=== PATIENT | male | born 1965 | race African-American/Black ===

== ENCOUNTER 2022-07-28 10:48 | Outpatient (REF) | payer OTHER, SELFPAY ==
[2022-07-28 11:04] LABS: MANUAL DIFF FLAG NO
[2022-07-28 11:47] LABS: Basophils Percent Auto 0.7 % (0-2); Hematocrit 46.5 % (42.0-52.0); Hemoglobin 15.6 g/dl (14.0-18.0); Lymphocytes Absolute Auto 1.6 X10*3/uL (1.2-4.9); Lymphocytes Percent Auto 51.2 % (20-40); Mean Corpuscular HGB Conc 33.5 g/dl (31.0-36.0); Mean Corpuscular Hemoglobin 30.8 pg (27.0-33.0); Mean Corpuscular Volume 91.7 fL (80.0-98.0); Mean Platelet Volume 9.9 fL (9.4-12.4); Monocytes Absolute Auto 0.2 X10*3/uL (0.1-1.2); Monocytes Percent Auto 6.9 % (2-11); Neutrophils Absolute Auto 1.2 x10*3/uL (2.0-8.3); Neutrophils Percent Auto 40.2 % (45-73); Platelet Count 196 X10*3/uL (160-400); Red Blood Count 5.07 X10*6/uL (4.60-5.80); Red Cell Distribution Width 12.1 % (11.0-16.0)
[2022-07-28 12:57] LABS: Alanine Aminotransferase 46 U/L (0-40); Albumin Level 4.2 g/dL (3.5-5.0); Alkaline Phosphatase 81 U/L (39-117); Anion Gap 10 (12-20); Aspartate Amino Transferase 48 U/L (5-37); Bilirubin Total 0.6 mg/dL (0.0-1.0); Blood Urea Nitrogen 13 mg/dL (9-16); Calcium 9.8 mg/dL (8.4-10.2); Carbon Dioxide 31 mmol/L (22-29); Chloride 102 mmol/L (96-108); Cholesterol 232 mg/dL; Estimated Glomerular Filt Rate > 60; Glucose Fasting 100 mg/dL (60-99); HDL Cholesterol 43 mg/dL; LDL Cholesterol Calculated 166 mg/dl; Potassium 4.5 mmol/L (3.3-5.1); Sodium 138 mmol/L (135-145); Total Protein 6.9 g/dL (6.5-8.0); Triglycerides 117 mg/dL
[2022-07-28 13:08] LABS: Folate > 20.0 ng/mL (> or = 4.0); Vitamin B12 511 pg/mL (200-900)
[2022-07-28 13:17] LABS: Prostate Specific Antigen Scr 0.66 ng/mL (<0.05-4.0); TSH reflex Free T4 1.44 uIU/mL (0.32-4.0); Vitamin D 25-OH Total 38.7 ng/mL (>30)
[2022-08-02 10:13] LABS: Vitamin B1 132 nmol/L (8-30)
== END 2022-07-28 10:49 | disposition home or self-care (01) ==
LOC: HO.LAB 10:48
PROVIDERS: PCP Internal Medicine; Visit Provider Internal Medicine
DX: Z00.00 Encounter for general adult medical examination without abnormal findings (principal); D68.00 Von Willebrand disease, unspecified; E78.00 Pure hypercholesterolemia, unspecified; F10.21 Alcohol dependence, in remission; E53.8 Deficiency of other specified B group vitamins; E55.9 Vitamin D deficiency, unspecified
CPT/HCPCS: 36415; 80053; 80061; 82306; 82607; 82746; 84153; 84425; 84443; 85025

== ENCOUNTER 2022-07-29 09:42 | Outpatient (REF) | payer OTHER, SELFPAY ==
[2022-07-29 09:56] LABS: Appearance Urine Clear; Color Urine Yellow; Glucose Urine UA Negative (Negative); Leukocyte Esterase Urine Negative (Negative); Nitrite Urine Negative (Negative); Specific Gravity - Urine 1.015 (1.005-1.025); Urine Blood Negative (Negative); Urine Ketones Negative (Negative); Urine Protein Negative (Neg-Trace)
== END 2022-07-29 09:43 | disposition home or self-care (01) ==
LOC: HO.LNP 09:42
PROVIDERS: Visit Provider Internal Medicine
DX: R30.0 Dysuria (principal); D68.00 Von Willebrand disease, unspecified
CPT/HCPCS: 81003

== ENCOUNTER → 2022-10-08 09:00 | Outpatient (BNVA) | payer OTHER, SELFPAY | PROVIDERS: PCP Internal Medicine; Visit Provider Physician Assistant | DX: Z01.818 Encounter for other preprocedural examination (principal); D68.00 Von Willebrand disease, unspecified; Z86.010 Personal history of colon polyps | CPT/HCPCS: 99202 ==

== ENCOUNTER 2023-01-19 07:12 | Day surgery (SDC) | payer OTHER, SELFPAY ==
[2023-01-15 12:36] VITALS: BMI 21.5
--- NOTE | 2023-01-18 09:33 | HO.ANESPROP2 ---
Documented by User: Greer Franco NP 01/18/23 09:35 HPI - Anesthesia Eval Consult details Narrative: 57yo M for Colonoscopy Hx ETOH abuse. In recovery PMFSH Active Problems Active Problems: All Active Problems (Updated 11/17/22 @ 09:45 by Matthieu Egan MD) Pure hypercholesterolemia (Acute) Thiamine deficiency (Acute) History of colon polyps (Acute) Colon cancer screening (Acute) Low back pain (Acute) Vitamin D deficiency (Acute) Psychosis (Acute) Bipolar affective disorder (Acute) Alcoholism in recovery (Acute) Annual physical exam (Acute) Von Willebrand disease (Acute) Past Medical History Medical History Alcoholism in recovery Bipolar affective disorder Low back pain Psychosis Pure hypercholesterolemia Thiamine deficiency Vitamin D deficiency Von Willebrand disease Surgical History Surgical History H/O colonoscopy with polypectomy History of inguinal hernia repair, bilateral Hx of local excision of skin lesion Social History Social History Housing: Other ([facility]) Patient Tobacco Use Status: Never used Tobacco e-Cigarette/Vaping Use: Never Used Use of substances other than those prescribed or required for medical reasons: No Are you DNR?: No Advance Directives: No Advance Directives Information Provided: Yes service: No Current occupational status: unemployed Cognitive needs: No Hearing needs: No Vision needs: No Meds Allergies Allergy/AdvReac Type Severity Reaction Status Date / Time No Known Allergies Allergy Verified 11/17/22 09:25 Home Medications Medication Instructions Recorded Confirmed Last Taken Type acetaminophen 650 mg 650 mg PO Q8H PRN pain 07/24/22 11/17/22 Unknown History tablet,extended release acetaminophen 650 mg 650 mg PO Q12H 07/24/22 11/17/22 Unknown History tablet,extended release (Tylenol Arthritis Pain) benztropine 0.5 mg tablet 0.5 mg PO BEDTIME 07/24/22 11/17/22 Unknown History bupropion HCl 150 mg tablet,12 hr 150 mg PO QAM 07/24/22 11/17/22 Unknown History sustained-release cholecalciferol (vitamin D3) 25 25 mcg PO DAILY 07/24/22 11/17/22 Unknown History mcg (1,000 unit) tablet (Vitamin D3) diclofenac sodium 1 % topical gel g topical QID PRN pain 07/24/22 11/17/22 Unknown History diphenhydramine HCl 25 mg capsule See Rx Instructions .Route .COMPLEX 07/24/22 11/17/22 Unknown History (Banophen) folic acid 1 mg tablet 1 mg PO DAILY 07/24/22 11/17/22 Unknown History guaifenesin 200 mg/5 mL oral liquid 400 mg PO Q6H 07/24/22 11/17/22 Unknown History naloxone 4 mg/actuation nasal spray spray intranasal 07/24/22 11/17/22 Unknown History risperidone 0.5 mg tablet 1.5 mg PO BEDTIME psychosis 07/24/22 11/17/22 Unknown History thiamine HCl (vitamin B1) 100 mg 100 mg PO DAILY 07/24/22 11/17/22 Unknown History tablet thiamine mononitrate (vit B1) 100 100 mg PO DAILY 07/24/22 11/17/22 Unknown History mg tablet (Vitamin B-1 (mononitrate)) risperidone 1 mg tablet 1 mg PO BID PRN psychosis 11/23/22 11/23/22 Unknown History Exam Exam Date and Time: January 18, 2023 0933 Height,Weight and Vital Signs: Height 6 ft 1 in Weight 74.049 kg Pertinent Lab Results Pertinent Lab Results: Laboratory Tests 07/28/22 07/28/22 11:03 11:03 WBC 3.0 L Hgb 15.6 Hct 46.5 Plt Count 196 Sodium 138 Potassium 4.5 Chloride 102 Carbon Dioxide 31 H BUN 13 Creatinine 1.04 Assessment and Plan Assessment Anesthesia Assessment: Chart Reviewed Documented by User: Jaylin Hawkins MD 01/19/23 07:55 [facility] Past Medical History Medical History Alcoholism in recovery Bipolar affective disorder Low back pain Psychosis Pure hypercholesterolemia Thiamine deficiency Vitamin D deficiency Von Willebrand disease Family History Family history of problems with anesthesia: No Surgical History Surgical History H/O colonoscopy with polypectomy History of inguinal hernia repair, bilateral Hx of local excision of skin lesion History of Problems with Anesthesia: No Social History Social History Housing: Other ([facility]) Patient Tobacco Use Status: Never used Tobacco e-Cigarette/Vaping Use: Never Used Use of substances other than those prescribed or required for medical reasons: No Are you DNR?: No Advance Directives: No Advance Directives Information Provided: Yes service: No Current occupational status: unemployed Cognitive needs: No Hearing needs: No Vision needs: No Meds Allergies Allergy/AdvReac Type Severity Reaction Status Date / Time No Known Allergies Allergy Verified 11/17/22 09:25 Home Medications Medication Instructions Recorded Confirmed Last Taken Type acetaminophen 650 mg 650 mg PO Q8H PRN pain 07/24/22 11/17/22 Unknown History tablet,extended release acetaminophen 650 mg 650 mg PO Q12H 07/24/22 11/17/22 Unknown History tablet,extended release (Tylenol Arthritis Pain) benztropine 0.5 mg tablet 0.5 mg PO BEDTIME 07/24/22 11/17/22 Unknown History bupropion HCl 150 mg tablet,12 hr 150 mg PO QAM 07/24/22 11/17/22 Unknown History sustained-release cholecalciferol (vitamin D3) 25 25 mcg PO DAILY 07/24/22 11/17/22 Unknown History mcg (1,000 unit) tablet (Vitamin D3) diclofenac sodium 1 % topical gel g topical QID PRN pain 07/24/22 11/17/22 Unknown History diphenhydramine HCl 25 mg capsule See Rx Instructions .Route .COMPLEX 07/24/22 11/17/22 Unknown History (Banophen) folic acid 1 mg tablet 1 mg PO DAILY 07/24/22 11/17/22 Unknown History guaifenesin 200 mg/5 mL oral liquid 400 mg PO Q6H 07/24/22 11/17/22 Unknown History naloxone 4 mg/actuation nasal spray spray intranasal 07/24/22 11/17/22 Unknown History risperidone 0.5 mg tablet 1.5 mg PO BEDTIME psychosis 07/24/22 11/17/22 Unknown History thiamine HCl (vitamin B1) 100 mg 100 mg PO DAILY 07/24/22 11/17/22 Unknown History tablet thiamine mononitrate (vit B1) 100 100 mg PO DAILY 07/24/22 11/17/22 Unknown History mg tablet (Vitamin B-1 (mononitrate)) risperidone 1 mg tablet 1 mg PO BID PRN psychosis 11/23/22 11/23/22 Unknown History Exam Airway Mallampati Class: III TM Dist: >3cm Neck ROM: Full Assessment and Plan Assessment Anesthesia Assessment: Anesthesia Plan Discussed Final Anesthetic Review Family History of Problems with Anesthesia: No History of Problems with Anesthesia: No NPO: Yes ASA Class: II Final Preanesthetic Review: No Changes in Pt Med Stat, Meds/Allgs Chart Reviewed, Consent Obtained/Reviewed and Anes Risks/Benef Reviewed Patient Risk: Low Procedure Risk: Low Anesthetic Plan Anesthetic Plan: MAC: Disposition: Standard PACU
[2023-01-19 07:26] VITALS: BP 116/81; PULSE 74; RESP 16; TEMP 36.2; O2SAT 98
--- NOTE | 2023-01-19 07:35 | MHC.SHP ---
Pre-Procedural Eval Section A Date of Service: 01/19/23 Section B Chief Complaint: Von Willebrand disease,screening, hx colonic polyp Relevant Family History (Specify if Yes): No Relevant Social History: None Present Medications: see Short Stay Collaborative assessment Medical History: Significant History (Alcoholism in recovery Bipolar affective disorder Low back pain Psychosis Pure hypercholesterolemia Thiamine deficiency Vitamin D deficiency Von Willebrand disease) History of Previous Operations: Relevant previous surgery/procedure and date(s) (H/O colonoscopy with polypectomy History of inguinal hernia repair, bilateral Hx of local excision of skin lesion) Allergies: Allergies Allergy/AdvReac Type Severity Reaction Status Date / Time No Known Allergies Allergy Verified 11/17/22 09:25 Review of Systems Sugical H&P ROS: Negative: Constitution, Cardiovascular, Respiratory, Neurological, Psychiatric, Hem-Onc, Allergic/Immunologic, Gastrointestinal, Genitourinary, Musculoskeletal, Integumentary, Endocrine and Eyes/Ears/Nose/Throat Exam Surgical H&P Exam: Normal: HEENT, Normal: Heart, Normal: Lungs, Normal: Extremities, Normal: Abdomen, Normal: Skin and Normal: Neurological Plan Diagnosis/Plan: Unchanged I have reviewed the history and physical and performed a pertinent physical examination on my patient. No changes have occurred unless specified. Time Spent With Patient Time: Total time managing care of this patient today ____ minutes.
[2023-01-19] MEDS: Lactated Ringers 1,000 ML 100 ML IVCONT (07:58)
--- NOTE | 2023-01-19 08:05 | P.OP_ITS ---
Operative Note Operative Note Date of Service: 01/19/23 Narrative: Operative Information Procedure Description: Colonoscopy Indication: screening Anesthesia: MAC COLONOSCOPY Instrument: Olympus variable stiffness pediatric scope 190L Colonoscopy Monitoring: Vital signs and clinical assessment, continuous EKG monitoring, Pulse oximetry, Carbon Dioxide monitoring and blood pressure monitoring were done throughout the procedure. Colon withdrawal time was 8 minutes. Procedure: The patient was placed in the left lateral decubitis position and pre-procedure medications were administered. After a digital rectal examination of the ano-rectum, the video colonoscope was inserted into the rectum and advanced through the colon to the cecum/TI. The colonoscope was slowly withdrawn in a retrograde panoramic fashion and the colon mucosa was carefully examined including a retroflexed view of the rectum. Findings and interventions are described below. Procedure Difficulty: difficult, due to floppy colon Findings: Terminal Ileum- over ileocecal valve there was an abnormally protuberant area, with concern for an adenoma, this was removed with hot snare- measured about 8- 10 mm Cecum:normal Ascending Colon: normal Transverse Colon -normal Descending Colon:normal Sigmoid Colon: normal Rectum: Retroflexion with small internal hemorrhoids, grade I Anorectum - normal Colon preparation: Dunlap Bowel Preparation Scale Right colon; 2 Transverse colon: 2 Left colon; 2 (0 = Unprepared colon segment with mucosa not seen due to solid stool that cannot be cleared. 1 = Portion of mucosa of the colon segment seen, but other areas of the colon segment not well seen due to staining, residual stool and/or opaque liquid. 2 = Minor amount of residual staining, small fragments of stool and/or opaque liquid, but mucosa of colon segment seen well. 3 = Entire mucosa of colon segment seen well with no residual staining, small fragments of stool or opaque liquid) Impression and Post Procedure Diagnosis: polyp internal hemorrhoids Plan: High fiber diet leaflet Avoid straining at stool, epsom salts and sitz bath, anusol supps or cream Repeat Colonoscopy in 5-7 years due to polyp or earlier if clinically indicated Above findings were reviewed with the patient and relevant handouts were provided if indicated.
[2023-01-19 08:58] VITALS: BP 160/62; PULSE 84; RESP 17; TEMP 36.2; O2SAT 99
[2023-01-19 09:13] VITALS: BP 131/89; PULSE 75; RESP 16; TEMP 36.3; O2SAT 100
== END 2023-01-19 10:01 | disposition home or self-care (01) ==
PROVIDERS: PCP Internal Medicine; Visit Provider Internal Medicine Gastroenterology
PROC: 0DJD8ZZ Inspection of Lower Intestinal Tract, Via Natural or Artificial Opening Endoscopic (ICD-10-PCS; CPT 45378; principal; 2023-01-19 08:20)
DX: Z12.11 Encounter for screening for malignant neoplasm of colon (principal); Z86.010 Personal history of colon polyps; K63.5 Polyp of colon; K59.00 Constipation, unspecified; D68.00 Von Willebrand disease, unspecified; Z79.899 Other long term (current) drug therapy; K64.1 Second degree hemorrhoids
CPT/HCPCS: 45385; 88305

== ENCOUNTER → 2023-02-01 07:54 | Outpatient (BNVA) | payer OTHER, SELFPAY | PROVIDERS: Visit Provider Physician Assistant | DX: K64.9 Unspecified hemorrhoids (principal); Z86.010 Personal history of colon polyps | CPT/HCPCS: 99212 ==

== ENCOUNTER 2023-03-22 10:55 | Outpatient (REF) | payer OTHER, SELFPAY ==
--- NOTE | 2023-03-22 11:55 | MHC.AU.HA1 ---
Hearing Aid Evaluation Date of Visit: 03/22/23 Historical Information: Description of Hearing: Moderate sloping to moderately-severe rising to moderate conductive hearing loss in the right ear; Normal hearing left ear Summary: Roland reported that he has had hearing loss in his right ear for as long as he can remember. He is unsure of the exact etiology. However, about 1.5 months ago, he had a pressure equalization tube placed at that [facility]. PE tube placement had no effect on his hearing. Roland reported that he relies on his left ear and has difficulty hearing in all listening environments. He currently lives in a sober house through . He has common spaces including the kitchen and living room. He often has difficulty communicating with his housemates if it is noisy or there is a group of people. He has never had a hearing aid but is hoping it will help ease some of his communication difficulties. Hearing Aid Prescription: Based on the individual?s shared listening needs, communication environments, dexterity, desire for connectivity, and personal preferences, the following prescription for amplification has been made: Right ear: Make, Model, Color: Phonak Audeo L70-R Color: [place] Brown Battery Size: Rechargeable Technology Analyst/Slim Tube: 1P Type of Earmold/Dome/CShell/SlimTip: Canal c-shell in clear Plan of Care: Patient wishes to purchase hearing aids as prescribed Action Taken/Action Needed: Hearing Instrument Fitting to be scheduled when materials arrive Primary Diagnosis: H90.11 ConductiveHL Unilateral Right Ear, W/Unrestricted Contralateral Signature: Provider: Marisa Lambert, [facility]
== END 2023-03-22 10:56 | disposition home or self-care (01) ==
LOC: HO.HAP 10:55
PROVIDERS: Visit Provider Otolaryngology
DX: Z46.1 Encounter for fitting and adjustment of hearing aid (principal); H90.11 Conductive hearing loss, unilateral, right ear, with unrestricted hearing on the contralateral side
CPT/HCPCS: 92591; V5275

== ENCOUNTER 2023-05-13 12:44 | Outpatient (REF) | payer OTHER, SELFPAY ==
--- NOTE | 2023-05-13 13:37 | MHC.AU.HA2 ---
Hearing Instrument Fitting- Adult- Binaural Date of Visit: 05/13/23 Hearing Instruments Dispensed: Right Ear: Make, Model, Color, Serial Number: Steffanie Matias L70-R S#[id number] Color: Burt Brown Manager Payroll Repair Warranty: 06/28/2026 Manager Payroll Loss and Damage Warranty: 06/28/2026 [facility] Service Plan: 05/10/2023 Battery Size: Rechargeable Infrastructure Security Architect/Slim Tube: 1P Earmold/Dome/CShell/SlimTip: Canal c-shell in clear SN: [id number] Ronna: 06/29/2023 Type of Wax Guard: Cerustop Accessories/Assistive Technology: Emergency Vehicle Technician SN: [id number] Summary of Fitting: Performed feedback analyzer and real ear measures. Decreased gain level to 85% at Edzer's request due to perceived loudness. Discussed care, use, and rechargeability including manually turning on/off, volume control use, and changing wax guard. Practiced insertion/removal. Roland was easily able to manipulate the hearing aid. He did not want to pair the hearing aid to his cell phone at this time. Recommendations: A hearing instrument follow-up was scheduled. Diagnosis Code(s): Primary Diagnosis: H90.11 ConductiveHL Unilateral Right Ear, W/Unrestricted Contralateral Signature: Provider: Marisa Lambert, [facility]
== END 2023-05-13 12:45 | disposition home or self-care (01) ==
LOC: HO.HAP 12:44
PROVIDERS: Visit Provider Internal Medicine
DX: Z46.1 Encounter for fitting and adjustment of hearing aid (principal); H90.11 Conductive hearing loss, unilateral, right ear, with unrestricted hearing on the contralateral side
CPT/HCPCS: V5011; V5020; V5241; V5257; V5264

== ENCOUNTER 2023-05-18 09:34 | Outpatient (AMB) | payer OTHER, SELFPAY ==
[2023-05-18 09:46] VITALS: BP 122/82; PULSE 77; O2SAT 98; BMI 21.6
--- NOTE | 2023-05-18 09:46 | A.OFFPC_ITS ---
Vital Signs 05/18/23 09:46 Height 6 ft 1 in Weight 163 lb 6 oz BMI 21.6 BP 122/82 Blood Pressure Location Lt brachial Position Sitting Pulse 77 Pulse Source Pulse Oximeter Pulse Oximetry (%) 98 Oxygen Delivery Method Room Air Intake Visit Reasons: hyperlipidemia Product Management Internship Required: No Accompanied by: Self / Same As Patient Allergies No Known Allergies Allergy (Verified 05/18/23 10:28) Medication List - Last Reconciled 05/18/23 by Matthieu Egan MD acetaminophen 1 to 2 tablets orally every 6 hours PRN (maximum of 2000 mg of Acetaminophen/day) 30 days benztropine 0.5 mg PO BEDTIME bupropion HCl 150 mg PO QAM cholecalciferol (vitamin D3) (Vitamin D3) 25 mcg PO DAILY diclofenac sodium 1% 2 grams topical QID PRN diphenhydramine HCl (Banophen) 1 to 2 capsules daily at bedtime as needed for sleep; methylcellulose (laxative) (Citrucel) 500 mg PO TID 30 days naloxone 4 mg/actuation sprays intranasal thiamine HCl (vitamin B1) 100 mg PO DAILY thiamine mononitrate (vit B1) (Vitamin B-1 (mononitrate)) 100 mg PO DAILY ziprasidone HCl (Geodon) 20 mg PO .QD Tobacco use date assessed: 05/18/23 Dental Screening Dental Screen Date: 05/18/23 Did you have a dental visit in the last 12 months?: Yes Did you have a dental problem in the last 6 months where you did not have access to dental care?: No Was dental information given to patient?: Patient has dentist HPI hyperlipidemia HPI Details Patient comes in today for his follow up visit States that he has been experiencing on and off neck pain and low back pain for a while now He would take Tylenol and use his Diclofenac gel when needed and states that these have been enough to keep his neck and back pain controlled so far States that he is still in a recovery program for alcoholics and has not had any alcohol to drink for a few years now States that he feels okay otherwise He denies any headaches or dizziness Denies any chest pains, no SOB No nausea/vomiting, no abdominal pain No change in bowel habits noted PFSH Medical History Pure hypercholesterolemia Thiamine deficiency Low back pain Vitamin D deficiency Psychosis Bipolar affective disorder Alcoholism in recovery Von Willebrand disease Surgical History H/O colonoscopy with polypectomy Hx of local excision of skin lesion History of inguinal hernia repair, bilateral Social History Housing: Other ([facility]) Patient Tobacco Use Status: Never used Tobacco e-Cigarette/Vaping Use: Never Used service: No Current occupational status: unemployed Cognitive needs: No Hearing needs: No Vision needs: No Questionnaire PHQ-9 Over the last 2 weeks, how often have you been bothered by any of the following problems? 1. Little interest or pleasure in doing things: more than half the days 2. Feeling down, depressed, or hopeless: more than half the days 3. Trouble falling or staying asleep, or sleeping too much: several days 4. Feeling tired or having little energy: several days 5. Poor appetite or overeating: not at all 6. Feeling bad about yourself - or that you are a failure or have let yourself or your family down: several days 7. Trouble concentrating on things, such as reading the newspaper or watching television: nearly every day 8. Moving or speaking so slowly that other people could have noticed. Or the opposite - being so fidgety or restless that you have been moving around a lot more than usual: several days 9. Thoughts that you would be better off or of hurting yourself in some way: not at all Total score: 11 Depression Screening Interpretation: Positive Depression Screening Follow-up: Existing condition and In treatment Depression Screening Done: Yes 20983 - PHQ-9 Billing: Yes Source: Developed by Drs. Omero Walsh, Kathleen Callejas, Paco Quezada and colleagues, with an educational brice from [employer]. Thrive Questionnaire Date Thrive assessed: 05/18/23 I am a: Patient What is your living situation today?: I have a steady place to live Within the past 12 months, did the food you bought not last and you didn't have the money to get more?: Never true Within the past 12 months, did you worry whether your food would run out before you got money to buy more?: Never true Do you have trouble paying for medicines?: No Do you have trouble getting transportation to medical appointments?: No Do you have trouble paying your heating and electricity bill?: No Do you have trouble taking care of your child, family member or friend?: No Do you have trouble with day-to-day activities such as bathing, preparing meals, shopping, managing finances, etc.?: No Are you currently unemployed and looking for a job?: No Are you interested in more education?: No Please select the resources that you would like help with: None Currently or been in a relationship where the following occur: no concerns reported AUDIT C Alcohol Use Questionnaire (AUDIT-C) 1. How often do you have a drink containing alcohol?: Never (since he quit drinking; currently in recovery) 3. How often do you have six or more drinks on one occasion?: Never Total Score: 0 Score Reviewed/Action Taken: Yes LALI-7 AMB Questionnaire LALI-7 Date LALI - 7 assessed: 05/18/23 Feeling nervous, anxious, or on edge: 2 = More than half the days Not being able to stop or control worryin = Several days Worrying too much about different things: 1 = Several days Trouble relaxin = Several days Being so restless that it is hard to sit still: 1 = Several days Becoming easily annoyed or irritable: 0 = Not at all Feeling afraid as if something awful might happen: 1 = Several days Total LALI-7 score (0-4 normal; 5-9 mild; 10-14 moderate; 15-21 severe): 7 Source: Developed by Drs. Omero Walsh, Kathleen Callejas, Paco Quezada and colleagues, with an educational brice from [employer]. LALI-7 Assessment Billing LALI-7 Assessment Tool: LALI-7 Assessment 25289 Review of Systems Const Denies chills, Denies fatigue, Denies fever(s) and Denies headache(s) ENT Denies dysphagia, Denies dizziness, Denies otalgia, Denies headache(s), Reports neck pain (on and off lately), Denies odynophagia and Denies sore throat Card Denies chest pain, Denies rapid heart rate, Denies irregular heart rhythm, Denies palpitations and Denies dyspnea Resp Denies cough, Denies dyspnea and Denies wheezing GI Denies abdominal pain, Denies constipation, Denies dysphagia, Denies heartburn, Denies diarrhea, Denies nausea, Denies odynophagia and Denies vomiting Denies hematuria, Denies difficulty urinating, Denies dysuria and Denies urinary frequency Musc Reports back pain (on and off), Denies joint swelling and Reports neck pain (on and off lately) Skin/Breast Denies rash Neuro Denies dizziness, Denies headache(s) and Denies paresthesias Psych Reports anxiety, Reports depression (controlled on Rx) and Reports paranoia (believes that there are people with guns after him (in the past)) Endo Denies fatigue and Denies palpitations Aller/Immun Denies wheezing Physical exam (Primary Care) Vital Signs: Last Vital Signs Pulse 77 05/18/23 09:46 BP 122/82 05/18/23 09:46 Pulse Ox 98 05/18/23 09:46 Oxygen Delivery Method Room Air 05/18/23 09:46 BMI result Body Mass Index 21.6 Tobacco/Smoking Status: Tobacco use Status Tobacco use date assessed 05/18/23 05/18/23 09:53 Patient Tobacco Use Status Never used Tobacco 05/18/23 09:53 e-Cigarette/Vaping Use Never Used 05/18/23 09:53 PHQ-9: PHQ-9 Score PHQ-9: Total score 11 05/18/23 09:53 Depression Screening Interpretation: Positive Depression Screening Follow-up: Existing condition and In treatment Thrive Assessment: Date of Thrive Assessment Date Thrive assessed 05/18/23 05/18/23 09:53 Currently or been in a relationship where the following occur: no concerns reported Const General: no acute distress and alert HENMT Ears: TM's normal bilaterally and EAC's normal Throat: Yes posterior oropharynx normal and Yes tonsils normal (no TP congestion) Neck Neck: Yes no lymphadenopathy and Yes supple Thyroid: Thyroid normal Resp Auscultation: clear to auscultation bilaterally, no rales and no wheezes Cardio Rate: regular rate Rhythm: regular rhythm Heart sounds: no murmurs GI Palpation (GI): Soft to palpation and nontender Auscultation: normal bowel sounds General: Yes no CVA tenderness Back/Spine/Pelvis Back: no CVA tenderness Cervical Spine: Cervical spine tenderness Thoracic/Lumbar Spine: lumbar spinal tenderness Skin Rashes: no rashes Extrem General: Yes no clubbing, cyanosis or edema Assessment and Plan Assessment & Plan (1) Pure hypercholesterolemia: Code(s): E78.00 - Pure hypercholesterolemia, unspecified Plan: Patient is reminded that his cholesterol levels were high when they were checked earlier this year in July 2022, with his LDL cholesterol at 166 mg/dl Reinforced low cholesterol diet Will have patient recheck his cholesterol levels and labs in 3 months for follow up - instructed to try to get these done BEFORE he comes in for his appointment then (2) Von Willebrand disease: Code(s): D68.00 - Von Willebrand disease, unspecified Plan: States that he's had no issues with bleeding lately Have tried to obtain copies of his medical records from [place] for review but have not been successful so far Will go ahead and send him for some labs in 3 months to check this out as well (3) Low back pain: Code(s): M54.50 - Low back pain, unspecified Qualifiers: Chronicity: unspecified Back pain laterality: unspecified Sciatica presence: without sciatica Qualified Code(s): M54.50 - Low back pain, unspecified Plan: Continue Diclofenac sodium 1% apply to painful areas QID PRN and Acetaminophen 325 mg 1 to 2 tablets Q 8 hours PRN Will send patient for lumbar spine x-rays for further evaluation - advised that unless his symptoms get significantly worse, he can do these at any time (now or in 3 months if he wants to get both his labs and x-rays done at the same time) (4) Vitamin D deficiency: Code(s): E55.9 - Vitamin D deficiency, unspecified Plan: Continue Vitamin D3 1000 units QD (5) Neck pain: Code(s): M54.2 - Cervicalgia Plan: Will also send patient for cervical spine x-rays at any time for further evaluation of his recent recurrent neck pain (6) Thiamine deficiency: Code(s): E51.9 - Thiamine deficiency, unspecified Plan: Continue Thiamine 100 mg QD Will recheck his Vitamin B1 level in 3 months for follow up (7) Alcoholism in recovery: Code(s): F10.21 - Alcohol dependence, in remission Plan: In recovery; is currently enrolled and participating in the [facility] program in [place] Continue Thiamine 100 mg QD and Folic Acid 1 mg QD (8) Bipolar affective disorder: Code(s): F31.9 - Bipolar disorder, unspecified Qualifiers: Active/Remission status: currently active Current bipolar episode type: mixed Current episode severity: unspecified Qualified Code(s): F31.60 - Bipolar disorder, current episode mixed, unspecified Plan: He has suffered from some paranoia in the past - believed then that there were several people with guns who are constantly after him Continue Bupropion ER 150 mg Q AM, Benztropine 0.5 mg Q HS and Diphenhydramine 25 mg 1 to 2 tablets Q HS Was on Risperidone 1.5 mg Q HS and Risperidone 1 mg BID in the daytime PRN in the past but these have been changed by psychiatry recently to Geodon 20 mg QD Follow up with psychiatry as scheduled Plan To return in 3 months for his annual physical examination Orders: Orders XR cervical spine 3V 3 Months M54.2 - Cervicalgia Lipid Panel 3 Months E78.00 - Pure hypercholesterolemia, unspecified, Z00.00 - Encounter for general adult medical examination without abnormal findings Hemoglobin A1c 3 Months R73.01 - Impaired fasting glucose, Z00.00 - Encounter for general adult medical examination without abnormal findings TSH reflex Free T4 3 Months E78.00 - Pure hypercholesterolemia, unspecified, Z00.00 - Encounter for general adult medical examination without abnormal findings Vitamin D 25-OH Total 3 Months E55.9 - Vitamin D deficiency, unspecified, Z00.00 - Encounter for general adult medical examination without abnormal findings von Willebrand Comp. Profile 3 Months D68.00 - Von Willebrand disease, unspeci fied Vitamin B1 3 Months E51.9 - Thiamine deficiency, unspecified XR lumbar spine 2-3V 3 Months M54.50 - Low back pain, unspecified Complete Blood Count Auto Diff 3 Months D68.00 - Von Willebrand disease, unspecified, F31.9 - Bipolar disorder, unspecified, Z00.00 - Encounter for general adult medical examination without abnormal findings Comprehensive [place]. Panel Fast 3 Months E78.00 - Pure hypercholesterolemia, unspecified, Z00.00 - Encounter for general adult medical examination without abnormal findings Prostate Specific Antigen Scr 3 Months Z00.00 - Encounter for general adult medical examination without abnormal findings Vitamin B12 and Folate 3 Months E53.8 - Deficiency of other specified B group vitamins, Z00.00 - Encounter for general adult medical examination without abnormal findings UA CC w/rflx Micro + Cult 3 Months R30.0 - Dysuria, Z00.00 - Encounter for general adult medical examination without abnormal findings Coding Level of Care Code Est Pt Level 4 (25905) Diagnoses Pure hypercholesterolemia E78.00 Von Willebrand disease D68.00 Low back pain without sciatica, unspecified back pain laterality, unspecified chronicity M54.50 Chronicity: unspecified Back pain laterality: unspecified Sciatica presence: without sciatica Vitamin D deficiency E55.9 Neck pain M54.2 Thiamine deficiency E51.9 Alcoholism in recovery F10.21 Bipolar affective disorder, current episode mixed, current episode severity unspecified F31.60 Active/Remission status: currently active Current bipolar episode type: mixed Current episode severity: unspecified Additional Codes LALI-7 Assessment Billing - LALI-7 Assessment Tool: LALI-7 Assessment 70598 ([id number])
== END 2023-05-18 10:38 | disposition home or self-care (01) ==
PROVIDERS: Visit Provider Internal Medicine
DX: E78.00 Pure hypercholesterolemia, unspecified (principal); D68.00 Von Willebrand disease, unspecified; F10.21 Alcohol dependence, in remission; F31.60 Bipolar disorder, current episode mixed, unspecified; E55.9 Vitamin D deficiency, unspecified
CPT/HCPCS: 96127; 99214

== ENCOUNTER 2023-05-25 11:03 | Outpatient (REF) | payer OTHER, SELFPAY | END 2023-05-25 11:04 | disposition home or self-care (01) | LOC: HO.HAP 11:03 | PROVIDERS: Visit Provider Internal Medicine | DX: Z13.89 Encounter for screening for other disorder (principal) ==

== ENCOUNTER 2023-08-18 08:46 | Outpatient (REF) | payer OTHER, SELFPAY ==
[2023-08-18 09:10] LABS: MANUAL DIFF FLAG NO
[2023-08-18 09:29] LABS: Estimated Average Glucose 108 mg/dL; Hemoglobin A1c % 5.4 % (<6.0)
[2023-08-18 09:37] LABS: Basophils Percent Auto 0.7 % (0-2); Hematocrit 47.4 % (42.0-52.0); Hemoglobin 15.9 g/dl (14.0-18.0); Lymphocytes Absolute Auto 1.5 X10*3/uL (1.2-4.9); Lymphocytes Percent Auto 50.7 % (20-40); Mean Corpuscular HGB Conc 33.5 g/dl (31.0-36.0); Mean Corpuscular Hemoglobin 30.6 pg (27.0-33.0); Mean Corpuscular Volume 91.2 fL (80.0-98.0); Mean Platelet Volume 9.8 fL (9.4-12.4); Monocytes Absolute Auto 0.2 X10*3/uL (0.1-1.2); Monocytes Percent Auto 6.6 % (2-11); Neutrophils Absolute Auto 1.3 x10*3/uL (2.0-8.3); Platelet Count 205 X10*3/uL (160-400); Red Cell Distribution Width 12.2 % (11.0-16.0)
[2023-08-18 10:15] LABS: Alanine Aminotransferase 45 U/L (0-40); Albumin Level 4.1 g/dL (3.5-5.0); Alkaline Phosphatase 68 U/L (39-117); Anion Gap 14 (12-20); Aspartate Amino Transferase 41 U/L (5-37); Bilirubin Total 0.7 mg/dL (0.0-1.0); Blood Urea Nitrogen 17 mg/dL (9-16); Calcium 9.4 mg/dL (8.4-10.2); Carbon Dioxide 29 mmol/L (22-29); Chloride 102 mmol/L (96-108); Cholesterol 183 mg/dL (<200); Estimated Glomerular Filt Rate > 60; Glucose Fasting 102 mg/dL (60-99); HDL Cholesterol 48 mg/dL (>40); LDL Cholesterol Calculated 115 mg/dL (<100); Potassium 4.5 mmol/L (3.3-5.1); Sodium 140 mmol/L (135-145); Triglycerides 103 mg/dL (<150)
[2023-08-18 10:31] LABS: TSH reflex Free T4 1.19 uIU/mL (0.32-4.0); Vitamin D 25-OH Total 40.7 ng/mL (>30)
[2023-08-18 10:40] LABS: Folate 12.5 ng/mL (> or = 4.0); Prostate Specific Antigen Scr 0.81 ng/mL (<0.05-4.0); Vitamin B12 616 pg/mL (200-900)
[2023-08-23 15:18] LABS: Vitamin B1 178 nmol/L (8-30)
[2023-08-24 15:33] LABS: Factor VIII Activity Clotting 13 % normal (50-180); PTT, Activated 37 sec (23-32); Ristocetin Cofactor 60 % normal (42-200)
== END 2023-08-18 08:47 | disposition home or self-care (01) ==
LOC: HO.LAB 08:46
PROVIDERS: PCP Internal Medicine; Visit Provider Internal Medicine
DX: Z00.00 Encounter for general adult medical examination without abnormal findings (principal); E78.00 Pure hypercholesterolemia, unspecified; F31.9 Bipolar disorder, unspecified; D68.00 Von Willebrand disease, unspecified; R73.01 Impaired fasting glucose; E55.9 Vitamin D deficiency, unspecified; E51.9 Thiamine deficiency, unspecified; E53.8 Deficiency of other specified B group vitamins; M54.2 Cervicalgia; R30.0 Dysuria
CPT/HCPCS: 36415; 80053; 80061; 82306; 82607; 82746; 83036; 84153; 84425; 84443; 85025; 85240; 85245; 85246; 85247; 85730

== ENCOUNTER 2023-08-26 09:32 | Outpatient (AMB) | payer MEDICARE, OTHER, SELFPAY ==
[2023-08-26 09:34] VITALS: BP 122/88; PULSE 96; O2SAT 98; BMI 21.0
--- NOTE | 2023-08-26 09:34 | MHC.PC.OV ---
Vital Signs 08/26/23 09:34 Height 6 ft 1 in Weight 159 lb 6 oz BMI 21.0 BP 122/88 Blood Pressure Location Lt brachial Position Sitting Pulse 96 Pulse Source Pulse Oximeter Pulse Oximetry (%) 98 Oxygen Delivery Method Room Air Intake Visit Reasons: 3 month f/u Chain Link Fence Installer Required: No Accompanied by: Self / Same As Patient Allergies No Known Allergies Allergy (Verified 08/26/23 10:16) Medication List - Last Reconciled 08/26/23 by Matthieu Egan MD acetaminophen 1 to 2 tablets orally every 6 hours PRN (maximum of 2000 mg of Acetaminophen/day) 30 days benztropine 0.5 mg PO BEDTIME bupropion HCl 150 mg PO QAM cholecalciferol (vitamin D3) (Vitamin D3) 25 mcg PO DAILY diclofenac sodium 1% 2 grams topical QID PRN diphenhydramine HCl (Banophen) 1 to 2 capsules daily at bedtime as needed for sleep; methylcellulose (laxative) (Citrucel) 500 mg PO TID 30 days naloxone 4 mg/actuation sprays intranasal thiamine HCl (vitamin B1) 100 mg PO DAILY ziprasidone HCl (Geodon) 20 mg in AM and 40 mg in PM orally BID; give with food (meal/snack) Tobacco use date assessed: 08/26/23 Dental Screening Dental Screen Date: 08/26/23 Did you have a dental visit in the last 12 months?: Yes Did you have a dental problem in the last 6 months where you did not have access to dental care?: No Was dental information given to patient?: Patient has dentist HPI 3 month f/u HPI Details Patient comes in today for his follow up visit States that he was admitted to the psychiatry jacobsen at [facility] for about a month recently States that he currently feels okay He denies any headaches or dizziness Denies any chest pains, no SOB No nausea/vomiting, no abdominal pain No change in bowel habits noted States that he needs all of his Vitamin Rx refilled Had his follow up labs done last week - to discuss his results [facility] Medical History Pure hypercholesterolemia Thiamine deficiency Low back pain Vitamin D deficiency Psychosis Bipolar affective disorder Alcoholism in recovery Von Willebrand disease Surgical History H/O colonoscopy with polypectomy Hx of local excision of skin lesion History of inguinal hernia repair, bilateral Social History Housing: Other ([facility]) Patient Tobacco Use Status: Never used Tobacco e-Cigarette/Vaping Use: Never Used service: No Current occupational status: unemployed Cognitive needs: No Hearing needs: No Vision needs: No Questionnaire PHQ-9 Over the last 2 weeks, how often have you been bothered by any of the following problems? 1. Little interest or pleasure in doing things: more than half the days 2. Feeling down, depressed, or hopeless: more than half the days 3. Trouble falling or staying asleep, or sleeping too much: several days 4. Feeling tired or having little energy: several days 5. Poor appetite or overeating: not at all 6. Feeling bad about yourself - or that you are a failure or have let yourself or your family down: several days 7. Trouble concentrating on things, such as reading the newspaper or watching television: nearly every day 8. Moving or speaking so slowly that other people could have noticed. Or the opposite - being so fidgety or restless that you have been moving around a lot more than usual: several days 9. Thoughts that you would be better off or of hurting yourself in some way: not at all Total score: 11 Depression Screening Interpretation: Positive Depression Screening Follow-up: Existing condition and In treatment Depression Screening Done: Yes 68897 - PHQ-9 Billing: Yes Source: Developed by Drs. Omero Walsh, Kathleen Callejas, Paco Quezada and colleagues, with an educational brice from [employer]. Thrive Questionnaire Date Thrive assessed: 08/26/23 I am a: Patient What is your living situation today?: I have a steady place to live Within the past 12 months, did the food you bought not last and you didn't have the money to get more?: Never true Within the past 12 months, did you worry whether your food would run out before you got money to buy more?: Never true Do you have trouble paying for medicines?: No Do you have trouble getting transportation to medical appointments?: No Do you have trouble paying your heating and electricity bill?: No Do you have trouble taking care of your child, family member or friend?: No Do you have trouble with day-to-day activities such as bathing, preparing meals, shopping, managing finances, etc.?: No Are you currently unemployed and looking for a job?: No Are you interested in more education?: No Please select the resources that you would like help with: None Currently or been in a relationship where the following occur: no concerns reported THRIVE Score: 0 AUDIT C Alcohol Use Questionnaire (AUDIT-C) 1. How often do you have a drink containing alcohol?: Never (since he quit drinking; currently in recovery) 3. How often do you have six or more drinks on one occasion?: Never Total Score: 0 Score Reviewed/Action Taken: Yes LALI-7 AMB Questionnaire LALI-7 Date LALI - 7 assessed: 08/26/23 Feeling nervous, anxious, or on edge: 2 = More than half the days Not being able to stop or control worryin = Several days Worrying too much about different things: 1 = Several days Trouble relaxin = Several days Being so restless that it is hard to sit still: 1 = Several days Becoming easily annoyed or irritable: 0 = Not at all Feeling afraid as if something awful might happen: 1 = Several days Total LALI-7 score (0-4 normal; 5-9 mild; 10-14 moderate; 15-21 severe): 7 Source: Developed by Drs. Omero Walsh, Kathleen Callejas, Paco Quezada and colleagues, with an educational brice from [employer]. LALI-7 Assessment Billing LALI-7 Assessment Tool: LALI-7 Assessment 81510 Review of Systems Const Denies chills, Reports fatigue, Denies fever(s) and Denies headache(s) ENT Denies dysphagia, Denies dizziness, Denies otalgia, Denies headache(s), Reports neck pain (on and off), Denies odynophagia and Denies sore throat Card Denies chest pain, Denies rapid heart rate, Denies irregular heart rhythm, Denies palpitations and Denies dyspnea Resp Denies cough, Denies dyspnea and Denies wheezing GI Denies abdominal pain, Denies constipation, Denies dysphagia, Denies heartburn, Denies diarrhea, Denies nausea, Denies odynophagia and Denies vomiting Denies hematuria, Denies difficulty urinating, Denies dysuria and Denies urinary frequency Musc Reports back pain (on and off), Denies joint swelling and Reports neck pain (on and off) Skin/Breast Denies rash Neuro Denies dizziness, Denies headache(s) and Denies paresthesias Psych Reports anxiety, Reports depression (controlled on Rx) and Reports paranoia (believes that there are people with guns after him (in the past)) Endo Reports fatigue and Denies palpitations Aller/Immun Denies wheezing Physical exam (Primary Care) Vital Signs: Last Vital Signs Pulse 96 08/26/23 09:34 BP 122/88 08/26/23 09:34 Pulse Ox 98 08/26/23 09:34 Oxygen Delivery Method Room Air 08/26/23 09:34 BMI result Body Mass Index 21.0 Tobacco/Smoking Status: Tobacco use Status Tobacco use date assessed 08/26/23 08/26/23 09:36 Patient Tobacco Use Status Never used Tobacco 08/26/23 09:36 e-Cigarette/Vaping Use Never Used 08/26/23 09:36 PHQ-9: PHQ-9 Score PHQ-9: Total score 11 08/26/23 09:49 Depression Screening Interpretation: Positive Depression Screening Follow-up: Existing condition and In treatment Thrive Assessment: Date of Thrive Assessment Date Thrive assessed 08/26/23 08/26/23 09:36 Currently or been in a relationship where the following occur: no concerns reported Const General: no acute distress and alert HENMT Ears: TM's normal bilaterally and EAC's normal Throat: Yes posterior oropharynx normal and Yes tonsils normal (no TP congestion) Neck Neck: Yes no lymphadenopathy and Yes supple Thyroid: Thyroid normal Resp Auscultation: clear to auscultation bilaterally, no rales and no wheezes Cardio Rate: regular rate Rhythm: regular rhythm Heart sounds: no murmurs GI Palpation (GI): Soft to palpation and nontender Auscultation: normal bowel sounds General: Yes no CVA tenderness Back/Spine/Pelvis Back: no CVA tenderness Cervical Spine: Cervical spine tenderness Thoracic/Lumbar Spine: lumbar spinal tenderness Skin Rashes: no rashes Extrem General: Yes no clubbing, cyanosis or edema Results Reviewed Results Reviewed: Laboratory Tests 08/18/23 09:08 WBC 3.0 L Hgb 15.9 Hct 47.4 Plt Count 205 Sodium 140 Potassium 4.5 Creatinine 1.05 Estimated GFR > 60 Fasting Glucose 102 H Hemoglobin A1c % 5.4 Calcium 9.4 AST 41 H ALT 45 H Triglycerides 103 Cholesterol 183 LDL Cholesterol, Calc 115 H HDL Cholesterol 48 PSA Screen 0.81 Vitamin B1 178 H Vitamin B12 616 25-OH Vitamin D Total 40.7 Folate 12.5 TSH 1.19 Assessment and Plan Assessment & Plan (1) Pure hypercholesterolemia: Code(s): E78.00 - Pure hypercholesterolemia, unspecified Plan: Results of his labs done last week reviewed and discussed with patient - advised that his cholesterol numbers have improved significantly from a year ago Reinforced low cholesterol diet Will have patient recheck his labs and fasting lipids in mid October 2023 before he comes in for his annual physical examination then (2) Von Willebrand disease: Code(s): D68.00 - Von Willebrand disease, unspecified Plan: States that he's had no issues with bleeding lately We have tried to obtain copies of his medical records from [place] for review but have not been successful so far He was sent for labs to confirm this - his recent labs did show that he does have a prolonged aPTT level consistent with decreased Factor VIII activity but he has normal VWF Ag and activity levels and normal VWF multimeric study (3) Low back pain: Code(s): M54.50 - Low back pain, unspecified Qualifiers: Chronicity: unspecified Back pain laterality: unspecified Sciatica presence: without sciatica Qualified Code(s): M54.50 - Low back pain, unspecified Plan: Continue Diclofenac sodium 1% apply to painful areas QID PRN and Acetaminophen 325 mg 1 to 2 tablets Q 8 hours PRN He was sent for lumbar spine x-rays for further evaluation but he has not gotten these done yet - have advised patient that he can do these at any time when he wants to (4) Vitamin D deficiency: Code(s): E55.9 - Vitamin D deficiency, unspecified Plan: Continue Vitamin D3 1000 units QD (5) Neck pain: Code(s): M54.2 - Cervicalgia Plan: He was also sent for cervical spine x-rays at any time for further evaluation of his recent recurrent neck pain - has not yet gotten them done (6) Thiamine deficiency: Code(s): E51.9 - Thiamine deficiency, unspecified Plan: Continue Thiamine 100 mg QD (7) Alcoholism in recovery: Code(s): F10.21 - Alcohol dependence, in remission Plan: In recovery; is currently enrolled and participating in the [facility] program in [place] Continue Thiamine 100 mg QD and Folic Acid 1 mg QD (8) Bipolar affective disorder: Code(s): F31.9 - Bipolar disorder, unspecified Qualifiers: Active/Remission status: currently active Current bipolar episode type: mixed Current episode severity: unspecified Qualified Code(s): F31.60 - Bipolar disorder, current episode mixed, unspecified Plan: He has suffered from some paranoia in the past - believed then that there were several people with guns who are constantly after him Continue Bupropion ER 150 mg Q AM, Benztropine 0.5 mg Q HS and Diphenhydramine 25 mg 1 to 2 tablets Q HS Was on Risperidone 1.5 mg Q HS and Risperidone 1 mg BID in the daytime PRN in the past but these have been changed by psychiatry recently to Geodon 20 mg in AM and 40 mg in PM Follow up with psychiatry as scheduled Plan To return as scheduled in October 2023 for his annual physical examination Orders: Orders TSH reflex Free T4 11/06/23 E51.9 - Thiamine deficiency, unspecified, E78.00 - Pure hypercholesterolemia, unspecified, F10.21 - Alcohol dependence, in remission UA CC w/rflx Micro + Cult 11/06/23 E51.9 - Thiamine deficiency, unspecified, F10.21 - Alcohol dependence, in remission, R30.0 - Dysuria Vitamin B6 11/06/23 E51.9 - Thiamine deficiency, unspecified, F10.21 - Alcohol dependence, in remission Complete Blood Count Auto Diff 11/06/23 D64.9 - Anemia, unspecified Comprehensive [place]. Panel Fast 11/06/23 E78.00 - Pure hypercholesterolemia, unspecified Lipid Panel 11/06/23 E78.00 - Pure hypercholesterolemia, unspecified Vitamin D 25-OH Total 11/06/23 E51.9 - Thiamine deficiency, unspecified, E55.9 - Vitamin D deficiency, unspecified, F10.21 - Alcohol dependence, in remission Vitamin B12 and Folate 11/06/23 E51.9 - Thiamine deficiency, unspecified, E53.8 - Deficiency of other specified B group vitamins, F10.21 - Alcohol dependence, in remission Vitamin B1 11/06/23 E51.9 - Thiamine deficiency, unspecified, F10.21 - Alcohol dependence, in remission Prostate Specific Antigen Scr 11/06/23 Z00.00 - Encounter for general adult medical examination without abnormal findings Medications: Changed From thiamine HCl (vitamin B1) 100 mg PO DAILY To thiamine HCl (vitamin B1) 100 mg PO DAILY 90 tabs 1RF 90 days From cholecalciferol (vitamin D3) (Vitamin D3) 25 mcg PO DAILY To cholecalciferol (vitamin D3) (Vitamin D3) 25 mcg PO DAILY 90 tabs 3RF 90 days Coding Level of Care Code Est Pt Level 4 (50594) Diagnoses Pure hypercholesterolemia E78.00 Von Willebrand disease D68.00 Low back pain without sciatica, unspecified back pain laterality, unspecified chronicity M54.50 Chronicity: unspecified Back pain laterality: unspecified Sciatica presence: without sciatica Vitamin D deficiency E55.9 Neck pain M54.2 Thiamine deficiency E51.9 Alcoholism in recovery F10.21 Bipolar affective disorder, current episode mixed, current episode severity unspecified F31.60 Active/Remission status: currently active Current bipolar episode type: mixed Current episode severity: unspecified Additional Codes LALI-7 Assessment Billing - LALI-7 Assessment Tool: LALI-7 Assessment 66821 ([id number])
== END 2023-08-26 10:27 | disposition home or self-care (01) ==
PROVIDERS: PCP Internal Medicine; Visit Provider Internal Medicine
DX: E78.00 Pure hypercholesterolemia, unspecified (principal); D68.00 Von Willebrand disease, unspecified; F10.21 Alcohol dependence, in remission; F31.60 Bipolar disorder, current episode mixed, unspecified; M54.50 Low back pain, unspecified; E55.9 Vitamin D deficiency, unspecified; M54.2 Cervicalgia; E51.9 Thiamine deficiency, unspecified
CPT/HCPCS: 96127; 99214

== ENCOUNTER 2023-11-17 09:06 | Outpatient (AMB) | payer MEDICARE, OTHER, SELFPAY ==
--- NOTE | 2023-11-17 09:09 | MHC.PC.OV ---
Vital Signs 11/17/23 09:10 Height 6 ft 1 in Weight 159 lb BMI 21.0 BP 110/78 Blood Pressure Location Lt brachial Position Sitting Pulse 75 Pulse Source Pulse Oximeter Pulse Oximetry (%) 99 Oxygen Delivery Method Room Air Intake Visit Reasons: pe Intake Note: Patient is here today for a physical. Director Of Critical Care Required: No Distribution Systems Serviceperson: Not Required per policy Accompanied by: Self / Same As Patient Allergies No Known Allergies Allergy (Verified 11/17/23 09:55) Medication List - Last Reconciled 11/17/23 by Matthieu Egan MD acetaminophen 1 to 2 tablets orally every 6 hours PRN (maximum of 2000 mg of Acetaminophen/day) 30 days benztropine 0.5 mg PO BEDTIME bupropion HCl SR 150 mg PO QAM cholecalciferol (vitamin D3) (Vitamin D3) 25 mcg PO DAILY 90 days diclofenac sodium 1% 2 grams topical QID PRN diphenhydramine HCl (Banophen) 1 to 2 capsules daily at bedtime as needed for sleep; fluticasone propionate 50 mcg/actuation 1 spray intranasal BID folic acid 1 mg PO DAILY 90 days methylcellulose (laxative) (Citrucel) 500 mg PO TID 30 days multivitamin 1 tab PO DAILY 90 days naloxone 4 mg/actuation sprays intranasal pyridoxine (vitamin B6) 100 mg PO DAILY thiamine HCl (vitamin B1) 100 mg PO DAILY 90 days ziprasidone HCl (Geodon) 20 mg in AM and 40 mg in PM orally BID; give with food (meal/snack) ziprasidone HCl 40 mg PO DAILY Tobacco use date assessed: 11/17/23 Dental Screening Dental Screen Date: 08/26/23 HPI pe HPI Details Patient comes in today for his annual physical examination States that he feels okay He denies any headaches or dizziness Denies any chest pains, no SOB No nausea/vomiting, no abdominal pain No change in bowel habits noted Denies any acute urinary symptoms He was supposed to get some follow up labs done prior to his appointment today but he was not able to get them done Had his colonoscopy done last year (2022) and recommend repeat colonoscopy in 5 to 7 years [facility] Medical History Pure hypercholesterolemia Thiamine deficiency Low back pain Vitamin D deficiency Psychosis Bipolar affective disorder Alcoholism in recovery Von Willebrand disease Surgical History H/O colonoscopy with polypectomy Hx of local excision of skin lesion History of inguinal hernia repair, bilateral Social History Housing: Other ([employer] program) Alcohol intake: former Patient Tobacco Use Status: Never used Tobacco e-Cigarette/Vaping Use: Never Used service: No Current occupational status: unemployed Cognitive needs: No Hearing needs: No Vision needs: No Questionnaire PHQ-9 Over the last 2 weeks, how often have you been bothered by any of the following problems? 1. Little interest or pleasure in doing things: more than half the days 2. Feeling down, depressed, or hopeless: more than half the days 3. Trouble falling or staying asleep, or sleeping too much: several days 4. Feeling tired or having little energy: several days 5. Poor appetite or overeating: not at all 6. Feeling bad about yourself - or that you are a failure or have let yourself or your family down: several days 7. Trouble concentrating on things, such as reading the newspaper or watching television: nearly every day 8. Moving or speaking so slowly that other people could have noticed. Or the opposite - being so fidgety or restless that you have been moving around a lot more than usual: several days 9. Thoughts that you would be better off or of hurting yourself in some way: not at all Total score: 11 Depression Screening Interpretation: Positive Depression Screening Follow-up: Existing condition and In treatment Depression Screening Done: Yes 16405 - PHQ-9 Billing: Yes Source: Developed by Drs. Omero Walsh, Kathleen Callejas, Paco Quezada and colleagues, with an educational brice from [employer]. Thrive Questionnaire Date Thrive assessed: 11/17/23 I am a: Patient What is your living situation today?: I have a steady place to live Within the past 12 months, did the food you bought not last and you didn't have the money to get more?: Never true Within the past 12 months, did you worry whether your food would run out before you got money to buy more?: Never true Do you have trouble paying for medicines?: No Do you have trouble getting transportation to medical appointments?: No Do you have trouble paying your heating and electricity bill?: No Do you have trouble taking care of your child, family member or friend?: No Do you have trouble with day-to-day activities such as bathing, preparing meals, shopping, managing finances, etc.?: No Are you currently unemployed and looking for a job?: No Are you interested in more education?: No Please select the resources that you would like help with: None Currently or been in a relationship where the following occur: no concerns reported THRIVE Score: 0 AUDIT C Alcohol Use Questionnaire (AUDIT-C) 1. How often do you have a drink containing alcohol?: Never (since he quit drinking; currently in recovery) 3. How often do you have six or more drinks on one occasion?: Never Total Score: 0 Score Reviewed/Action Taken: Yes LALI-7 AMB Questionnaire LALI-7 Date LALI - 7 assessed: 08/26/23 Source: Developed by Drs. Omero Walsh, Kathleen Callejas, Paco Quezada and colleagues, with an educational brice from [employer]. Review of Systems Const Denies chills, Reports difficulty sleeping, Denies fatigue, Denies fever(s), Denies headache(s), Denies malaise and Denies weakness Eyes Denies blurry vision, Denies change in vision, Denies irritation and Denies itchy eyes ENT Denies dysphagia, Denies dizziness, Denies otalgia, Denies headache(s), Denies nasal congestion, Denies neck pain, Denies odynophagia and Denies sore throat Card Denies chest pain, Denies rapid heart rate, Denies irregular heart rhythm, Denies palpitations and Denies dyspnea Resp Denies chest congestion, Denies cough, Denies dyspnea and Denies wheezing GI Denies abdominal pain, Denies bloating, Denies constipation, Denies dysphagia, Denies heartburn, Denies diarrhea, Denies nausea, Denies odynophagia and Denies vomiting Denies hematuria, Denies difficulty urinating, Denies dysuria, Denies urinary frequency and Denies urinary urgency Musc Denies back pain, Reports arthralgias (right shoulder), Denies joint swelling, Denies muscle weakness and Denies neck pain Skin/Breast Denies change in pigmentation, Denies lesions, Denies rash and Denies unusual bruising Neuro Denies dizziness, Denies headache(s), Denies paresthesias and Denies weakness Endo Denies fatigue and Denies palpitations Aller/Immun Denies itchy eyes and Denies wheezing Physical exam (Primary Care) Vital Signs: Last Vital Signs Pulse 75 11/17/23 09:10 BP 110/78 11/17/23 09:10 Pulse Ox 99 11/17/23 09:10 Oxygen Delivery Method Room Air 11/17/23 09:10 BMI result Body Mass Index 21.0 Tobacco/Smoking Status: Tobacco use Status Tobacco use date assessed 11/17/23 11/17/23 09:15 Patient Tobacco Use Status Never used Tobacco 11/17/23 09:15 e-Cigarette/Vaping Use Never Used 11/17/23 09:15 Depression Screening Interpretation: Positive Depression Screening Follow-up: Existing condition and In treatment Thrive Assessment: Date of Thrive Assessment Date Thrive assessed 08/26/23 11/17/23 09:15 Currently or been in a relationship where the following occur: no concerns reported Const General: no acute distress, alert and awake Orientation/consciousness: patient oriented x3 HENMT Head: Yes normocephalic and Yes atraumatic Ears: external ears normal, TM's normal bilaterally and EAC's normal General nose exam: No nasal discharge present Face and sinus: Yes normal facial exam and Yes sinuses nontender Teeth and gingiva: dentition normal Throat: Yes posterior oropharynx normal and Yes tonsils normal (no TP congestion) Eyes Eyelids: Yes eyelids normal Conjunctivae: conjunctivae normal Pupils: Equal, round and reactive pupils present EOM: EOMs intact bilaterally Neck Neck: Yes no lymphadenopathy and Yes supple Thyroid: Thyroid normal Resp Auscultation: clear to auscultation bilaterally, no rales and no wheezes Cardio Rate: regular rate Rhythm: regular rhythm Heart sounds: no murmurs GI Palpation (GI): Soft to palpation, nontender and No hepatosplenomegaly present Auscultation: normal bowel sounds General: Yes no CVA tenderness Back/Spine/Pelvis Back: no CVA tenderness Thoracic/Lumbar Spine: thoracic and lumbar spine normal to inspection Skin Lesions: no lesions Rashes: no rashes Neuro General: patient oriented x3, moves all extremities, no focal motor deficits and CN's II-XI intact bilaterally Cranial nerves: Yes Equal, round and reactive pupils present Cognition (Neuro): normal cognition Gait exam (Neuro): Normal gait present Extrem General: Yes no clubbing, cyanosis or edema Right upper extremity: shoulder/upper arm Details: tenderness Location: of the A-C joint (mild) and normal ROM Results Reviewed Results Reviewed: Laboratory Tests 08/18/23 09:08 WBC 3.0 L Hgb 15.9 Hct 47.4 Plt Count 205 PTT 37 H vWF VIII Activity 13 L von Willebrand Antigen 91 vWF Ristocetin Cofactr 60 Sodium 140 Potassium 4.5 Creatinine 1.05 Estimated GFR > 60 Fasting Glucose 102 H Hemoglobin A1c % 5.4 AST 41 H ALT 45 H Triglycerides 103 Cholesterol 183 LDL Cholesterol, Calc 115 H HDL Cholesterol 48 PSA Screen 0.81 Vitamin B1 178 H Vitamin B12 616 25-OH Vitamin D Total 40.7 TSH 1.19 Assessment and Plan Assessment & Plan (1) Annual physical exam: Code(s): Z00.00 - Encounter for general adult medical examination without abnormal findings Plan: Results of his labs done back in July 2023 reviewed and discussed with patient He is up-to-date with his colon cancer screening - had his colonoscopy done last year (2022) and he was recommended to get repeat colonoscopy done in 5 to 7 years His PSA level was also normal / low on his labs done back in July 2023 (2) Pure hypercholesterolemia: Code(s): E78.00 - Pure hypercholesterolemia, unspecified Plan: He is again advised that his cholesterol numbers back in July 2023 have improved significantly from last year's numbers He was supposed to get these rechecked but he was not able to get his labs done before coming in today Reinforced low cholesterol diet Will have patient recheck his labs and fasting lipids in 4 months for follow up (3) Von Willebrand disease: Code(s): D68.00 - Von Willebrand disease, unspecified Plan: States that he's had no issues with bleeding lately His recent labs done in July 2023 confirmed a prolonged aPTT level consistent with decreased Factor VIII activity although he has normal VWF Ag and activity levels and normal VWF multimeric study (4) Vitamin D deficiency: Code(s): E55.9 - Vitamin D deficiency, unspecified Plan: Continue Vitamin D3 1000 units QD (5) Low back pain: Code(s): M54.50 - Low back pain, unspecified Qualifiers: Chronicity: unspecified Back pain laterality: unspecified Sciatica presence: without sciatica Qualified Code(s): M54.50 - Low back pain, unspecified Plan: Continue Diclofenac sodium 1% apply to painful areas QID PRN and Acetaminophen 325 mg 1 to 2 tablets Q 8 hours PRN He was sent for lumbar spine x-rays for further evaluation but he has not gotten these done yet - have advised patient that he can do these at any time when he wants to (6) Neck pain: Code(s): M54.2 - Cervicalgia Plan: He was also sent for cervical spine x-rays for further evaluation of his recent recurrent neck pain but has not yet gotten them done (7) Thiamine deficiency: Code(s): E51.9 - Thiamine deficiency, unspecified Plan: Continue Thiamine 100 mg QD (8) Alcoholism in recovery: Code(s): F10.21 - Alcohol dependence, in remission Plan: In recovery; is currently enrolled and participating in the [employer] program in [place] Continue Thiamine 100 mg QD and Folic Acid 1 mg QD (9) Bipolar affective disorder: Code(s): F31.9 - Bipolar disorder, unspecified Qualifiers: Active/Remission status: currently active Current bipolar episode type: mixed Current episode severity: unspecified Qualified Code(s): F31.60 - Bipolar disorder, current episode mixed, unspecified Plan: He has suffered from some paranoia in the past - believed then that there were several people with guns who are constantly after him Continue Bupropion ER 150 mg Q AM, Benztropine 0.5 mg Q HS and Diphenhydramine 25 mg 1 to 2 tablets Q HS Was on Risperidone 1.5 mg Q HS and Risperidone 1 mg BID in the daytime PRN in the past but these have been changed by psychiatry recently to Geodon 20 mg in AM and 40 mg in PM Follow up with psychiatry as scheduled Plan Follow up in 4 months Orders: Orders TSH reflex Free T4 4 Months E78.00 - Pure hypercholesterolemia, unspecified UA CC w/rflx Micro + Cult 4 Months R30.0 - Dysuria Complete Blood Count Auto Diff 4 Months D64.9 - Anemia, unspecified Lipid Panel 4 Months E78.00 - Pure hypercholesterolemia, unspecified Comprehensive [place]. Panel Fast 4 Months E78.00 - Pure hypercholesterolemia, unspecified Vitamin D 25-OH Total 4 Months E55.9 - Vitamin D deficiency, unspecified Coding Level of Care Code Est Pt Prev Care 40-64y(98126) Diagnoses Annual physical exam Z00.00 Pure hypercholesterolemia E78.00 Von Willebrand disease D68.00 Vitamin D deficiency E55.9 Low back pain without sciatica, unspecified back pain laterality, unspecified chronicity M54.50 Chronicity: unspecified Back pain laterality: unspecified Sciatica presence: without sciatica Neck pain M54.2 Thiamine deficiency E51.9 Alcoholism in recovery F10.21 Bipolar affective disorder, current episode mixed, current episode severity unspecified F31.60 Active/Remission status: currently active Current bipolar episode type: mixed Current episode severity: unspecified
[2023-11-17 09:10] VITALS: BP 110/78; PULSE 75; O2SAT 99; BMI 21.0
== END 2023-11-17 10:05 | disposition home or self-care (01) ==
PROVIDERS: PCP Internal Medicine; Visit Provider Internal Medicine
DX: Z00.00 Encounter for general adult medical examination without abnormal findings (principal); E78.00 Pure hypercholesterolemia, unspecified; D68.00 Von Willebrand disease, unspecified; E55.9 Vitamin D deficiency, unspecified; M54.50 Low back pain, unspecified; M54.2 Cervicalgia; E51.9 Thiamine deficiency, unspecified; F10.21 Alcohol dependence, in remission; F31.60 Bipolar disorder, current episode mixed, unspecified
CPT/HCPCS: 99396

== ENCOUNTER 2023-12-23 12:51 | Inpatient (IN) | payer MEDICARE, SELFPAY ==
--- OUTSIDE RECORDS SUMMARY | 2023-12-23 12:53 | XMS_ITS | Continuity of Care Document ---
Author Organization [facility] ter Address [address] [place] [address]- Care Team Providers Care Cement Patcher Name Role Phone David OSBORN, Polina Primary Care Physician Encounter [facility] Date(s): 07/16/23 - 07/23/[address] [id number] Discharge Disposition: Transfer to Psych Facility Attending Physician: Dinesh Paniagua MD Admitting Physician: Jacek Nagel MD, Kyree Maloney Referring Physician: Not on Staff, Referring MD Allergies, Adverse Reactions, Alerts No Known Allergies Immunizations Given and Recorded Vaccine Date Status Refusal Reason SARS-CoV-2 (COVID-19) Ad26 vaccine 01/30/21 Record ed Medications Acetaminophen Tablet 650 mg, Tablet, By Mouth, Every 4 hours, PRN for Pain , Mild, Temperature Greater than 100.5, Routine, 07/16/23 16:31:00 EST Start Date: 07/16/23 Stop Date: 07/23/23 Status: Discontinued Benadryl Tablet = 25 mg, By Mouth, Daily at bedtime, 0 Refills, Maintenance, 07/16/23 12:59:00 EST, Tablet, Partialfill upon patient request if the prescription is for a schedule II opioid drug. Start Date: 07/16/23 Status: Ordered benztropine 1 mg oral tablet 0.5 mg, By Mouth, Daily at bedtime, Refills 0, Maintenance, 07/16/23 12:59:00 EST, Partial fill upon patient request if the prescription is for a schedule II opioid drug. Start Date: 07/16/23 Status: Ordered buPROPion 150 mg/12 hours (SR) oral tablet, extended release = 150 mg, By Mouth, Daily, 0 Refills, Maintenance, 07/16/23 12:59:00 EST, SR Tablet, Partial fill upon patient request if the prescription is for a schedule II opioid drug. Start Date: 07/16/23 Status: Ordered folic acid 1 mg oral tablet 1 mg, By Mouth, Daily, Refills 0, Maintenance, 07/16/23 12:59:00 EST, Partial fill upon patient request if the prescription is for a schedule II opioid drug. Start Date: 07/16/23 Status: Ordered hydrOXYzine pamoate 50 mg oral capsule = 50 mg, By Mouth, 4 times a day, PRN Anxiety, 0 Refills, Maintenance, 07/16/23 13:00:00 EST, Capsule, Partial fill upon patient request if the prescription is for a schedule II opioid drug. Start Date: 07/16/23 Status: Ordered lactulose 10 gm/15 ml oral syrup 30 mL = 20 Gm, By Mouth, 3 times a day, 0 Refills, Maintenance, 07/16/23 12:59:00 EST, Syrup, Partial fill upon patient request if the prescription is for a schedule II opioid drug. Start Date: 07/16/23 Status: Ordered Maalox Plus Liquid 30 mL, By Mouth, Every 4 hours, PRN Dyspepsia, 0 Refills, Maintenance, 07/16/23 13:00:00 EST, Suspension, Partial fill upon patient request if the prescription is for a schedule II opioid drug. Start Date: 07/16/23 Status: Ordered melatonin 3 mg oral tablet = 6 mg, By Mouth, Daily at bedtime, 0 Refills, Maintenance, 07/16/23 12:59:00 EST, Tablet, Partial fill upon patient request if the prescription is for a schedule II opioid drug. Start Date: 07/16/23 Status: Ordered Milk of Magnesia Liquid 30 mL, By Mouth, Daily at bedtime, PRN Constipation, 0 Refills, Maintenance, 07/16/23 13:00:00 EST,Suspension, Partial fill upon patient request if the prescription is for a schedule II opioid drug. Start Date: 07/16/23 Status: Ordered MiraLax Powder 1 pack/packet = 17 Gm, By Mouth, Daily, PRN Constipation, 0 Refills, Maintenance, 07/16/23 13:00:00EST, Powder, Partial fill upon patient request if the prescription is for a schedule II opioid drug. Start Date: 07/16/23 Status: Ordered Multivit Therapeutic/Minerals Tablet 1 tablet, By Mouth, Daily, 0 Refills, Maintenance, 07/16/23 12:59:00 EST, Tablet, Partial fill uponpatient request if the prescription is for a schedule II opioid drug. Start Date: 07/16/23 Status: Ordered Pyridoxine Tablet 50 mg, By Mouth, Daily, Refills 0, Maintenance, 07/16/23 12:59:00 EST, Partial fill upon patient request if the prescription is for a schedule II opioid drug. Start Date: 07/16/23 Status: Ordered risperiDONE 0.25 mg oral tablet 0.5 mg, By Mouth, 2 times a day, PRN, Refills 0, Maintenance, Agitation, 07/16/23 13:00:00 EST, Partial fill upon patient request if the prescription is for a schedule II opioid drug. Start Date: 07/16/23 Status: Ordered risperiDONE 1 mg oral tablet 1.5 mg, By Mouth, 2 times a day, Refills 0, Maintenance, 07/16/23 12:59:00 EST, Partial fill upon patient request if the prescription is for a schedule II opioid drug. Start Date: 07/16/23 Status: Ordered thiamine 100 mg oral tablet 100 mg, By Mouth, 2 times a day, Refills 0, Maintenance, 07/16/23 13:00:00 EST, Partial fill upon patient request if the prescription is for a schedule II opioid drug. Start Date: 07/16/23 Status: Ordered traZODone 50 mg oral tablet 50 mg, By Mouth, Daily at bedtime, PRN, Refills 0, Maintenance, Insomnia, 07/16/23 13:00:00 EST, Partial fill upon patient request if the prescription is for a schedule II opioid drug. Start Date: 07/16/23 Status: Ordered Tylenol 325 mg oral tablet 650 mg, By Mouth, Every 6 hours, PRN, Refills 0, Maintenance, Pain , Mild, 07/16/23 13:00:00 EST, Partial fill upon patient request if the prescription is for a schedule II opioid drug. Start Date: 07/16/23 Status: Ordered Problem List Condition Confirmation Course Effective Dates Status Health St atus Informant Allergic rhinitis Confirmed Active Calcific tendinitis of right shoulder Confirmed Active Sinus tachycardia Confirmed Active Vitamin D deficiency Confirmed Active Vital Signs Most recent to oldest [Reference Range]: 1 2 3 Oxygen Saturation [94-100 %] 99 % (07/23/23 8:18 AM) 100 % (07/22/23 8:18 PM) 98 % (07/22/23 7:45 AM) Pulse Rate [55-90 bpm] 70 bpm (07/23/23 8:18 AM) 74 bpm (07/22/23 8:18 PM) 76 bpm (07/22/23 7:45 AM) Blood Pressure [90-138/55-84 mm Hg] 115/72mm Hg (07/23/23 8:18 AM) 129/90mm Hg (07/22/23 8:18 PM) 113/78mm Hg (07/22/23 7:45 AM) Respiratory Rate [16-30 br/min] 18 br/min (07/23/23 8:18 AM) 16 br/min (07/22/23 9:59 PM) 18 br/min (07/22/23 8:18 PM) Temperature [96.8-100.4 DegF] 97.7 DegF (07/23/23 8:18 AM) 98 DegF (07/22/23 8:18 PM) 97.7 DegF (07/22/23 7:45 AM) Mode of Delivery (Oxygen) Room air (07/23/23 8:18 AM) Room air (07/22/23 8:18 PM) Room air (07/22/23 7:45 AM) Blood pressure sites Arm, left (07/23/23 8:18 AM) Arm, left (07/22/23 8:18 PM) Arm, right (07/22/23 7:45 AM) Temperature Route Oral (07/23/23 8:18 AM) Oral (07/22/23 8:18 PM) Oral (07/22/23 7:45 AM) Social History Social History Type Response Smoking Status Never (less than 100 in lifetime);Never entered on: 07/23/23 Sex History and physical note * Liam WAKEFIELD [facility]: PERFORM Event Display: History and Physical Hospital Authored Date: Patient: ??CALI LILLY ? Age:??57 Years?Sex:??Male?:??1965?? Chief Complaint/Reason for Consultation memory loss, encephalopathy History of Present Illness ?? 57-year-old with a past medical history of depression with psychotic features, PTSD, bipolar, alcohol use from [facility] program presented for evaluation of discuss organized thought and behavior, admitted to psych unit, over the course the ER patient was noted to have waxing and waning mentation, impaired memory and intact inattentiveness, delusions, his presentation was concerning for Wernicke encephalopathy and transferred to the medical floor for IV thiamine He had?? medical consultation upon admission to the behavioral health, labs within normal limits UAwas negative CT head was nonacute, urine drug screen alcohol negative, ?? Patient??eval examined at this exam floor, patient is doing comfortably in bed,??patient is alert, awake oriented to self, he thought he was in a hotel,??he knew it was [place] time??but got theyear wrong,??he said that he lives in [place]??and in [place]??to visit his cousin.?Patient gives some part of the history correctly??for example he reported he has a shoulder pain that he was told it was because of??calcific tendinitis and he did not did have a??x-ray that did not showthis.?? Patient denies any symptoms. ??Patient reports that he does drink alcohol??big emboli from,does not know when his last drink was,??said was long time ago and does not know what long time agowas.?? He denies any??headache,??blurry vision,??chest pain, shortness of breath,??nausea, vomiting, diarrhea, or any urinary symptoms. Review of Systems limited due to baseline mentation Objective ? Vital Signs?? Temperature: 98.4 DegF (07/16/23 20:00:00) Temperature Route: Oral (07/16/23 20:00:00) Pulse Rate: 89 bpm (07/16/23 20:00:00) Respiratory Rate: 18 br/min (07/16/23 20:00:00) Systolic Blood Pressure: 125 mm Hg (07/16/23 20:00:00) Diastolic Blood Pressure:??85 mm Hg??High (07/16/23 20:00:00) Blood pressure sites: Arm, right (07/16/23 20:00:00) Mean Arterial Pressure: 100 mm Hg (07/16/23 16:33:00) Pulse Pressure: 33 mm Hg (07/16/23 16:33:00) Oxygen Saturation: 96 % (07/16/23 20:00:00) Mode of Delivery (Oxygen): Room air (07/16/23 20:00:00) Early Warning Score: 0 (07/16/23 20:17:49) ? Physical Exam Constitutional: Alert, in no acute distress. Head EENT: Extraocular muscle movement intact.??Moist mucous membranes.?? Neck: Supple. No JVD. Respiratory: Clear to auscultation. No wheezing or crackles. No use of accessory muscles. Cardiovascular: S1S2 regular. No murmurs, rubs or gallops. Gastrointestinal: Abdomen soft, non-tender, non-distended. Normal bowel sounds. Genitourinary: No CVA tenderness. Extremities: No lower extremity pitting??edema. No cyanosis or clubbing. Neurologic: AAOx1, Speech normal. No focal neurological deficits. no nystagmus noted??Patient able to perform finger-nose test,rapid alternating supinating movements, heel knee test without any issues.??gait normal?? Skin: No rash. 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 ??Vitamin D deficiency ??(E55.9) ?? Assessment:??57-year-old with a past medical history of depression with psychotic features, PTSD, bipolar, alcohol use from [facility] presented for evaluation of discuss organized thought and behavior, admitted to psych unit, over the course the ER patient was noted to have waxing and waning mentation, impaired memory and intact inattentiveness, delusions, his presentation was concerning for Wernicke Korsakoff syndrome and transferred to the medical floor for IV thiamine ?? Encephalopathy (G93.40):??: ?? Wernicke-Korsakoff syndrome (F04):??Patient having inattentiveness, delusions, he definitely has memory problems, he is very vague in his timeline, he thinks he lives with his cousin, previous work up for metabolic derangements have been negative.?? -tsh normal, b12 normal, syphilis negative -could be wernicke korsakoff. -CTH negative for any acute findings -his liver enzymes were slightly elevated, will repeat in am -IV thiamine -Neuro consult ?? Alcohol use disorder (F10.90):??BAL negative,??no acute signs of withdrawal -Will treat with??CIWA as needed??protocol, on exam he is very calm, no tremors, if not scoring ciwa can be discontinued -IV thiamine as above -Continue folate, multivitamin and??pyridoxine ?? Depression (F32.A):??: ??Bipolar disorder (F31.9):??: ??PTSD (post-traumatic stress disorder) (F43.10):??cont??bupropion, benztropine, Risperidone -Continue hydroxyzine as needed for anxiety ?Insomnia (G47.00):??-Continue trazodone and melatonin ?? VTE Prophylaxis:??low risk, ambulation ?? Code Status:??full code ?? Ongoing Medical Necessity:??work up of encephalopathy ?? Discharge Planning:??pending clinical course ?? This note was created using [employer] speech recognition software, there may be unwanted word substitution, typographical errors or grammatical error, an attempt at proofreading has been made to minimize errors. please call if there are any questions regarding plan of care. ?? date of service:??07/16/23 ?? Histories Allergies Allergies ?(Active and Proposed Allergies Only) NKA? (Severity: Unknown severity, Onset: Unknown) ? Past Medical History/Problem List Active Problems??(3) Allergic rhinitis Sinus tachycardia Vitamin D deficiency ? Past Surgical History No surgery history documented. inguinal hernia repair excision of cysts/lesion ? Social History no smoking no drug use quit alcohol use ? Family History FH of TIA in his father ?? Medications Home Medications Acetaminophen (Tylenol 325 mg oral tablet)?650?Milligram?By Mouth?Every 6 hours?as needed?Pain , Mild Al Hydroxide/Mg Hydroxide/Simethicone (Maalox Plus Liquid)?30?Milliliter?By Mouth?Every4 hours?as needed?Dyspepsia Benztropine (benztropine 1 mg oral tablet)?0.5?Milligram?By Mouth?Daily at bedtime BuPROpion (buPROPion 150 mg/12 hours (SR) oral tablet, extended release)?150?Milligram?By Mouth?Daily DiphenhydrAMINE (Benadryl Tablet)?25?Milligram?By Mouth?Daily at bedtime Folic Acid (folic acid 1 mg oral tablet)?1?Milligram?By Mouth?Daily HydrOXYzine (hydrOXYzine pamoate 50 mg oral capsule)?50?Milligram?By Mouth?4 times a day?as needed?Anxiety Lactulose (lactulose 10 gm/15 ml oral syrup)?30?Milliliter?20?gram?By Mouth?3 times a day Melatonin (melatonin 3 mg oral tablet)?6?Milligram?By Mouth?Daily at bedtime Milk of Magnesia (Milk of Magnesia Liquid)?30?Milliliter?By Mouth?Daily at bedtime?as needed?Constipation Multivitamin With Minerals (Multivit Therapeutic/Minerals Tablet)?1?tab(s)?By Mouth?Daily Polyethylene Glycol 3350 (MiraLax Powder)?1?pack/packet?17?gram?By Mouth?Daily?as needed?Constipation Pyridoxine (Pyridoxine Tablet)?50?Milligram?By Mouth?Daily Risperidone (risperiDONE 1 mg oral tablet)?1.5?Milligram?By Mouth?2 times a day Risperidone (risperiDONE 0.25 mg oral tablet)?0.5?Milligram?By Mouth?2 times a day?as needed?Agitation Thiamine (thiamine 100 mg oral tablet)?100?Milligram?By Mouth?2 times a day Trazodone (traZODone 50 mg oral tablet)?50?Milligram?By Mouth?Daily at bedtime?as needed?Insomnia ? Results Recent Labs URINE OTHER Est Creatinine Clearance 80.98 mL/min ()?? 07/16/2023 16:49 ? Hospital Progress note * Felipe Olmedo RN: PERFORM, SIGN, VERIFY, MODIFY, SIGN Event Display: Progress Note Hospital Authored Date: Patient: CALI LILLY Age: 57 years Sex: Male : 1965 Associated Diagnoses: None Author: Felipe Olmedo RN Findings Nursing Data Vital Signs : VITAL SIGNS SECTION 07/23/2023 8:18 EST Early Warning Score 2.00 07/23/2023 8:18 EST Temperature 97.7 DegF Temperature Route Oral Pulse Rate 70 bpm Respiratory Rate 18 br/min Systolic Blood Pressure 115 mm Hg Diastolic Blood Pressure 72 mm Hg Blood pressure sites Arm, left Mean Arterial Pressure 86 mm Hg Pulse Pressure 43 mm Hg Oxygen Saturation 99 % Mode of Delivery (Oxygen) Room air . Evaluation Pt A+Ox3, BLSCTA. Denies pain when asked, declined lactulose- aware-reports BM overnight. Ambulates independently in room. Nurse to nurse report given and pt escorted with secuirty detgail and thisnurse to [facility].. * Owen Rivas RN: PERFORM, SIGN, VERIFY Event Display: Progress Note Hospital Authored Date: Patient: CALI LILLY Age: 57 years Sex: Male : 1965 Associated Diagnoses: None Author: Owen Rivas RN Findings Narrative/Incidental Assumed patient's care at 0700H, alert, oriented, afebrile, VSS, on room air, all due meds were given, needs were attended, ensured safety, patient was independent in the room, ambulatory, placed call araiza within reach, encouraged to refer any concern to nursing. . * Dinesh Paniagua MD: PERFORM, MODIFY Event Display: Progress Note Hospital Authored Date: Patient: ??CALI LILLY ? Age:??57 Years?Sex:??Male?:??1965?? Subjective Patient seen and examined at bedside today morning. Events reviewed . ??He appears confused. ??He says he is in the hotel. Otherwise denied any complaint. Review of Systems Constitutional:??No?? fever, chills Respiratory:??No shortness of breath, cough or sputum production. Cardiovascular:??No chest pain, chest pressure or Gastrointestinal:??No vomiting or diarrhea. No abdominal pain or blood in stool. Genitourinary:??No burning micturition. No urinary frequency or incontinence. Neurologic:??No headache, dizziness, syncope, unilateral weakness, Objective ? Vital Signs?? Temperature: 97.7 DegF (07/22/23 07:45:00) Temperature Route: Oral (07/22/23 07:45:00) Pulse Rate: 76 bpm (07/22/23 07:45:00) Respiratory Rate: 17 br/min (07/22/23 09:41:00) Systolic Blood Pressure: 113 mm Hg (07/22/23 07:45:00) Diastolic Blood Pressure: 78 mm Hg (07/22/23 07:45:00) Blood pressure sites: Arm, right (07/22/23 07:45:00) Mean Arterial Pressure: 90 mm Hg (07/22/23 07:45:00) Pulse Pressure: 35 mm Hg (07/22/23 07:45:00) Oxygen Saturation: 98 % (07/22/23 07:45:00) Mode of Delivery (Oxygen): Room air (07/22/23 07:45:00) Early Warning Score: 2 (07/22/23 09:41:16) ? Physical Exam Constitutional: Alert, in no distress. Mental Status: Oriented to person, Head: Normocephalic. Neck: Supple, Full range of motion. Respiratory: Clear to auscultation. No wheezing, rales or rhonchi. Cardiovascular: S1 S2 regular. No murmurs, rubs or gallops. Gastrointestinal: Abdomen soft, non-tender, non-distended. Normal bowel sounds. Neurologic: AO x 1-2, speech clear,??power5/5 Psychiatric: Normal mood and affect Results Recent Labs No labs resulted between 07/21/2023 00:00 and 07/22/2023 15:17? Assessment/Plan ??57-year-old with a past medical history of depression with psychotic features, PTSD, bipolar, alcohol use from [facility] residential program presented for evaluation of discuss organized thought and behavior, admitted to psych unit, over the course the ER patient was noted to have waxing and waning mentation, impaired memory and intact inattentiveness, delusions, his presentation was concerning for Wernicke Korsakoff syndrome and transferred to the medical floor for IV thiamine and neurology eval. CT head recently showed no acute abnormality or mass effect. Neurology recommended to cont IV Thiamine and obtain??rEEG which pt refused. ?? Encephalopathy (G93.40):??: Suspected Wernicke-Korsakoff syndrome (F04):??concern for WK syndrome vs psych Patient having inattentiveness, delusions, he definitely has memory problems, he is very vague in his timeline, he thinks he lives with his cousin, previous work up for metabolic derangements have been negative. ??-tsh normal, b12 normal, HIV, syphilis negative ??-CTH negative for any acute findings -- methylmalonic acid: 245 ??-IV thiamine 400mg q8hr?? Day 5/5 today??last dose today and start with the p.o. tomorrow ??-Neuro consult rec EEG??and head CT. ??Patient is refusing EEG and head CT with multiple??occasion.?? Previous CT head done on??07/10/2028??no acute findings ??- Psych consult appreciated. cont current meds. may need to go back to [facility] after IV Thiamine ?? Alcohol use disorder (F10.90):??BAL negative, no acute signs of withdrawal Currently no signs of alcohol withdrawal. ?? Bipolar disorder (F31.9):??: Depression (F32.A):??: PTSD (post-traumatic stress disorder) (F43.10):?? Psych consult noted. cont bupropion, benztropine, Risperidone Benztropine??0.5 mg daily at bedtime Bupropion 150 mg daily Risperidone 1.5 mg twice daily. ( Geodon was replaced by Risperidal as per Psychiatry recs to minimize excessive D2 blockade) Risperidone 0.5 mg twice daily as needed for agitation ??Benadryl 25 mg daily at bedtime Hydroxyzine 50 mg p.o. 4 times a day as needed for anxiety ?? Insomnia (G47.00):??-Continue trazodone and melatonin ?? VTE Prophylaxis:??low risk encourage ambulation Code Status:??full code ?? Ongoing Medical Necessity:??Last dose of??IV thiamine to complete today.?? Psych follow-up??for transfer back To??[facility].?Psychiatry??suggested that he might need to go back to [facility] after completing thiamine therapy. Consult note * Jacque Valencia DO: PERFORM Event Display: Consultation Note Authored Date: [id number] Patient: ??CALI LILLY ? Age:??57 Years?Sex:??Male?:??1965?? Reason for Consultation Referring Provider:??Sarah Giang MD Consulting psychiatrist:??Chantell Schmidt MD Sources of information:??patient, [facility] ?? Identifying information:?? Reason for hospitalization, medical diagnosis: cognitive decline and waxing/waning mentation, concern for Wernicke encephalopathy and transfer from [facility] to medicine for evaluation and treatment. Psychiatry was consulted for: transfer from [facility], continuation of psychiatric care History of Present Illness Cali Lilly is a 57-year-old male with history of depression with psychotic features,??PTSD, bipolar, alcohol use disorder who presents for psychiatric consultation for transferred from [facility], said risperidone not effective for him before, please also comment on if patient has medical decision-making capacity. He presented initially from the [facility], which is a residentialprogram for adults referred by [facility] and receiving support through [facility] who have a psychiatric disability and substance use disorder. ?? On assessment, Cali is resting in bed in no acute distress. He states he is here because a nurse brought him here. He states he is currently in a hotel.??He does not comment on his current medicaltreatment. He states he is feeling not good, and that he understands he is here for IV medications. He notes that he had some passive suicidal thoughts 3 days ago without a plan, and that he has been watching TV to keep his mind off these thoughts. He also notes that he sometimes sees people in the room, including someone behind the door, acknowledging that this is frightening to him. ? Full safety evaluation performed.??Cali denies current suicidal thoughts or plan, denies homicidal ideation, and denies current voices. Review of Systems ?? Psychiatric Review of Systems Depression: reports low mood, suicidal thoughts 3 days ago which have resolved with distraction techniques such as watching TV ?? Filipe: denies symptoms of filipe, including elated mood, high energy with little to no sleep for consecutive days, racing thoughts, impulsivity. ?? Psychosis: reports recent auditory or visual hallucinations. Denies??disorganized thoughts, dissociation from reality. ?? Anxiety: reports increased anxiety ?? PTSD: denies symptoms of PTSD, such as flashbacks, nightmares, increased vigilance and startle reflex, intrusive thoughts, avoidance of reminders ?? OCD: denies checking rituals (counting, touching) to make sure nothing bad happens, disturbing intrusive thoughts of sexual or violent images. ?? Medical ROS:??A full ROS was completed and was negative with the exception of pertinent positives noted in the history of the presenting illness? History below obtained from chart review. ?? Past Hospitalizations:??Unable to elicit exact history of hospitalizations ?? Past Suicidality / Aggression / Self-Injurious Behavior:??Reports history of suicidal ideation, denies acting on these thoughts.??Denies any history of aggression. No history of head injuries, concussions, traumatic brain injuries??or seizures. No history of ECT treatments. ?? Current psychotropic medications:??Ziprasidone, Risperdal, Bupropion ?? Past Treatment Trials:??Risperidone 1.5 mg PO daily at bedtime with additional 1 mg PO twice daily PRN agitation/psychosis, Ziprasidone??60 mg PO daily at supper, Bupropion 150mg SR ?? Treatment Providers:?Appears to have outpatient services through [facility] and [facility]. Last known prescriber is Tomeka Alonso NP. ?? Substance Use Patient admits to history of alcohol misuse, denies any other substance use or history therein. ?? Social History Living Situation -??Residential Program through [facility], on [address] in [place] Friends/Family/Support -??Cali reported that he lives with his sister??in [place] and that his brother??. It appears that he??was likely born in??[place]. Further information is unknown and it was not confirmed he has a sister in [place] because we could not locate his cell phone or[facility] Education -?? 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 Cali reported that he currently has no job but that he would like to work. - Denies Access to firearms or lethal weapons - Denies Legal -??No history of arrests, incarcerations, or probation. Trauma -??Denied any history of emotional, verbal, physical, and??sexual abuse.?? Denied any??exposure to??domestic or community violence. ?? Family History:?? Patient did not report any known psychiatric illness or substance use disorders.??No history of suicidality or attempts. ? Physical Exam Vitals & Measurements T:??97.6?F?? TMIN:??97.6?F?? TMAX:??97.9?F?? HR:??79??(Peripheral)?? RR:??17?? BP:??102/74?? SpO2:??99%? ECG Ventricular Rate: 87 ??BPM Atrial Rate: 87 ??BPM P-R Interval: 162 ??ms QRS Duration: 78 ??ms Q-T Interval: 360 ??ms QTC Calculation(Bazett): 433 ??ms P [place]: 72 ??degrees R [place]: 14 ??degrees T [place]: 49 ??degrees Normal sinus rhythm Normal ECG No previous ECGs available Confirmed by FRANCE THOMPSON ([id number]) on 07/15/2023 12:06:58 PM ?Mental Status Exam ?Appearance:??male patient in hospital attire ?Attitude: cooperative ?Motor activity: psychomotor slowing; devoid of tics, tremors, psychomotor agitation ?Mood: not good ?Affect:??constricted, depressed ?Speech:??slow speech,??low volume, diminished prosody ?Perception: reports??visual hallucinations ?Orientation:??oriented to name and today's holiday; does not know type of building,??name of hospital, or city ?Memory:??not formally assessed ?Thought process: concrete?Thought content:??paucity of??spontaneous thought, appears to be ambivalent regarding hospital admission ?Suicidality/self-destructive behavior: Currently denies having SIB, SI, HI?Insight: impaired ?Judgment: impaired?Impulse control: impaired MSK Exam:??Patient is not seen ambulating, but able to move all four extremities spontaneously. No rigidity noted.?? Assessment/Plan Please see full consultation by Dr. Tesfaye Weber and attending psychiatrist, Dr. Eyda Mckenna, performed 07/12/2023, prior to transfer to [facility]. At this time, Cali appears to be demonstrating psychomotor slowing and disorientation continuous with ongoing AMS. He continues thiamine treatment for presumed Wernicke encephalopathy. Capacity examination is limited by probable delirium as evidenced by his??altered mental status, disorientation, and current clinical concern for encephalopathy. Neurologycontinues to follow the patient for cognitive decline and waxing/waning mentation. The patient is??currently refusing rEEG which would help assess for postictal state. He had CT head on 07/10/2023 with no evidence of acute intracranial pathology.??Neurology noted absence of ataxia on??physical exam.??ECG reviewed: VR 87, QTc 433 ??ms, NSR. He remains on CIWA protocol. Given psychiatric concerns including recent SI and perceptual disturbances, the patient may require??transfer back to [facility]??when medically cleared to complete his psychiatric admission. ? Medical??Diagnoses: Altered Mental Status?Rule out Wernicke-Korsakoff syndrome, Wernicke encephalopathy ?? DSM-5 Diagnoses Unspecified psychotic disorder ?Query bipolar disorder??with psychotic features, by history ? Rule out schizoaffective disorder, bipolar type ? Rule out major depressive disorder with psychotic features PTSD, by history Alcohol use disorder, severe, by history ?? Recommendations: - Continue all??of the patient's current psychiatric medications as ordered for now.??He may benefit from alternative antipsychotic agent such as olanzapine if there are ongoing concerns about perceptual disturbances once he has completed thiamine treatment. -??We agree with the plan to continue IV??thiamine then transition to PO thiamine as recommended byneurology. - The patient may require transfer back??to [facility]??when medically cleared to complete his psychiatric admission. ?? - The patient does not appear to require a constant urologic surgeon. The primary team may opt to initiate1:1 sitter with any acute concerns, such as onset of acute suicidal ideation. He is denying SI at this time. - Please contact the service if there are specific questions pertaining to medical decision-making capacity. - We will continue to follow along with you. ?? Thank you for allowing us to participate in this patient's care. Please feel free to contact the Psychiatry consult service [phone]) with any questions or concerns.? Case and plan discussed with attending psychiatrist,??Dr. Schmidt. ?? Jacque Valencia DO, PGY4 Psychiatry Residency Program [facility] Pager #[phone]?? Problem List/Past Medical History Ongoing Allergic rhinitis Sinus tachycardia Vitamin D deficiency Medications Inpatient Acetaminophen Tablet, 650 mg, By Mouth, Every 4 hours, PRN Ativan Tablet, 1 mg, By Mouth, Every 2 hours, PRN Ativan Tablet, 2 mg, By Mouth, Every 2 hours, PRN Benadryl Tablet, 25 mg, By Mouth, Daily at bedtime benztropine 1 mg oral tablet, 0.5 mg, By Mouth, Daily at bedtime BuPROpion SR Tablet, 150 mg, By Mouth, Daily Docusate Sodium Capsule, 100 mg= 1 capsule, By Mouth, 2 times a day, PRN folic acid 1 mg oral tablet, 1 mg, By Mouth, Daily hydrOXYzine pamoate 25 mg oral capsule, 50 mg, By Mouth, 4 times a day, PRN lactulose 10 gm/15 ml oral syrup, 20 Gm= 30 mL, By Mouth, 3 times a day LORazepam Tablet, 2 mg, By Mouth, Every hour, PRN Maalox Plus Liquid, 30 mL, By Mouth, Every 4 hours, PRN melatonin 3 mg oral tablet, 6 mg, By Mouth, Daily at bedtime MiraLax Powder, 17 Gm= 1 pack/packet, By Mouth, Daily, PRN Multivit Therapeutic/Minerals Tablet, 1 tablet, By Mouth, Daily NaCL 0.9% Flush, 3 mL, IV Push, Every 8 hours NaCL 0.9% Flush, 3 mL, IV Push, Every 8 hours, PRN Pyridoxine Tablet, 50 mg, By Mouth, Daily risperiDONE 0.25 mg oral tablet, 0.5 mg, By Mouth, 2 times a day, PRN risperiDONE 1 mg oral tablet, 1.5 mg, By Mouth, 2 times a day Robitussin DM Liquid, 10 mL, By Mouth, Every 4 hours, PRN Senna Tablet, 8.6 mg= 1 tablet, By Mouth, 2 times a day, PRN Simethicone Tablet, 80 mg, Chew, 3 times a day, PRN Thiamine IVPB traZODone 50 mg oral tablet, 50 mg, By Mouth, Daily at bedtime, PRN Home Benadryl Tablet, 25 mg, By Mouth, Daily at bedtime benztropine 1 mg oral tablet, 0.5 mg, By Mouth, Daily at bedtime buPROPion 150 mg/12 hours (SR) oral tablet, extended release, 150 mg, By Mouth, Daily folic acid 1 mg oral tablet, 1 mg, By Mouth, Daily hydrOXYzine pamoate 50 mg oral capsule, 50 mg, By Mouth, 4 times a day, PRN lactulose 10 gm/15 ml oral syrup, 20 Gm= 30 mL, By Mouth, 3 times a day Maalox Plus Liquid, 30 mL, By Mouth, Every 4 hours, PRN melatonin 3 mg oral tablet, 6 mg, By Mouth, Daily at bedtime Milk of Magnesia Liquid, 30 mL, By Mouth, Daily at bedtime, PRN MiraLax Powder, 17 Gm= 1 pack/packet, By Mouth, Daily, PRN Multivit Therapeutic/Minerals Tablet, 1 tablet, By Mouth, Daily Pyridoxine Tablet, 50 mg, By Mouth, Daily risperiDONE 0.25 mg oral tablet, 0.5 mg, By Mouth, 2 times a day, PRN risperiDONE 1 mg oral tablet, 1.5 mg, By Mouth, 2 times a day thiamine 100 mg oral tablet, 100 mg, By Mouth, 2 times a day traZODone 50 mg oral tablet, 50 mg, By Mouth, Daily at bedtime, PRN Tylenol 325 mg oral tablet, 650 mg, By Mouth, Every 6 hours, PRN Allergies KHOI Schmidt MD, Chantell Mcdermott: PERFORM Event Display: Consultation Note Authored Date: [id number] I saw and evaluated this patient on the date of service. I discussed the case and plan with the resident Dr. Valencia. I agree with their assessment and plan as noted below.?? * Jamaal WAKEFIELD, Kelvin Bingham: PERFORM, MODIFY, MODIFY, MODIFY Event Display: Consultation Note Authored Date: Patient: ??CALI LILLY ? Age:??57 Years?Sex:??Male?:??1965?? History of Present Illness 57-year-old male with history of depression with psychotic features,??PTSD, bipolar, alcohol use who is being seen today for cognitive decline and waxing/waning mentation. ?? Had been admitted on 07/10/2023 for behavior, for visual and auditory hallucinations, had CT head on 07/10/2023 with no evidence of acute intracranial pathology, was seen by psychiatry on 07/12/2023,with no history of audiovisual hallucinations, and in the ED it appeared that there was some confusion he was perseverative about being late for his brother's but cannot remember when or where he , nor give a name for his brother.?? He did repeatedly say he was in [place], was started on CIWA due to history of alcohol misuse, and responded well to Ativan it appears he was also started on Zyprexa 10.?? Does appear there may have been a history of PTSD as well as depression with psychosi s and bipolar disorder.?? Impression from initial psychiatric note was a likely major depressive disorder with psychotic features but later notes also expanded diagnostic possibilities to include bipolar versus schizoaffective., and he was transition to risperidone 1 mg twice daily, and ziprasidonewas discontinued.?? Risperidone was subsequently increased to 1.5 mg twice daily, neurology was cons ulted for concerns about memory loss and encephalopathy.?? During his admission he was noted to have waxing and waning mentation, inattentiveness, delusions as well as memory impairment, there was some concern for Warnicke's and he was given IV thiamine. ?? Of note he had been intermittently tachycardic and hypertensive admission improved over the following 2 days, CMP showed mildly elevated AST, ALT 46 each, serum ethanol was negative, U tox was negative, and he had also been complaining of right shoulder pain.?? He was placed on CIWA and this was subsequently discontinued as he was not scoring. ?? Patient seen at bedside, he is somewhat of a poor historian he was unable to give me an exact??history of how he came to be in the hospital, he does not report any overt feelings of sadness??at this point he is unable to give me an account of recent events, or remote events for that matter, he does not report any smoking does report a history of heavy alcohol abuse but??reports having stopped many years ago??and is currently in transitional housing. Review of Systems denies all Physical Exam Vitals & Measurements T:??97.3?F?? HR:??83??(Peripheral)?? RR:??18?? BP:??122/77?? SpO2:??98%?? Neuro Exam: General:?? thin male in bed in NAD.?? flat affect, limited participation??in exam.?Mental Status: ?Awake alert interactive poor attention and concentration, speaks in complete sentences however that overall there is a paucity of speech, there is appropriate grammar, sentence structure is normal with noun,??verb and direct object.?? Overall he is slow to respond,??digit span forward had difficulty with 7 was able to get 5, unable to do digit span backwards, unable to spell world backwards??was able to encode 1 out of 3 words but not able to recall at 5 minutes??however it did appear that there is very poor effort, and he was not able to recall any of the words with multiple-choice or??category clues, he was able to recall some historical events??however most the time he simply said I do not know, no paraphasic errors for simple sentences no neologisms no noted apraxia here today.?? Unable to perform serial sevens. ? Cranial nerves: ?CNII:??+BTT ?CNII/III: PEARRL, 4->3mm ou ?CN III/IV/: no noted ptosis, EOMI with??some breakdown insmooth pursuits, there is also some gaze evoked extinguishing nystagmus.?CN V: facial sensation intact bilaterally ?CN VII: symetric eye closure, forehead wrinkle, smile (needs coaxing to smile) ?CN VIII: Hears finger rub bilaterally ?CN IX, X, XII: no noted dysarthrita ?CN XI: trap/SCM 5/5 ?CN XII: tongue midline ? Motor: ?no noted tremor, myoclonus, dystonia ?FTN intact, (slightly clumsier on right likely to due??shoulder pain as he does not completely flex his shoulder.) ? Strength: normal bulk and tone, strength is grossly 5 out of 5 ? Sensory:?Light Touch:??Symmetric ? Reflexes: ?R ?L ?Biceps?1?1 ?BR?1?1 ?Knee?1?1 ?Ankle?tr?tr ? Spence? neg? neg ? clonus?neg? neg ? Assessment/Plan Assessment:??57-year-old male with history of depression with psychotic features,??PTSD, bipolar, alcohol use who is being seen today for cognitive decline and waxing/waning mentation. ?? Exam is notable for apathy, however there does not appear to be any notable confabulation, and thisis not present in all cases, attention and concentration are relatively decreased, typically in cases of Korsakoff this tends to be preserved, and typically in Korsakoff patients are unaware of the memory deficits where as here he is very aware of his deficits.?? Overall there is significant lack of engagement in testing, noted to have more of a suspicion that there is more of a mental health component at play here, however given his history of alcohol abuse I think it is reasonable to treat him with thiamine at this point, as well as to proceed with a routine EEG for evaluation. and again there is no significant??occulomotor ataxia, no gross ataxia on exam.? Mentation changes: - rEEG - c/w IV thiamin 400??TID??x5 days.?then 100mg po qd ?? neurology will follow.? Problem List/Past Medical History Ongoing Allergic rhinitis Sinus tachycardia Vitamin D deficiency Procedure/Surgical History No qualifying data available. Home Medications Acetaminophen: 650 mg, By Mouth, Every 6 hours, PRN (Pain , Mild) Al Hydroxide/Mg Hydroxide/Simethicone: 30 mL, By Mouth, Every 4 hours, PRN (Dyspepsia) Benztropine: 0.5 mg, By Mouth, Daily at bedtime BuPROpion: 150 mg, By Mouth, Daily DiphenhydrAMINE: 25 mg, By Mouth, Daily at bedtime Folic Acid: 1 mg, By Mouth, Daily HydrOXYzine: 50 mg, By Mouth, 4 times a day, PRN (Anxiety) Lactulose: 20 Gm = 30 mL, By Mouth, 3 times a day Melatonin: 6 mg, By Mouth, Daily at bedtime Milk of Magnesia: 30 mL, By Mouth, Daily at bedtime, PRN (Constipation) Multivitamin With Minerals: 1 tablet, By Mouth, Daily Polyethylene Glycol 3350: 17 Gm = 1 pack/packet, By Mouth, Daily, PRN (Constipation) Pyridoxine: 50 mg, By Mouth, Daily Risperidone: 1.5 mg, By Mouth, 2 times a day Risperidone: 0.5 mg, By Mouth, 2 times a day, PRN (Agitation) Thiamine: 100 mg, By Mouth, 2 times a day Trazodone: 50 mg, By Mouth, Daily at bedtime, PRN (Insomnia) Allergies NKA Family History No family history recorded. Note * Siva WAKEFIELD, Dinesh: PERFORM Event Display: Discharge/Transfer Note Hospital Authored Date: [id number] Patient: ??CALI LILLY ? Age:??57 Years?Sex:??Male?:??1965?? Patient Information Discharge Location: [facility] Primary Care Physician: Polina Hernandez NP Admit Date/Time: 07/16/23 15:55 Discharge Disposition Discharge Disposition: transfer to??[facility]?? Discharge Diagnosis Vitamin D deficiency (E55.9) Alcohol use disorder (F10.90) Bipolar disorder (F31.9) Depression (F32.A) Encephalopathy (G93.40) Insomnia (G47.00) PTSD (post-traumatic stress disorder) (F43.10) Wernicke-Korsakoff syndrome (F04) ?? _ Discharge Medications Acetaminophen (Tylenol 325 mg oral tablet)?650?Milligram?By Mouth?Every 6 hours?as needed?Pain , Mild Al Hydroxide/Mg Hydroxide/Simethicone (Maalox Plus Liquid)?30?Milliliter?By Mouth?Every4 hours?as needed?Dyspepsia Benztropine (benztropine 1 mg oral tablet)?0.5?Milligram?By Mouth?Daily at bedtime BuPROpion (buPROPion 150 mg/12 hours (SR) oral tablet, extended release)?150?Milligram?By Mouth?Daily DiphenhydrAMINE (Benadryl Tablet)?25?Milligram?By Mouth?Daily at bedtime Folic Acid (folic acid 1 mg oral tablet)?1?Milligram?By Mouth?Daily HydrOXYzine (hydrOXYzine pamoate 50 mg oral capsule)?50?Milligram?By Mouth?4 times a day?as needed?Anxiety Lactulose (lactulose 10 gm/15 ml oral syrup)?30?Milliliter?20?gram?By Mouth?3 times a day Melatonin (melatonin 3 mg oral tablet)?6?Milligram?By Mouth?Daily at bedtime Milk of Magnesia (Milk of Magnesia Liquid)?30?Milliliter?By Mouth?Daily at bedtime?as needed?Constipation Multivitamin With Minerals (Multivit Therapeutic/Minerals Tablet)?1?tab(s)?By Mouth?Daily Polyethylene Glycol 3350 (MiraLax Powder)?1?pack/packet?17?gram?By Mouth?Daily?as needed?Constipation Pyridoxine (Pyridoxine Tablet)?50?Milligram?By Mouth?Daily Risperidone (risperiDONE 1 mg oral tablet)?1.5?Milligram?By Mouth?2 times a day Risperidone (risperiDONE 0.25 mg oral tablet)?0.5?Milligram?By Mouth?2 times a day?as needed?Agitation Thiamine (thiamine 100 mg oral tablet)?100?Milligram?By Mouth?2 times a day Trazodone (traZODone 50 mg oral tablet)?50?Milligram?By Mouth?Daily at bedtime?as needed?Insomnia ? Hospital Course ?57-year-old with a past medical history of depression with psychotic features, PTSD, bipolar, alcohol use from [facility] residential program presented for evaluation of discuss organized thought and behavior, admitted to psych unit, over the course the ER patient was noted to have waxing and waning mentation, impaired memory and intact inattentiveness, delusions, his presentation was concerning forWernicke Korsakoff syndrome and transferred to the medical floor for IV thiamine and neurology eval. CT head recently showed no acute abnormality or mass effect. Neurology recommended to cont IV Thiamine and obtain??rEEG which pt refused. ??Neurology signed off.?? Patient completed 5 days of IV thiamine. ?? Psych follow-up appreciated. ??Patient accepted to apt to ?? Encephalopathy (G93.40):??: Suspected Wernicke-Korsakoff syndrome (F04):??concern for WK syndrome vs psych Patient having inattentiveness, delusions, he definitely has memory problems, he is very vague in his timeline, he thinks he lives with his cousin, previous work up for metabolic derangements have been negative. ??-tsh normal, b12 normal, HIV, syphilis negative ??-CTH negative for any acute findings ??-Neuro consult rec EEG??and head CT. ??Patient is refusing EEG and head CT with multiple??occasion.?? Previous CT head done on??07/10/2028??no acute findings -- methylmalonic acid: 245 ? --??Received??5 days of high-dose IV thiamine as per neurology recommendation. ??Now changed to p.o. thiamine??100 mg. ? Alcohol use disorder (F10.90):??BAL negative, no acute signs of withdrawal Currently no signs of alcohol withdrawal. ?? Bipolar disorder (F31.9):??: Depression (F32.A):??: PTSD (post-traumatic stress disorder) (F43.10):?? Psych consult noted. cont bupropion, benztropine, Risperidone Benztropine??0.5 mg daily at bedtime Bupropion 150 mg daily Risperidone 1.5 mg twice daily. ( Geodon was replaced by Risperidal as per Psychiatry recs to minimize excessive D2 blockade) Risperidone 0.5 mg twice daily as needed for agitation ??Benadryl 25 mg daily at bedtime Hydroxyzine 50 mg p.o. 4 times a day as needed for anxiety ?? Insomnia (G47.00):??-Continue trazodone and melatonin Objective Assessment and Plan Discharge Planning:? Vital Signs?? Temperature: 97.7 DegF (07/23/23 08:18:00) Temperature Route: Oral (07/23/23 08:18:00) Pulse Rate: 70 bpm (07/23/23 08:18:00) Respiratory Rate: 18 br/min (07/23/23 08:18:00) Systolic Blood Pressure: 115 mm Hg (07/23/23 08:18:00) Diastolic Blood Pressure: 72 mm Hg (07/23/23 08:18:00) Blood pressure sites: Arm, left (07/23/23 08:18:00) Mean Arterial Pressure: 86 mm Hg (07/23/23 08:18:00) Pulse Pressure: 43 mm Hg (07/23/23 08:18:00) Oxygen Saturation: 99 % (07/23/23 08:18:00) Mode of Delivery (Oxygen): Room air (07/23/23 08:18:00) Early Warning Score: 2 (07/23/23 08:18:33) ? . Physical Exam Constitutional: Alert, in no distress. Mental Status: Oriented to person Head: Normocephalic. Neck: Supple, Full range of motion. Respiratory: Clear to auscultation. No wheezing, rales or rhonchi. Cardiovascular: S1 S2 regular. No murmurs, rubs or gallops. Gastrointestinal: Abdomen soft, non-tender, non-distended. Normal bowel sounds. Neurologic: Cranial nerves II-XII grossly intact. No focal neurological deficits. Psychiatric: Normal mood and affect Pending Results No Pending Results Post Discharge Care Discharge ?07/23/23 9:56:00 [facility] Face to Face ^HomeHealthFTF 32_ minutes spent on discharge * Meet García RN: PERFORM Event Display: Patient Education/Instruction Authored Date: [id number] Inpatient Adult Discharge Instructions [address] [address] Name: CALI LILLY : 1965 Visit: 07/16/2023 15:55:00 Current Date: 07/23/2023 10:44 Account: [id number] Inpatient Adult Discharge Instructions We would like to thank you for allowing us to assist you with your healthcare needs. The following includes patient education materials and information regarding your injury/illness. Our entire staffstrives to provide an excellent experience for our patients and their families. PLEASE ENSURE YOU FOLLOW-UP PER THE INSTRUCTIONS BELOW! ?? YOUR OPINION IS IMPORTANT TO US! Please complete the survey you may receive by mail or email. Your feedback will be used to make improvements to the healthcare experiences of our patients and their families. Surveys are administered by [employer] ?? If further treatment with your primary care physician or another doctor is recommended, it is important for you to keep the appointment. Call your primary care physician or return to the Emergency Department immediately if your condition worsens, fails to improve, or new symptoms develop. If you need to find a doctor, you can call [facility] for a referral at [phone] or toll free at [phone] or log in to [email or web address].. ?? [facility], in keeping with [facility] guidance, no longer requires face masks for staff, patientsor visitors in most situations. Similiar to time spent indoors at other locations, there is the chance that you were exposed to repiratory viruses during your time with us (such as flu or COVID-19). If you develop symptoms concerning for a viral respiratory infection, please seek testing (and treatment if indicated) from your medical provider or home test kit. ?? You can view and manage your care through the patient portal or by using a health care [facility]on of your choosing. [employer] is a website that allows you to securely view your medical information including your hospital discharge summary, office visit summaries, medications and follow-up visits. You can also request appointments, renew medications, and request access to your medical information using a health care [facility] of your choosing, or just ask a question. You can enroll at [email or web address] or register during your next office visit. You have been discharged from [facility], Patient Care Unit: D6A. If you have any questions regarding these instructions after you leave, please call us and we will be happy to assist you. [facility] Your Care Team Attending Physician Dinesh Paniagua MD Consulting Providers Sharron Sage MD Discharging Providers Siva WAKEFIELD, Dinesh Reason for Admission ALTERED MENTAL STATUS Your Diagnosis Alcohol use disorder Wernicke-Korsakoff syndrome Vitamin D deficiency Depression PTSD (post-traumatic stress disorder) Bipolar disorder Insomnia Encephalopathy Tests Performed Below is a partial list of the tests performed during your hospitalization. You may have had other tests and procedures not included in this list. Please discuss all test results with your provider. BUN CBC Creatinine Electrolytes Folic Acid Level LFT's Methylmalonic Acid Primary Care Provider Polina Hernandez NP Advance Directive Health Care Proxy on File Yes - Health Care Proxy Discharge Vitals Temperature: 97.7 DegF Pulse Rate: 70 bpm Respiratory Rate: 18 br/min Systolic Blood Pressure: 115 mm Hg Diastolic Blood Pressure: 72 mm Hg Oxygen Saturation: 99 % Studies Pending All tests and labs ordered during this hospital stay have been completed unless listed below. Please discuss all pending results with your provider listed above in these instructions. ?? No incomplete studies found What to do next Instructions From Your Doctor Discharge Orders Discharge Medications CALI LILLY :1965 Visit Date:07/16/2023 Medications: Please continue your medications until treatment is completed or stopped by your provider. Medications not listed below should be discontinued. Discuss any questions related to medications with your provider. What How Much When Instructions Next Dose Unchanged Acetaminophen (Tylenol 325 mg oral tablet) 650 Milligram Oral Every 6 hours as needed for Pain , Mild as needed Unchanged Al Hydroxide/ Mg Hydroxide/ Simethicone (Maalox Plus Liquid) 30 Milliliter Oral Every 4 hours as needed for Dyspepsia as needed Unchanged Benztropine (benztropine 1 mg oral tablet) 0.5 Milligram Oral Daily at Bedtime 07/23/23 9PM Unchanged BuPROpion (buPROPion 150 mg/ 12 hours (SR) oral tablet, extended release) 150 Milligram Oral Daily 07/24/23 9AM Unchanged DiphenhydrAMINE (Benadryl Tablet) 25 Milligram Oral Daily at Bedtime 07/23/23 9PM Unchanged Folic Acid (folic acid 1 mg oral tablet) 1 Milligram Oral Daily 07/24/23 9AM Unchanged HydrOXYzine (hydrOXYzine pamoate 50 mg oral capsule) 50 Milligram Oral 4 times a day as needed for Anxiety as needed Unchanged Lactulose (lactulose 10 gm/ 15 ml oral syrup) 30 Milliliter Oral 3 times a day 07/23/23 3PM Unchanged Melatonin (melatonin 3 mg oral tablet) 6 Milligram Oral Daily at Bedtime 07/23/23 9PM Unchanged Milk of Magnesia (Milk of Magnesia Liquid) 30 Milliliter Oral Daily at Bedtime as needed for Constipation as needed Unchanged Multivitamin With Minerals (Multivit Therapeutic/ Minerals Tablet) 1 tab(s) Oral Daily 07/24/23 9AM Unchanged Polyethylene Glycol 3350 (MiraLax Powder) 17 gram Oral Daily as needed for Constipation as needed Unchanged Pyridoxine (Pyridoxine Tablet) 50 Milligram Oral Daily 07/24/23 9AM Unchanged Risperidone (risperiDONE 0.25 mg oral tablet) 0.5 Milligram Oral Twice a day as needed for Agitation as needed Unchanged Risperidone (risperiDONE 1 mg oral tablet) 1.5 Milligram Oral Twice a day 07/23/23 9PM Unchanged Thiamine (thiamine 100 mg oral tablet) 100 Milligram Oral Twice a day 07/23/23 9PM Unchanged Trazodone (traZODone 50 mg oral tablet) 50 Milligram Oral Daily at Bedtime as needed for Insomnia as needed Test Results Below is a partial list of the most recent Laboratory test results done prior to this discharge. You may have had other tests and procedures not included in this list. Please discuss all test resultswith your provider. BUN (07/17/2023) ???BUN - 13 mg/dL CBC (07/17/2023) ???WBC - 3.2 k/mm3???RBC - 5.07 m/mm3???Hgb - 15.9 Gm/dL???Hct - 46.5 %???MCV - 91.7 femtoliters???MCH - 31.4 pg???MCHC - 34.2 g/dL???Platelet Count - 204 k/mm3???RDW-SD - 40.8 femtoliters???MPV - 9.6 femtoliters???Nucleated RBC (Automated) - 0.0 #/100 WBC'S???Abs. NRBC - 0.0 k/mm3 Creatinine (07/17/2023) ???Creatinine-Blood - 0.9 mg/dL???Estimated GFR Creatinine - 100 ML/MIN/1.73 M2 Electrolytes (07/17/2023) ???Sodium - 137 mmol/L???Potassium - 4.1 mmol/L???Chloride - 102 mmol/L???Bicarbonate Level - 23 mmol/L???Anion Gap - 12 Folic Acid Level (07/17/2023) ???Folic Acid Level - 17.6 ng/mL LFT's (07/17/2023) ???Protein, Total - 6.5 Gm/dL???Albumin - 4.0 Gm/dL???Alkaline Phosphatase - 74 units/L???AST (SGOT) - 29 units/L? ?ALT (SGPT) - 27 units/L? ?Bilirubin, Total - 0.6 mg/dL? ?Bilirubin, Direct - <0.2 mg/dL???Bilirubin, Indirect - Direct bilirubin is less than the measureable limit. Therefore, indirect Methylmalonic Acid (07/17/2023) ???Methylmalonic Acid Level - 245 Allergies (NKA means No Known Allergies) NKA Problems Active Problems??(3) Allergic rhinitis?? Sinus tachycardia?? Vitamin D deficiency?? Education Materials Below is the list of Educational Leaflet Providered with your Discharge Instructions. Vitamin and Mineral Supplements?? Addiction: Getting Help?? Valuables and Belongings I fully understand and agree that [facility] accepts no responsibility for all my personal property including clothing, toilet articles, radios, jewelry, dentures, hearing aids, rings, money, or any other property that is in my possession or is brought to me after admission. I understand certain valuables may be placed in a hospital safe for a short period of time. I understand that the hospital is not liable for loss or damage due to accident, fire, or other natural occurrence while said property is in the safe. I accept full responsibility for any personal property that I keep with me, and will not hold the hospital responsible in case of loss or disappearance. I acknowledge that i have been encouraged to send valuables and belongings home. ?? Review of Valuable and Belonging List: With patient Date for Pt to Sign Valuables/Belongings: 07/16/23 16:43:00 ?? Other Discharge Information ? Pulmonary Rehab Status?? Pulmonary Rehab Discharge Status?? Respiratory Rate: 18 br/min ? Common Emergency Awareness Tips IS IT A STROKE? Act FAST and Check for these signs: FACE Does the face look uneven? ARM Does one arm drift down? SPEECH Does their speech sound strange? TIME Call at any sign of stroke ?? Heart Attack Signs Chest discomfort: Most heart attacks involve discomfort in the center of the chest and lasts more than a few minutes, or goes away and comes back. It can feel like uncomfortable pressure, squeezing, fullness or pain. Discomfort in upper body: Symptoms can include pain or discomfort in one or both arms, back, neck, jaw or stomach. Shortness of breath: With or without discomfort. Other signs: Breaking out in a cold sweat, nausea, or lightheaded. Remember, MINUTES DO MATTER. If you experience any of these heart attack warning signs, call to get immediate medical attention! ?? Smoking can increase your chances of developing chronic health problems and can cause harmful effects to other family members in your house. If you smoke, you are strongly encouraged to quit. Please call [facility] Health Link at [phone] or [phone] ([phone]) or log in to [email or web address] for referrals to smoking cessation programs. ?? 066 Suicide & Crisis Lifeline is available 15/02 if you or someone you know needs to find a reason to keep living. By calling 590 you'll be connected to a skilled, trained counselor at a crisis center in your area. INPATIENT DISCHARGE INSTRUCTIONS SIGNATURE PAGE CALI LILLY Location:[facility] Registration Date and Time:07/16/2023 15:55 EST Primary Care Physician: Polina Hernandez NP, Attending Physician: Siva WAKEFIELD, Dinesh, I CALI LILLY, have received the above patient education materials/instructions and have verbalizedunderstanding. If ambulance or transport services are being used I further acknowledge being given a choice of service. ?? If you need to contact me, please call me at this number: . Patient/Applications Tester Name: Patient/Applications Tester Signature: Relationship to Patient: Witness Name/Signature: Date: * Meet García RN: PERFORM Event Display: Patient Education Leaflets Authored Date: [id number] Vitamin and Mineral Supplements ?? 26287 Vitamin and Mineral Supplements We need vitamins to live. We also need certain minerals. These substances are naturally found in food. They help our bodies grow and function. At times, adding vitamins and minerals to your diet can give your body a boost. But supplements alone can't give all that you need to stay healthy. That???swhy it???s best to eat a balanced diet. Who might need a supplement? Supplements can help people who have special nutritional needs. They may help people who eat small amounts or limited types of foods. You might need a supplement if any of these are true for you: ???You rarely eat a balanced diet. A balanced diet has vegetables and fruits. It includes dairy and grain products. It has protein foods, such as meats, eggs, and beans. ??? You are or . ??? You are a vegetarian or vegan. ??? You are often on a diet of less than 1,600 calories. ??? You can't eat certain types of foods. ??? You are age 50 or older. ??? You have dental or health problems that limit your diet. ??? You are in poor health. ??? You are recovering from an illness orinjury. ?? Talk with your healthcare provider Everyone???s vitamin and mineral needs are different. Talk with your provider to choose the right supplement for you. Tell any healthcare provider you visit what supplements you take. ?? If you take supplements The FDA doesn???t test supplements for quality. So look for supplements that have been independently tested for quality. These will have a seal of approval from 1 or more of these: ??? U.S. Pharmacopeia ??? [employer]Wish ??? [employer] These seals don???t guarantee a product is safe or effective. But they do guarantee that it has theingredients listed on the label. They make sure it doesn???t have contaminants. If you take supplements, make sure to: ??? Read the labels closely. See what vitamins and minerals it contains. ??? Make sure the product won't soon. ??? Store supplements in a cool, dry place. Make sure they are not in sun or heat. ??? Take supplements with food or at bedtime. This is to help prevent nausea. ?? Eating a balanced diet Vitamins and minerals are found in almost all foods. Yet each food has a unique makeup. Try??to eata balanced diet. This includes all of the below: ??? Fruits ??? Vegetables ??? Whole grains and grain products (rice, breads, cereals, tortillas) ??? Low-fat dairy products (milk, yogurt, cheese) ???Healthy proteins (lean meat, poultry, fish, nuts, and beans) ??? Healthy fats (fish, avocado, nuts,seeds, or olive, corn, and sunflower oils) ?? Last Reviewed Date: 2021 ?? 5429-2133 [employer]. All rights reserved. This information is not intended as a substitute for professional medical care. Always follow your healthcare professional's instructions. ?? * Meet García RN: PERFORM Event Display: Patient Education Leaflets Authored Date: [id number] Addiction: Getting Help ?? 25969 Addiction: Getting Help It's not easy to admit that you have a problem with alcohol or drugs. You may hear this called addiction or a substance use disorder. Facing it takes courage and honesty. But once you are ready to look at your use, you have taken a big step toward tackling the problem. You are responsible for your actions and for making healthy choices. But there are many programs and people who can help you. It???s OK to get help. It???s the first step to getting your life back together. Getting help and support Recovery doesn???t happen right away. There are many steps along the way. You???ll learn new, healthy ways to solve problems. You'll learn how to communicate, and resolve conflicts. A counselor or other healthcare provider can help you. So can a guadalupe leader trained in substance abuse counseling. Friends and family??may help once you are working with experts.??Together you can make changes needed for success. This can help you have a positive and rewarding life. ?? To find help near you To find treatment, contact: Substance Abuse and Mental Health Services Administration ([facility]) findtreatment.gov [phone] (120-505-NPNC) ?? Last Reviewed Date: 2022 ?? [employer]. All rights reserved. This information is not intended as a substitute for professional medical care. Always follow your healthcare professional's instructions. ?? Patient Care team information Care Team Personnel Name: Maira Douglas RN Position: S RN Supv Member Role: Primary Care Nurse Name: Buzz Muniz RN Position: S RN Member Role: Primary Care Nurse Name: Polina Hernandez NP Position: Reference Physician Member Role: PCP Address: Address: [address] [place] [address] Name: Felipe Olmedo RN Position: S RN Member Role: Primary Care Nurse Name: Brittani Andrade Position: S RN Member Role: Primary Care Nurse Name: Owen Rivas RN Position: S RN Member Role: Primary Care Nurse Name: Hodan Collazo RN Position: S RN Member Role: Primary Care Nurse
--- NOTE | 2023-12-23 15:48 | HO.PM.IMCN ---
History of Present Illness Data of Consult Service Date: 12/23/23 Requesting physician: Pravin Borjas Primary Care Provider: Unknown Physician HPI Reason for consult: medical H&P 58 year old male with chronic low back pain, calcific tendonosis R shoulder, pt reported Von Willebrand's disease (not on file in [facility] ED report or at [facility]), Wenicke's encephalopathy (per [facility] record), hx alcohol use disorder, prediabetes admitted to adult psychiatry with consult placed to hospitalist service for medical H&P. The patient reports he has required transfusions in the past post surgical procedure, but has never had uncontrolled spontaneous bleeding. No excessive bruising or reported bleeding currently. He does report incomplete bladder emptying. Feels this is rt his prostate as he required a straight cath post procedure once and the staff had difficulty advancing the catheter due to prostate enlargement. No dysuria, abd pain, n/v, flank pain, weak urinary stream or nocturia. Has never been formally diagnosed with BPH. Reports chronic cervical and low back pain dating back years. NO associated weakness/paresthesias along with chronic R shoulder pain r/t calcficic tendonosis. No acute injury or worsening of pain. No cigarette smoking. CBC unremarkable (no anemia), renal function and lytes normal. Review of Systems Review of Systems: Yes all other systems are reviewed and are negative [facility] Medical History Pure hypercholesterolemia Thiamine deficiency Low back pain Vitamin D deficiency Psychosis Bipolar affective disorder Alcoholism in recovery Von Willebrand disease Surgical History H/O colonoscopy with polypectomy Hx of local excision of skin lesion History of inguinal hernia repair, bilateral Social History Household Members: Other Household Members Other:: clients Housing: Other ([facility] program) Housing Other:: transitional home Do you presently have visiting nurse or other home services: No Alcohol intake: former Patient Tobacco Use Status: Never used Tobacco Smoked in Last 30 Days: No e-Cigarette/Vaping Use: Never Used Use of substances other than those prescribed or required for medical reasons: No Have you been hit, kicked, punched, or otherwise hurt by someone within the past year? If so, by whom?: No Do you feel safe in your current relationship?: No Current Relationship Is there a partner from a previous relationship who is making you feel unsafe now?: No Are you made to feel afraid or neglected: No Advance Directives: No Advance Directives Information Provided: No (Declined) Recently lost weight without trying: Yes How much weight loss: 14-23 pounds Eating poorly because of decreased appetite: No Nutrition screen score: 4 Nutrition Risks: No Nutritional Risk Poor oral hygiene: No service: No Current occupational status: unemployed Cognitive needs: No Hearing needs: No Vision needs: No Meds Allergies Allergy/AdvReac Type Severity Reaction Status Date / Time No Known Allergies Allergy Verified 11/17/23 09:55 Active Medications: Current Medications Acetaminophen (Acetaminophen 325 Mg Tablet) 650 mg PO Q6H PRN PRN Reason: Headache/Pain Mild Scale (1-3) Al Hydroxide/Mg Hydroxide (Magnesium Hydrox/Alum Hydrox 30 Ml Oral.Susp) 30 ml PO Q6H PRN PRN Reason: Heartburn/Nausea Hydroxyzine HCl (Hydroxyzine Hcl 25 Mg Tablet) 25 mg PO Q6H PRN PRN Reason: Anxiety Magnesium Hydroxide (Milk Of Magnesia 30 Ml Oral.Susp) 30 ml PO DAILY PRN PRN Reason: Constipation Nicotine Polacrilex (Nicotine Polacrilex 2 Mg Gum) 2 mg BUCCAL Q2H PRN PRN Reason: Nicotine Cravings Trazodone HCl (Trazodone Hcl 50 Mg Tablet) 50 mg PO BEDTIME MRX1 PRN PRN Reason: Insomnia Home Medications ?Medication ?Instructions ?Recorded ?Confirmed ?Last Taken ?Type benztropine 0.5 mg tablet 0.5 mg PO BEDTIME 07/24/22 11/17/23 Unknown History bupropion HCl 150 mg tablet,12 hr 150 mg PO QAM 07/24/22 11/17/23 Unknown History sustained-release diphenhydramine HCl 25 mg capsule See Rx Instructions .Route .COMPLEX 07/24/22 11/17/23 Unknown History (Banophen) naloxone 4 mg/actuation nasal spray spray intranasal 07/24/22 11/17/23 Unknown History ziprasidone HCl 20 mg capsule See Rx Instructions PO .COMPLEX 08/26/23 11/17/23 Unknown History (Geodon) fluticasone propionate 50 1 spray intranasal BID 11/17/23 11/17/23 Unknown History mcg/actuation nasal spray,suspension ziprasidone HCl 40 mg capsule 40 mg PO DAILY 11/17/23 11/17/23 Unknown History Physical Exam Vital Signs and Narrative: Constitutional - Awake and Alert, No apparent distress Eyes - PERRLA, EOMI Cardiovascular - S1S2, RRR, No edema Respiratory - Normal lung expansion, Normal respiratory effort, No respiratory distress, CTA bilaterally Gastrointestinal - NT / ND; +BS; No rebound or guarding Extremities - no calf tenderness bilaterally, no swelling Musculoskeletal - Normal inspection, normal ROM but pain with should flexion Skin - Warm/Dry Neurological - Alert & oriented x3, CN II-XII in tact, 5/5 strength BUE and BLE Psychological - Appropriate affect Assessment and Plan (1) Routine medical exam: Status: Acute Plan 58 year old male with chronic low back pain, calcific tendonosis R shoulder, pt reported Von Willebrand's disease (not on file in [facility] ED report or at [facility]), Wenicke's encephalopathy (per [facility] record), hx alcohol use disorder, prediabetes admitted to adult psychiatry with consult placed to hospitalist service for medical H&P. #Mood disorder -plan per psychiatry #Chronic neck and shoulder pain -reports using diclofenac gel at home which is not on formulary here. Can bring from home if able -Trial lidocaine patches, tylenol, ROM exercises # Von Willebrand's disease -patient reports history but this is not noted in either [facility] ED record or [facility] records. Does report history of post procedural need for transfusion but denies any spontaneous bleeding or current bleeding -H/H stable # alcohol use disorder/Wernicke's encephalopathy -appears to be in sustained remission -continue vitamin B1, vitamin B6, and vitamin B9 # prediabetes -glucose controlled at [facility] ED, check hemoglobin A1c -encouraged healthy snacking and diet choices #Incomplete bladder emptying -suspect BPH. Random bladder scan 256 after eating and drinking. Bladder scan prn q shift if no voids -declines flomax at this time, but will consider in the future Thank you for allowing me to participate in this consult. Signing off at this time. Please do not hesitate to call for further questions or for any acute medical concerns
--- NOTE | 2023-12-23 16:02 | PC.ADMIT ---
Pt is a 58 yo old latvian speaking male admitted from [facility] on a CV with Schizoaffective d/o. Pt has stopped medications with increased AH and VH symptoms. Pt was delusional seeing people walking through [place] and became catatonic. Pts group had pt brought to the ED for assessment. Pt arrived via ambulance and was talkative and responsive. Pt is calm and cooperative. Pt oriented to name and place only. Pts mood is depressed with a flat affect. Speech is soft and difficult to hear at times, with poor eye contact. Pt is reporting AH that tell me do bad things like go to the roof and jump. VH people coming through my [place] and threatening me, they scare me. Pt reports taking medication, but groups home reports not taking medications for past two weeks. Pt appears preoccupied during interview. Edzer reports, bad sleep, nightmares an racing thoughts. He also reports a wt loss of 25 lbs over the past 4 mths. Hx of delusions believing that the state is out to get him for health insurance fraud. Pt has had 3 suicide attempts in the year of 2019. Pt denied SI/HI at the present time. Pt has no acute medical concerns, but has difficulty urinating, unless my bladder is really full. Pt questions if he is having prostrate issues. Pt reports urinating today . Hospitalist notified, bladder scan ordered and completed with 234ml following lunch, no new orders. Tox screen negative. Medications restarted at [facility]. Pt reports hearing deficit and using hearing aids, not with pt, also requires glasses which he did not have with him. Pt has a hx of ETOH abuse , reports stopping 3 years ago.Pt placed on 15 min safety checks.
[2023-12-23] MEDS: Lidocaine 4 % Patch ADH..PATCH 2 PATCH TRANSDERMA (18:35)
[2023-12-23 19:41] VITALS: BP 106/77; PULSE 80; RESP 18; TEMP 36.5; O2SAT 100
[2023-12-23] MEDS: Ziprasidone 40 MG CAPSULE PO (22:29)
[2023-12-23] MEDS: Melatonin 3 MG TABLET 6 MG PO (23:31)
[2023-12-23] MEDS: diphenhydrAMINE HCL 25 MG CAPSULE PO (23:31)
[2023-12-23] MEDS: Benztropine Mesylate 0.5 MG TABLET PO (23:31)
[2023-12-24 08:00] VITALS: BP 100/71; PULSE 85; RESP 14; TEMP 37.2; O2SAT 98
[2023-12-24 08:20] LABS: Estimated Average Glucose 111 mg/dL; Hemoglobin A1c % 5.5 % (<6.0)
[2023-12-24 08:26] LABS: Cholesterol 178 mg/dL (<200); HDL Cholesterol 46 mg/dL (>40); LDL Cholesterol Calculated 116 mg/dL (<100); Triglycerides 84 mg/dL (<150)
[2023-12-24] MEDS: buPROPion HCl XL 150 MG TAB.ER.24H PO (08:27)
[2023-12-24] MEDS: Ziprasidone 20 MG CAPSULE PO (08:27)
[2023-12-24] MEDS: Pyridoxine HCl (Vitamin B6) 50 MG TABLET 100 MG PO (08:27)
[2023-12-24] MEDS: Thiamine HCL 100 MG TABLET PO (08:27)
[2023-12-24] MEDS: Folic Acid 1 MG TABLET PO (08:27)
[2023-12-24] MEDS: Cholecalciferol (Vitamin D3) 25 MCG TABLET PO (08:27)
[2023-12-24] MEDS: Multivitamin TABLET 1 TAB PO (08:28)
[2023-12-24 08:42] LABS: Free T4 (Free Thyroxine) 0.97 ng/dL (0.71-1.85)
[2023-12-24 08:55] LABS: Folate 12.9 ng/mL (> or = 4.0); Vitamin B12 735 pg/mL (200-900)
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
[2023-12-24] MEDS: Lidocaine 4 % Patch ADH..PATCH 2 PATCH TRANSDERMA (14:40)
[2023-12-24 20:00] VITALS: BP 107/71; PULSE 84; RESP 16; TEMP 36.4; O2SAT 98
[2023-12-24] MEDS: Melatonin 3 MG TABLET 6 MG PO (21:16)
[2023-12-24] MEDS: Ziprasidone 40 MG CAPSULE PO (21:16)
[2023-12-24] MEDS: Benztropine Mesylate 0.5 MG TABLET PO (21:17)
[2023-12-24] MEDS: diphenhydrAMINE HCL 25 MG CAPSULE PO (21:17)
[2023-12-25 07:37] VITALS: BP 103/70; PULSE 82; RESP 16; TEMP 36.3; O2SAT 98
[2023-12-25] MEDS: buPROPion HCl XL 150 MG TAB.ER.24H PO (09:29)
[2023-12-25] MEDS: Pyridoxine HCl (Vitamin B6) 50 MG TABLET 100 MG PO (09:29)
[2023-12-25] MEDS: Cholecalciferol (Vitamin D3) 25 MCG TABLET PO (09:29)
[2023-12-25] MEDS: Thiamine HCL 100 MG TABLET PO (09:30)
[2023-12-25] MEDS: Ziprasidone 40 MG CAPSULE PO ×2 (09:30→20:31)
[2023-12-25] MEDS: Folic Acid 1 MG TABLET PO (09:30)
[2023-12-25] MEDS: Multivitamin TABLET 1 TAB PO (09:30)
[2023-12-25] MEDS: Lidocaine 4 % Patch ADH..PATCH 2 PATCH TRANSDERMA (09:36)
--- NOTE | 2023-12-25 11:14 | HO.PSYCHPN ---
Subjective Subjective Date of Service: 12/25/23 Reason For Visit: catatonia Subjective Notes: Conditional Voluntary Interim History: met with patient. Discussed with Nursing. Nursing report patient has been complaining of feeling more depressed. When race and sports book writer met with patient, states that depression is still present, but might be a little bit less with the Wellbutrin. Still having hallucinations. Prefers no med changes today as there were some recent medication changes and would like to wait to see if they are effective. Feeling safe and supported in the hospital. No SI. No delusions. Review of Systems Review of Systems Yes all other systems are reviewed and are negative Mental Status Exam Mental Status Exam Narrative: thin, adequately dressed and groomed. moderate PMR. cooperative. speech soft, slowed, decrease in amount. thoughts linear and logical. affect blunted, hypo-intense, non-labile. denies SI/SIBI/HI. endorses AV of people mumbling unintelligibly. Diagnostics Vital Signs (24Hr): Vital Signs - 24 hr 12/24/23 20:00 12/25/23 07:37 Temperature 97.5 F 97.3 F Pulse Rate 84 82 Respiratory Rate 16 16 Blood Pressure 107/71 103/70 Pulse Oximetry 98 98 Oxygen Delivery Method Room Air Room Air Labs Labs: Laboratory Results - last 48 hr 12/24/23 07:56 Estimat Average Glucose 111 Hemoglobin A1c % 5.5 Triglycerides 84 Cholesterol 178 LDL Cholesterol, Calc 116 H HDL Cholesterol 46 Vitamin B12 735 Folate 12.9 TSH 0.80 Free T4 0.97 Medications Medications Current Medications Acetaminophen (Acetaminophen 325 Mg Tablet) 650 mg PO Q6H PRN PRN Reason: Headache/Pain Mild Scale (1-3) Al Hydroxide/Mg Hydroxide (Magnesium Hydrox/Alum Hydrox 30 Ml Oral.Susp) 30 ml PO Q6H PRN PRN Reason: Heartburn/Nausea Benztropine Mesylate (Benztropine Mesylate 0.5 Mg Tablet) 0.5 mg PO BEDTIME [facility] Last Admin: 12/24/23 21:17 Dose: 0.5 mg Bupropion HCl (Bupropion Hcl Xl 150 Mg Tab.Er.24h) 150 mg PO DAILY [facility] Last Admin: 12/25/23 09:29 Dose: 150 mg Diphenhydramine HCl (Diphenhydramine Hcl 25 Mg Capsule) 25 mg PO BEDTIME [facility] Last Admin: 12/24/23 21:17 Dose: 25 mg Fluticasone Propionate (Fluticasone Propionate Nasal 16 Gm [place]) 1 spray NOSTRIL-B DAILY [facility] Last Admin: 12/25/23 09:38 Dose: Not Given Folic Acid (Folic Acid 1 Mg Tablet) 1 mg PO DAILY [facility] Last Admin: 12/25/23 09:30 Dose: 1 mg Hydroxyzine HCl (Hydroxyzine Hcl 25 Mg Tablet) 25 mg PO Q6H PRN PRN Reason: Anxiety Lidocaine (Lidocaine 4 % Patch Adh..Patch) 2 patch TRANSDERMA DAILY [facility]; Protocol Last Admin: 12/25/23 09:36 Dose: 2 patch Magnesium Hydroxide (Milk Of Magnesia 30 Ml Oral.Susp) 30 ml PO DAILY PRN PRN Reason: Constipation Melatonin (Melatonin 3 Mg Tablet) 6 mg PO BEDTIME [facility] Last Admin: 12/24/23 21:16 Dose: 6 mg Multivitamins/Vitamin C (Multivitamin Tablet) 1 tab PO DAILY [facility] Last Admin: 12/25/23 09:30 Dose: 1 tab Nicotine Polacrilex (Nicotine Polacrilex 2 Mg Gum) 2 mg BUCCAL Q2H PRN PRN Reason: Nicotine Cravings Pyridoxine HCl (Pyridoxine Hcl (Vitamin B6) 50 Mg Tablet) 100 mg PO DAILY [facility] Last Admin: 12/25/23 09:29 Dose: 100 mg Thiamine HCl (Thiamine Hcl 100 Mg Tablet) 100 mg PO DAILY [facility] Last Admin: 12/25/23 09:30 Dose: 100 mg Trazodone HCl (Trazodone Hcl 50 Mg Tablet) 50 mg PO BEDTIME MRX1 PRN PRN Reason: Insomnia Vitamin D (Cholecalciferol (Vitamin D3) 25 Mcg Tablet) 25 mcg PO DAILY [facility] Last Admin: 12/25/23 09:29 Dose: 25 mcg Ziprasidone (Ziprasidone 40 Mg Capsule) 40 mg PO BEDTIME [facility] Last Admin: 12/24/23 21:16 Dose: 40 mg Ziprasidone (Ziprasidone 40 Mg Capsule) 40 mg PO DAILY [facility] Last Admin: 12/25/23 09:30 Dose: 40 mg Allergies Allergies Allergy/AdvReac Type Severity Reaction Status Date / Time No Known Allergies Allergy Verified 11/17/23 09:55 Assessment & Plan Assessment & Plan (1) Schizophrenia: Status: Acute Code(s): F20.9 - Schizophrenia, unspecified Plan increase geodon regimen from 20/40 to 40 BID. otherwise continue/restart outpt regimen. 12/25/2023: No changes as Geodon just increased to 40 mg twice daily Reason for continued inpatient stay Substantial Risk for: inability to function Time Spent With Patient Time: Total time managing care of this patient today ____ minutes.
[2023-12-25] MEDS: Acetaminophen 325 MG TABLET 650 MG PO (11:37)
[2023-12-25 20:15] VITALS: BP 104/69; PULSE 81; RESP 16; TEMP 36.4; O2SAT 98
[2023-12-25] MEDS: Benztropine Mesylate 0.5 MG TABLET PO (20:31)
[2023-12-25] MEDS: Melatonin 3 MG TABLET 6 MG PO (20:31)
[2023-12-25] MEDS: diphenhydrAMINE HCL 25 MG CAPSULE PO (20:32)
[2023-12-26 07:30] VITALS: BP 103/71; PULSE 80; RESP 16; TEMP 36.8; O2SAT 98
[2023-12-26] MEDS: Thiamine HCL 100 MG TABLET PO (09:00)
[2023-12-26] MEDS: Folic Acid 1 MG TABLET PO (09:00)
[2023-12-26] MEDS: Pyridoxine HCl (Vitamin B6) 50 MG TABLET 100 MG PO (09:01)
[2023-12-26] MEDS: Cholecalciferol (Vitamin D3) 25 MCG TABLET PO (09:01)
[2023-12-26] MEDS: Multivitamin TABLET 1 TAB PO (09:01)
[2023-12-26] MEDS: buPROPion HCl XL 150 MG TAB.ER.24H PO (09:01)
[2023-12-26] MEDS: Ziprasidone 40 MG CAPSULE PO ×2 (09:01→20:32)
--- NOTE | 2023-12-26 11:14 | P.PNPSI_ITS ---
Subjective Subjective Date of Service: 12/26/23 Reason For Visit: catatonia Interim History: Met with patient. Discussed with Nursing. still feeling depressed. Still hallucinating. Education provided around medication changes, that took effect yesterday and expected time for benefit/ change. Sleep okay. Energy and appetite low. Feeling safe and supported in the hospital. No SI. No delusions. Medication Compliance: Yes Side effects from medications: No Attending Groups: Intermittent Review of Systems Acute medical concerns: No Review of Systems Review of Systems Yes all other systems are reviewed and are negative Mental Status Exam Mental Status Exam Narrative: thin, adequately dressed and groomed. moderate PMR. cooperative. speech soft, slowed, decrease in amount. thoughts linear and logical. affect blunted, hypo- intense, non-labile. denies SI/SIBI/HI. endorses AV of people mumbling unintelligibly. Diagnostics Vital Signs (24Hr): Vital Signs - 24 hr 12/25/23 20:15 12/26/23 07:30 Temperature 97.5 F 98.2 F Pulse Rate 81 80 Respiratory Rate 16 16 Blood Pressure 104/69 103/71 Pulse Oximetry 98 98 Oxygen Delivery Method Room Air Room Air Medications Medications Current Medications Acetaminophen (Acetaminophen 325 Mg Tablet) 650 mg PO Q6H PRN PRN Reason: Headache/Pain Mild Scale (1-3) Last Admin: 12/25/23 11:37 Dose: 650 mg Al Hydroxide/Mg Hydroxide (Magnesium Hydrox/Alum Hydrox 30 Ml Oral.Susp) 30 ml PO Q6H PRN PRN Reason: Heartburn/Nausea Benztropine Mesylate (Benztropine Mesylate 0.5 Mg Tablet) 0.5 mg PO BEDTIME [facility] Last Admin: 12/25/23 20:31 Dose: 0.5 mg Bupropion HCl (Bupropion Hcl Xl 150 Mg Tab.Er.24h) 150 mg PO DAILY [facility] Last Admin: 12/26/23 09:01 Dose: 150 mg Diphenhydramine HCl (Diphenhydramine Hcl 25 Mg Capsule) 25 mg PO BEDTIME [facility] Last Admin: 12/25/23 20:32 Dose: 25 mg Fluticasone Propionate (Fluticasone Propionate Nasal 16 Gm [place]) 1 spray NOSTRIL-B DAILY [facility] Last Admin: 12/26/23 09:01 Dose: Not Given Folic Acid (Folic Acid 1 Mg Tablet) 1 mg PO DAILY [facility] Last Admin: 12/26/23 09:00 Dose: 1 mg Hydroxyzine HCl (Hydroxyzine Hcl 25 Mg Tablet) 25 mg PO Q6H PRN PRN Reason: Anxiety Lidocaine (Lidocaine 4 % Patch Adh..Patch) 2 patch TRANSDERMA DAILY [facility]; Protocol Last Admin: 12/26/23 09:01 Dose: Not Given Magnesium Hydroxide (Milk Of Magnesia 30 Ml Oral.Susp) 30 ml PO DAILY PRN PRN Reason: Constipation Melatonin (Melatonin 3 Mg Tablet) 6 mg PO BEDTIME [facility] Last Admin: 12/25/23 20:31 Dose: 6 mg Multivitamins/Vitamin C (Multivitamin Tablet) 1 tab PO DAILY [facility] Last Admin: 12/26/23 09:01 Dose: 1 tab Nicotine Polacrilex (Nicotine Polacrilex 2 Mg Gum) 2 mg BUCCAL Q2H PRN PRN Reason: Nicotine Cravings Pyridoxine HCl (Pyridoxine Hcl (Vitamin B6) 50 Mg Tablet) 100 mg PO DAILY [facility] Last Admin: 12/26/23 09:01 Dose: 100 mg Thiamine HCl (Thiamine Hcl 100 Mg Tablet) 100 mg PO DAILY [facility] Last Admin: 12/26/23 09:00 Dose: 100 mg Trazodone HCl (Trazodone Hcl 50 Mg Tablet) 50 mg PO BEDTIME MRX1 PRN PRN Reason: Insomnia Vitamin D (Cholecalciferol (Vitamin D3) 25 Mcg Tablet) 25 mcg PO DAILY [facility] Last Admin: 12/26/23 09:01 Dose: 25 mcg Ziprasidone (Ziprasidone 40 Mg Capsule) 40 mg PO BEDTIME [facility] Last Admin: 12/25/23 20:31 Dose: 40 mg Ziprasidone (Ziprasidone 40 Mg Capsule) 40 mg PO DAILY [facility] Last Admin: 12/26/23 09:01 Dose: 40 mg Allergies Allergies Allergy/AdvReac Type Severity Reaction Status Date / Time No Known Allergies Allergy Verified 11/17/23 09:55 Assessment & Plan Assessment & Plan (1) Schizophrenia: Status: Acute Code(s): F20.9 - Schizophrenia, unspecified Plan increase geodon regimen from 20/40 to 40 BID. otherwise continue/restart outpt regimen. 12/25/2023: No changes as Geodon just increased to 40 mg twice daily 12/26/2023: No changes Reason for continued inpatient stay Substantial Risk for: inability to function Time Spent With Patient Time: Total time managing care of this patient today ____ minutes.
[2023-12-26] MEDS: Acetaminophen 325 MG TABLET 650 MG PO ×2 (12:00→17:21)
[2023-12-26 20:15] VITALS: BP 108/66; PULSE 81; RESP 18; TEMP 37.1; O2SAT 96
[2023-12-26] MEDS: Melatonin 3 MG TABLET 6 MG PO (20:32)
[2023-12-26] MEDS: diphenhydrAMINE HCL 25 MG CAPSULE PO (20:32)
[2023-12-26] MEDS: Benztropine Mesylate 0.5 MG TABLET PO (20:32)
[2023-12-27] MEDS: Acetaminophen 325 MG TABLET 650 MG PO ×3 (05:32→22:19)
[2023-12-27] MEDS: Lidocaine 4 % Patch ADH..PATCH 2 PATCH TRANSDERMA (05:32)
[2023-12-27 07:37] VITALS: BP 102/66; PULSE 72; RESP 14; TEMP 36.9; O2SAT 99
[2023-12-27] MEDS: Thiamine HCL 100 MG TABLET PO (09:19)
[2023-12-27] MEDS: buPROPion HCl XL 150 MG TAB.ER.24H PO (09:19)
[2023-12-27] MEDS: Cholecalciferol (Vitamin D3) 25 MCG TABLET PO (09:20)
[2023-12-27] MEDS: Ziprasidone 40 MG CAPSULE PO ×2 (09:20→21:00)
[2023-12-27] MEDS: Multivitamin TABLET 1 TAB PO (09:20)
[2023-12-27] MEDS: Pyridoxine HCl (Vitamin B6) 50 MG TABLET 100 MG PO (09:20)
[2023-12-27] MEDS: Folic Acid 1 MG TABLET PO (09:20)
--- NOTE | 2023-12-27 15:01 | HO.PSYCHPN ---
Subjective Subjective Date of Service: 12/27/23 Reason For Visit: catatonia Interim History: reports slept better than usual last night - 5.5-6 hours. usually sleeps only3.5-4. endorsing AVH of ppl mumbling, unintelligible. states used to take glucerna but hasn't for a long time. will review HbA1C. no other complaints or requests. per staff, taking meds. shoulder and back pain. +AH of mumbling. sleeping well. Mental Status Exam Mental Status Exam Narrative: thin, adequately dressed and groomed. moderate PMR. cooperative. speech soft, slowed, decrease in amount. thoughts linear and logical. affect constricted, normo-intense, non-labile. no SI/SIBI/HI expressed. endorses AVH of people mumbling unintelligibly. Diagnostics Vital Signs (24Hr): Vital Signs - 24 hr 12/26/23 20:15 12/27/23 07:37 Temperature 98.7 F 98.5 F Pulse Rate 81 72 Respiratory Rate 18 14 Blood Pressure 108/66 102/66 Pulse Oximetry 96 99 Oxygen Delivery Method Room Air Room Air Medications Medications Current Medications Acetaminophen (Acetaminophen 325 Mg Tablet) 650 mg PO Q6H PRN PRN Reason: Headache/Pain Mild Scale (1-3) Last Admin: 12/27/23 05:32 Dose: 650 mg Al Hydroxide/Mg Hydroxide (Magnesium Hydrox/Alum Hydrox 30 Ml Oral.Susp) 30 ml PO Q6H PRN PRN Reason: Heartburn/Nausea Benztropine Mesylate (Benztropine Mesylate 0.5 Mg Tablet) 0.5 mg PO BEDTIME [facility] Last Admin: 12/26/23 20:32 Dose: 0.5 mg Bupropion HCl (Bupropion Hcl Xl 150 Mg Tab.Er.24h) 150 mg PO DAILY [facility] Last Admin: 12/27/23 09:19 Dose: 150 mg Diphenhydramine HCl (Diphenhydramine Hcl 25 Mg Capsule) 25 mg PO BEDTIME [facility] Last Admin: 12/26/23 20:32 Dose: 25 mg Fluticasone Propionate (Fluticasone Propionate Nasal 16 Gm [place]) 1 spray NOSTRIL-B DAILY [facility] Last Admin: 12/27/23 09:21 Dose: Not Given Folic Acid (Folic Acid 1 Mg Tablet) 1 mg PO DAILY [facility] Last Admin: 12/27/23 09:20 Dose: 1 mg Hydroxyzine HCl (Hydroxyzine Hcl 25 Mg Tablet) 25 mg PO Q6H PRN PRN Reason: Anxiety Lidocaine (Lidocaine 4 % Patch Adh..Patch) 2 patch TRANSDERMA DAILY [facility]; Protocol PRN Reason: low back pain Magnesium Hydroxide (Milk Of Magnesia 30 Ml Oral.Susp) 30 ml PO DAILY PRN PRN Reason: Constipation Melatonin (Melatonin 3 Mg Tablet) 6 mg PO BEDTIME [facility] Last Admin: 12/26/23 20:32 Dose: 6 mg Multivitamins/Vitamin C (Multivitamin Tablet) 1 tab PO DAILY [facility] Last Admin: 12/27/23 09:20 Dose: 1 tab Nicotine Polacrilex (Nicotine Polacrilex 2 Mg Gum) 2 mg BUCCAL Q2H PRN PRN Reason: Nicotine Cravings Pyridoxine HCl (Pyridoxine Hcl (Vitamin B6) 50 Mg Tablet) 100 mg PO DAILY [facility] Last Admin: 12/27/23 09:20 Dose: 100 mg Thiamine HCl (Thiamine Hcl 100 Mg Tablet) 100 mg PO DAILY [facility] Last Admin: 12/27/23 09:19 Dose: 100 mg Trazodone HCl (Trazodone Hcl 50 Mg Tablet) 50 mg PO BEDTIME MRX1 PRN PRN Reason: Insomnia Vitamin D (Cholecalciferol (Vitamin D3) 25 Mcg Tablet) 25 mcg PO DAILY [facility] Last Admin: 12/27/23 09:20 Dose: 25 mcg Ziprasidone (Ziprasidone 40 Mg Capsule) 40 mg PO BEDTIME [facility] Last Admin: 12/26/23 20:32 Dose: 40 mg Ziprasidone (Ziprasidone 40 Mg Capsule) 40 mg PO DAILY [facility] Last Admin: 12/27/23 09:20 Dose: 40 mg Allergies Allergies Allergy/AdvReac Type Severity Reaction Status Date / Time No Known Allergies Allergy Verified 11/17/23 09:55 Assessment & Plan Assessment & Plan (1) Schizophrenia: Status: Acute Code(s): F20.9 - Schizophrenia, unspecified Plan 12/23: increase geodon regimen from 20/40 to 40 BID. otherwise continue/restart outpt regimen. 12/25/2023: No changes as Geodon just increased to 40 mg twice daily 12/26/2023: No changes 12/26: SX appear unchanged with respect to admission. continue current regimen for now. HbA1c 5.5%, so DM not presently a concern. T/C alternate regimen if geodon does not begin to prove more helpful. Reason for continued inpatient stay Substantial Risk for: harm to self, inability to function and rapid decompensation Time Spent With Patient Time: Total time managing care of this patient today ___25_ minutes.
[2023-12-27 19:20] VITALS: BP 129/77; PULSE 77; RESP 16; TEMP 36.4; O2SAT 99
[2023-12-27] MEDS: Melatonin 3 MG TABLET 6 MG PO (21:00)
[2023-12-27] MEDS: diphenhydrAMINE HCL 25 MG CAPSULE PO (21:00)
[2023-12-27] MEDS: Benztropine Mesylate 0.5 MG TABLET PO (21:00)
[2023-12-28 07:42] VITALS: BP 103/71; PULSE 73; RESP 16; TEMP 36.6; O2SAT 98
[2023-12-28] MEDS: Ziprasidone 40 MG CAPSULE PO ×2 (08:49→20:41)
[2023-12-28] MEDS: Thiamine HCL 100 MG TABLET PO (08:49)
[2023-12-28] MEDS: Multivitamin TABLET 1 TAB PO (08:49)
[2023-12-28] MEDS: Pyridoxine HCl (Vitamin B6) 50 MG TABLET 100 MG PO (08:50)
[2023-12-28] MEDS: Folic Acid 1 MG TABLET PO (08:50)
[2023-12-28] MEDS: Cholecalciferol (Vitamin D3) 25 MCG TABLET PO (08:50)
[2023-12-28] MEDS: buPROPion HCl XL 150 MG TAB.ER.24H PO (08:50)
[2023-12-28] MEDS: Lidocaine 4 % Patch ADH..PATCH 2 PATCH TRANSDERMA (08:57)
--- NOTE | 2023-12-28 15:39 | HO.PSYCHPN ---
Subjective Subjective Date of Service: 12/28/23 Reason For Visit: catatonia Interim History: no change in presentation. states Sx continue without much change. would like to wait three more days to see if any change occurs, then will increase geodon dosing. reports sleeping reasonably well. pre staff, dep 4. no anxiety. +AVH. pacing eves. some RIS. slept 8 hours. Mental Status Exam Mental Status Exam Narrative: thin, adequately dressed and groomed. moderate PMR. cooperative. speech soft, slowed, decrease in amount. thoughts linear and logical. affect constricted, hypo-intense, non-labile. no SI/SIBI/HI expressed. endorses AVH of people mumbling unintelligibly. Diagnostics Vital Signs (24Hr): Vital Signs - 24 hr 12/27/23 19:20 12/28/23 07:42 Temperature 97.6 F 97.8 F Pulse Rate 77 73 Respiratory Rate 16 16 Blood Pressure 129/77 103/71 Pulse Oximetry 99 98 Oxygen Delivery Method Room Air Room Air Medications Medications Current Medications Acetaminophen (Acetaminophen 325 Mg Tablet) 650 mg PO Q6H PRN PRN Reason: Headache/Pain Mild Scale (1-3) Last Admin: 12/27/23 22:19 Dose: 650 mg Al Hydroxide/Mg Hydroxide (Magnesium Hydrox/Alum Hydrox 30 Ml Oral.Susp) 30 ml PO Q6H PRN PRN Reason: Heartburn/Nausea Benztropine Mesylate (Benztropine Mesylate 0.5 Mg Tablet) 0.5 mg PO BEDTIME [facility] Last Admin: 12/27/23 21:00 Dose: 0.5 mg Bupropion HCl (Bupropion Hcl Xl 150 Mg Tab.Er.24h) 150 mg PO DAILY [facility] Last Admin: 12/28/23 08:50 Dose: 150 mg Diphenhydramine HCl (Diphenhydramine Hcl 25 Mg Capsule) 25 mg PO BEDTIME [facility] Last Admin: 12/27/23 21:00 Dose: 25 mg Fluticasone Propionate (Fluticasone Propionate Nasal 16 Gm [place]) 1 spray NOSTRIL-B DAILY [facility] Last Admin: 12/28/23 08:51 Dose: Not Given Folic Acid (Folic Acid 1 Mg Tablet) 1 mg PO DAILY [facility] Last Admin: 12/28/23 08:50 Dose: 1 mg Hydroxyzine HCl (Hydroxyzine Hcl 25 Mg Tablet) 25 mg PO Q6H PRN PRN Reason: Anxiety Lidocaine (Lidocaine 4 % Patch Adh..Patch) 2 patch TRANSDERMA DAILY PRN; Protocol PRN Reason: low back pain Last Admin: 12/28/23 08:57 Dose: 2 patch Magnesium Hydroxide (Milk Of Magnesia 30 Ml Oral.Susp) 30 ml PO DAILY PRN PRN Reason: Constipation Melatonin (Melatonin 3 Mg Tablet) 6 mg PO BEDTIME [facility] Last Admin: 12/27/23 21:00 Dose: 6 mg Multivitamins/Vitamin C (Multivitamin Tablet) 1 tab PO DAILY [facility] Last Admin: 12/28/23 08:49 Dose: 1 tab Nicotine Polacrilex (Nicotine Polacrilex 2 Mg Gum) 2 mg BUCCAL Q2H PRN PRN Reason: Nicotine Cravings Pyridoxine HCl (Pyridoxine Hcl (Vitamin B6) 50 Mg Tablet) 100 mg PO DAILY [facility] Last Admin: 12/28/23 08:50 Dose: 100 mg Thiamine HCl (Thiamine Hcl 100 Mg Tablet) 100 mg PO DAILY [facility] Last Admin: 12/28/23 08:49 Dose: 100 mg Trazodone HCl (Trazodone Hcl 50 Mg Tablet) 50 mg PO BEDTIME MRX1 PRN PRN Reason: Insomnia Vitamin D (Cholecalciferol (Vitamin D3) 25 Mcg Tablet) 25 mcg PO DAILY [facility] Last Admin: 12/28/23 08:50 Dose: 25 mcg Ziprasidone (Ziprasidone 40 Mg Capsule) 40 mg PO BEDTIME [facility] Last Admin: 12/27/23 21:00 Dose: 40 mg Ziprasidone (Ziprasidone 40 Mg Capsule) 40 mg PO DAILY [facility] Last Admin: 12/28/23 08:49 Dose: 40 mg Allergies Allergies Allergy/AdvReac Type Severity Reaction Status Date / Time No Known Allergies Allergy Verified 11/17/23 09:55 Assessment & Plan Assessment & Plan (1) Schizophrenia: Status: Acute Code(s): F20.9 - Schizophrenia, unspecified Plan 12/23: increase geodon regimen from 20/40 to 40 BID. otherwise continue/restart outpt regimen. 12/25/2023: No changes as Geodon just increased to 40 mg twice daily 12/26/2023: No changes 12/26: SX appear unchanged with respect to admission. continue current regimen for now. HbA1c 5.5%, so DM not presently a concern. T/C alternate regimen if geodon does not begin to prove more helpful. 12/27: pt would like to give geodon until wednesday for improvement; if no improvement, will increase to 40/60 wednesday. no improvementin Sx in recent days. Reason for continued inpatient stay Substantial Risk for: inability to function and rapid decompensation Time Spent With Patient Time: Total time managing care of this patient today __25__ minutes.
[2023-12-28 20:00] VITALS: BP 118/65; PULSE 85; RESP 18; TEMP 36.7; O2SAT 97
[2023-12-28] MEDS: diphenhydrAMINE HCL 25 MG CAPSULE PO (20:40)
[2023-12-28] MEDS: Melatonin 3 MG TABLET 6 MG PO (20:40)
[2023-12-28] MEDS: Acetaminophen 325 MG TABLET 650 MG PO (20:41)
[2023-12-28] MEDS: Benztropine Mesylate 0.5 MG TABLET PO (20:43)
[2023-12-29 07:54] VITALS: BP 96/69; PULSE 70; RESP 16; TEMP 36.8; O2SAT 97
[2023-12-29] MEDS: Folic Acid 1 MG TABLET PO (08:13)
[2023-12-29] MEDS: Pyridoxine HCl (Vitamin B6) 50 MG TABLET 100 MG PO (08:13)
[2023-12-29] MEDS: buPROPion HCl XL 150 MG TAB.ER.24H PO (08:13)
[2023-12-29] MEDS: Cholecalciferol (Vitamin D3) 25 MCG TABLET PO (08:14)
[2023-12-29] MEDS: Thiamine HCL 100 MG TABLET PO (08:14)
[2023-12-29] MEDS: Ziprasidone 40 MG CAPSULE PO ×2 (08:14→20:15)
[2023-12-29] MEDS: Multivitamin TABLET 1 TAB PO (08:14)
[2023-12-29] MEDS: Lidocaine 4 % Patch ADH..PATCH 2 PATCH TRANSDERMA (08:24)
--- NOTE | 2023-12-29 13:43 | HO.PSYCHPN ---
Subjective Subjective Date of Service: 12/29/23 Reason For Visit: catatonia Interim History: difficulty appreciating much improvement since admission. wants to give current regimen until wednesday. improved sleep from baseline, slightly improved AH. still sleeping only 5 hours nightly. continue current mgmt. per staff, taking meds, attending groups. appeared to have slept 8 hours. Mental Status Exam Mental Status Exam Narrative: thin, adequately dressed and groomed. moderate PMR. cooperative. speech soft, slowed, decrease in amount. thoughts linear and logical. affect constricted, hypo-intense, non-labile. no SI/SIBI/HI expressed. endorses AVH of people mumbling unintelligibly. Diagnostics Vital Signs (24Hr): Vital Signs - 24 hr 12/28/23 20:00 12/29/23 07:54 Temperature 98.1 F 98.2 F Pulse Rate 85 70 Respiratory Rate 18 16 Blood Pressure 118/65 96/69 Pulse Oximetry 97 97 Oxygen Delivery Method Room Air Room Air Medications Medications Current Medications Acetaminophen (Acetaminophen 325 Mg Tablet) 650 mg PO Q6H PRN PRN Reason: Headache/Pain Mild Scale (1-3) Last Admin: 12/28/23 20:41 Dose: 650 mg Al Hydroxide/Mg Hydroxide (Magnesium Hydrox/Alum Hydrox 30 Ml Oral.Susp) 30 ml PO Q6H PRN PRN Reason: Heartburn/Nausea Benztropine Mesylate (Benztropine Mesylate 0.5 Mg Tablet) 0.5 mg PO BEDTIME [facility] Last Admin: 12/28/23 20:43 Dose: 0.5 mg Bupropion HCl (Bupropion Hcl Xl 150 Mg Tab.Er.24h) 150 mg PO DAILY [facility] Last Admin: 12/29/23 08:13 Dose: 150 mg Diphenhydramine HCl (Diphenhydramine Hcl 25 Mg Capsule) 25 mg PO BEDTIME [facility] Last Admin: 12/28/23 20:40 Dose: 25 mg Fluticasone Propionate (Fluticasone Propionate Nasal 16 Gm [place]) 1 spray NOSTRIL-B DAILY [facility] Last Admin: 12/29/23 08:15 Dose: Not Given Folic Acid (Folic Acid 1 Mg Tablet) 1 mg PO DAILY [facility] Last Admin: 12/29/23 08:13 Dose: 1 mg Hydroxyzine HCl (Hydroxyzine Hcl 25 Mg Tablet) 25 mg PO Q6H PRN PRN Reason: Anxiety Lidocaine (Lidocaine 4 % Patch Adh..Patch) 2 patch TRANSDERMA DAILY PRN; Protocol PRN Reason: low back pain Last Admin: 12/29/23 08:24 Dose: 2 patch Magnesium Hydroxide (Milk Of Magnesia 30 Ml Oral.Susp) 30 ml PO DAILY PRN PRN Reason: Constipation Melatonin (Melatonin 3 Mg Tablet) 6 mg PO BEDTIME [facility] Last Admin: 12/28/23 20:40 Dose: 6 mg Multivitamins/Vitamin C (Multivitamin Tablet) 1 tab PO DAILY [facility] Last Admin: 12/29/23 08:14 Dose: 1 tab Nicotine Polacrilex (Nicotine Polacrilex 2 Mg Gum) 2 mg BUCCAL Q2H PRN PRN Reason: Nicotine Cravings Pyridoxine HCl (Pyridoxine Hcl (Vitamin B6) 50 Mg Tablet) 100 mg PO DAILY [facility] Last Admin: 12/29/23 08:13 Dose: 100 mg Thiamine HCl (Thiamine Hcl 100 Mg Tablet) 100 mg PO DAILY [facility] Last Admin: 12/29/23 08:14 Dose: 100 mg Trazodone HCl (Trazodone Hcl 50 Mg Tablet) 50 mg PO BEDTIME MRX1 PRN PRN Reason: Insomnia Vitamin D (Cholecalciferol (Vitamin D3) 25 Mcg Tablet) 25 mcg PO DAILY [facility] Last Admin: 12/29/23 08:14 Dose: 25 mcg Ziprasidone (Ziprasidone 40 Mg Capsule) 40 mg PO BEDTIME [facility] Last Admin: 12/28/23 20:41 Dose: 40 mg Ziprasidone (Ziprasidone 40 Mg Capsule) 40 mg PO DAILY [facility] Last Admin: 12/29/23 08:14 Dose: 40 mg Allergies Allergies Allergy/AdvReac Type Severity Reaction Status Date / Time No Known Allergies Allergy Verified 11/17/23 09:55 Assessment & Plan Assessment & Plan (1) Schizophrenia: Status: Acute Code(s): F20.9 - Schizophrenia, unspecified Plan 12/23: increase geodon regimen from 20/40 to 40 BID. otherwise continue/restart outpt regimen. 12/25/2023: No changes as Geodon just increased to 40 mg twice daily 12/26/2023: No changes 12/26: SX appear unchanged with respect to admission. continue current regimen for now. HbA1c 5.5%, so DM not presently a concern. T/C alternate regimen if geodon does not begin to prove more helpful. 12/27: pt would like to give geodon until wednesday for improvement; if no improvement, will increase to 40/60 wednesday. no improvementin Sx in recent days. 12/28: AH and sleep mildly improved. continue current mgmt. T/C med or dose change wednesday. Reason for continued inpatient stay Substantial Risk for: harm to self, inability to function and rapid decompensation Time Spent With Patient Time: Total time managing care of this patient today _25___ minutes.
[2023-12-29 20:00] VITALS: BP 110/76; PULSE 88; RESP 16; TEMP 36.6; O2SAT 98
[2023-12-29] MEDS: Acetaminophen 325 MG TABLET 650 MG PO (20:15)
[2023-12-29] MEDS: Benztropine Mesylate 0.5 MG TABLET PO (20:15)
[2023-12-29] MEDS: diphenhydrAMINE HCL 25 MG CAPSULE PO (20:15)
[2023-12-29] MEDS: Melatonin 3 MG TABLET 6 MG PO (20:15)
[2023-12-30 07:00] VITALS: BMI 19.9
[2023-12-30 07:48] VITALS: BP 109/73; PULSE 85; RESP 18; TEMP 36.7; O2SAT 96
[2023-12-30] MEDS: Folic Acid 1 MG TABLET PO (08:46)
[2023-12-30] MEDS: Pyridoxine HCl (Vitamin B6) 50 MG TABLET 100 MG PO (08:47)
[2023-12-30] MEDS: Ziprasidone 40 MG CAPSULE PO ×2 (08:47→20:45)
[2023-12-30] MEDS: buPROPion HCl XL 150 MG TAB.ER.24H PO (08:48)
[2023-12-30] MEDS: Thiamine HCL 100 MG TABLET PO (08:48)
[2023-12-30] MEDS: Cholecalciferol (Vitamin D3) 25 MCG TABLET PO (08:48)
[2023-12-30] MEDS: Multivitamin TABLET 1 TAB PO (08:48)
[2023-12-30] MEDS: Lidocaine 4 % Patch ADH..PATCH 2 PATCH TRANSDERMA (08:55)
--- NOTE | 2023-12-30 13:26 | HO.PSYCHPN ---
Subjective Subjective Date of Service: 12/30/23 Reason For Visit: catatonia Subjective Notes: Conditional Voluntary Interim History: Reviewed with Dr. Caballero. Observed talking on the phone throughout the day. keeping to self. Pt reports feeling so-so today; pt stated, being here is depressing . He reports auditory hallucinations have diminished but continues to see people in my room . Pt reports he is considering increasing medication or waiting until Wednesday to see if anything changes . Pt denies SI/HI. Medication Compliance: Yes Side effects from medications: No Attending Groups: Yes Review of Systems Constitutional: Reports as per HPI Eyes: Reports as per HPI Reports as per HPI Cardiovascular: Reports as per HPI Respiratory: Reports as per HPI Gastrointestinal: Reports as per HPI Genitourinary: Reports as per HPI Musculoskeletal: Reports as per HPI Skin/Breast: Reports as per HPI Reports as per HPI Psychiatric: Reports as per HPI Endocrine: Reports as per HPI Hematologic/Lymphatic: Reports as per HPI Allergic/Immunologic: Reports as per HPI Mental Status Exam Mental Status Exam Narrative: Pt is alert and oriented; behavior is cooperative and calm; dressed in casual attire; mood is described as so-so ; eye contact appropriate; Speech is normal rate, volume and not pressured; thought process is organized; Thought content is on tx; denies SI/HI. Pt reports auditory and visual hallucinations. Diagnostics Vital Signs (24Hr): Vital Signs - 24 hr 12/29/23 20:00 12/30/23 07:48 Temperature 97.8 F 98.1 F Pulse Rate 88 85 Respiratory Rate 16 18 Blood Pressure 110/76 109/73 Pulse Oximetry 98 96 Oxygen Delivery Method Room Air Room Air BMI result Body Mass Index 19.9 Medications Medications Current Medications Acetaminophen (Acetaminophen 325 Mg Tablet) 650 mg PO Q6H PRN PRN Reason: Headache/Pain Mild Scale (1-3) Last Admin: 12/29/23 20:15 Dose: 650 mg Al Hydroxide/Mg Hydroxide (Magnesium Hydrox/Alum Hydrox 30 Ml Oral.Susp) 30 ml PO Q6H PRN PRN Reason: Heartburn/Nausea Benztropine Mesylate (Benztropine Mesylate 0.5 Mg Tablet) 0.5 mg PO BEDTIME [facility] Last Admin: 12/29/23 20:15 Dose: 0.5 mg Bupropion HCl (Bupropion Hcl Xl 150 Mg Tab.Er.24h) 150 mg PO DAILY [facility] Last Admin: 12/30/23 08:48 Dose: 150 mg Diphenhydramine HCl (Diphenhydramine Hcl 25 Mg Capsule) 25 mg PO BEDTIME [facility] Last Admin: 12/29/23 20:15 Dose: 25 mg Fluticasone Propionate (Fluticasone Propionate Nasal 16 Gm [place]) 1 spray NOSTRIL-B DAILY [facility] Last Admin: 12/30/23 09:05 Dose: Not Given Folic Acid (Folic Acid 1 Mg Tablet) 1 mg PO DAILY [facility] Last Admin: 12/30/23 08:46 Dose: 1 mg Hydroxyzine HCl (Hydroxyzine Hcl 25 Mg Tablet) 25 mg PO Q6H PRN PRN Reason: Anxiety Lidocaine (Lidocaine 4 % Patch Adh..Patch) 2 patch TRANSDERMA DAILY PRN; Protocol PRN Reason: low back pain Last Admin: 12/30/23 08:55 Dose: 2 patch Magnesium Hydroxide (Milk Of Magnesia 30 Ml Oral.Susp) 30 ml PO DAILY PRN PRN Reason: Constipation Melatonin (Melatonin 3 Mg Tablet) 6 mg PO BEDTIME [facility] Last Admin: 12/29/23 20:15 Dose: 6 mg Multivitamins/Vitamin C (Multivitamin Tablet) 1 tab PO DAILY [facility] Last Admin: 12/30/23 08:48 Dose: 1 tab Nicotine Polacrilex (Nicotine Polacrilex 2 Mg Gum) 2 mg BUCCAL Q2H PRN PRN Reason: Nicotine Cravings Pyridoxine HCl (Pyridoxine Hcl (Vitamin B6) 50 Mg Tablet) 100 mg PO DAILY [facility] Last Admin: 12/30/23 08:47 Dose: 100 mg Thiamine HCl (Thiamine Hcl 100 Mg Tablet) 100 mg PO DAILY [facility] Last Admin: 12/30/23 08:48 Dose: 100 mg Trazodone HCl (Trazodone Hcl 50 Mg Tablet) 50 mg PO BEDTIME MRX1 PRN PRN Reason: Insomnia Vitamin D (Cholecalciferol (Vitamin D3) 25 Mcg Tablet) 25 mcg PO DAILY [facility] Last Admin: 12/30/23 08:48 Dose: 25 mcg Ziprasidone (Ziprasidone 40 Mg Capsule) 40 mg PO BEDTIME [facility] Last Admin: 12/29/23 20:15 Dose: 40 mg Ziprasidone (Ziprasidone 40 Mg Capsule) 40 mg PO DAILY [facility] Last Admin: 12/30/23 08:47 Dose: 40 mg Allergies Allergies Allergy/AdvReac Type Severity Reaction Status Date / Time No Known Allergies Allergy Verified 11/17/23 09:55 Assessment & Plan Assessment & Plan (1) Schizophrenia: Status: Acute Code(s): F20.9 - Schizophrenia, unspecified Plan 12/23: increase geodon regimen from 20/40 to 40 BID. otherwise continue/restart outpt regimen. 12/25/2023: No changes as Geodon just increased to 40 mg twice daily 12/26/2023: No changes 12/26: SX appear unchanged with respect to admission. continue current regimen for now. HbA1c 5.5%, so DM not presently a concern. T/C alternate regimen if geodon does not begin to prove more helpful. 12/27: pt would like to give geodon until wednesday for improvement; if no improvement, will increase to 40/60 wednesday. no improvementin Sx in recent days. 12/28: AH and sleep mildly improved. continue current mgmt. T/C med or dose change wednesday. 12/29: Observed talking on the phone throughout the day. keeping to self. Pt reports feeling so-so today; pt stated, being here is depressing . He reports auditory hallucinations have diminished but continues to see people in my room . Pt reports he is considering increasing medication or waiting until Wednesday to see if anything changes . Pt denies SI/HI. Patient educated on: diagnosis, medication risk/benefits and therapeutic strategies Informed Consent: understands Reason for continued inpatient stay Substantial Risk for: med/psych decompensation Time Spent With Patient Time: Total time managing care of this patient today _20___ minutes.
[2023-12-30 20:25] VITALS: BP 111/75; PULSE 89; RESP 16; O2SAT 98
[2023-12-30] MEDS: diphenhydrAMINE HCL 25 MG CAPSULE PO (20:45)
[2023-12-30] MEDS: Benztropine Mesylate 0.5 MG TABLET PO (20:45)
[2023-12-30] MEDS: Melatonin 3 MG TABLET 6 MG PO (20:46)
[2023-12-31] MEDS: traZODone HCL 50 MG TABLET PO (00:27)
[2023-12-31] MEDS: hydrOXYzine HCL 25 MG TABLET PO (03:51)
[2023-12-31] MEDS: Acetaminophen 325 MG TABLET 650 MG PO ×2 (03:52→20:57)
[2023-12-31 08:00] VITALS: BP 105/72; PULSE 85; RESP 16; TEMP 36.6; O2SAT 97
[2023-12-31] MEDS: Lidocaine 4 % Patch ADH..PATCH 2 PATCH TRANSDERMA (10:01)
[2023-12-31] MEDS: Thiamine HCL 100 MG TABLET PO (10:04)
[2023-12-31] MEDS: Cholecalciferol (Vitamin D3) 25 MCG TABLET PO (10:04)
[2023-12-31] MEDS: Folic Acid 1 MG TABLET PO (10:04)
[2023-12-31] MEDS: buPROPion HCl XL 150 MG TAB.ER.24H PO (10:05)
[2023-12-31] MEDS: Pyridoxine HCl (Vitamin B6) 50 MG TABLET 100 MG PO (10:05)
[2023-12-31] MEDS: Multivitamin TABLET 1 TAB PO (10:05)
[2023-12-31] MEDS: Ziprasidone 40 MG CAPSULE PO ×2 (10:06→20:58)
--- NOTE | 2023-12-31 16:06 | HO.PSYCHPN ---
Subjective Subjective Date of Service: 12/31/23 Reason For Visit: catatonia Interim History: zarina, cooperative. states he does feel some improvement in the past several days and would like to now give it through the weekend to see if further improvement can be gained on present dose. reports having slept only 1.5 overnight, however. would like to wait to see if it becomes a pattern prior to doing anything. per staff, +AVH. withdrawn. seeing people (). was happening 7x/day before, now happening only 4x/day. Mental Status Exam Mental Status Exam Narrative: thin, adequately dressed and groomed. moderate PMR. cooperative. speech soft, nml rate, nml amount. thoughts linear and logical. affect constricted, hypo-intense, non-labile. no SI/SIBI/HI expressed. endorses AVH of people mumbling unintelligibly. Diagnostics Vital Signs (24Hr): Vital Signs - 24 hr 12/30/23 20:25 12/31/23 08:00 Temperature 98 F Pulse Rate 89 85 Respiratory Rate 16 16 Blood Pressure 111/75 105/72 Pulse Oximetry 98 97 Oxygen Delivery Method Room Air Room Air BMI result Body Mass Index 19.9 Medications Medications Current Medications Acetaminophen (Acetaminophen 325 Mg Tablet) 650 mg PO Q6H PRN PRN Reason: Headache/Pain Mild Scale (1-3) Last Admin: 12/31/23 03:52 Dose: 650 mg Al Hydroxide/Mg Hydroxide (Magnesium Hydrox/Alum Hydrox 30 Ml Oral.Susp) 30 ml PO Q6H PRN PRN Reason: Heartburn/Nausea Benztropine Mesylate (Benztropine Mesylate 0.5 Mg Tablet) 0.5 mg PO BEDTIME [facility] Last Admin: 12/30/23 20:45 Dose: 0.5 mg Bupropion HCl (Bupropion Hcl Xl 150 Mg Tab.Er.24h) 150 mg PO DAILY [facility] Last Admin: 12/31/23 10:05 Dose: 150 mg Diphenhydramine HCl (Diphenhydramine Hcl 25 Mg Capsule) 25 mg PO BEDTIME [facility] Last Admin: 12/30/23 20:45 Dose: 25 mg Fluticasone Propionate (Fluticasone Propionate Nasal 16 Gm [place]) 1 spray NOSTRIL-B DAILY [facility] Last Admin: 12/31/23 10:07 Dose: Not Given Folic Acid (Folic Acid 1 Mg Tablet) 1 mg PO DAILY [facility] Last Admin: 12/31/23 10:04 Dose: 1 mg Hydroxyzine HCl (Hydroxyzine Hcl 25 Mg Tablet) 25 mg PO Q6H PRN PRN Reason: Anxiety Last Admin: 12/31/23 03:51 Dose: 25 mg Lidocaine (Lidocaine 4 % Patch Adh..Patch) 2 patch TRANSDERMA DAILY PRN; Protocol PRN Reason: low back pain Last Admin: 12/31/23 10:01 Dose: 2 patch Magnesium Hydroxide (Milk Of Magnesia 30 Ml Oral.Susp) 30 ml PO DAILY PRN PRN Reason: Constipation Melatonin (Melatonin 3 Mg Tablet) 6 mg PO BEDTIME [facility] Last Admin: 12/30/23 20:46 Dose: 6 mg Multivitamins/Vitamin C (Multivitamin Tablet) 1 tab PO DAILY [facility] Last Admin: 12/31/23 10:05 Dose: 1 tab Nicotine Polacrilex (Nicotine Polacrilex 2 Mg Gum) 2 mg BUCCAL Q2H PRN PRN Reason: Nicotine Cravings Pyridoxine HCl (Pyridoxine Hcl (Vitamin B6) 50 Mg Tablet) 100 mg PO DAILY [facility] Last Admin: 12/31/23 10:05 Dose: 100 mg Thiamine HCl (Thiamine Hcl 100 Mg Tablet) 100 mg PO DAILY [facility] Last Admin: 12/31/23 10:04 Dose: 100 mg Trazodone HCl (Trazodone Hcl 50 Mg Tablet) 50 mg PO BEDTIME MRX1 PRN PRN Reason: Insomnia Last Admin: 12/31/23 00:27 Dose: 50 mg Vitamin D (Cholecalciferol (Vitamin D3) 25 Mcg Tablet) 25 mcg PO DAILY [facility] Last Admin: 12/31/23 10:04 Dose: 25 mcg Ziprasidone (Ziprasidone 40 Mg Capsule) 40 mg PO BEDTIME [facility] Last Admin: 12/30/23 20:45 Dose: 40 mg Ziprasidone (Ziprasidone 40 Mg Capsule) 40 mg PO DAILY [facility] Last Admin: 12/31/23 10:06 Dose: 40 mg Allergies Allergies Allergy/AdvReac Type Severity Reaction Status Date / Time No Known Allergies Allergy Verified 11/17/23 09:55 Assessment & Plan Assessment & Plan (1) Schizophrenia: Status: Acute Code(s): F20.9 - Schizophrenia, unspecified Plan 12/23: increase geodon regimen from 20/40 to 40 BID. otherwise continue/restart outpt regimen. 12/25/2023: No changes as Geodon just increased to 40 mg twice daily 12/26/2023: No changes 12/26: SX appear unchanged with respect to admission. continue current regimen for now. HbA1c 5.5%, so DM not presently a concern. T/C alternate regimen if geodon does not begin to prove more helpful. 12/27: pt would like to give geodon until wednesday for improvement; if no improvement, will increase to 40/60 wednesday. no improvement in Sx in recent days. 12/28: AH and sleep mildly improved. continue current mgmt. T/C med or dose change wednesday. 12/29: Observed talking on the phone throughout the day. keeping to self. Pt reports feeling so-so today; pt stated, being here is depressing . He reports auditory hallucinations have diminished but continues to see people in my room . Pt reports he is considering increasing medication or waiting until Wednesday to see if anything changes . Pt denies SI/HI. 12/30: pt reports modest improvement over past several days, would now like to continue on present dosing through wednesday. continue current mgmt. Reason for continued inpatient stay Substantial Risk for: harm to self, inability to function and rapid decompensation Time Spent With Patient Time: Total time managing care of this patient today __25__ minutes.
[2023-12-31 20:00] VITALS: BP 91/62; PULSE 82; RESP 16; TEMP 36.8; O2SAT 98
[2023-12-31] MEDS: Melatonin 3 MG TABLET 6 MG PO (20:57)
[2023-12-31] MEDS: diphenhydrAMINE HCL 25 MG CAPSULE PO (20:58)
[2023-12-31] MEDS: Benztropine Mesylate 0.5 MG TABLET PO (20:58)
[2024-01-01 07:39] VITALS: BP 113/75; PULSE 77; RESP 16; TEMP 36.3; O2SAT 97
[2024-01-01] MEDS: Multivitamin TABLET 1 TAB PO (08:11)
[2024-01-01] MEDS: Ziprasidone 40 MG CAPSULE PO ×2 (08:11→20:21)
[2024-01-01] MEDS: Thiamine HCL 100 MG TABLET PO (08:11)
[2024-01-01] MEDS: buPROPion HCl XL 150 MG TAB.ER.24H PO (08:11)
[2024-01-01] MEDS: Pyridoxine HCl (Vitamin B6) 50 MG TABLET 100 MG PO (08:11)
[2024-01-01] MEDS: Cholecalciferol (Vitamin D3) 25 MCG TABLET PO (08:11)
[2024-01-01] MEDS: Folic Acid 1 MG TABLET PO (08:12)
[2024-01-01] MEDS: Lidocaine 4 % Patch ADH..PATCH 2 PATCH TRANSDERMA (08:14)
--- NOTE | 2024-01-01 16:51 | HO.PSYCHPN ---
Subjective Subjective Date of Service: 01/01/24 Reason For Visit: catatonia Interim History: no change from yesterday, wants to hold steady to current plan. per staff, some anxiety. AVH improved. slept all NOC. Mental Status Exam Mental Status Exam Narrative: thin, adequately dressed and groomed. no PMA/PMR. cooperative. speech soft, nml rate, nml amount. thoughts linear and logical. affect more flexible, hypo-intense, non-labile. no SI/SIBI/HI expressed. endorses AVH of people mumbling unintelligibly. Diagnostics Vital Signs (24Hr): Vital Signs - 24 hr 12/31/23 20:00 01/01/24 07:39 Temperature 98.2 F 97.4 F Pulse Rate 82 77 Respiratory Rate 16 16 Blood Pressure 91/62 113/75 Pulse Oximetry 98 97 Oxygen Delivery Method Room Air Room Air BMI result Body Mass Index 19.9 Medications Medications Current Medications Acetaminophen (Acetaminophen 325 Mg Tablet) 650 mg PO Q6H PRN PRN Reason: Headache/Pain Mild Scale (1-3) Last Admin: 12/31/23 20:57 Dose: 650 mg Al Hydroxide/Mg Hydroxide (Magnesium Hydrox/Alum Hydrox 30 Ml Oral.Susp) 30 ml PO Q6H PRN PRN Reason: Heartburn/Nausea Benztropine Mesylate (Benztropine Mesylate 0.5 Mg Tablet) 0.5 mg PO BEDTIME [facility] Last Admin: 12/31/23 20:58 Dose: 0.5 mg Bupropion HCl (Bupropion Hcl Xl 150 Mg Tab.Er.24h) 150 mg PO DAILY [facility] Last Admin: 01/01/24 08:11 Dose: 150 mg Diphenhydramine HCl (Diphenhydramine Hcl 25 Mg Capsule) 25 mg PO BEDTIME [facility] Last Admin: 12/31/23 20:58 Dose: 25 mg Fluticasone Propionate (Fluticasone Propionate Nasal 16 Gm [place]) 1 spray NOSTRIL-B DAILY [facility] Last Admin: 01/01/24 08:21 Dose: Not Given Folic Acid (Folic Acid 1 Mg Tablet) 1 mg PO DAILY [facility] Last Admin: 01/01/24 08:12 Dose: 1 mg Hydroxyzine HCl (Hydroxyzine Hcl 25 Mg Tablet) 25 mg PO Q6H PRN PRN Reason: Anxiety Last Admin: 12/31/23 03:51 Dose: 25 mg Lidocaine (Lidocaine 4 % Patch Adh..Patch) 2 patch TRANSDERMA DAILY PRN; Protocol PRN Reason: low back pain Last Admin: 01/01/24 08:14 Dose: 2 patch Magnesium Hydroxide (Milk Of Magnesia 30 Ml Oral.Susp) 30 ml PO DAILY PRN PRN Reason: Constipation Melatonin (Melatonin 3 Mg Tablet) 6 mg PO BEDTIME [facility] Last Admin: 12/31/23 20:57 Dose: 6 mg Multivitamins/Vitamin C (Multivitamin Tablet) 1 tab PO DAILY [facility] Last Admin: 01/01/24 08:11 Dose: 1 tab Nicotine Polacrilex (Nicotine Polacrilex 2 Mg Gum) 2 mg BUCCAL Q2H PRN PRN Reason: Nicotine Cravings Pyridoxine HCl (Pyridoxine Hcl (Vitamin B6) 50 Mg Tablet) 100 mg PO DAILY [facility] Last Admin: 01/01/24 08:11 Dose: 100 mg Thiamine HCl (Thiamine Hcl 100 Mg Tablet) 100 mg PO DAILY [facility] Last Admin: 01/01/24 08:11 Dose: 100 mg Trazodone HCl (Trazodone Hcl 50 Mg Tablet) 50 mg PO BEDTIME MRX1 PRN PRN Reason: Insomnia Last Admin: 12/31/23 00:27 Dose: 50 mg Vitamin D (Cholecalciferol (Vitamin D3) 25 Mcg Tablet) 25 mcg PO DAILY [facility] Last Admin: 01/01/24 08:11 Dose: 25 mcg Ziprasidone (Ziprasidone 40 Mg Capsule) 40 mg PO BEDTIME [facility] Last Admin: 12/31/23 20:58 Dose: 40 mg Ziprasidone (Ziprasidone 40 Mg Capsule) 40 mg PO DAILY [facility] Last Admin: 01/01/24 08:11 Dose: 40 mg Allergies Allergies Allergy/AdvReac Type Severity Reaction Status Date / Time No Known Allergies Allergy Verified 11/17/23 09:55 Assessment & Plan Assessment & Plan (1) Schizophrenia: Status: Acute Code(s): F20.9 - Schizophrenia, unspecified Plan 12/23: increase geodon regimen from 20/40 to 40 BID. otherwise continue/restart outpt regimen. 12/25/2023: No changes as Geodon just increased to 40 mg twice daily 12/26/2023: No changes 12/26: SX appear unchanged with respect to admission. continue current regimen for now. HbA1c 5.5%, so DM not presently a concern. T/C alternate regimen if geodon does not begin to prove more helpful. 12/27: pt would like to give geodon until wednesday for improvement; if no improvement, will increase to 40/60 wednesday. no improvement in Sx in recent days. 12/28: AH and sleep mildly improved. continue current mgmt. T/C med or dose change wednesday. 12/29: Observed talking on the phone throughout the day. keeping to self. Pt reports feeling so-so today; pt stated, being here is depressing . He reports auditory hallucinations have diminished but continues to see people in my room . Pt reports he is considering increasing medication or waiting until Wednesday to see if anything changes . Pt denies SI/HI. 12/30: pt reports modest improvement over past several days, would now like to continue on present dosing through wednesday. continue current mgmt. 12/31: slept very well last night. wants to continue as we are for now. stable presentation. mild improvement since admission. Reason for continued inpatient stay Substantial Risk for: harm to self, inability to function and rapid decompensation Time Spent With Patient Time: Total time managing care of this patient today ____ minutes.
[2024-01-01] MEDS: diphenhydrAMINE HCL 25 MG CAPSULE PO (20:20)
[2024-01-01] MEDS: Melatonin 3 MG TABLET 6 MG PO (20:20)
[2024-01-01] MEDS: Benztropine Mesylate 0.5 MG TABLET PO (20:21)
[2024-01-01] MEDS: Acetaminophen 325 MG TABLET 650 MG PO (20:25)
[2024-01-01 20:30] VITALS: BP 113/71; PULSE 84; RESP 16; TEMP 36.4; O2SAT 98
[2024-01-02 07:20] VITALS: BP 105/70; PULSE 82; RESP 12; TEMP 36.9; O2SAT 97
[2024-01-02] MEDS: buPROPion HCl XL 150 MG TAB.ER.24H PO (08:56)
[2024-01-02] MEDS: Folic Acid 1 MG TABLET PO (08:56)
[2024-01-02] MEDS: Pyridoxine HCl (Vitamin B6) 50 MG TABLET 100 MG PO (08:57)
[2024-01-02] MEDS: Ziprasidone 40 MG CAPSULE PO ×2 (08:57→20:04)
[2024-01-02] MEDS: Multivitamin TABLET 1 TAB PO (08:57)
[2024-01-02] MEDS: Cholecalciferol (Vitamin D3) 25 MCG TABLET PO (08:57)
[2024-01-02] MEDS: Thiamine HCL 100 MG TABLET PO (08:57)
[2024-01-02] MEDS: Lidocaine 4 % Patch ADH..PATCH 2 PATCH TRANSDERMA (11:38)
--- NOTE | 2024-01-02 15:16 | HO.PSYCHPN ---
Subjective Subjective Date of Service: 01/02/24 Reason For Visit: catatonia Interim History: no change in presentation or Sx. planning to increase dosing tomorrow. per staff, taking meds. AH improved. slept 9 hours. Mental Status Exam Mental Status Exam Narrative: thin, adequately dressed and groomed. no PMA/PMR. cooperative. speech soft, nml rate, nml amount. thoughts linear and logical. affect more flexible, hypo-intense, non-labile. no SI/SIBI/HI expressed. endorses AVH of people mumbling unintelligibly. Diagnostics Vital Signs (24Hr): Vital Signs - 24 hr 01/01/24 20:30 01/02/24 07:20 Temperature 97.6 F 98.5 F Pulse Rate 84 82 Respiratory Rate 16 12 Blood Pressure 113/71 105/70 Pulse Oximetry 98 97 Oxygen Delivery Method Room Air Room Air BMI result Body Mass Index 19.9 Medications Medications Current Medications Acetaminophen (Acetaminophen 325 Mg Tablet) 650 mg PO Q6H PRN PRN Reason: Headache/Pain Mild Scale (1-3) Last Admin: 01/01/24 20:25 Dose: 650 mg Al Hydroxide/Mg Hydroxide (Magnesium Hydrox/Alum Hydrox 30 Ml Oral.Susp) 30 ml PO Q6H PRN PRN Reason: Heartburn/Nausea Benztropine Mesylate (Benztropine Mesylate 0.5 Mg Tablet) 0.5 mg PO BEDTIME MINOO Last Admin: 01/01/24 20:21 Dose: 0.5 mg Bupropion HCl (Bupropion Hcl Xl 150 Mg Tab.Er.24h) 150 mg PO DAILY MINOO Last Admin: 01/02/24 08:56 Dose: 150 mg Diphenhydramine HCl (Diphenhydramine Hcl 25 Mg Capsule) 25 mg PO BEDTIME MINOO Last Admin: 01/01/24 20:20 Dose: 25 mg Fluticasone Propionate (Fluticasone Propionate Nasal 16 Gm [place]) 1 spray NOSTRIL-B DAILY MINOO Last Admin: 01/02/24 08:56 Dose: Not Given Folic Acid (Folic Acid 1 Mg Tablet) 1 mg PO DAILY MINOO Last Admin: 01/02/24 08:56 Dose: 1 mg Hydroxyzine HCl (Hydroxyzine Hcl 25 Mg Tablet) 25 mg PO Q6H PRN PRN Reason: Anxiety Last Admin: 12/31/23 03:51 Dose: 25 mg Lidocaine (Lidocaine 4 % Patch Adh..Patch) 2 patch TRANSDERMA DAILY PRN; Protocol PRN Reason: low back pain Last Admin: 01/02/24 11:38 Dose: 2 patch Magnesium Hydroxide (Milk Of Magnesia 30 Ml Oral.Susp) 30 ml PO DAILY PRN PRN Reason: Constipation Melatonin (Melatonin 3 Mg Tablet) 6 mg PO BEDTIME [facility] Last Admin: 01/01/24 20:20 Dose: 6 mg Multivitamins/Vitamin C (Multivitamin Tablet) 1 tab PO DAILY [facility] Last Admin: 01/02/24 08:57 Dose: 1 tab Nicotine Polacrilex (Nicotine Polacrilex 2 Mg Gum) 2 mg BUCCAL Q2H PRN PRN Reason: Nicotine Cravings Pyridoxine HCl (Pyridoxine Hcl (Vitamin B6) 50 Mg Tablet) 100 mg PO DAILY [facility] Last Admin: 01/02/24 08:57 Dose: 100 mg Thiamine HCl (Thiamine Hcl 100 Mg Tablet) 100 mg PO DAILY [facility] Last Admin: 01/02/24 08:57 Dose: 100 mg Trazodone HCl (Trazodone Hcl 50 Mg Tablet) 50 mg PO BEDTIME MRX1 PRN PRN Reason: Insomnia Last Admin: 12/31/23 00:27 Dose: 50 mg Vitamin D (Cholecalciferol (Vitamin D3) 25 Mcg Tablet) 25 mcg PO DAILY [facility] Last Admin: 01/02/24 08:57 Dose: 25 mcg Ziprasidone (Ziprasidone 40 Mg Capsule) 40 mg PO BEDTIME [facility] Last Admin: 01/01/24 20:21 Dose: 40 mg Ziprasidone (Ziprasidone 40 Mg Capsule) 40 mg PO DAILY [facility] Last Admin: 01/02/24 08:57 Dose: 40 mg Allergies Allergies Allergy/AdvReac Type Severity Reaction Status Date / Time No Known Allergies Allergy Verified 11/17/23 09:55 Assessment & Plan Assessment & Plan (1) Schizophrenia: Status: Acute Code(s): F20.9 - Schizophrenia, unspecified Plan 12/23: increase geodon regimen from 20/40 to 40 BID. otherwise continue/restart outpt regimen. 12/25/2023: No changes as Geodon just increased to 40 mg twice daily 12/26/2023: No changes 12/26: SX appear unchanged with respect to admission. continue current regimen for now. HbA1c 5.5%, so DM not presently a concern. T/C alternate regimen if geodon does not begin to prove more helpful. 12/27: pt would like to give geodon until wednesday for improvement; if no improvement, will increase to 40/60 wednesday. no improvement in Sx in recent days. 12/28: AH and sleep mildly improved. continue current mgmt. T/C med or dose change wednesday. 12/29: Observed talking on the phone throughout the day. keeping to self. Pt reports feeling so-so today; pt stated, being here is depressing . He reports auditory hallucinations have diminished but continues to see people in my room . Pt reports he is considering increasing medication or waiting until Wednesday to see if anything changes . Pt denies SI/HI. 12/30: pt reports modest improvement over past several days, would now like to continue on present dosing through wednesday. continue current mgmt. 12/31: slept very well last night. wants to continue as we are for now. stable presentation. mild improvement since admission. 01/01: slept very well last night. stable presentation. mild improvement since admission. planning to increase geodon dosing tomorrow. Reason for continued inpatient stay Substantial Risk for: harm to self, inability to function and rapid decompensation Time Spent With Patient Time: Total time managing care of this patient today ____ minutes.
[2024-01-02 20:00] VITALS: BP 118/74; PULSE 75; RESP 16; TEMP 36.2; O2SAT 99
[2024-01-02] MEDS: diphenhydrAMINE HCL 25 MG CAPSULE PO (20:03)
[2024-01-02] MEDS: Benztropine Mesylate 0.5 MG TABLET PO (20:04)
[2024-01-02] MEDS: Melatonin 3 MG TABLET 6 MG PO (20:04)
[2024-01-02] MEDS: Acetaminophen 325 MG TABLET 650 MG PO (20:14)
[2024-01-03 08:00] VITALS: BP 103/72; PULSE 68; RESP 16; TEMP 36.7; O2SAT 98
[2024-01-03] MEDS: Thiamine HCL 100 MG TABLET PO (08:21)
[2024-01-03] MEDS: Cholecalciferol (Vitamin D3) 25 MCG TABLET PO (08:21)
[2024-01-03] MEDS: buPROPion HCl XL 150 MG TAB.ER.24H PO (08:21)
[2024-01-03] MEDS: Folic Acid 1 MG TABLET PO (08:21)
[2024-01-03] MEDS: Ziprasidone 40 MG CAPSULE PO ×2 (08:21→20:03)
[2024-01-03] MEDS: Pyridoxine HCl (Vitamin B6) 50 MG TABLET 100 MG PO (08:21)
[2024-01-03] MEDS: Multivitamin TABLET 1 TAB PO (08:46)
[2024-01-03] MEDS: Lidocaine 4 % Patch ADH..PATCH 2 PATCH TRANSDERMA (08:46)
[2024-01-03] MEDS: Ziprasidone 20 MG CAPSULE PO (12:25)
--- NOTE | 2024-01-03 12:45 | HO.PSYCHPN ---
Subjective Subjective Date of Service: 01/03/24 Reason For Visit: catatonia Interim History: calm, cooperative. no change from yesterday, so ready to increase geodon from 40 BID to 60/40, as of today. slept about 5 hours overnight. per staff, taking meds. pacing. not social, but visible. slept 8-9 hours. Mental Status Exam Mental Status Exam Narrative: thin, adequately dressed and groomed. no PMA/PMR. cooperative. speech soft, nml rate, nml amount. thoughts linear and logical. affect more flexible, hypo-intense, non-labile. no SI/SIBI/HI expressed. endorses AVH of people mumbling unintelligibly. Diagnostics Vital Signs (24Hr): Vital Signs - 24 hr 01/02/24 20:00 01/03/24 08:00 Temperature 97.2 F 98.0 F Pulse Rate 75 68 Respiratory Rate 16 16 Blood Pressure 118/74 103/72 Pulse Oximetry 99 98 Oxygen Delivery Method Room Air Room Air BMI result Body Mass Index 19.9 Medications Medications Current Medications Acetaminophen (Acetaminophen 325 Mg Tablet) 650 mg PO Q6H PRN PRN Reason: Headache/Pain Mild Scale (1-3) Last Admin: 01/02/24 20:14 Dose: 650 mg Al Hydroxide/Mg Hydroxide (Magnesium Hydrox/Alum Hydrox 30 Ml Oral.Susp) 30 ml PO Q6H PRN PRN Reason: Heartburn/Nausea Benztropine Mesylate (Benztropine Mesylate 0.5 Mg Tablet) 0.5 mg PO BEDTIME [facility] Last Admin: 01/02/24 20:04 Dose: 0.5 mg Bupropion HCl (Bupropion Hcl Xl 150 Mg Tab.Er.24h) 150 mg PO DAILY [facility] Last Admin: 01/03/24 08:21 Dose: 150 mg Diphenhydramine HCl (Diphenhydramine Hcl 25 Mg Capsule) 25 mg PO BEDTIME [facility] Last Admin: 01/02/24 20:03 Dose: 25 mg Fluticasone Propionate (Fluticasone Propionate Nasal 16 Gm [place]) 1 spray NOSTRIL-B DAILY [facility] Last Admin: 01/03/24 08:22 Dose: Not Given Folic Acid (Folic Acid 1 Mg Tablet) 1 mg PO DAILY [facility] Last Admin: 01/03/24 08:21 Dose: 1 mg Hydroxyzine HCl (Hydroxyzine Hcl 25 Mg Tablet) 25 mg PO Q6H PRN PRN Reason: Anxiety Last Admin: 12/31/23 03:51 Dose: 25 mg Lidocaine (Lidocaine 4 % Patch Adh..Patch) 2 patch TRANSDERMA DAILY PRN; Protocol PRN Reason: low back pain Last Admin: 01/03/24 08:46 Dose: 2 patch Magnesium Hydroxide (Milk Of Magnesia 30 Ml Oral.Susp) 30 ml PO DAILY PRN PRN Reason: Constipation Melatonin (Melatonin 3 Mg Tablet) 6 mg PO BEDTIME [facility] Last Admin: 01/02/24 20:04 Dose: 6 mg Multivitamins/Vitamin C (Multivitamin Tablet) 1 tab PO DAILY [facility] Last Admin: 01/03/24 08:46 Dose: 1 tab Nicotine Polacrilex (Nicotine Polacrilex 2 Mg Gum) 2 mg BUCCAL Q2H PRN PRN Reason: Nicotine Cravings Pyridoxine HCl (Pyridoxine Hcl (Vitamin B6) 50 Mg Tablet) 100 mg PO DAILY [facility] Last Admin: 01/03/24 08:21 Dose: 100 mg Thiamine HCl (Thiamine Hcl 100 Mg Tablet) 100 mg PO DAILY [facility] Last Admin: 01/03/24 08:21 Dose: 100 mg Trazodone HCl (Trazodone Hcl 50 Mg Tablet) 50 mg PO BEDTIME MRX1 PRN PRN Reason: Insomnia Last Admin: 12/31/23 00:27 Dose: 50 mg Vitamin D (Cholecalciferol (Vitamin D3) 25 Mcg Tablet) 25 mcg PO DAILY [facility] Last Admin: 01/03/24 08:21 Dose: 25 mcg Ziprasidone (Ziprasidone 40 Mg Capsule) 40 mg PO BEDTIME [facility] Last Admin: 01/02/24 20:04 Dose: 40 mg Ziprasidone (Ziprasidone 20 Mg Capsule) 20 mg PO ONCE ONE Stop: 01/03/24 13:01 Last Admin: 01/03/24 12:25 Dose: 20 mg Ziprasidone (Ziprasidone 60 Mg Capsule) 60 mg PO DAILY [facility] Allergies Allergies Allergy/AdvReac Type Severity Reaction Status Date / Time No Known Allergies Allergy Verified 11/17/23 09:55 Assessment & Plan Assessment & Plan (1) Schizophrenia: Status: Acute Code(s): F20.9 - Schizophrenia, unspecified Plan 12/23: increase geodon regimen from 20/40 to 40 BID. otherwise continue/restart outpt regimen. 12/25/2023: No changes as Geodon just increased to 40 mg twice daily 12/26/2023: No changes 12/26: SX appear unchanged with respect to admission. continue current regimen for now. HbA1c 5.5%, so DM not presently a concern. T/C alternate regimen if geodon does not begin to prove more helpful. 12/27: pt would like to give geodon until wednesday for improvement; if no improvement, will increase to 40/60 wednesday. no improvement in Sx in recent days. 12/28: AH and sleep mildly improved. continue current mgmt. T/C med or dose change wednesday. 12/29: Observed talking on the phone throughout the day. keeping to self. Pt reports feeling so-so today; pt stated, being here is depressing . He reports auditory hallucinations have diminished but continues to see people in my room . Pt reports he is considering increasing medication or waiting until Wednesday to see if anything changes . Pt denies SI/HI. 12/30: pt reports modest improvement over past several days, would now like to continue on present dosing through wednesday. continue current mgmt. 12/31: slept very well last night. wants to continue as we are for now. stable presentation. mild improvement since admission. 01/01: slept very well last night. stable presentation. mild improvement since admission. planning to increase geodon dosing tomorrow. 01/02: slept about 5 hours last night. due to limited improvement, asks to increase geodon from 40 BID to 60/40, which was done as of today. Reason for continued inpatient stay Substantial Risk for: inability to function and rapid decompensation Time Spent With Patient Time: Total time managing care of this patient today __25__ minutes.
[2024-01-03 20:00] VITALS: BP 118/76; PULSE 80; RESP 16; TEMP 36.6; O2SAT 97
[2024-01-03] MEDS: Melatonin 3 MG TABLET 6 MG PO (20:02)
[2024-01-03] MEDS: diphenhydrAMINE HCL 25 MG CAPSULE PO (20:02)
[2024-01-03] MEDS: Benztropine Mesylate 0.5 MG TABLET PO (20:03)
[2024-01-03] MEDS: Acetaminophen 325 MG TABLET 650 MG PO (22:19)
[2024-01-04 08:00] VITALS: BP 106/75; PULSE 84; RESP 16; TEMP 36.4; O2SAT 97
[2024-01-04] MEDS: Fluticasone Propionate Nasal 16 GM SPRAY 1 SPRAY NOSTRIL-B (08:31)
[2024-01-04] MEDS: Pyridoxine HCl (Vitamin B6) 50 MG TABLET 100 MG PO (08:32)
[2024-01-04] MEDS: Thiamine HCL 100 MG TABLET PO (08:32)
[2024-01-04] MEDS: Ziprasidone 60 MG CAPSULE PO (08:32)
[2024-01-04] MEDS: buPROPion HCl XL 150 MG TAB.ER.24H PO (08:32)
[2024-01-04] MEDS: Folic Acid 1 MG TABLET PO (08:32)
[2024-01-04] MEDS: Cholecalciferol (Vitamin D3) 25 MCG TABLET PO (08:33)
[2024-01-04] MEDS: Multivitamin TABLET 1 TAB PO (08:33)
[2024-01-04] MEDS: Lidocaine 4 % Patch ADH..PATCH 2 PATCH TRANSDERMA (09:35)
--- NOTE | 2024-01-04 15:24 | P.PNPSI_ITS ---
Subjective Subjective Date of Service: 01/04/24 Reason For Visit: catatonia Subjective Notes: Conditional Voluntary Interim History: Reviewed with Dr. Caballero. Observed pacing hallway. guarded. pt reports feeling the same ; pt stated, I'm a little depressed. I'm still hearing the mumbling in Cre[place] . pt denies SI/HI/VH. Medication Compliance: Yes Side effects from medications: No Attending Groups: Intermittent Review of Systems Constitutional: Reports as per HPI Eyes: Reports as per HPI Reports as per HPI Cardiovascular: Reports as per HPI Respiratory: Reports as per HPI Gastrointestinal: Reports as per HPI Genitourinary: Reports as per HPI Musculoskeletal: Reports as per HPI Skin/Breast: Reports as per HPI Reports as per HPI Psychiatric: Reports as per HPI Endocrine: Reports as per HPI Hematologic/Lymphatic: Reports as per HPI Allergic/Immunologic: Reports as per HPI Mental Status Exam Mental Status Exam Narrative: Pt is alert and oriented; behavior is cooperative, guarded; dressed in casual attire; mood is described as depressed ; eye contact appropriate; Speech is normal rate, volume and not pressured; thought process is organized; Thought content is on tx; denies SI/HI/VH. Pt reports auditory hallucinations. Diagnostics Vital Signs (24Hr): Vital Signs - 24 hr 01/03/24 20:00 01/04/24 08:00 Temperature 98 F 97.6 F Pulse Rate 80 84 Respiratory Rate 16 16 Blood Pressure 118/76 106/75 Pulse Oximetry 97 97 Oxygen Delivery Method Room Air Room Air BMI result Body Mass Index 19.9 Medications Medications Current Medications Acetaminophen (Acetaminophen 325 Mg Tablet) 650 mg PO Q6H PRN PRN Reason: Headache/Pain Mild Scale (1-3) Last Admin: 01/03/24 22:19 Dose: 650 mg Al Hydroxide/Mg Hydroxide (Magnesium Hydrox/Alum Hydrox 30 Ml Oral.Susp) 30 ml PO Q6H PRN PRN Reason: Heartburn/Nausea Benztropine Mesylate (Benztropine Mesylate 0.5 Mg Tablet) 0.5 mg PO BEDTIME MINOO Last Admin: 01/03/24 20:03 Dose: 0.5 mg Bupropion HCl (Bupropion Hcl Xl 150 Mg Tab.Er.24h) 150 mg PO DAILY MINOO Last Admin: 01/04/24 08:32 Dose: 150 mg Diphenhydramine HCl (Diphenhydramine Hcl 25 Mg Capsule) 25 mg PO BEDTIME [facility] Last Admin: 01/03/24 20:02 Dose: 25 mg Fluticasone Propionate (Fluticasone Propionate Nasal 16 Gm [place]) 1 spray NOSTRIL-B DAILY [facility] Last Admin: 01/04/24 08:31 Dose: 1 spray Folic Acid (Folic Acid 1 Mg Tablet) 1 mg PO DAILY [facility] Last Admin: 01/04/24 08:32 Dose: 1 mg Hydroxyzine HCl (Hydroxyzine Hcl 25 Mg Tablet) 25 mg PO Q6H PRN PRN Reason: Anxiety Last Admin: 12/31/23 03:51 Dose: 25 mg Lidocaine (Lidocaine 4 % Patch Adh..Patch) 2 patch TRANSDERMA DAILY PRN; Protocol PRN Reason: low back pain Last Admin: 01/04/24 09:35 Dose: 2 patch Magnesium Hydroxide (Milk Of Magnesia 30 Ml Oral.Susp) 30 ml PO DAILY PRN PRN Reason: Constipation Melatonin (Melatonin 3 Mg Tablet) 6 mg PO BEDTIME [facility] Last Admin: 01/03/24 20:02 Dose: 6 mg Multivitamins/Vitamin C (Multivitamin Tablet) 1 tab PO DAILY [facility] Last Admin: 01/04/24 08:33 Dose: 1 tab Nicotine Polacrilex (Nicotine Polacrilex 2 Mg Gum) 2 mg BUCCAL Q2H PRN PRN Reason: Nicotine Cravings Pyridoxine HCl (Pyridoxine Hcl (Vitamin B6) 50 Mg Tablet) 100 mg PO DAILY [facility] Last Admin: 01/04/24 08:32 Dose: 100 mg Thiamine HCl (Thiamine Hcl 100 Mg Tablet) 100 mg PO DAILY [facility] Last Admin: 01/04/24 08:32 Dose: 100 mg Trazodone HCl (Trazodone Hcl 50 Mg Tablet) 50 mg PO BEDTIME MRX1 PRN PRN Reason: Insomnia Last Admin: 12/31/23 00:27 Dose: 50 mg Vitamin D (Cholecalciferol (Vitamin D3) 25 Mcg Tablet) 25 mcg PO DAILY [facility] Last Admin: 01/04/24 08:33 Dose: 25 mcg Ziprasidone (Ziprasidone 40 Mg Capsule) 40 mg PO BEDTIME [facility] Last Admin: 01/03/24 20:03 Dose: 40 mg Ziprasidone (Ziprasidone 60 Mg Capsule) 60 mg PO DAILY [facility] Last Admin: 01/04/24 08:32 Dose: 60 mg Allergies Allergies Allergy/AdvReac Type Severity Reaction Status Date / Time No Known Allergies Allergy Verified 11/17/23 09:55 Assessment & Plan Assessment & Plan (1) Schizophrenia: Status: Acute Code(s): F20.9 - Schizophrenia, unspecified Plan 12/23: increase geodon regimen from 20/40 to 40 BID. otherwise continue/restart outpt regimen. 12/25/2023: No changes as Geodon just increased to 40 mg twice daily 12/26/2023: No changes 12/26: SX appear unchanged with respect to admission. continue current regimen for now. HbA1c 5.5%, so DM not presently a concern. T/C alternate regimen if geodon does not begin to prove more helpful. 12/27: pt would like to give geodon until wednesday for improvement; if no improvement, will increase to 40/60 wednesday. no improvement in Sx in recent days. 12/28: AH and sleep mildly improved. continue current mgmt. T/C med or dose change wednesday. 12/29: Observed talking on the phone throughout the day. keeping to self. Pt reports feeling so-so today; pt stated, being here is depressing . He reports auditory hallucinations have diminished but continues to see people in my room . Pt reports he is considering increasing medication or waiting until Wednesday to see if anything changes . Pt denies SI/HI. 12/30: pt reports modest improvement over past several days, would now like to continue on present dosing through wednesday. continue current mgmt. 12/31: slept very well last night. wants to continue as we are for now. stable presentation. mild improvement since admission. 01/01: slept very well last night. stable presentation. mild improvement since admission. planning to increase geodon dosing tomorrow. 01/02: slept about 5 hours last night. due to limited improvement, asks to increase geodon from 40 BID to 60/40, which was done as of today. 01/03: continue current tx plan. Patient educated on: diagnosis and medication risk/benefits Informed Consent: understands Reason for continued inpatient stay Substantial Risk for: med/psych decompensation Time Spent With Patient Time: Total time managing care of this patient today _20___ minutes.
[2024-01-04 20:00] VITALS: BP 131/86; PULSE 78; RESP 16; TEMP 36.4; O2SAT 99
[2024-01-04] MEDS: Melatonin 3 MG TABLET 6 MG PO (20:15)
[2024-01-04] MEDS: diphenhydrAMINE HCL 25 MG CAPSULE PO (20:16)
[2024-01-04] MEDS: Acetaminophen 325 MG TABLET 650 MG PO (20:16)
[2024-01-04] MEDS: Benztropine Mesylate 0.5 MG TABLET PO (20:17)
[2024-01-04] MEDS: Ziprasidone 40 MG CAPSULE PO (20:17)
[2024-01-05 07:55] VITALS: BP 100/71; PULSE 83; RESP 16; TEMP 37.4; O2SAT 99
[2024-01-05] MEDS: Ziprasidone 60 MG CAPSULE PO (08:41)
[2024-01-05] MEDS: Multivitamin TABLET 1 TAB PO (08:42)
[2024-01-05] MEDS: buPROPion HCl XL 150 MG TAB.ER.24H PO (08:42)
[2024-01-05] MEDS: Pyridoxine HCl (Vitamin B6) 50 MG TABLET 100 MG PO (08:43)
[2024-01-05] MEDS: Thiamine HCL 100 MG TABLET PO (08:44)
[2024-01-05] MEDS: Folic Acid 1 MG TABLET PO (08:44)
[2024-01-05] MEDS: Lidocaine 4 % Patch ADH..PATCH 2 PATCH TRANSDERMA (08:50)
[2024-01-05] MEDS: Fluticasone Propionate Nasal 16 GM SPRAY 1 SPRAY NOSTRIL-B (10:12)
[2024-01-05] MEDS: Cholecalciferol (Vitamin D3) 25 MCG TABLET PO (10:19)
--- NOTE | 2024-01-05 13:19 | HO.PSYCHPN ---
Subjective Subjective Date of Service: 01/05/24 Reason For Visit: catatonia Interim History: calm, cooperative. reports having a bad AH day today, reports CAH to defenestrate himself. states he will be unable to meet with care home staff today as a result. c/o some dizziness yesterday, no improvement in Sx since increase of geodon dosing wednesday. pe staff, dep 5 anx 0. +meds. AH come and go.low motivation. dizzy. no VH. Mental Status Exam Mental Status Exam Narrative: thin, adequately dressed and groomed. no PMA/PMR. cooperative. speech soft, nml rate, nml amount. thoughts linear and logical. affect more flexible, hypo-intense, non-labile. no SI/SIBI/HI/VH expressed. endorses CAH to defenestrate himself. Diagnostics Vital Signs (24Hr): Vital Signs - 24 hr 01/04/24 20:00 01/05/24 07:55 Temperature 97.5 F 99.3 F Pulse Rate 78 83 Respiratory Rate 16 16 Blood Pressure 131/86 100/71 Pulse Oximetry 99 99 Oxygen Delivery Method Room Air Room Air BMI result Body Mass Index 19.9 Medications Medications Current Medications Acetaminophen (Acetaminophen 325 Mg Tablet) 650 mg PO Q6H PRN PRN Reason: Headache/Pain Mild Scale (1-3) Last Admin: 01/04/24 20:16 Dose: 650 mg Al Hydroxide/Mg Hydroxide (Magnesium Hydrox/Alum Hydrox 30 Ml Oral.Susp) 30 ml PO Q6H PRN PRN Reason: Heartburn/Nausea Benztropine Mesylate (Benztropine Mesylate 0.5 Mg Tablet) 0.5 mg PO BEDTIME [facility] Last Admin: 01/04/24 20:17 Dose: 0.5 mg Bupropion HCl (Bupropion Hcl Xl 150 Mg Tab.Er.24h) 150 mg PO DAILY [facility] Last Admin: 01/05/24 08:42 Dose: 150 mg Diphenhydramine HCl (Diphenhydramine Hcl 25 Mg Capsule) 25 mg PO BEDTIME [facility] Last Admin: 01/04/24 20:16 Dose: 25 mg Fluticasone Propionate (Fluticasone Propionate Nasal 16 Gm [place]) 1 spray NOSTRIL-B DAILY [facility] Last Admin: 01/05/24 10:12 Dose: 1 spray Folic Acid (Folic Acid 1 Mg Tablet) 1 mg PO DAILY [facility] Last Admin: 01/05/24 08:44 Dose: 1 mg Hydroxyzine HCl (Hydroxyzine Hcl 25 Mg Tablet) 25 mg PO Q6H PRN PRN Reason: Anxiety Last Admin: 12/31/23 03:51 Dose: 25 mg Lidocaine (Lidocaine 4 % Patch Adh..Patch) 2 patch TRANSDERMA DAILY PRN; Protocol PRN Reason: low back pain Last Admin: 01/05/24 08:50 Dose: 2 patch Magnesium Hydroxide (Milk Of Magnesia 30 Ml Oral.Susp) 30 ml PO DAILY PRN PRN Reason: Constipation Melatonin (Melatonin 3 Mg Tablet) 6 mg PO BEDTIME [facility] [place] Last Admin: 01/04/24 20:15 Dose: 6 mg Multivitamins/Vitamin C (Multivitamin Tablet) 1 tab PO DAILY [facility] Last Admin: 01/05/24 08:42 Dose: 1 tab Nicotine Polacrilex (Nicotine Polacrilex 2 Mg Gum) 2 mg BUCCAL Q2H PRN PRN Reason: Nicotine Cravings Pyridoxine HCl (Pyridoxine Hcl (Vitamin B6) 50 Mg Tablet) 100 mg PO DAILY [facility] [place] Last Admin: 01/05/24 08:43 Dose: 100 mg Thiamine HCl (Thiamine Hcl 100 Mg Tablet) 100 mg PO DAILY [facility] [place] Last Admin: 01/05/24 08:44 Dose: 100 mg Trazodone HCl (Trazodone Hcl 50 Mg Tablet) 50 mg PO BEDTIME MRX1 PRN PRN Reason: Insomnia Last Admin: 12/31/23 00:27 Dose: 50 mg Vitamin D (Cholecalciferol (Vitamin D3) 25 Mcg Tablet) 25 mcg PO DAILY [facility] [place] Last Admin: 01/05/24 10:19 Dose: 25 mcg Ziprasidone (Ziprasidone 40 Mg Capsule) 40 mg PO BEDTIME [facility] [place] Last Admin: 01/04/24 20:17 Dose: 40 mg Ziprasidone (Ziprasidone 60 Mg Capsule) 60 mg PO DAILY [facility] Last Admin: 01/05/24 08:41 Dose: 60 mg Allergies Allergies Allergy/AdvReac Type Severity Reaction Status Date / Time No Known Allergies Allergy Verified 11/17/23 09:55 Assessment & Plan Assessment & Plan (1) Schizophrenia: Status: Acute Code(s): F20.9 - Schizophrenia, unspecified Plan 12/23: increase geodon regimen from 20/40 to 40 BID. otherwise continue/restart outpt regimen. 12/25/2023: No changes as Geodon just increased to 40 mg twice daily 12/26/2023: No changes 12/26: SX appear unchanged with respect to admission. continue current regimen for now. HbA1c 5.5%, so DM not presently a concern. T/C alternate regimen if geodon does not begin to prove more helpful. 12/27: pt would like to give geodon until wednesday for improvement; if no improvement, will increase to 40/60 wednesday. no improvement in Sx in recent days. 12/28: AH and sleep mildly improved. continue current mgmt. T/C med or dose change wednesday. 12/29: Observed talking on the phone throughout the day. keeping to self. Pt reports feeling so-so today; pt stated, being here is depressing . He reports auditory hallucinations have diminished but continues to see people in my room . Pt reports he is considering increasing medication or waiting until Wednesday to see if anything changes . Pt denies SI/HI. 12/30: pt reports modest improvement over past several days, would now like to continue on present dosing through wednesday. continue current mgmt. 12/31: slept very well last night. wants to continue as we are for now. stable presentation. mild improvement since admission. 01/01: slept very well last night. stable presentation. mild improvement since admission. planning to increase geodon dosing tomorrow. 01/02: slept about 5 hours last night. due to limited improvement, asks to increase geodon from 40 BID to 60/40, which was done as of today. 01/03: continue current tx plan. 01/04: CAH to defenestrate himself, worst Sx since arrival. declines to meet with care home staff today as a result. denies any improvement in Sx since recent dose increase in geodon. continue current mgmt. Reason for continued inpatient stay Substantial Risk for: harm to self, inability to function and rapid decompensation Time Spent With Patient Time: Total time managing care of this patient today _25___ minutes.
[2024-01-05 19:27] VITALS: BP 114/80; PULSE 73; RESP 16; TEMP 36.3; O2SAT 97
[2024-01-05] MEDS: Benztropine Mesylate 0.5 MG TABLET PO (20:24)
[2024-01-05] MEDS: Ziprasidone 40 MG CAPSULE PO (20:24)
[2024-01-05] MEDS: diphenhydrAMINE HCL 25 MG CAPSULE PO (20:25)
[2024-01-05] MEDS: Melatonin 3 MG TABLET 6 MG PO (20:25)
[2024-01-05] MEDS: Acetaminophen 325 MG TABLET 650 MG PO (20:31)
[2024-01-06 07:45] VITALS: BP 110/78; PULSE 88; RESP 20; TEMP 37; O2SAT 98
[2024-01-06] MEDS: Multivitamin TABLET 1 TAB PO (08:28)
[2024-01-06] MEDS: Cholecalciferol (Vitamin D3) 25 MCG TABLET PO (08:29)
[2024-01-06] MEDS: Folic Acid 1 MG TABLET PO (08:29)
[2024-01-06] MEDS: Thiamine HCL 100 MG TABLET PO (08:29)
[2024-01-06] MEDS: Pyridoxine HCl (Vitamin B6) 50 MG TABLET 100 MG PO (08:30)
[2024-01-06] MEDS: buPROPion HCl XL 150 MG TAB.ER.24H PO (08:30)
[2024-01-06] MEDS: Ziprasidone 60 MG CAPSULE PO (08:30)
[2024-01-06] MEDS: Acetaminophen 325 MG TABLET 650 MG PO ×2 (08:31→20:46)
[2024-01-06] MEDS: Fluticasone Propionate Nasal 16 GM SPRAY 1 SPRAY NOSTRIL-B (08:32)
[2024-01-06] MEDS: Lidocaine 4 % Patch ADH..PATCH 2 PATCH TRANSDERMA (12:20)
--- NOTE | 2024-01-06 12:45 | P.PNPSI_ITS ---
Subjective Subjective Date of Service: 01/06/24 Reason For Visit: catatonia Interim History: calm, cooperative. reports improvement in AH from yesterday. states only some today at 0400, none since. and no CAH to suicide. per staff, +AH. voices are fine. more social, using humor. apparently told JAY Ramirez that he never wants to hear from long-term mgr again. Mental Status Exam Mental Status Exam Narrative: thin, adequately dressed and groomed. no PMA/PMR. cooperative. speech soft, nml rate, nml amount. thoughts linear and logical. affect more flexible, hypo- intense, non-labile. no SI/SIBI/HI/VH expressed. +AH this morning, less than yesterday. Diagnostics Vital Signs (24Hr): Vital Signs - 24 hr 01/05/24 19:27 01/06/24 07:45 Temperature 97.3 F 98.6 F Pulse Rate 73 88 Respiratory Rate 16 20 Blood Pressure 114/80 110/78 Pulse Oximetry 97 98 Oxygen Delivery Method Room Air Room Air BMI result Body Mass Index 19.9 Medications Medications Current Medications Acetaminophen (Acetaminophen 325 Mg Tablet) 650 mg PO Q6H PRN PRN Reason: Headache/Pain Mild Scale (1-3) Last Admin: 01/06/24 08:31 Dose: 650 mg Al Hydroxide/Mg Hydroxide (Magnesium Hydrox/Alum Hydrox 30 Ml Oral.Susp) 30 ml PO Q6H PRN PRN Reason: Heartburn/Nausea Benztropine Mesylate (Benztropine Mesylate 0.5 Mg Tablet) 0.5 mg PO BEDTIME [facility] Last Admin: 01/05/24 20:24 Dose: 0.5 mg Bupropion HCl (Bupropion Hcl Xl 150 Mg Tab.Er.24h) 150 mg PO DAILY MINOO Last Admin: 01/06/24 08:30 Dose: 150 mg Diphenhydramine HCl (Diphenhydramine Hcl 25 Mg Capsule) 25 mg PO BEDTIME [facility] Last Admin: 01/05/24 20:25 Dose: 25 mg Fluticasone Propionate (Fluticasone Propionate Nasal 16 Gm [place]) 1 spray NOSTRIL-B DAILY [facility] Last Admin: 01/06/24 08:32 Dose: 1 spray Folic Acid (Folic Acid 1 Mg Tablet) 1 mg PO DAILY [facility] Last Admin: 01/06/24 08:29 Dose: 1 mg Hydroxyzine HCl (Hydroxyzine Hcl 25 Mg Tablet) 25 mg PO Q6H PRN PRN Reason: Anxiety Last Admin: 12/31/23 03:51 Dose: 25 mg Lidocaine (Lidocaine 4 % Patch Adh..Patch) 2 patch TRANSDERMA DAILY PRN; Protocol PRN Reason: low back pain Last Admin: 01/06/24 12:20 Dose: 1 patch Magnesium Hydroxide (Milk Of Magnesia 30 Ml Oral.Susp) 30 ml PO DAILY PRN PRN Reason: Constipation Melatonin (Melatonin 3 Mg Tablet) 6 mg PO BEDTIME [facility] Last Admin: 01/05/24 20:25 Dose: 6 mg Multivitamins/Vitamin C (Multivitamin Tablet) 1 tab PO DAILY [facility] Last Admin: 01/06/24 08:28 Dose: 1 tab Nicotine Polacrilex (Nicotine Polacrilex 2 Mg Gum) 2 mg BUCCAL Q2H PRN PRN Reason: Nicotine Cravings Pyridoxine HCl (Pyridoxine Hcl (Vitamin B6) 50 Mg Tablet) 100 mg PO DAILY [facility] Last Admin: 01/06/24 08:30 Dose: 100 mg Thiamine HCl (Thiamine Hcl 100 Mg Tablet) 100 mg PO DAILY [facility] Last Admin: 01/06/24 08:29 Dose: 100 mg Trazodone HCl (Trazodone Hcl 50 Mg Tablet) 50 mg PO BEDTIME MRX1 PRN PRN Reason: Insomnia Last Admin: 12/31/23 00:27 Dose: 50 mg Vitamin D (Cholecalciferol (Vitamin D3) 25 Mcg Tablet) 25 mcg PO DAILY [facility] Last Admin: 01/06/24 08:29 Dose: 25 mcg Ziprasidone (Ziprasidone 40 Mg Capsule) 40 mg PO BEDTIME [facility] Last Admin: 01/05/24 20:24 Dose: 40 mg Ziprasidone (Ziprasidone 60 Mg Capsule) 60 mg PO DAILY [facility] Last Admin: 01/06/24 08:30 Dose: 60 mg Allergies Allergies Allergy/AdvReac Type Severity Reaction Status Date / Time No Known Allergies Allergy Verified 11/17/23 09:55 Assessment & Plan Assessment & Plan (1) Schizophrenia: Status: Acute Code(s): F20.9 - Schizophrenia, unspecified Plan 12/23: increase geodon regimen from 20/40 to 40 BID. otherwise continue/restart outpt regimen. 12/25/2023: No changes as Geodon just increased to 40 mg twice daily 12/26/2023: No changes 12/26: SX appear unchanged with respect to admission. continue current regimen for now. HbA1c 5.5%, so DM not presently a concern. T/C alternate regimen if geodon does not begin to prove more helpful. 12/27: pt would like to give geodon until wednesday for improvement; if no improvement, will increase to 40/60 wednesday. no improvement in Sx in recent days. 12/28: AH and sleep mildly improved. continue current mgmt. T/C med or dose change wednesday. 12/29: Observed talking on the phone throughout the day. keeping to self. Pt reports feeling so-so today; pt stated, being here is depressing . He reports auditory hallucinations have diminished but continues to see people in my [facility] . Pt reports he is considering increasing medication or waiting until Wednesday to see if anything changes . Pt denies SI/HI. 12/30: pt reports modest improvement over past several days, would now like to continue on present dosing through wednesday. continue current mgmt. 12/31: slept very well last night. wants to continue as we are for now. stable presentation. mild improvement since admission. 01/01: slept very well last night. stable presentation. mild improvement since admission. planning to increase geodon dosing tomorrow. 01/02: slept about 5 hours last night. due to limited improvement, asks to increase geodon from 40 BID to 60/40, which was done as of today. 01/03: continue current tx plan. 01/04: CAH to defenestrate himself, worst Sx since arrival. declines to meet with long-term staff today as a result. denies any improvement in Sx since recent dose increase in geodon. continue current mgmt. 01/05: AH improved today, would like to continue current regimen. notably told JAY Ramirez he does not want to meet with long-term mgr ever again, which is quite a departure from his previous warm utterances regarding said person. Reason for continued inpatient stay Substantial Risk for: inability to function and rapid decompensation Time Spent With Patient Time: Total time managing care of this patient today _25___ minutes.
[2024-01-06 12:57] VITALS: BMI 20.1
[2024-01-06 20:07] VITALS: BP 109/69; PULSE 81; RESP 16; TEMP 36.4; O2SAT 99
[2024-01-06] MEDS: Melatonin 3 MG TABLET 6 MG PO (20:46)
[2024-01-06] MEDS: Ziprasidone 40 MG CAPSULE PO (20:46)
[2024-01-06] MEDS: diphenhydrAMINE HCL 25 MG CAPSULE PO (20:46)
[2024-01-06] MEDS: Benztropine Mesylate 0.5 MG TABLET PO (20:46)
[2024-01-07 07:20] VITALS: BP 104/72; PULSE 76; RESP 14; TEMP 36.3; O2SAT 99
[2024-01-07] MEDS: Pyridoxine HCl (Vitamin B6) 50 MG TABLET 100 MG PO (08:36)
[2024-01-07] MEDS: Ziprasidone 60 MG CAPSULE PO (08:37)
[2024-01-07] MEDS: buPROPion HCl XL 150 MG TAB.ER.24H PO (08:37)
[2024-01-07] MEDS: Folic Acid 1 MG TABLET PO (08:37)
[2024-01-07] MEDS: Thiamine HCL 100 MG TABLET PO (08:37)
[2024-01-07] MEDS: Cholecalciferol (Vitamin D3) 25 MCG TABLET PO (08:37)
[2024-01-07] MEDS: Multivitamin TABLET 1 TAB PO (08:38)
--- NOTE | 2024-01-07 12:18 | P.PNPSI_ITS ---
Subjective Subjective Date of Service: 01/07/24 Reason For Visit: catatonia Interim History: no change in presentation. feels meds are working better now. no AH since very early yesterday morning. per staff, flat, withdrawn, guarded, paranoid. AH much better. c/o insomnia. Mental Status Exam Mental Status Exam Narrative: thin, adequately dressed and groomed. no PMA/PMR. cooperative. speech soft, nml rate, nml amount. thoughts linear and logical. affect more flexible, hypo- intense, non-labile. no SI/SIBI/HI/VH expressed. no AH. Diagnostics Vital Signs (24Hr): Vital Signs - 24 hr 01/06/24 20:07 01/07/24 07:20 Temperature 97.5 F 97.4 F Pulse Rate 81 76 Respiratory Rate 16 14 Blood Pressure 109/69 104/72 Pulse Oximetry 99 99 Oxygen Delivery Method Room Air Room Air BMI result Body Mass Index 20.1 Medications Medications Current Medications Acetaminophen (Acetaminophen 325 Mg Tablet) 650 mg PO Q6H PRN PRN Reason: Headache/Pain Mild Scale (1-3) Last Admin: 01/06/24 20:46 Dose: 650 mg Al Hydroxide/Mg Hydroxide (Magnesium Hydrox/Alum Hydrox 30 Ml Oral.Susp) 30 ml PO Q6H PRN PRN Reason: Heartburn/Nausea Benztropine Mesylate (Benztropine Mesylate 0.5 Mg Tablet) 0.5 mg PO BEDTIME [facility] Last Admin: 01/06/24 20:46 Dose: 0.5 mg Bupropion HCl (Bupropion Hcl Xl 150 Mg Tab.Er.24h) 150 mg PO DAILY MINOO Last Admin: 01/07/24 08:37 Dose: 150 mg Diphenhydramine HCl (Diphenhydramine Hcl 25 Mg Capsule) 25 mg PO BEDTIME [facility] Last Admin: 01/06/24 20:46 Dose: 25 mg Fluticasone Propionate (Fluticasone Propionate Nasal 16 Gm [place]) 1 spray NOSTRIL-B DAILY [facility] Last Admin: 01/07/24 09:03 Dose: Not Given Folic Acid (Folic Acid 1 Mg Tablet) 1 mg PO DAILY [facility] Last Admin: 01/07/24 08:37 Dose: 1 mg Hydroxyzine HCl (Hydroxyzine Hcl 25 Mg Tablet) 25 mg PO Q6H PRN PRN Reason: Anxiety Last Admin: 12/31/23 03:51 Dose: 25 mg Lidocaine (Lidocaine 4 % Patch Adh..Patch) 2 patch TRANSDERMA DAILY PRN; Protocol PRN Reason: low back pain Last Admin: 01/06/24 12:20 Dose: 1 patch Magnesium Hydroxide (Milk Of Magnesia 30 Ml Oral.Susp) 30 ml PO DAILY PRN PRN Reason: Constipation Melatonin (Melatonin 3 Mg Tablet) 6 mg PO BEDTIME [facility] Last Admin: 01/06/24 20:46 Dose: 6 mg Multivitamins/Vitamin C (Multivitamin Tablet) 1 tab PO DAILY [facility] Last Admin: 01/07/24 08:38 Dose: 1 tab Nicotine Polacrilex (Nicotine Polacrilex 2 Mg Gum) 2 mg BUCCAL Q2H PRN PRN Reason: Nicotine Cravings Pyridoxine HCl (Pyridoxine Hcl (Vitamin B6) 50 Mg Tablet) 100 mg PO DAILY [facility] Last Admin: 01/07/24 08:36 Dose: 100 mg Thiamine HCl (Thiamine Hcl 100 Mg Tablet) 100 mg PO DAILY [facility] Last Admin: 01/07/24 08:37 Dose: 100 mg Trazodone HCl (Trazodone Hcl 50 Mg Tablet) 50 mg PO BEDTIME MRX1 PRN PRN Reason: Insomnia Last Admin: 12/31/23 00:27 Dose: 50 mg Vitamin D (Cholecalciferol (Vitamin D3) 25 Mcg Tablet) 25 mcg PO DAILY [facility] Last Admin: 01/07/24 08:37 Dose: 25 mcg Ziprasidone (Ziprasidone 40 Mg Capsule) 40 mg PO BEDTIME [facility] Last Admin: 01/06/24 20:46 Dose: 40 mg Ziprasidone (Ziprasidone 60 Mg Capsule) 60 mg PO DAILY [facility] Last Admin: 01/07/24 08:37 Dose: 60 mg Allergies Allergies Allergy/AdvReac Type Severity Reaction Status Date / Time No Known Allergies Allergy Verified 11/17/23 09:55 Assessment & Plan Assessment & Plan (1) Schizophrenia: Status: Acute Code(s): F20.9 - Schizophrenia, unspecified Plan 12/23: increase geodon regimen from 20/40 to 40 BID. otherwise continue/restart outpt regimen. 12/25/2023: No changes as Geodon just increased to 40 mg twice daily 12/26/2023: No changes 12/26: SX appear unchanged with respect to admission. continue current regimen for now. HbA1c 5.5%, so DM not presently a concern. T/C alternate regimen if geodon does not begin to prove more helpful. 12/27: pt would like to give geodon until wednesday for improvement; if no improvement, will increase to 40/60 wednesday. no improvement in Sx in recent days. 12/28: AH and sleep mildly improved. continue current mgmt. T/C med or dose change wednesday. 12/29: Observed talking on the phone throughout the day. keeping to self. Pt reports feeling so-so today; pt stated, being here is depressing . He reports auditory hallucinations have diminished but continues to see people in my room . Pt reports he is considering increasing medication or waiting until Wednesday to see if anything changes . Pt denies SI/HI. 12/30: pt reports modest improvement over past several days, would now like to continue on present dosing through wednesday. continue current mgmt. 12/31: slept very well last night. wants to continue as we are for now. stable presentation. mild improvement since admission. 01/01: slept very well last night. stable presentation. mild improvement since admission. planning to increase geodon dosing tomorrow. 01/02: slept about 5 hours last night. due to limited improvement, asks to increase geodon from 40 BID to 60/40, which was done as of today. 01/03: continue current tx plan. 01/04: CAH to defenestrate himself, worst Sx since arrival. declines to meet with custodial staff today as a result. denies any improvement in Sx since recent dose increase in geodon. continue current mgmt. 01/05: AH improved today, would like to continue current regimen. notably told JAY Ramirez he does not want to meet with custodial mgr ever again, which is quite a departure from his previous warm utterances regarding said person. 01/06: denies AH for more than 24H. continue current mgmt. Reason for continued inpatient stay Substantial Risk for: inability to function and rapid decompensation Time Spent With Patient Time: Total time managing care of this patient today __25__ minutes.
[2024-01-07] MEDS: Acetaminophen 325 MG TABLET 650 MG PO ×2 (12:25→21:12)
[2024-01-07 20:30] VITALS: BP 126/77; PULSE 80; RESP 18; TEMP 36.3; O2SAT 94
[2024-01-07] MEDS: diphenhydrAMINE HCL 25 MG CAPSULE PO (21:12)
[2024-01-07] MEDS: Ziprasidone 40 MG CAPSULE PO (21:13)
[2024-01-07] MEDS: Melatonin 3 MG TABLET 6 MG PO (21:13)
[2024-01-07] MEDS: Benztropine Mesylate 0.5 MG TABLET PO (21:13)
[2024-01-08 07:35] VITALS: BP 116/77; PULSE 71; RESP 16; TEMP 36.4; O2SAT 98
[2024-01-08] MEDS: Folic Acid 1 MG TABLET PO (08:36)
[2024-01-08] MEDS: buPROPion HCl XL 150 MG TAB.ER.24H PO (08:37)
[2024-01-08] MEDS: Cholecalciferol (Vitamin D3) 25 MCG TABLET PO (08:37)
[2024-01-08] MEDS: Pyridoxine HCl (Vitamin B6) 50 MG TABLET 100 MG PO (08:37)
[2024-01-08] MEDS: Multivitamin TABLET 1 TAB PO (08:37)
[2024-01-08] MEDS: Thiamine HCL 100 MG TABLET PO (08:38)
[2024-01-08] MEDS: Ziprasidone 60 MG CAPSULE PO (08:38)
--- NOTE | 2024-01-08 09:53 | P.PNPSI_ITS ---
Subjective Subjective Date of Service: 01/08/24 Reason For Visit: catatonia Subjective Notes: Conditional Voluntary Interim History: Patient was seen and discussed in rounds today. Records and plans were reviewed. He continues to have some depression, no anxiety and minimal auditory hallucinations which have improved. He is mostly withdrawn. Compliant with medications. Eating and sleeping well. No changes were made today Medication Compliance: Yes Side effects from medications: No Review of Systems Review of Systems Yes all other systems are reviewed and are negative Mental Status Exam Mental Status Exam Narrative: In today's visit he is alert, oriented and pleasant. Normal speech. Moderate eye contact. No overt anxiety. Moderate depression/dysphoria present. No acute psychosis. Minimal auditory hallucinations reported. No SI. Cognitively intact. Judgment is intact Diagnostics Vital Signs (24Hr): Vital Signs - 24 hr 01/07/24 20:30 01/08/24 07:35 Temperature 97.4 F 97.5 F Pulse Rate 80 71 Respiratory Rate 18 16 Blood Pressure 126/77 116/77 Pulse Oximetry 94 98 Oxygen Delivery Method Room Air Room Air BMI result Body Mass Index 20.1 Medications Medications Current Medications Acetaminophen (Acetaminophen 325 Mg Tablet) 650 mg PO Q6H PRN PRN Reason: Headache/Pain Mild Scale (1-3) Last Admin: 01/07/24 21:12 Dose: 650 mg Al Hydroxide/Mg Hydroxide (Magnesium Hydrox/Alum Hydrox 30 Ml Oral.Susp) 30 ml PO Q6H PRN PRN Reason: Heartburn/Nausea Benztropine Mesylate (Benztropine Mesylate 0.5 Mg Tablet) 0.5 mg PO BEDTIME [facility] Last Admin: 01/07/24 21:13 Dose: 0.5 mg Bupropion HCl (Bupropion Hcl Xl 150 Mg Tab.Er.24h) 150 mg PO DAILY [facility] Last Admin: 01/08/24 08:37 Dose: 150 mg Diphenhydramine HCl (Diphenhydramine Hcl 25 Mg Capsule) 25 mg PO BEDTIME [facility] Last Admin: 01/07/24 21:12 Dose: 25 mg Fluticasone Propionate (Fluticasone Propionate Nasal 16 Gm [place]) 1 spray NOSTRIL-B DAILY [facility] Last Admin: 01/08/24 08:47 Dose: Not Given Folic Acid (Folic Acid 1 Mg Tablet) 1 mg PO DAILY [facility] Last Admin: 01/08/24 08:36 Dose: 1 mg Hydroxyzine HCl (Hydroxyzine Hcl 25 Mg Tablet) 25 mg PO Q6H PRN PRN Reason: Anxiety Last Admin: 12/31/23 03:51 Dose: 25 mg Lidocaine (Lidocaine 4 % Patch Adh..Patch) 2 patch TRANSDERMA DAILY PRN; Protocol PRN Reason: low back pain Last Admin: 01/06/24 12:20 Dose: 1 patch Magnesium Hydroxide (Milk Of Magnesia 30 Ml Oral.Susp) 30 ml PO DAILY PRN PRN Reason: Constipation Melatonin (Melatonin 3 Mg Tablet) 6 mg PO BEDTIME [facility] Last Admin: 01/07/24 21:13 Dose: 6 mg Multivitamins/Vitamin C (Multivitamin Tablet) 1 tab PO DAILY [facility] Last Admin: 01/08/24 08:37 Dose: 1 tab Nicotine Polacrilex (Nicotine Polacrilex 2 Mg Gum) 2 mg BUCCAL Q2H PRN PRN Reason: Nicotine Cravings Pyridoxine HCl (Pyridoxine Hcl (Vitamin B6) 50 Mg Tablet) 100 mg PO DAILY [facility] Last Admin: 01/08/24 08:37 Dose: 100 mg Thiamine HCl (Thiamine Hcl 100 Mg Tablet) 100 mg PO DAILY [facility] Last Admin: 01/08/24 08:38 Dose: 100 mg Trazodone HCl (Trazodone Hcl 50 Mg Tablet) 50 mg PO BEDTIME MRX1 PRN PRN Reason: Insomnia Last Admin: 12/31/23 00:27 Dose: 50 mg Vitamin D (Cholecalciferol (Vitamin D3) 25 Mcg Tablet) 25 mcg PO DAILY [facility] Last Admin: 01/08/24 08:37 Dose: 25 mcg Ziprasidone (Ziprasidone 40 Mg Capsule) 40 mg PO BEDTIME [facility] Last Admin: 01/07/24 21:13 Dose: 40 mg Ziprasidone (Ziprasidone 60 Mg Capsule) 60 mg PO DAILY [facility] Last Admin: 01/08/24 08:38 Dose: 60 mg Allergies Allergies Allergy/AdvReac Type Severity Reaction Status Date / Time No Known Allergies Allergy Verified 11/17/23 09:55 Assessment & Plan Assessment & Plan (1) Schizophrenia: Status: Acute Code(s): F20.9 - Schizophrenia, unspecified Plan 12/23: increase geodon regimen from 20/40 to 40 BID. otherwise continue/restart outpt regimen. 12/25/2023: No changes as Geodon just increased to 40 mg twice daily 12/26/2023: No changes 12/26: SX appear unchanged with respect to admission. continue current regimen for now. HbA1c 5.5%, so DM not presently a concern. T/C alternate regimen if geodon does not begin to prove more helpful. 12/27: pt would like to give geodon until wednesday for improvement; if no improvement, will increase to 40/60 wednesday. no improvement in Sx in recent days. 12/28: AH and sleep mildly improved. continue current mgmt. T/C med or dose change wednesday. 12/29: Observed talking on the phone throughout the day. keeping to self. Pt reports feeling so-so today; pt stated, being here is depressing . He reports auditory hallucinations have diminished but continues to see people in my room . Pt reports he is considering increasing medication or waiting until Wednesday to see if anything changes . Pt denies SI/HI. 12/30: pt reports modest improvement over past several days, would now like to continue on present dosing through wednesday. continue current mgmt. 12/31: slept very well last night. wants to continue as we are for now. stable presentation. mild improvement since admission. 01/01: slept very well last night. stable presentation. mild improvement since admission. planning to increase geodon dosing tomorrow. 01/02: slept about 5 hours last night. due to limited improvement, asks to increase geodon from 40 BID to 60/40, which was done as of today. 01/03: continue current tx plan. 01/04: CAH to defenestrate himself, worst Sx since arrival. declines to meet with [facility] staff today as a result. denies any improvement in Sx since recent dose increase in geodon. continue current mgmt. 01/05: AH improved today, would like to continue current regimen. notably told JAY Ramirez he does not want to meet with [facility] mgr ever again, which is quite a departure from his previous warm utterances regarding said person. 01/06: denies AH for more than 24H. continue current mgmt. 01/07: Continue current regimen and plans Reason for continued inpatient stay Substantial Risk for: rapid decompensation Time Spent With Patient Time: Total time managing care of this patient today ____ minutes.
[2024-01-08] MEDS: Lidocaine 4 % Patch ADH..PATCH 2 PATCH TRANSDERMA (14:13)
[2024-01-08 20:00] VITALS: BP 115/58; PULSE 86; RESP 14; TEMP 36.9; O2SAT 98
[2024-01-08] MEDS: diphenhydrAMINE HCL 25 MG CAPSULE PO (20:22)
[2024-01-08] MEDS: Ziprasidone 40 MG CAPSULE PO (20:22)
[2024-01-08] MEDS: Benztropine Mesylate 0.5 MG TABLET PO (20:22)
[2024-01-08] MEDS: Melatonin 3 MG TABLET 6 MG PO (20:23)
[2024-01-08] MEDS: Acetaminophen 325 MG TABLET 650 MG PO (20:23)
[2024-01-08] MEDS: Fluticasone Propionate Nasal 16 GM SPRAY 1 SPRAY NOSTRIL-B (21:31)
[2024-01-09 08:00] VITALS: BP 110/74; PULSE 78; RESP 16; TEMP 36.3; O2SAT 99
[2024-01-09] MEDS: Folic Acid 1 MG TABLET PO (09:41)
[2024-01-09] MEDS: Thiamine HCL 100 MG TABLET PO (09:41)
[2024-01-09] MEDS: Multivitamin TABLET 1 TAB PO (09:41)
[2024-01-09] MEDS: Cholecalciferol (Vitamin D3) 25 MCG TABLET PO (09:41)
[2024-01-09] MEDS: buPROPion HCl XL 150 MG TAB.ER.24H PO (09:41)
[2024-01-09] MEDS: Ziprasidone 60 MG CAPSULE PO (09:42)
[2024-01-09] MEDS: Pyridoxine HCl (Vitamin B6) 50 MG TABLET 100 MG PO (09:42)
--- NOTE | 2024-01-09 10:10 | P.PNPSI_ITS ---
Subjective Subjective Date of Service: 01/09/24 Reason For Visit: catatonia Subjective Notes: Conditional Voluntary Interim History: Patient was seen and discussed in rounds today. Records and plans were reviewed. He continues to endorse some depression but no anxiety. Medication compliant. Attending groups but not participating much. No AVH. He is visible but mostly to himself. No SI. No changes were made today Medication Compliance: Yes Side effects from medications: No Review of Systems Review of Systems Yes all other systems are reviewed and are negative Mental Status Exam Mental Status Exam Narrative: In today's visit he is alert, oriented and pleasant. Normal speech. Moderate eye contact. No overt anxiety. Moderate depression/dysphoria present. No acute psychosis. Minimal auditory hallucinations reported. No SI. Cognitively intact. Judgment is intact Diagnostics Vital Signs (24Hr): Vital Signs - 24 hr 01/08/24 20:00 01/09/24 08:00 Temperature 98.5 F 97.4 F Pulse Rate 86 78 Respiratory Rate 14 16 Blood Pressure 115/58 L 110/74 Pulse Oximetry 98 99 Oxygen Delivery Method Room Air Room Air BMI result Body Mass Index 20.1 Medications Medications Current Medications Acetaminophen (Acetaminophen 325 Mg Tablet) 650 mg PO Q6H PRN PRN Reason: Headache/Pain Mild Scale (1-3) Last Admin: 01/08/24 20:23 Dose: 650 mg Al Hydroxide/Mg Hydroxide (Magnesium Hydrox/Alum Hydrox 30 Ml Oral.Susp) 30 ml PO Q6H PRN PRN Reason: Heartburn/Nausea Benztropine Mesylate (Benztropine Mesylate 0.5 Mg Tablet) 0.5 mg PO BEDTIME [facility] Last Admin: 01/08/24 20:22 Dose: 0.5 mg Bupropion HCl (Bupropion Hcl Xl 150 Mg Tab.Er.24h) 150 mg PO DAILY [facility] Last Admin: 01/09/24 09:41 Dose: 150 mg Diphenhydramine HCl (Diphenhydramine Hcl 25 Mg Capsule) 25 mg PO BEDTIME [facility] Last Admin: 01/08/24 20:22 Dose: 25 mg Fluticasone Propionate (Fluticasone Propionate Nasal 16 Gm [place]) 1 spray NOSTRIL-B DAILY [facility] Last Admin: 01/09/24 09:43 Dose: Not Given Folic Acid (Folic Acid 1 Mg Tablet) 1 mg PO DAILY [facility] Last Admin: 01/09/24 09:41 Dose: 1 mg Hydroxyzine HCl (Hydroxyzine Hcl 25 Mg Tablet) 25 mg PO Q6H PRN PRN Reason: Anxiety Last Admin: 12/31/23 03:51 Dose: 25 mg Lidocaine (Lidocaine 4 % Patch Adh..Patch) 2 patch TRANSDERMA DAILY PRN; Protocol PRN Reason: low back pain Last Admin: 01/08/24 14:13 Dose: 2 patch Magnesium Hydroxide (Milk Of Magnesia 30 Ml Oral.Susp) 30 ml PO DAILY PRN PRN Reason: Constipation Melatonin (Melatonin 3 Mg Tablet) 6 mg PO BEDTIME [facility] Last Admin: 01/08/24 20:23 Dose: 6 mg Multivitamins/Vitamin C (Multivitamin Tablet) 1 tab PO DAILY [facility] Last Admin: 01/09/24 09:41 Dose: 1 tab Nicotine Polacrilex (Nicotine Polacrilex 2 Mg Gum) 2 mg BUCCAL Q2H PRN PRN Reason: Nicotine Cravings Pyridoxine HCl (Pyridoxine Hcl (Vitamin B6) 50 Mg Tablet) 100 mg PO DAILY [facility] Last Admin: 01/09/24 09:42 Dose: 100 mg Thiamine HCl (Thiamine Hcl 100 Mg Tablet) 100 mg PO DAILY [facility] Last Admin: 01/09/24 09:41 Dose: 100 mg Trazodone HCl (Trazodone Hcl 50 Mg Tablet) 50 mg PO BEDTIME [facility] PRN PRN Reason: Insomnia Last Admin: 12/31/23 00:27 Dose: 50 mg Vitamin D (Cholecalciferol (Vitamin D3) 25 Mcg Tablet) 25 mcg PO DAILY [facility] Last Admin: 01/09/24 09:41 Dose: 25 mcg Ziprasidone (Ziprasidone 40 Mg Capsule) 40 mg PO BEDTIME [facility] Last Admin: 01/08/24 20:22 Dose: 40 mg Ziprasidone (Ziprasidone 60 Mg Capsule) 60 mg PO DAILY [facility] Last Admin: 01/09/24 09:42 Dose: 60 mg Allergies Allergies Allergy/AdvReac Type Severity Reaction Status Date / Time No Known Allergies Allergy Verified 11/17/23 09:55 Assessment & Plan Assessment & Plan (1) Schizophrenia: Status: Acute Code(s): F20.9 - Schizophrenia, unspecified Plan 12/23: increase geodon regimen from 20/40 to 40 BID. otherwise continue/restart outpt regimen. 12/25/2023: No changes as Geodon just increased to 40 mg twice daily 12/26/2023: No changes 12/26: SX appear unchanged with respect to admission. continue current regimen for now. HbA1c 5.5%, so DM not presently a concern. T/C alternate regimen if geodon does not begin to prove more helpful. 12/27: pt would like to give geodon until wednesday for improvement; if no improvement, will increase to 40/60 wednesday. no improvement in Sx in recent days. 12/28: AH and sleep mildly improved. continue current mgmt. T/C med or dose change wednesday. 12/29: Observed talking on the phone throughout the day. keeping to self. Pt reports feeling so-so today; pt stated, being here is depressing . He reports auditory hallucinations have diminished but continues to see people in my room . Pt reports he is considering increasing medication or waiting until Wednesday to see if anything changes . Pt denies SI/HI. 12/30: pt reports modest improvement over past several days, would now like to continue on present dosing through wednesday. continue current mgmt. 12/31: slept very well last night. wants to continue as we are for now. stable presentation. mild improvement since admission. 01/01: slept very well last night. stable presentation. mild improvement since admission. planning to increase geodon dosing tomorrow. 01/02: slept about 5 hours last night. due to limited improvement, asks to increase geodon from 40 BID to 60/40, which was done as of today. 01/03: continue current tx plan. 01/04: CAH to defenestrate himself, worst Sx since arrival. declines to meet with retirement staff today as a result. denies any improvement in Sx since recent dose increase in geodon. continue current mgmt. 01/05: AH improved today, would like to continue current regimen. notably told JAY Ramirez he does not want to meet with retirement mgr ever again, which is quite a departure from his previous warm utterances regarding said person. 01/06: denies AH for more than 24H. continue current mgmt. 01/07: Continue current regimen and plans 01/08: Continue current plans and regimen. Reason for continued inpatient stay Substantial Risk for: rapid decompensation Time Spent With Patient Time: Total time managing care of this patient today ____ minutes.
[2024-01-09] MEDS: Acetaminophen 325 MG TABLET 650 MG PO ×2 (15:34→21:19)
[2024-01-09 20:02] VITALS: BP 115/69; PULSE 72; RESP 16; TEMP 36.9; O2SAT 97
[2024-01-09] MEDS: Ziprasidone 40 MG CAPSULE PO (20:27)
[2024-01-09] MEDS: Benztropine Mesylate 0.5 MG TABLET PO (20:27)
[2024-01-09] MEDS: diphenhydrAMINE HCL 25 MG CAPSULE PO (20:27)
[2024-01-09] MEDS: Melatonin 3 MG TABLET 6 MG PO (20:27)
[2024-01-10 07:55] VITALS: BP 103/68; PULSE 74; RESP 18; TEMP 36.9; O2SAT 100
[2024-01-10] MEDS: buPROPion HCl XL 150 MG TAB.ER.24H PO (08:34)
[2024-01-10] MEDS: Cholecalciferol (Vitamin D3) 25 MCG TABLET PO (08:34)
[2024-01-10] MEDS: Ziprasidone 60 MG CAPSULE PO (08:34)
[2024-01-10] MEDS: Thiamine HCL 100 MG TABLET PO (08:34)
[2024-01-10] MEDS: Folic Acid 1 MG TABLET PO (08:34)
[2024-01-10] MEDS: Fluticasone Propionate Nasal 16 GM SPRAY 1 SPRAY NOSTRIL-B (08:34)
[2024-01-10] MEDS: Pyridoxine HCl (Vitamin B6) 50 MG TABLET 100 MG PO (08:35)
[2024-01-10] MEDS: Multivitamin TABLET 1 TAB PO (08:35)
[2024-01-10] MEDS: Acetaminophen 325 MG TABLET 650 MG PO ×2 (12:20→21:01)
--- NOTE | 2024-01-10 15:44 | P.PNPSI_ITS ---
Subjective Subjective Date of Service: 01/10/24 Reason For Visit: catatonia Interim History: reticent to schedule trazodone or to DC cogentin. allows trazodone PRN dosing to be increased to 100 mg each and cogentin dosing to be decreased to 0.25 mg each. demoralized to have had AH sat and wednesday morning. none since but does not want to change geodon dosing at the moment. per staff, +AH. blunted affect. taking meds. AH have come back, which he reportedly has attributed to his insomnia. Mental Status Exam Mental Status Exam Narrative: thin, adequately dressed and groomed. no PMA/PMR. cooperative. speech soft, nml rate, nml amount. thoughts linear and logical. affect more flexible, hypo- intense, non-labile. no SI/SIBI/HI/VH expressed. no AH since yesterday tyrone feldman. Diagnostics Vital Signs (24Hr): Vital Signs - 24 hr 01/09/24 20:02 01/10/24 07:55 Temperature 98.5 F 98.4 F Pulse Rate 72 74 Respiratory Rate 16 18 Blood Pressure 115/69 103/68 Pulse Oximetry 97 100 Oxygen Delivery Method Room Air Room Air BMI result Body Mass Index 20.1 Medications Medications Current Medications Acetaminophen (Acetaminophen 325 Mg Tablet) 650 mg PO Q6H PRN PRN Reason: Headache/Pain Mild Scale (1-3) Last Admin: 01/10/24 12:20 Dose: 650 mg Al Hydroxide/Mg Hydroxide (Magnesium Hydrox/Alum Hydrox 30 Ml Oral.Susp) 30 ml PO Q6H PRN PRN Reason: Heartburn/Nausea Benztropine Mesylate (Benztropine Mesylate 0.5 Mg Tablet) 0.25 mg PO BEDTIME [facility] Bupropion HCl (Bupropion Hcl Xl 150 Mg Tab.Er.24h) 150 mg PO DAILY [facility] Last Admin: 01/10/24 08:34 Dose: 150 mg Diphenhydramine HCl (Diphenhydramine Hcl 25 Mg Capsule) 25 mg PO BEDTIME [facility] Last Admin: 01/09/24 20:27 Dose: 25 mg Fluticasone Propionate (Fluticasone Propionate Nasal 16 Gm [place]) 1 spray NOSTRIL-B DAILY [facility] Last Admin: 01/10/24 08:34 Dose: 1 spray Folic Acid (Folic Acid 1 Mg Tablet) 1 mg PO DAILY [facility] Last Admin: 01/10/24 08:34 Dose: 1 mg Hydroxyzine HCl (Hydroxyzine Hcl 25 Mg Tablet) 25 mg PO Q6H PRN PRN Reason: Anxiety Last Admin: 12/31/23 03:51 Dose: 25 mg Lidocaine (Lidocaine 4 % Patch Adh..Patch) 2 patch TRANSDERMA DAILY PRN; Protocol PRN Reason: low back pain Last Admin: 01/08/24 14:13 Dose: 2 patch Magnesium Hydroxide (Milk Of Magnesia 30 Ml Oral.Susp) 30 ml PO DAILY PRN PRN Reason: Constipation Melatonin (Melatonin 3 Mg Tablet) 6 mg PO BEDTIME [facility] Last Admin: 01/09/24 20:27 Dose: 6 mg Multivitamins/Vitamin C (Multivitamin Tablet) 1 tab PO DAILY [facility] Last Admin: 01/10/24 08:35 Dose: 1 tab Nicotine Polacrilex (Nicotine Polacrilex 2 Mg Gum) 2 mg BUCCAL Q2H PRN PRN Reason: Nicotine Cravings Pyridoxine HCl (Pyridoxine Hcl (Vitamin B6) 50 Mg Tablet) 100 mg PO DAILY [facility] Last Admin: 01/10/24 08:35 Dose: 100 mg Thiamine HCl (Thiamine Hcl 100 Mg Tablet) 100 mg PO DAILY [facility] Last Admin: 01/10/24 08:34 Dose: 100 mg Trazodone HCl (Trazodone Hcl 100 Mg Tablet) 100 mg PO BEDTIME [facility]X1 PRN PRN Reason: Insomnia Vitamin D (Cholecalciferol (Vitamin D3) 25 Mcg Tablet) 25 mcg PO DAILY [facility] Last Admin: 01/10/24 08:34 Dose: 25 mcg Ziprasidone (Ziprasidone 40 Mg Capsule) 40 mg PO BEDTIME [facility] Last Admin: 01/09/24 20:27 Dose: 40 mg Ziprasidone (Ziprasidone 60 Mg Capsule) 60 mg PO DAILY [facility] Last Admin: 01/10/24 08:34 Dose: 60 mg Allergies Allergies Allergy/AdvReac Type Severity Reaction Status Date / Time No Known Allergies Allergy Verified 11/17/23 09:55 Assessment & Plan Assessment & Plan (1) Schizophrenia: Status: Acute Code(s): F20.9 - Schizophrenia, unspecified Plan 12/23: increase geodon regimen from 20/40 to 40 BID. otherwise continue/restart outpt regimen. 12/25/2023: No changes as Geodon just increased to 40 mg twice daily 12/26/2023: No changes 12/26: SX appear unchanged with respect to admission. continue current regimen for now. HbA1c 5.5%, so DM not presently a concern. T/C alternate regimen if geodon does not begin to prove more helpful. 12/27: pt would like to give geodon until wednesday for improvement; if no improvement, will increase to 40/60 wednesday. no improvement in Sx in recent days. 12/28: AH and sleep mildly improved. continue current mgmt. T/C med or dose change wednesday. 12/29: Observed talking on the phone throughout the day. keeping to self. Pt reports feeling so-so today; pt stated, being here is depressing . He reports auditory hallucinations have diminished but continues to see people in my room . Pt reports he is considering increasing medication or waiting until Wednesday to see if anything changes . Pt denies SI/HI. 12/30: pt reports modest improvement over past several days, would now like to continue on present dosing through wednesday. continue current mgmt. 12/31: slept very well last night. wants to continue as we are for now. stable presentation. mild improvement since admission. 01/01: slept very well last night. stable presentation. mild improvement since admission. planning to increase geodon dosing tomorrow. 01/02: slept about 5 hours last night. due to limited improvement, asks to increase geodon from 40 BID to 60/40, which was done as of today. 01/03: continue current tx plan. 01/04: CAH to defenestrate himself, worst Sx since arrival. declines to meet with jail staff today as a result. denies any improvement in Sx since recent dose increase in geodon. continue current mgmt. 01/05: AH improved today, would like to continue current regimen. notably told JAY Ramirez he does not want to meet with jail mgr ever again, which is quite a departure from his previous warm utterances regarding said person. 01/06: denies AH for more than 24H. continue current mgmt. 15: Continue current regimen and plans 01/08: Continue current plans and regimen. 01/09: decrease cogentin to 0.25 mg QHS. increase trazodone PRN to 100 mg each. otherwise continue current mgmt. demoralized re having had AH sat and wednesday. Reason for continued inpatient stay Substantial Risk for: harm to self, inability to function and rapid decompensation Time Spent With Patient Time: Total time managing care of this patient today _25___ minutes.
[2024-01-10 19:41] VITALS: BP 107/77; PULSE 83; RESP 16; TEMP 36.6; O2SAT 95
[2024-01-10] MEDS: diphenhydrAMINE HCL 25 MG CAPSULE PO (21:00)
[2024-01-10] MEDS: Ziprasidone 40 MG CAPSULE PO (21:00)
[2024-01-10] MEDS: Melatonin 3 MG TABLET 6 MG PO (21:01)
[2024-01-10] MEDS: Benztropine Mesylate 0.5 MG TABLET 0.25 MG PO (21:01)
[2024-01-11 07:46] VITALS: BP 105/71; PULSE 74; RESP 14; TEMP 36.9; O2SAT 98
[2024-01-11] MEDS: Thiamine HCL 100 MG TABLET PO (09:25)
[2024-01-11] MEDS: Folic Acid 1 MG TABLET PO (09:25)
[2024-01-11] MEDS: Ziprasidone 60 MG CAPSULE PO (09:25)
[2024-01-11] MEDS: Cholecalciferol (Vitamin D3) 25 MCG TABLET PO (09:25)
[2024-01-11] MEDS: Pyridoxine HCl (Vitamin B6) 50 MG TABLET 100 MG PO (09:26)
[2024-01-11] MEDS: buPROPion HCl XL 150 MG TAB.ER.24H PO (09:26)
[2024-01-11] MEDS: Multivitamin TABLET 1 TAB PO (09:26)
[2024-01-11] MEDS: Lidocaine 4 % Patch ADH..PATCH 2 PATCH TRANSDERMA (15:17)
--- NOTE | 2024-01-11 16:07 | P.PNPSI_ITS ---
Subjective Subjective Date of Service: 01/11/24 Reason For Visit: catatonia Interim History: calm, cooperative. declines to increase wellbutrin for depression Tx. discuss discharge back to [facility], pt agrees to wednesday discharge. per staff, dep 4 anx 2. denies SI/HI/AVH. racing thoughts. Mental Status Exam Mental Status Exam Narrative: thin, adequately dressed and groomed. no PMA/PMR. cooperative. speech soft, nml rate, nml amount. thoughts linear and logical. affect more flexible, hypo- intense, non-labile. no SI/SIBI/HI/VH expressed. no AH since yesterday morning. Diagnostics Vital Signs (24Hr): Vital Signs - 24 hr 01/10/24 19:41 01/11/24 07:46 Temperature 97.8 F 98.5 F Pulse Rate 83 74 Respiratory Rate 16 14 Blood Pressure 107/77 105/71 Pulse Oximetry 95 98 Oxygen Delivery Method Room Air Room Air BMI result Body Mass Index 20.1 Medications Medications Current Medications Acetaminophen (Acetaminophen 325 Mg Tablet) 650 mg PO Q6H PRN PRN Reason: Headache/Pain Mild Scale (1-3) Last Admin: 01/10/24 21:01 Dose: 650 mg Al Hydroxide/Mg Hydroxide (Magnesium Hydrox/Alum Hydrox 30 Ml Oral.Susp) 30 ml PO Q6H PRN PRN Reason: Heartburn/Nausea Benztropine Mesylate (Benztropine Mesylate 0.5 Mg Tablet) 0.25 mg PO BEDTIME [facility] Last Admin: 01/10/24 21:01 Dose: 0.25 mg Bupropion HCl (Bupropion Hcl Xl 150 Mg Tab.Er.24h) 150 mg PO DAILY [facility] Last Admin: 01/11/24 09:26 Dose: 150 mg Diphenhydramine HCl (Diphenhydramine Hcl 25 Mg Capsule) 25 mg PO BEDTIME [facility] Last Admin: 01/10/24 21:00 Dose: 25 mg Fluticasone Propionate (Fluticasone Propionate Nasal 16 Gm [place]) 1 spray NOSTRIL-B DAILY [facility] Last Admin: 01/11/24 09:25 Dose: Not Given Folic Acid (Folic Acid 1 Mg Tablet) 1 mg PO DAILY [facility] Last Admin: 01/11/24 09:25 Dose: 1 mg Hydroxyzine HCl (Hydroxyzine Hcl 25 Mg Tablet) 25 mg PO Q6H PRN PRN Reason: Anxiety Last Admin: 12/31/23 03:51 Dose: 25 mg Lidocaine (Lidocaine 4 % Patch Adh..Patch) 2 patch TRANSDERMA DAILY PRN; Protocol PRN Reason: low back pain Last Admin: 01/11/24 15:17 Dose: 2 patch Magnesium Hydroxide (Milk Of Magnesia 30 Ml Oral.Susp) 30 ml PO DAILY PRN PRN Reason: Constipation Melatonin (Melatonin 3 Mg Tablet) 6 mg PO BEDTIME [facility] Last Admin: 01/10/24 21:01 Dose: 6 mg Multivitamins/Vitamin C (Multivitamin Tablet) 1 tab PO DAILY [facility] Last Admin: 01/11/24 09:26 Dose: 1 tab Nicotine Polacrilex (Nicotine Polacrilex 2 Mg Gum) 2 mg BUCCAL Q2H PRN PRN Reason: Nicotine Cravings Pyridoxine HCl (Pyridoxine Hcl (Vitamin B6) 50 Mg Tablet) 100 mg PO DAILY [facility] Last Admin: 01/11/24 09:26 Dose: 100 mg Thiamine HCl (Thiamine Hcl 100 Mg Tablet) 100 mg PO DAILY [facility] Last Admin: 01/11/24 09:25 Dose: 100 mg Trazodone HCl (Trazodone Hcl 100 Mg Tablet) 100 mg PO BEDTIME MRX1 PRN PRN Reason: Insomnia Vitamin D (Cholecalciferol (Vitamin D3) 25 Mcg Tablet) 25 mcg PO DAILY [facility] Last Admin: 01/11/24 09:25 Dose: 25 mcg Ziprasidone (Ziprasidone 40 Mg Capsule) 40 mg PO BEDTIME [facility] Last Admin: 01/10/24 21:00 Dose: 40 mg Ziprasidone (Ziprasidone 60 Mg Capsule) 60 mg PO DAILY [facility] Last Admin: 01/11/24 09:25 Dose: 60 mg Allergies Allergies Allergy/AdvReac Type Severity Reaction Status Date / Time No Known Allergies Allergy Verified 11/17/23 09:55 Assessment & Plan Assessment & Plan (1) Schizophrenia: Status: Acute Code(s): F20.9 - Schizophrenia, unspecified Plan 12/23: increase geodon regimen from 20/40 to 40 BID. otherwise continue/restart outpt regimen. 12/25/2023: No changes as Geodon just increased to 40 mg twice daily 12/26/2023: No changes 12/26: SX appear unchanged with respect to admission. continue current regimen for now. HbA1c 5.5%, so DM not presently a concern. T/C alternate regimen if geodon does not begin to prove more helpful. 12/27: pt would like to give geodon until wednesday for improvement; if no improvement, will increase to 40/60 wednesday. no improvement in Sx in recent days. 12/28: AH and sleep mildly improved. continue current mgmt. T/C med or dose change wednesday. 12/29: Observed talking on the phone throughout the day. keeping to self. Pt reports feeling so-so today; pt stated, being here is depressing . He reports auditory hallucinations have diminished but continues to see people in my room . Pt reports he is considering increasing medication or waiting until Wednesday to see if anything changes . Pt denies SI/HI. 12/30: pt reports modest improvement over past several days, would now like to continue on present dosing through wednesday. continue current mgmt. 12/31: slept very well last night. wants to continue as we are for now. stable presentation. mild improvement since admission. 01/01: slept very well last night. stable presentation. mild improvement since admission. planning to increase geodon dosing tomorrow. 01/02: slept about 5 hours last night. due to limited improvement, asks to increase geodon from 40 BID to 60/40, which was done as of today. 01/03: continue current tx plan. 01/04: CAH to defenestrate himself, worst Sx since arrival. declines to meet with [facility] staff today as a result. denies any improvement in Sx since recent dose increase in geodon. continue current mgmt. 01/05: AH improved today, would like to continue current regimen. notably told JAY Ramirez he does not want to meet with [facility] mgr ever again, which is quite a departure from his previous warm utterances regarding said person. 01/06: denies AH for more than 24H. continue current mgmt. 01/07: Continue current regimen and plans 01/08: Continue current plans and regimen. 01/09: decrease cogentin to 0.25 mg QHS. increase trazodone PRN to 100 mg each. otherwise continue current mgmt. demoralized re having had AH wed and wednesday. 01/10: did not take traz last night. slept 5 hours, which is good for him. no AH in the past 24H. planning to discharge wednesday back to [facility]. Reason for continued inpatient stay Substantial Risk for: harm to self, inability to function and rapid decompensation Time Spent With Patient Time: Total time managing care of this patient today _25___ minutes.
[2024-01-11 20:00] VITALS: BP 113/74; PULSE 81; RESP 16; TEMP 37; O2SAT 99
[2024-01-11] MEDS: Melatonin 3 MG TABLET 6 MG PO (20:37)
[2024-01-11] MEDS: diphenhydrAMINE HCL 25 MG CAPSULE PO (20:37)
[2024-01-11] MEDS: Acetaminophen 325 MG TABLET 650 MG PO (20:37)
[2024-01-11] MEDS: Ziprasidone 40 MG CAPSULE PO (20:37)
[2024-01-11] MEDS: Benztropine Mesylate 0.5 MG TABLET 0.25 MG PO (20:38)
[2024-01-12] MEDS: traZODone HCL 100 MG TABLET PO (00:49)
[2024-01-12 08:00] VITALS: BP 116/72; PULSE 72; RESP 18; O2SAT 98
[2024-01-12] MEDS: Ziprasidone 60 MG CAPSULE PO (08:46)
[2024-01-12] MEDS: Folic Acid 1 MG TABLET PO (08:46)
[2024-01-12] MEDS: Cholecalciferol (Vitamin D3) 25 MCG TABLET PO (08:46)
[2024-01-12] MEDS: Thiamine HCL 100 MG TABLET PO (08:47)
[2024-01-12] MEDS: Pyridoxine HCl (Vitamin B6) 50 MG TABLET 100 MG PO (08:47)
[2024-01-12] MEDS: buPROPion HCl XL 150 MG TAB.ER.24H PO (08:47)
[2024-01-12] MEDS: Multivitamin TABLET 1 TAB PO (08:47)
[2024-01-12] MEDS: Acetaminophen 325 MG TABLET 650 MG PO ×2 (09:11→20:23)
--- NOTE | 2024-01-12 16:23 | HO.PSYCHPN ---
Subjective Subjective Date of Service: 01/12/24 Reason For Visit: catatonia Interim History: somewhat agitated today about not being able to use his phone. MD suggested change of neuroleptic, as naila does not seem to be doing the job. pt agreed to take 10 of zyprexa instead. discuss dispo options, pt inquires as to rehab, says he last drank 1.5-2 months ago. also pt c/o B/L hand tremor and sensation of muscle tightness in his upper body, asks for cogentin to be increased again back to 0.5 mg QHS. per staff, using lidocaine patches. seems to be trying to sabotage discharge to jail. up until [place]. slept about 5 hours (reports to MD he did not sleep at all). Mental Status Exam Mental Status Exam Narrative: thin, adequately dressed and groomed. no PMA/PMR. cooperative. speech normal loudness, nml rate, incr amount. thoughts linear and logical; paranoid delusions about someone installing FB on his phone x 2 and posting under his identity. affect more flexible, hyper-intense, min-labile. no SI/SIBI/HI/VH expressed. AH overnight, severe. Diagnostics Vital Signs (24Hr): Vital Signs - 24 hr 01/11/24 20:00 01/12/24 08:00 Temperature 98.6 F Pulse Rate 81 72 Respiratory Rate 16 18 Blood Pressure 113/74 116/72 Pulse Oximetry 99 98 Oxygen Delivery Method Room Air Room Air BMI result Body Mass Index 20.1 Medications Medications Current Medications Acetaminophen (Acetaminophen 325 Mg Tablet) 650 mg PO Q6H PRN PRN Reason: Headache/Pain Mild Scale (1-3) Last Admin: 01/12/24 09:11 Dose: 650 mg Al Hydroxide/Mg Hydroxide (Magnesium Hydrox/Alum Hydrox 30 Ml Oral.Susp) 30 ml PO Q6H PRN PRN Reason: Heartburn/Nausea Benztropine Mesylate (Benztropine Mesylate 0.5 Mg Tablet) 0.5 mg PO BEDTIME MINOO Bupropion HCl (Bupropion Hcl Xl 150 Mg Tab.Er.24h) 150 mg PO DAILY MINOO Last Admin: 01/12/24 08:47 Dose: 150 mg Diphenhydramine HCl (Diphenhydramine Hcl 25 Mg Capsule) 25 mg PO BEDTIME MINOO Last Admin: 01/11/24 20:37 Dose: 25 mg Fluticasone Propionate (Fluticasone Propionate Nasal 16 Gm [place]) 1 spray NOSTRIL-B DAILY [facility] Last Admin: 01/12/24 08:47 Dose: Not Given Folic Acid (Folic Acid 1 Mg Tablet) 1 mg PO DAILY [facility] Last Admin: 01/12/24 08:46 Dose: 1 mg Hydroxyzine HCl (Hydroxyzine Hcl 25 Mg Tablet) 25 mg PO Q6H PRN PRN Reason: Anxiety Last Admin: 12/31/23 03:51 Dose: 25 mg Lidocaine (Lidocaine 4 % Patch Adh..Patch) 2 patch TRANSDERMA DAILY PRN; Protocol PRN Reason: low back pain Last Admin: 01/11/24 15:17 Dose: 2 patch Magnesium Hydroxide (Milk Of Magnesia 30 Ml Oral.Susp) 30 ml PO DAILY PRN PRN Reason: Constipation Melatonin (Melatonin 3 Mg Tablet) 6 mg PO BEDTIME [facility] Last Admin: 01/11/24 20:37 Dose: 6 mg Multivitamins/Vitamin C (Multivitamin Tablet) 1 tab PO DAILY [facility] Last Admin: 01/12/24 08:47 Dose: 1 tab Nicotine Polacrilex (Nicotine Polacrilex 2 Mg Gum) 2 mg BUCCAL Q2H PRN PRN Reason: Nicotine Cravings Olanzapine (Olanzapine 10 Mg Tablet) 10 mg PO BEDTIME [facility] Pyridoxine HCl (Pyridoxine Hcl (Vitamin B6) 50 Mg Tablet) 100 mg PO DAILY [facility] Last Admin: 01/12/24 08:47 Dose: 100 mg Thiamine HCl (Thiamine Hcl 100 Mg Tablet) 100 mg PO DAILY [facility] Last Admin: 01/12/24 08:47 Dose: 100 mg Trazodone HCl (Trazodone Hcl 100 Mg Tablet) 100 mg PO BEDTIME MRX1 PRN PRN Reason: Insomnia Last Admin: 01/12/24 00:49 Dose: 100 mg Vitamin D (Cholecalciferol (Vitamin D3) 25 Mcg Tablet) 25 mcg PO DAILY [facility] Last Admin: 01/12/24 08:46 Dose: 25 mcg Allergies Allergies Allergy/AdvReac Type Severity Reaction Status Date / Time No Known Allergies Allergy Verified 11/17/23 09:55 Assessment & Plan Assessment & Plan (1) Schizophrenia: Status: Acute Code(s): F20.9 - Schizophrenia, unspecified Plan 12/23: increase geodon regimen from 20/40 to 40 BID. otherwise continue/restart outpt regimen. 12/25/2023: No changes as Geodon just increased to 40 mg twice daily 12/26/2023: No changes 12/26: SX appear unchanged with respect to admission. continue current regimen for now. HbA1c 5.5%, so DM not presently a concern. T/C alternate regimen if geodon does not begin to prove more helpful. 12/27: pt would like to give geodon until wednesday for improvement; if no improvement, will increase to 40/60 wednesday. no improvement in Sx in recent days. 12/28: AH and sleep mildly improved. continue current mgmt. T/C med or dose change wednesday. 12/29: Observed talking on the phone throughout the day. keeping to self. Pt reports feeling so-so today; pt stated, being here is depressing . He reports auditory hallucinations have diminished but continues to see people in my room . Pt reports he is considering increasing medication or waiting until Wednesday to see if anything changes . Pt denies SI/HI. 12/30: pt reports modest improvement over past several days, would now like to continue on present dosing through wednesday. continue current mgmt. 12/31: slept very well last night. wants to continue as we are for now. stable presentation. mild improvement since admission. 01/01: slept very well last night. stable presentation. mild improvement since admission. planning to increase geodon dosing tomorrow. 01/02: slept about 5 hours last night. due to limited improvement, asks to increase geodon from 40 BID to 60/40, which was done as of today. 01/03: continue current tx plan. 01/04: CAH to defenestrate himself, worst Sx since arrival. declines to meet with jail staff today as a result. denies any improvement in Sx since recent dose increase in geodon. continue current mgmt. 01/05: AH improved today, would like to continue current regimen. notably told JAY Ramirez he does not want to meet with jail mgr ever again, which is quite a departure from his previous warm utterances regarding said person. 01/06: denies AH for more than 24H. continue current mgmt. 01/07: Continue current regimen and plans 01/08: Continue current plans and regimen. 01/09: decrease cogentin to 0.25 mg QHS. increase trazodone PRN to 100 mg each. otherwise continue current mgmt. demoralized re having had AH wed and wednesday. 01/10: did not take traz last night. slept 5 hours, which is good for him. no AH in the past 24H. planning to discharge wednesday back to jail. 01/11: reports he took 100 of traz last night and did not sleep at all and feels very off today. c/o severe AH last night. agreeable to DC geodon and start zyprexa 10 at HS instead. also c/o tremor and tightness in upper body, asks for cogentin to be returned to 0.5 mg QHS. last drank 1.5-2 months ago, so not suitable for DDX or rehab program. Reason for continued inpatient stay Substantial Risk for: inability to function Time Spent With Patient Time: Total time managing care of this patient today _35___ minutes.
[2024-01-12 20:00] VITALS: BP 90/60; PULSE 89; RESP 18; TEMP 37.4; O2SAT 97
[2024-01-12] MEDS: Melatonin 3 MG TABLET 6 MG PO (20:13)
[2024-01-12] MEDS: OLANZapine 10 MG TABLET PO (20:13)
[2024-01-12] MEDS: diphenhydrAMINE HCL 25 MG CAPSULE PO (20:14)
[2024-01-12] MEDS: Benztropine Mesylate 0.5 MG TABLET PO (20:14)
[2024-01-13 07:00] VITALS: BMI 20.5
[2024-01-13 08:00] VITALS: BP 103/69; PULSE 89; RESP 14; TEMP 37.4; O2SAT 99
[2024-01-13] MEDS: Pyridoxine HCl (Vitamin B6) 50 MG TABLET 100 MG PO (08:51)
[2024-01-13] MEDS: Thiamine HCL 100 MG TABLET PO (08:51)
[2024-01-13] MEDS: Cholecalciferol (Vitamin D3) 25 MCG TABLET PO (08:51)
[2024-01-13] MEDS: buPROPion HCl XL 150 MG TAB.ER.24H PO (08:51)
[2024-01-13] MEDS: Folic Acid 1 MG TABLET PO (08:51)
[2024-01-13] MEDS: Multivitamin TABLET 1 TAB PO (08:51)
[2024-01-13] MEDS: Acetaminophen 325 MG TABLET 650 MG PO ×2 (13:49→20:14)
--- NOTE | 2024-01-13 13:58 | HO.PSYCHPN ---
Subjective Subjective Date of Service: 01/13/24 Reason For Visit: catatonia Interim History: calm, cooperative. reports he met with jail staff, and it went well. believes Ashley THOMPSON agreed to refer him for admission to [facility] and that jail staff agreed to drive him there. per conversation with Ashley THOMPSON after, she did not agree to such. reports he slept better last night. heard only some mumbling AH in the night, but couldn't make them out. willing to continue with present regimen. reports decrease in tremor/sensation of stiffness in upper body since cogentin returned to 0.5 mg QHS. per staff, labile, withdrawn, guarded. demanding. asking for phone. appeared to have slept for 8 hours. Mental Status Exam Mental Status Exam Narrative: thin, adequately dressed and groomed. no PMA/PMR. cooperative. speech normal loudness, nml rate, incr amount. thoughts linear and logical; seems delusional regarding conversation he recently had with JAY Ramirez. affect flexible, hyper-intense, non-labile. no SI/SIBI/HI/VH expressed. AH overnight, mumbling only, minor. Diagnostics Vital Signs (24Hr): Vital Signs - 24 hr 01/12/24 20:00 01/13/24 08:00 Temperature 99.4 F 99.3 F Pulse Rate 89 89 Respiratory Rate 18 14 Blood Pressure 90/60 103/69 Pulse Oximetry 97 99 Oxygen Delivery Method Room Air Room Air BMI result Body Mass Index 20.1 Medications Medications Current Medications Acetaminophen (Acetaminophen 325 Mg Tablet) 650 mg PO Q6H PRN PRN Reason: Headache/Pain Mild Scale (1-3) Last Admin: 01/13/24 13:49 Dose: 650 mg Al Hydroxide/Mg Hydroxide (Magnesium Hydrox/Alum Hydrox 30 Ml Oral.Susp) 30 ml PO Q6H PRN PRN Reason: Heartburn/Nausea Benztropine Mesylate (Benztropine Mesylate 0.5 Mg Tablet) 0.5 mg PO BEDTIME MINOO Last Admin: 01/12/24 20:14 Dose: 0.5 mg Bupropion HCl (Bupropion Hcl Xl 150 Mg Tab.Er.24h) 150 mg PO DAILY MINOO Last Admin: 01/13/24 08:51 Dose: 150 mg Diphenhydramine HCl (Diphenhydramine Hcl 25 Mg Capsule) 25 mg PO BEDTIME MINOO Last Admin: 01/12/24 20:14 Dose: 25 mg Fluticasone Propionate (Fluticasone Propionate Nasal 16 Gm [place]) 1 spray NOSTRIL-B DAILY [facility] Last Admin: 01/13/24 09:23 Dose: Not Given Folic Acid (Folic Acid 1 Mg Tablet) 1 mg PO DAILY [facility] Last Admin: 01/13/24 08:51 Dose: 1 mg Hydroxyzine HCl (Hydroxyzine Hcl 25 Mg Tablet) 25 mg PO Q6H PRN PRN Reason: Anxiety Last Admin: 12/31/23 03:51 Dose: 25 mg Lidocaine (Lidocaine 4 % Patch Adh..Patch) 2 patch TRANSDERMA DAILY PRN; Protocol PRN Reason: low back pain Last Admin: 01/11/24 15:17 Dose: 2 patch Magnesium Hydroxide (Milk Of Magnesia 30 Ml Oral.Susp) 30 ml PO DAILY PRN PRN Reason: Constipation Melatonin (Melatonin 3 Mg Tablet) 6 mg PO BEDTIME [facility] Last Admin: 01/12/24 20:13 Dose: 6 mg Multivitamins/Vitamin C (Multivitamin Tablet) 1 tab PO DAILY [facility] Last Admin: 01/13/24 08:51 Dose: 1 tab Nicotine Polacrilex (Nicotine Polacrilex 2 Mg Gum) 2 mg BUCCAL Q2H PRN PRN Reason: Nicotine Cravings Olanzapine (Olanzapine 10 Mg Tablet) 10 mg PO BEDTIME [facility] Last Admin: 01/12/24 20:13 Dose: 10 mg Pyridoxine HCl (Pyridoxine Hcl (Vitamin B6) 50 Mg Tablet) 100 mg PO DAILY [facility] Last Admin: 01/13/24 08:51 Dose: 100 mg Thiamine HCl (Thiamine Hcl 100 Mg Tablet) 100 mg PO DAILY [facility] Last Admin: 01/13/24 08:51 Dose: 100 mg Trazodone HCl (Trazodone Hcl 100 Mg Tablet) 100 mg PO BEDTIME MRX1 PRN PRN Reason: Insomnia Last Admin: 01/12/24 00:49 Dose: 100 mg Vitamin D (Cholecalciferol (Vitamin D3) 25 Mcg Tablet) 25 mcg PO DAILY [facility] Last Admin: 01/13/24 08:51 Dose: 25 mcg Allergies Allergies Allergy/AdvReac Type Severity Reaction Status Date / Time No Known Allergies Allergy Verified 11/17/23 09:55 Assessment & Plan Assessment & Plan (1) Schizophrenia: Status: Acute Code(s): F20.9 - Schizophrenia, unspecified Plan 12/23: increase geodon regimen from 20/40 to 40 BID. otherwise continue/restart outpt regimen. 12/25/2023: No changes as Geodon just increased to 40 mg twice daily 12/26/2023: No changes 12/26: SX appear unchanged with respect to admission. continue current regimen for now. HbA1c 5.5%, so DM not presently a concern. T/C alternate regimen if geodon does not begin to prove more helpful. 12/27: pt would like to give geodon until wednesday for improvement; if no improvement, will increase to 40/60 wednesday. no improvement in Sx in recent days. 12/28: AH and sleep mildly improved. continue current mgmt. T/C med or dose change wednesday. 12/29: Observed talking on the phone throughout the day. keeping to self. Pt reports feeling so-so today; pt stated, being here is depressing . He reports auditory hallucinations have diminished but continues to see people in my room . Pt reports he is considering increasing medication or waiting until Wednesday to see if anything changes . Pt denies SI/HI. 12/30: pt reports modest improvement over past several days, would now like to continue on present dosing through wednesday. continue current mgmt. 12/31: slept very well last night. wants to continue as we are for now. stable presentation. mild improvement since admission. 01/01: slept very well last night. stable presentation. mild improvement since admission. planning to increase geodon dosing tomorrow. 01/02: slept about 5 hours last night. due to limited improvement, asks to increase geodon from 40 BID to 60/40, which was done as of today. 01/03: continue current tx plan. 01/04: CAH to defenestrate himself, worst Sx since arrival. declines to meet with jail staff today as a result. denies any improvement in Sx since recent dose increase in geodon. continue current mgmt. 01/05: AH improved today, would like to continue current regimen. notably told JAY Ramirez he does not want to meet with jail mgr ever again, which is quite a departure from his previous warm utterances regarding said person. 01/06: denies AH for more than 24H. continue current mgmt. 01/07: Continue current regimen and plans 01/08: Continue current plans and regimen. 01/09: decrease cogentin to 0.25 mg QHS. increase trazodone PRN to 100 mg each. otherwise continue current mgmt. demoralized re having had AH wed and wednesday. 01/10: did not take traz last night. slept 5 hours, which is good for him. no AH in the past 24H. planning to discharge wednesday back to jail. 01/11: reports he took 100 of traz last night and did not sleep at all and feels very off today. c/o severe AH last night. agreeable to DC geodon and start zyprexa 10 at HS instead. also c/o tremor and tightness in upper body, asks for cogentin to be returned to 0.5 mg QHS. last drank 1.5-2 months ago, so not suitable for DDX or rehab program. 01/12: seems delusional regarding the content of conversation with JAY Ramirez. feeling better on increased cogentin and zyprexa 10 mg QHS. substantially improved sleep last night, minimal AH of mumbling only in the night. continue current mgmt. Reason for continued inpatient stay Substantial Risk for: inability to function and rapid decompensation Time Spent With Patient Time: Total time managing care of this patient today __25__ minutes.
[2024-01-13 19:50] VITALS: BP 108/66; PULSE 79; RESP 18; TEMP 37.1; O2SAT 97
[2024-01-13] MEDS: diphenhydrAMINE HCL 25 MG CAPSULE PO (20:14)
[2024-01-13] MEDS: Benztropine Mesylate 0.5 MG TABLET PO (20:14)
[2024-01-13] MEDS: Melatonin 3 MG TABLET 6 MG PO (20:15)
[2024-01-13] MEDS: OLANZapine 10 MG TABLET PO (20:15)
[2024-01-14 07:45] VITALS: BP 116/78; PULSE 81; RESP 16; TEMP 36.4; O2SAT 98
[2024-01-14] MEDS: Cholecalciferol (Vitamin D3) 25 MCG TABLET PO (08:34)
[2024-01-14] MEDS: Folic Acid 1 MG TABLET PO (08:34)
[2024-01-14] MEDS: buPROPion HCl XL 150 MG TAB.ER.24H PO ×2 (08:34→10:27)
[2024-01-14] MEDS: Multivitamin TABLET 1 TAB PO (08:35)
[2024-01-14] MEDS: Pyridoxine HCl (Vitamin B6) 50 MG TABLET 100 MG PO (08:35)
[2024-01-14] MEDS: Thiamine HCL 100 MG TABLET PO (08:35)
[2024-01-14] MEDS: Lidocaine 4 % Patch ADH..PATCH 2 PATCH TRANSDERMA (08:39)
--- NOTE | 2024-01-14 13:17 | P.PNPSI_ITS ---
Subjective Subjective Date of Service: 01/14/24 Reason For Visit: catatonia Interim History: interested in increasing wellbutrin to 300 for depression; so done. denies any AH in the past 24H. very focused on going to [facility] program. contradicts previous statements he has made about how recently he has been drinking, saying he was just drinking the day before admission and he was hiding it previously and he is having SI with plan to drink himself to and we MUST transfer him to this [facility]. very long and circular conversation, pt seems unable to grasp and retain new information to any practical extent. per staff, +AH, + meds. some mumbling AH. thoughts to drink myself up. slept 8 hours. wants increase in wellbutrin. Mental Status Exam Mental Status Exam Narrative: thin, adequately dressed and groomed. no PMA/PMR. argumentative. speech normal loudness, incr rate, incr amount. thoughts perseverative; paranoid delusions. mood depressed. affect constricted, hyper-intense, mod-labile. +SI with plan to drink himself to . no HI/VH expressed. no AH. Diagnostics Vital Signs (24Hr): Vital Signs - 24 hr 01/13/24 19:50 01/14/24 07:45 Temperature 98.7 F 97.5 F Pulse Rate 79 81 Respiratory Rate 18 16 Blood Pressure 108/66 116/78 Pulse Oximetry 97 98 Oxygen Delivery Method Room Air Room Air BMI result Body Mass Index 20.5 Medications Medications Current Medications Acetaminophen (Acetaminophen 325 Mg Tablet) 650 mg PO Q6H PRN PRN Reason: Headache/Pain Mild Scale (1-3) Last Admin: 01/13/24 20:14 Dose: 650 mg Al Hydroxide/Mg Hydroxide (Magnesium Hydrox/Alum Hydrox 30 Ml Oral.Susp) 30 ml PO Q6H PRN PRN Reason: Heartburn/Nausea Benztropine Mesylate (Benztropine Mesylate 0.5 Mg Tablet) 0.5 mg PO BEDTIME MINOO Last Admin: 01/13/24 20:14 Dose: 0.5 mg Bupropion HCl (Bupropion Hcl Xl 300 Mg Tab.Er.24h) 300 mg PO DAILY MINOO Diphenhydramine HCl (Diphenhydramine Hcl 25 Mg Capsule) 25 mg PO BEDTIME MINOO Last Admin: 01/13/24 20:14 Dose: 25 mg Fluticasone Propionate (Fluticasone Propionate Nasal 16 Gm [place]) 1 spray NOSTRIL-B DAILY [facility] Last Admin: 01/14/24 08:44 Dose: Not Given Folic Acid (Folic Acid 1 Mg Tablet) 1 mg PO DAILY [facility] Last Admin: 01/14/24 08:34 Dose: 1 mg Hydroxyzine HCl (Hydroxyzine Hcl 25 Mg Tablet) 25 mg PO Q6H PRN PRN Reason: Anxiety Last Admin: 12/31/23 03:51 Dose: 25 mg Lidocaine (Lidocaine 4 % Patch Adh..Patch) 2 patch TRANSDERMA DAILY PRN; Protocol PRN Reason: low back pain Last Admin: 01/14/24 08:39 Dose: 2 patch Magnesium Hydroxide (Milk Of Magnesia 30 Ml Oral.Susp) 30 ml PO DAILY PRN PRN Reason: Constipation Melatonin (Melatonin 3 Mg Tablet) 6 mg PO BEDTIME [facility] Last Admin: 01/13/24 20:15 Dose: 6 mg Multivitamins/Vitamin C (Multivitamin Tablet) 1 tab PO DAILY [facility] Last Admin: 01/14/24 08:35 Dose: 1 tab Nicotine Polacrilex (Nicotine Polacrilex 2 Mg Gum) 2 mg BUCCAL Q2H PRN PRN Reason: Nicotine Cravings Olanzapine (Olanzapine 10 Mg Tablet) 10 mg PO BEDTIME [facility] Last Admin: 01/13/24 20:15 Dose: 10 mg Pyridoxine HCl (Pyridoxine Hcl (Vitamin B6) 50 Mg Tablet) 100 mg PO DAILY [facility] Last Admin: 01/14/24 08:35 Dose: 100 mg Thiamine HCl (Thiamine Hcl 100 Mg Tablet) 100 mg PO DAILY [facility] Last Admin: 01/14/24 08:35 Dose: 100 mg Trazodone HCl (Trazodone Hcl 100 Mg Tablet) 100 mg PO BEDTIME MRX1 PRN PRN Reason: Insomnia Last Admin: 01/12/24 00:49 Dose: 100 mg Vitamin D (Cholecalciferol (Vitamin D3) 25 Mcg Tablet) 25 mcg PO DAILY [facility] Last Admin: 01/14/24 08:34 Dose: 25 mcg Allergies Allergies Allergy/AdvReac Type Severity Reaction Status Date / Time No Known Allergies Allergy Verified 11/17/23 09:55 Assessment & Plan Assessment & Plan (1) Schizophrenia: Status: Acute Code(s): F20.9 - Schizophrenia, unspecified Plan 12/23: increase geodon regimen from 20/40 to 40 BID. otherwise continue/restart outpt regimen. 12/25/2023: No changes as Geodon just increased to 40 mg twice daily 12/26/2023: No changes 12/26: SX appear unchanged with respect to admission. continue current regimen for now. HbA1c 5.5%, so DM not presently a concern. T/C alternate regimen if geodon does not begin to prove more helpful. 12/27: pt would like to give geodon until wednesday for improvement; if no improvement, will increase to 40/60 wednesday. no improvement in Sx in recent days. 12/28: AH and sleep mildly improved. continue current mgmt. T/C med or dose change wednesday. 12/29: Observed talking on the phone throughout the day. keeping to self. Pt reports feeling so-so today; pt stated, being here is depressing . He reports auditory hallucinations have diminished but continues to see people in my room . Pt reports he is considering increasing medication or waiting until Wednesday to see if anything changes . Pt denies SI/HI. 12/30: pt reports modest improvement over past several days, would now like to continue on present dosing through wednesday. continue current mgmt. 12/31: slept very well last night. wants to continue as we are for now. stable presentation. mild improvement since admission. 01/01: slept very well last night. stable presentation. mild improvement since admission. planning to increase geodon dosing tomorrow. 01/02: slept about 5 hours last night. due to limited improvement, asks to increase geodon from 40 BID to 60/40, which was done as of today. 01/03: continue current tx plan. 01/04: CAH to defenestrate himself, worst Sx since arrival. declines to meet with [facility]-way staff today as a result. denies any improvement in Sx since recent dose increase in geodon. continue current mgmt. 01/05: AH improved today, would like to continue current regimen. notably told JAY Ramirez he does not want to meet with half-way mgr ever again, which is quite a departure from his previous warm utterances regarding said person. 01/06: denies AH for more than 24H. continue current mgmt. 01/07: Continue current regimen and plans 01/08: Continue current plans and regimen. 01/09: decrease cogentin to 0.25 mg QHS. increase trazodone PRN to 100 mg each. otherwise continue current mgmt. demoralized re having had AH wed and wednesday. 01/10: did not take traz last night. slept 5 hours, which is good for him. no AH in the past 24H. planning to discharge wednesday back to [facility]. 01/11: reports he took 100 of traz last night and did not sleep at all and feels very off today. c/o severe AH last night. agreeable to DC geodon and start zyprexa 10 at HS instead. also c/o tremor and tightness in upper body, asks for cogentin to be returned to 0.5 mg QHS. last drank 1.5-2 months ago, so not suitable for DDX or rehab program. 01/12: seems delusional regarding the content of conversation with JAY Ramirez. feeling better on increased cogentin and zyprexa 10 mg QHS. substantially improved sleep last night, minimal AH of mumbling only in the night. continue current mgmt. 01/13: no AH in the past 24H. seems more agitated today, increase in paranoid delusions. accusing MD of trying to get him arrested and of violating HIPPA. preoccupied with delusions regarding apps being downloaded on his phone. would benefit from an increase in zyprexa to 20 mg QHS, but he is unlikely to take it now. will add PRN of 10 in case he can be prevailed upon to take it. 3-day notice submitted, matures next . Reason for continued inpatient stay Substantial Risk for: harm to self and inability to function Time Spent With Patient Time: Total time managing care of this patient today __45__ minutes.
[2024-01-14 20:45] VITALS: BP 130/87; PULSE 91; RESP 16; TEMP 36.8; O2SAT 99
[2024-01-14] MEDS: Acetaminophen 325 MG TABLET 650 MG PO (20:52)
[2024-01-14] MEDS: diphenhydrAMINE HCL 25 MG CAPSULE PO (20:53)
[2024-01-14] MEDS: Benztropine Mesylate 0.5 MG TABLET PO (20:53)
[2024-01-14] MEDS: Melatonin 3 MG TABLET 6 MG PO (20:53)
[2024-01-14] MEDS: OLANZapine 10 MG TABLET PO (20:53)
--- NOTE | 2024-01-15 08:34 | P.PNPSI_ITS ---
Subjective Subjective Date of Service: 01/15/24 Reason For Visit: catatonia Subjective Notes: 3 Day Medical Problems Affecting Mental Status: No Interim History: 58 yo who reports he feels dizzy all the time from olanzapine and requesting lo wer dose- was started on 10mg- while nursing reports ongoing or worsening? of paranoid ideation- tana around his phone- He says he just wants his phone for call to [facility]- Started inc wellbutrin yesterday- Says may eventually drink himself to - but not sure- after dc - he is hoping to go to a [facility]/residential program at [facility]- Medication Compliance: Yes Side effects from medications: Yes (reports dizziness which he attributes to dose of olanzapine) Attending Groups: Intermittent Review of Systems Acute medical concerns: No Medical Review of Systems: changed Review of Systems: dizziness, constipation Mental Status Exam Mental Status Exam Patient Appearance: Well Grooomed and Appropriate Patient Orientation: Person, Place, Time and Situation Level of Consciousness: Awake Patient Behavior: Guarded and Restless Mood Description: Anxious Affect Description: Blunted Patient Cognition Impaired: No Ability to Follow Directions: Fair Speech Pattern: Clear (though accented) Delusions: Paranoid Ideation Thought Process: Intact Thought Content: positive for Goal Oriented and positive for Preoccupation Depressive Symptoms: Increased Anxiety, Muscle Tension and Thoughts of /Suicide (vague around drinking) Abnormal Motor Activity Signs and Symptoms: Restlessness Judgement: Fair Diagnostics Vital Signs (24Hr): Vital Signs - 24 hr 01/14/24 20:45 Temperature 98.2 F Pulse Rate 91 Respiratory Rate 16 Blood Pressure 130/87 Pulse Oximetry 99 Oxygen Delivery Method Room Air BMI result Body Mass Index 20.5 Medications Medications Current Medications Acetaminophen (Acetaminophen 325 Mg Tablet) 650 mg PO Q6H PRN PRN Reason: Headache/Pain Mild Scale (1-3) Last Admin: 01/14/24 20:52 Dose: 650 mg Al Hydroxide/Mg Hydroxide (Magnesium Hydrox/Alum Hydrox 30 Ml Oral.Susp) 30 ml PO Q6H PRN PRN Reason: Heartburn/Nausea Benztropine Mesylate (Benztropine Mesylate 0.5 Mg Tablet) 0.5 mg PO BEDTIME MINOO Last Admin: 01/14/24 20:53 Dose: 0.5 mg Bupropion HCl (Bupropion Hcl Xl 300 Mg Tab.Er.24h) 300 mg PO DAILY [facility] Diphenhydramine HCl (Diphenhydramine Hcl 25 Mg Capsule) 25 mg PO BEDTIME [facility] Last Admin: 01/14/24 20:53 Dose: 25 mg Fluticasone Propionate (Fluticasone Propionate Nasal 16 Gm [place]) 1 spray NOSTRIL-B DAILY [facility] Last Admin: 01/14/24 08:44 Dose: Not Given Folic Acid (Folic Acid 1 Mg Tablet) 1 mg PO DAILY [facility] Last Admin: 01/14/24 08:34 Dose: 1 mg Hydroxyzine HCl (Hydroxyzine Hcl 25 Mg Tablet) 25 mg PO Q6H PRN PRN Reason: Anxiety Last Admin: 12/31/23 03:51 Dose: 25 mg Lidocaine (Lidocaine 4 % Patch Adh..Patch) 2 patch TRANSDERMA DAILY PRN; Protocol PRN Reason: low back pain Last Admin: 01/14/24 08:39 Dose: 2 patch Magnesium Hydroxide (Milk Of Magnesia 30 Ml Oral.Susp) 30 ml PO DAILY PRN PRN Reason: Constipation Melatonin (Melatonin 3 Mg Tablet) 6 mg PO BEDTIME [facility] Last Admin: 01/14/24 20:53 Dose: 6 mg Multivitamins/Vitamin C (Multivitamin Tablet) 1 tab PO DAILY [facility] Last Admin: 01/14/24 08:35 Dose: 1 tab Nicotine Polacrilex (Nicotine Polacrilex 2 Mg Gum) 2 mg BUCCAL Q2H PRN PRN Reason: Nicotine Cravings Olanzapine (Olanzapine 10 Mg Tablet) 10 mg PO BEDTIME [facility] Last Admin: 01/14/24 20:53 Dose: 10 mg Pyridoxine HCl (Pyridoxine Hcl (Vitamin B6) 50 Mg Tablet) 100 mg PO DAILY [facility] Last Admin: 01/14/24 08:35 Dose: 100 mg Thiamine HCl (Thiamine Hcl 100 Mg Tablet) 100 mg PO DAILY [facility] Last Admin: 01/14/24 08:35 Dose: 100 mg Trazodone HCl (Trazodone Hcl 100 Mg Tablet) 100 mg PO BEDTIME MRX1 PRN PRN Reason: Insomnia Last Admin: 01/12/24 00:49 Dose: 100 mg Vitamin D (Cholecalciferol (Vitamin D3) 25 Mcg Tablet) 25 mcg PO DAILY [facility] Last Admin: 01/14/24 08:34 Dose: 25 mcg Allergies Allergies Allergy/AdvReac Type Severity Reaction Status Date / Time No Known Allergies Allergy Verified 11/17/23 09:55 Assessment & Plan Assessment & Plan (1) Schizophrenia: Status: Acute Code(s): F20.9 - Schizophrenia, unspecified Plan 12/23: increase geodon regimen from 20/40 to 40 BID. otherwise continue/restart outpt regimen. 12/25/2023: No changes as Geodon just increased to 40 mg twice daily 12/26/2023: No changes 12/26: SX appear unchanged with respect to admission. continue current regimen for now. HbA1c 5.5%, so DM not presently a concern. T/C alternate regimen if geodon does not begin to prove more helpful. 12/27: pt would like to give geodon until wednesday for improvement; if no improvement, will increase to 40/60 wednesday. no improvement in Sx in recent days. 12/28: AH and sleep mildly improved. continue current mgmt. T/C med or dose change wednesday. 12/29: Observed talking on the phone throughout the day. keeping to self. Pt reports feeling so-so today; pt stated, being here is depressing . He reports auditory hallucinations have diminished but continues to see people in my room . Pt reports he is considering increasing medication or waiting until Wednesday to see if anything changes . Pt denies SI/HI. 12/30: pt reports modest improvement over past several days, would now like to continue on present dosing through wednesday. continue current mgmt. 12/31: slept very well last night. wants to continue as we are for now. stable presentation. mild improvement since admission. 01/01: slept very well last night. stable presentation. mild improvement since admission. planning to increase geodon dosing tomorrow. 01/02: slept about 5 hours last night. due to limited improvement, asks to increase geodon from 40 BID to 60/40, which was done as of today. 01/03: continue current tx plan. 01/04: CAH to defenestrate himself, worst Sx since arrival. declines to meet with skilled nursing staff today as a result. denies any improvement in Sx since recent dose increase in geodon. continue current mgmt. 01/05: AH improved today, would like to continue current regimen. notably told JAY Ramirez he does not want to meet with skilled nursing mgr ever again, which is quite a departure from his previous warm utterances regarding said person. 01/06: denies AH for more than 24H. continue current mgmt. 01/07: Continue current regimen and plans 01/08: Continue current plans and regimen. 01/09: decrease cogentin to 0.25 mg QHS. increase trazodone PRN to 100 mg each. otherwise continue current mgmt. demoralized re having had AH wed and wednesday. 01/10: did not take traz last night. slept 5 hours, which is good for him. no AH in the past 24H. planning to discharge wednesday back to skilled nursing. 01/11: reports he took 100 of traz last night and did not sleep at all and feels very off today. c/o severe AH last night. agreeable to DC geodon and start zyprexa 10 at HS instead. also c/o tremor and tightness in upper body, asks for cogentin to be returned to 0.5 mg QHS. last drank 1.5-2 months ago, so not suitable for DDX or rehab program. 01/12: seems delusional regarding the content of conversation with JAY Ramirez. feeling better on increased cogentin and zyprexa 10 mg QHS. substantially improved sleep last night, minimal AH of mumbling only in the night. continue current mgmt. 01/13: no AH in the past 24H. seems more agitated today, increase in paranoid delusions. accusing MD of trying to get him arrested and of violating HIPPA. preoccupied with delusions regarding apps being downloaded on his phone. would benefit from an increase in zyprexa to 20 mg QHS, but he is unlikely to take it now. will add PRN of 10 in case he can be prevailed upon to take it. 3-day notice submitted, matures next . 01/14 wanting his olanzapine decreased despite some sys- hoping for transition to intensive program - Patient educated on: medication risk/benefits and other Informed Consent: further education needed Reason for continued inpatient stay Substantial Risk for: harm to self, inability to function and rapid decompensation Time Spent With Patient Time: Total time managing care of this patient today ____ minutes.
[2024-01-15 08:46] VITALS: BP 136/94; PULSE 107; RESP 18; TEMP 36.4; O2SAT 95
[2024-01-15] MEDS: Multivitamin TABLET 1 TAB PO (08:51)
[2024-01-15] MEDS: Folic Acid 1 MG TABLET PO (08:51)
[2024-01-15] MEDS: Thiamine HCL 100 MG TABLET PO (08:51)
[2024-01-15] MEDS: buPROPion HCl XL 300 MG TAB.ER.24H PO (08:51)
[2024-01-15] MEDS: Pyridoxine HCl (Vitamin B6) 50 MG TABLET 100 MG PO (08:51)
[2024-01-15] MEDS: Cholecalciferol (Vitamin D3) 25 MCG TABLET PO (08:52)
[2024-01-15] MEDS: Acetaminophen 325 MG TABLET 650 MG PO ×2 (13:30→20:28)
[2024-01-15 20:25] VITALS: BP 120/76; PULSE 96; RESP 16; TEMP 36.9; O2SAT 98
[2024-01-15] MEDS: Benztropine Mesylate 0.5 MG TABLET PO (20:28)
[2024-01-15] MEDS: diphenhydrAMINE HCL 25 MG CAPSULE PO (20:28)
[2024-01-15] MEDS: Melatonin 3 MG TABLET 6 MG PO (20:29)
[2024-01-15] MEDS: OLANZapine 7.5 MG TABLET PO (20:29)
[2024-01-16 08:18] VITALS: BP 125/85; PULSE 84; RESP 18; TEMP 36.8; O2SAT 98
[2024-01-16] MEDS: Thiamine HCL 100 MG TABLET PO (08:26)
[2024-01-16] MEDS: Folic Acid 1 MG TABLET PO (08:26)
[2024-01-16] MEDS: Cholecalciferol (Vitamin D3) 25 MCG TABLET PO (08:27)
[2024-01-16] MEDS: buPROPion HCl XL 300 MG TAB.ER.24H PO (08:27)
[2024-01-16] MEDS: Pyridoxine HCl (Vitamin B6) 50 MG TABLET 100 MG PO (08:27)
[2024-01-16] MEDS: Multivitamin TABLET 1 TAB PO (08:27)
--- NOTE | 2024-01-16 12:05 | HO.PSYCHPN ---
Subjective Subjective Date of Service: 01/16/24 Reason For Visit: catatonia Subjective Notes: 3 Day Medical Problems Affecting Mental Status: No Interim History: 58 yo who told nurses he was suicidal this am ( same plan might drink himself to on dc) - upon meeting with this provider reports he doesn't feel that way anymore- continues with vague complaints about olanzapine (not xs dizzy though) at lower dose- denies PI- continues focused on wanting to go to [facility] - told him they might not take him if he is still struggling with si. Medication Compliance: Yes Side effects from medications: Yes (vague about it) Attending Groups: Intermittent (not consistently ? if he knows php is groups) Review of Systems Acute medical concerns: No Medical Review of Systems: changed Review of Systems: less dizzy complaint Mental Status Exam Mental Status Exam Patient Appearance: Well Grooomed and Appropriate Patient Orientation: Person, Place, Time and Situation Level of Consciousness: Awake Patient Behavior: Guarded and Restless Mood Description: Anxious Affect Description: Blunted Patient Cognition Impaired: No Ability to Follow Directions: Fair Speech Pattern: Clear (though accented) Delusions: Paranoid Ideation Thought Process: Intact Thought Content: positive for Goal Oriented and positive for Preoccupation Depressive Symptoms: Increased Anxiety, Muscle Tension and Thoughts of /Suicide (vague around drinking) Abnormal Motor Activity Signs and Symptoms: Restlessness Judgement: Fair Diagnostics Vital Signs (24Hr): Vital Signs - 24 hr 01/15/24 20:25 01/16/24 08:18 Temperature 98.4 F 98.3 F Pulse Rate 96 84 Respiratory Rate 16 18 Blood Pressure 120/76 125/85 Pulse Oximetry 98 98 Oxygen Delivery Method Room Air Room Air BMI result Body Mass Index 20.5 Medications Medications Current Medications Acetaminophen (Acetaminophen 325 Mg Tablet) 650 mg PO Q6H PRN PRN Reason: Headache/Pain Mild Scale (1-3) Last Admin: 01/15/24 20:28 Dose: 650 mg Al Hydroxide/Mg Hydroxide (Magnesium Hydrox/Alum Hydrox 30 Ml Oral.Susp) 30 ml PO Q6H PRN PRN Reason: Heartburn/Nausea Benztropine Mesylate (Benztropine Mesylate 0.5 Mg Tablet) 0.5 mg PO BEDTIME [facility]OO Last Admin: 01/15/24 20:28 Dose: 0.5 mg Bupropion HCl (Bupropion Hcl Xl 300 Mg Tab.Er.24h) 300 mg PO DAILY [facility] Last Admin: 01/16/24 08:27 Dose: 300 mg Diphenhydramine HCl (Diphenhydramine Hcl 25 Mg Capsule) 25 mg PO BEDTIME [facility] Last Admin: 01/15/24 20:28 Dose: 25 mg Fluticasone Propionate (Fluticasone Propionate Nasal 16 Gm [place]) 1 spray NOSTRIL-B DAILY [facility] Last Admin: 01/16/24 08:42 Dose: Not Given Folic Acid (Folic Acid 1 Mg Tablet) 1 mg PO DAILY [facility] Last Admin: 01/16/24 08:26 Dose: 1 mg Hydroxyzine HCl (Hydroxyzine Hcl 25 Mg Tablet) 25 mg PO Q6H PRN PRN Reason: Anxiety Last Admin: 12/31/23 03:51 Dose: 25 mg Lidocaine (Lidocaine 4 % Patch Adh..Patch) 2 patch TRANSDERMA DAILY PRN; Protocol PRN Reason: low back pain Last Admin: 01/14/24 08:39 Dose: 2 patch Magnesium Hydroxide (Milk Of Magnesia 30 Ml Oral.Susp) 30 ml PO DAILY PRN PRN Reason: Constipation Melatonin (Melatonin 3 Mg Tablet) 6 mg PO BEDTIME [facility] Last Admin: 01/15/24 20:29 Dose: 6 mg Multivitamins/Vitamin C (Multivitamin Tablet) 1 tab PO DAILY [facility] Last Admin: 01/16/24 08:27 Dose: 1 tab Nicotine Polacrilex (Nicotine Polacrilex 2 Mg Gum) 2 mg BUCCAL Q2H PRN PRN Reason: Nicotine Cravings Olanzapine (Olanzapine 7.5 Mg Tablet) 7.5 mg PO BEDTIME [facility] Last Admin: 01/15/24 20:29 Dose: 7.5 mg Pyridoxine HCl (Pyridoxine Hcl (Vitamin B6) 50 Mg Tablet) 100 mg PO DAILY [facility] Last Admin: 01/16/24 08:27 Dose: 100 mg Thiamine HCl (Thiamine Hcl 100 Mg Tablet) 100 mg PO DAILY [facility] Last Admin: 01/16/24 08:26 Dose: 100 mg Trazodone HCl (Trazodone Hcl 100 Mg Tablet) 100 mg PO BEDTIME MRX1 PRN PRN Reason: Insomnia Last Admin: 01/12/24 00:49 Dose: 100 mg Vitamin D (Cholecalciferol (Vitamin D3) 25 Mcg Tablet) 25 mcg PO DAILY [facility] Last Admin: 01/16/24 08:27 Dose: 25 mcg Allergies Allergies Allergy/AdvReac Type Severity Reaction Status Date / Time No Known Allergies Allergy Verified 11/17/23 09:55 Assessment & Plan Assessment & Plan (1) Schizophrenia: Status: Acute Code(s): F20.9 - Schizophrenia, unspecified Plan 12/23: increase geodon regimen from 20/40 to 40 BID. otherwise continue/restart outpt regimen. 12/25/2023: No changes as Geodon just increased to 40 mg twice daily 12/26/2023: No changes 12/26: SX appear unchanged with respect to admission. continue current regimen for now. HbA1c 5.5%, so DM not presently a concern. T/C alternate regimen if geodon does not begin to prove more helpful. 12/27: pt would like to give geodon until wednesday for improvement; if no improvement, will increase to 40/60 wednesday. no improvement in Sx in recent days. 12/28: AH and sleep mildly improved. continue current mgmt. T/C med or dose change wednesday. 12/29: Observed talking on the phone throughout the day. keeping to self. Pt reports feeling so-so today; pt stated, being here is depressing . He reports auditory hallucinations have diminished but continues to see people in my room . Pt reports he is considering increasing medication or waiting until Wednesday to see if anything changes . Pt denies SI/HI. 12/30: pt reports modest improvement over past several days, would now like to continue on present dosing through wednesday. continue current mgmt. 12/31: slept very well last night. wants to continue as we are for now. stable presentation. mild improvement since admission. 01/01: slept very well last night. stable presentation. mild improvement since admission. planning to increase geodon dosing tomorrow. 01/02: slept about 5 hours last night. due to limited improvement, asks to increase geodon from 40 BID to 60/40, which was done as of today. 01/03: continue current tx plan. 01/04: CAH to defenestrate himself, worst Sx since arrival. declines to meet with long term staff today as a result. denies any improvement in Sx since recent dose increase in geodon. continue current mgmt. 01/05: AH improved today, would like to continue current regimen. notably told SW Ashley he does not want to meet with long term mgr ever again, which is quite a departure from his previous warm utterances regarding said person. 01/06: denies AH for more than 24H. continue current mgmt. 01/07: Continue current regimen and plans 01/08: Continue current plans and regimen. 01/09: decrease cogentin to 0.25 mg QHS. increase trazodone PRN to 100 mg each. otherwise continue current mgmt. demoralized re having had AH sat and wednesday. 01/10: did not take traz last night. slept 5 hours, which is good for him. no AH in the past 24H. planning to discharge wednesday back to long term. 01/11: reports he took 100 of traz last night and did not sleep at all and feels very off today. c/o severe AH last night. agreeable to DC geodon and start zyprexa 10 at HS instead. also c/o tremor and tightness in upper body, asks for cogentin to be returned to 0.5 mg QHS. last drank 1.5-2 months ago, so not suitable for DDX or rehab program. 01/12: seems delusional regarding the content of conversation with JAY Ramirez. feeling better on increased cogentin and zyprexa 10 mg QHS. substantially improved sleep last night, minimal AH of mumbling only in the night. continue current mgmt. 01/13: no AH in the past 24H. seems more agitated today, increase in paranoid delusions. accusing MD of trying to get him arrested and of violating HIPPA. preoccupied with delusions regarding apps being downloaded on his phone. would benefit from an increase in zyprexa to 20 mg QHS, but he is unlikely to take it now. will add PRN of 10 in case he can be prevailed upon to take it. 3-day notice submitted, matures next . 01/14 wanting his olanzapine decreased despite some sys- hoping for transition to intensive program - 01/15/[facility] Patient educated on: other Informed Consent: further education needed Reason for continued inpatient stay Substantial Risk for: harm to self and rapid decompensation Time Spent With Patient Time: Total time managing care of this patient today ____ minutes.
[2024-01-16] MEDS: Acetaminophen 325 MG TABLET 650 MG PO (17:45)
[2024-01-16 20:00] VITALS: BP 110/75; PULSE 85; RESP 18; TEMP 36.4; O2SAT 97
[2024-01-16] MEDS: diphenhydrAMINE HCL 25 MG CAPSULE PO (20:29)
[2024-01-16] MEDS: OLANZapine 7.5 MG TABLET PO (20:30)
[2024-01-16] MEDS: Melatonin 3 MG TABLET 6 MG PO (20:30)
[2024-01-16] MEDS: Benztropine Mesylate 0.5 MG TABLET PO (20:30)
[2024-01-17] MEDS: Acetaminophen 325 MG TABLET 650 MG PO ×3 (02:22→21:06)
[2024-01-17 08:00] VITALS: BP 116/78; PULSE 89; RESP 16; TEMP 36.6; O2SAT 99
[2024-01-17] MEDS: Pyridoxine HCl (Vitamin B6) 50 MG TABLET 100 MG PO (09:18)
[2024-01-17] MEDS: Cholecalciferol (Vitamin D3) 25 MCG TABLET PO (09:18)
[2024-01-17] MEDS: buPROPion HCl XL 300 MG TAB.ER.24H PO (09:19)
[2024-01-17] MEDS: Thiamine HCL 100 MG TABLET PO (09:19)
[2024-01-17] MEDS: Folic Acid 1 MG TABLET PO (09:19)
[2024-01-17] MEDS: Multivitamin TABLET 1 TAB PO (09:20)
--- NOTE | 2024-01-17 16:00 | HO.PSYCHPN ---
Subjective Subjective Date of Service: 01/17/24 Reason For Visit: catatonia Subjective Notes: 3 Day Interim History: Reviewed with Dr. Caballero. Keeping to self. Pt reports feeling okay today; pt stated, I don't have any anxiety. My depression is low. I'm trying to go to a PHP or respite before going home. I've been talking with the renal social worker about it . Pt reports auditory hallucinations of people cursing . Pt denies SI/HI/VH/AH. Pt reports sleeping well. Medication Compliance: Yes Side effects from medications: No Attending Groups: Intermittent Review of Systems Constitutional: Reports as per HPI Eyes: Reports as per HPI Reports as per HPI Cardiovascular: Reports as per HPI Respiratory: Reports as per HPI Gastrointestinal: Reports as per HPI Genitourinary: Reports as per HPI Musculoskeletal: Reports as per HPI Skin/Breast: Reports as per HPI Reports as per HPI Psychiatric: Reports as per HPI Endocrine: Reports as per HPI Hematologic/Lymphatic: Reports as per HPI Allergic/Immunologic: Reports as per HPI Mental Status Exam Mental Status Exam Narrative: Pt is alert and oriented; behavior is cooperative and calm; dressed in casual attire; mood is described as good ; eye contact appropriate; Speech is normal rate, volume and not pressured; thought process is organized and goal directed; Thought content is on tx; denies SI/HI/VH. Pt reports auditory hallucinations. Diagnostics Vital Signs (24Hr): Vital Signs - 24 hr 01/16/24 20:00 01/17/24 08:00 Temperature 97.6 F 97.9 F Pulse Rate 85 89 Respiratory Rate 18 16 Blood Pressure 110/75 116/78 Pulse Oximetry 97 99 Oxygen Delivery Method Room Air Room Air BMI result Body Mass Index 20.5 Medications Medications Current Medications Acetaminophen (Acetaminophen 325 Mg Tablet) 650 mg PO Q6H PRN PRN Reason: Headache/Pain Mild Scale (1-3) Last Admin: 01/17/24 09:32 Dose: 650 mg Al Hydroxide/Mg Hydroxide (Magnesium Hydrox/Alum Hydrox 30 Ml Oral.Susp) 30 ml PO Q6H PRN PRN Reason: Heartburn/Nausea Benztropine Mesylate (Benztropine Mesylate 0.5 Mg Tablet) 0.5 mg PO BEDTIME MINOO Last Admin: 01/16/24 20:30 Dose: 0.5 mg Bupropion HCl (Bupropion Hcl Xl 300 Mg Tab.Er.24h) 300 mg PO DAILY [facility] Last Admin: 01/17/24 09:19 Dose: 300 mg Diphenhydramine HCl (Diphenhydramine Hcl 25 Mg Capsule) 25 mg PO BEDTIME MINOO Last Admin: 01/16/24 20:29 Dose: 25 mg Fluticasone Propionate (Fluticasone Propionate Nasal 16 Gm [place]) 1 spray NOSTRIL-B DAILY [facility] Last Admin: 01/17/24 09:54 Dose: Not Given Folic Acid (Folic Acid 1 Mg Tablet) 1 mg PO DAILY [facility] Last Admin: 01/17/24 09:19 Dose: 1 mg Hydroxyzine HCl (Hydroxyzine Hcl 25 Mg Tablet) 25 mg PO Q6H PRN PRN Reason: Anxiety Last Admin: 12/31/23 03:51 Dose: 25 mg Lidocaine (Lidocaine 4 % Patch Adh..Patch) 2 patch TRANSDERMA DAILY PRN; Protocol PRN Reason: low back pain Last Admin: 01/14/24 08:39 Dose: 2 patch Magnesium Hydroxide (Milk Of Magnesia 30 Ml Oral.Susp) 30 ml PO DAILY PRN PRN Reason: Constipation Melatonin (Melatonin 3 Mg Tablet) 6 mg PO BEDTIME [facility] Last Admin: 01/16/24 20:30 Dose: 6 mg Multivitamins/Vitamin C (Multivitamin Tablet) 1 tab PO DAILY [facility] Last Admin: 01/17/24 09:20 Dose: 1 tab Nicotine Polacrilex (Nicotine Polacrilex 2 Mg Gum) 2 mg BUCCAL Q2H PRN PRN Reason: Nicotine Cravings Olanzapine (Olanzapine 7.5 Mg Tablet) 7.5 mg PO BEDTIME [facility] Last Admin: 01/16/24 20:30 Dose: 7.5 mg Pyridoxine HCl (Pyridoxine Hcl (Vitamin B6) 50 Mg Tablet) 100 mg PO DAILY [facility] Last Admin: 01/17/24 09:18 Dose: 100 mg Thiamine HCl (Thiamine Hcl 100 Mg Tablet) 100 mg PO DAILY [facility] Last Admin: 01/17/24 09:19 Dose: 100 mg Trazodone HCl (Trazodone Hcl 100 Mg Tablet) 100 mg PO BEDTIME MRX1 PRN PRN Reason: Insomnia Last Admin: 01/12/24 00:49 Dose: 100 mg Vitamin D (Cholecalciferol (Vitamin D3) 25 Mcg Tablet) 25 mcg PO DAILY [facility] Last Admin: 01/17/24 09:18 Dose: 25 mcg Allergies Allergies Allergy/AdvReac Type Severity Reaction Status Date / Time No Known Allergies Allergy Verified 11/17/23 09:55 Assessment & Plan Assessment & Plan (1) Schizophrenia: Status: Acute Code(s): F20.9 - Schizophrenia, unspecified Plan 12/23: increase geodon regimen from 20/40 to 40 BID. otherwise continue/restart outpt regimen. 12/25/2023: No changes as Geodon just increased to 40 mg twice daily 12/26/2023: No changes 12/26: SX appear unchanged with respect to admission. continue current regimen for now. HbA1c 5.5%, so DM not presently a concern. T/C alternate regimen if geodon does not begin to prove more helpful. 12/27: pt would like to give geodon until wednesday for improvement; if no improvement, will increase to 40/60 wednesday. no improvement in Sx in recent days. 12/28: AH and sleep mildly improved. continue current mgmt. T/C med or dose change wednesday. 12/29: Observed talking on the phone throughout the day. keeping to self. Pt reports feeling so-so today; pt stated, being here is depressing . He reports auditory hallucinations have diminished but continues to see people in my room . Pt reports he is considering increasing medication or waiting until Wednesday to see if anything changes . Pt denies SI/HI. 12/30: pt reports modest improvement over past several days, would now like to continue on present dosing through wednesday. continue current mgmt. 12/31: slept very well last night. wants to continue as we are for now. stable presentation. mild improvement since admission. 01/01: slept very well last night. stable presentation. mild improvement since admission. planning to increase geodon dosing tomorrow. 01/02: slept about 5 hours last night. due to limited improvement, asks to increase geodon from 40 BID to 60/40, which was done as of today. 01/03: continue current tx plan. 01/04: CAH to defenestrate himself, worst Sx since arrival. declines to meet with long-term staff today as a result. denies any improvement in Sx since recent dose increase in geodon. continue current mgmt. 01/05: AH improved today, would like to continue current regimen. notably told JAY Ramirez he does not want to meet with long-term mgr ever again, which is quite a departure from his previous warm utterances regarding said person. 01/06: denies AH for more than 24H. continue current mgmt. 01/07: Continue current regimen and plans 01/08: Continue current plans and regimen. 01/09: decrease cogentin to 0.25 mg QHS. increase trazodone PRN to 100 mg each. otherwise continue current mgmt. demoralized re having had AH wed and wednesday. 01/10: did not take traz last night. slept 5 hours, which is good for him. no AH in the past 24H. planning to discharge wednesday back to long-term. 01/11: reports he took 100 of traz last night and did not sleep at all and feels very off today. c/o severe AH last night. agreeable to DC geodon and start zyprexa 10 at HS instead. also c/o tremor and tightness in upper body, asks for cogentin to be returned to 0.5 mg QHS. last drank 1.5-2 months ago, so not suitable for DDX or rehab program. 01/12: seems delusional regarding the content of conversation with JAY Ramirez. feeling better on increased cogentin and zyprexa 10 mg QHS. substantially improved sleep last night, minimal AH of mumbling only in the night. continue current mgmt. 01/13: no AH in the past 24H. seems more agitated today, increase in paranoid delusions. accusing MD of trying to get him arrested and of violating HIPPA. preoccupied with delusions regarding apps being downloaded on his phone. would benefit from an increase in zyprexa to 20 mg QHS, but he is unlikely to take it now. will add PRN of 10 in case he can be prevailed upon to take it. 3-day notice submitted, matures next . 01/14 wanting his olanzapine decreased despite some sys- hoping for transition to intensive program - 01/15/CTP 01/16: Continue current tx plan. Patient educated on: diagnosis and medication risk/benefits Informed Consent: understands Reason for continued inpatient stay Substantial Risk for: med/psych decompensation Time Spent With Patient Time: Total time managing care of this patient today _20___ minutes.
[2024-01-17 20:30] VITALS: BP 109/69; PULSE 88; RESP 16; TEMP 36.8; O2SAT 98
[2024-01-17] MEDS: OLANZapine 7.5 MG TABLET PO (21:04)
[2024-01-17] MEDS: Benztropine Mesylate 0.5 MG TABLET PO (21:05)
[2024-01-17] MEDS: Melatonin 3 MG TABLET 6 MG PO (21:06)
[2024-01-17] MEDS: diphenhydrAMINE HCL 25 MG CAPSULE PO (21:07)
[2024-01-18 07:15] VITALS: BP 106/70; PULSE 92; RESP 16; TEMP 36.7; O2SAT 94
[2024-01-18] MEDS: Acetaminophen 325 MG TABLET 650 MG PO ×2 (08:15→20:27)
[2024-01-18] MEDS: Folic Acid 1 MG TABLET PO (08:16)
[2024-01-18] MEDS: buPROPion HCl XL 300 MG TAB.ER.24H PO (08:16)
[2024-01-18] MEDS: Thiamine HCL 100 MG TABLET PO (08:17)
[2024-01-18] MEDS: Cholecalciferol (Vitamin D3) 25 MCG TABLET PO (08:17)
[2024-01-18] MEDS: Multivitamin TABLET 1 TAB PO (08:17)
[2024-01-18] MEDS: Pyridoxine HCl (Vitamin B6) 50 MG TABLET 100 MG PO (08:18)
--- NOTE | 2024-01-18 08:59 | HO.PSYCHPN ---
Subjective Subjective Date of Service: 01/18/24 Reason For Visit: catatonia Subjective Notes: Conditional Voluntary Interim History: Reviewed with Dr. Caballero. Retracted 3 day notice. residential support worker, Ashly, present. Pt reports feeling not too bad today; pt stated, I'm waiting to see if I get into the PHP or [facility] . Pt reports he agrees to return to his snf on Wednesday if he is not accepted into PHP or CSS. Pt denies SI/HI/VH/AH. Medication Compliance: Yes Side effects from medications: No Attending Groups: Intermittent Review of Systems Constitutional: Reports as per HPI Eyes: Reports as per HPI Reports as per HPI Cardiovascular: Reports as per HPI Respiratory: Reports as per HPI Gastrointestinal: Reports as per HPI Genitourinary: Reports as per HPI Musculoskeletal: Reports as per HPI Skin/Breast: Reports as per HPI Reports as per HPI Psychiatric: Reports as per HPI Endocrine: Reports as per HPI Hematologic/Lymphatic: Reports as per HPI Allergic/Immunologic: Reports as per HPI Mental Status Exam Mental Status Exam Narrative: Pt is alert and oriented; behavior is cooperative and calm; dressed in casual attire; mood is described as good ; eye contact appropriate; Speech is normal rate, volume and not pressured; thought process is organized and goal directed; Thought content is on tx; denies SI/HI/VH/AH Diagnostics Vital Signs (24Hr): Vital Signs - 24 hr 01/17/24 20:30 01/18/24 07:15 Temperature 98.2 F 98.0 F Pulse Rate 88 92 Respiratory Rate 16 16 Blood Pressure 109/69 106/70 Pulse Oximetry 98 94 Oxygen Delivery Method Room Air Room Air BMI result Body Mass Index 20.5 Medications Medications Current Medications Acetaminophen (Acetaminophen 325 Mg Tablet) 650 mg PO Q6H PRN PRN Reason: Headache/Pain Mild Scale (1-3) Last Admin: 01/18/24 08:15 Dose: 650 mg Al Hydroxide/Mg Hydroxide (Magnesium Hydrox/Alum Hydrox 30 Ml Oral.Susp) 30 ml PO Q6H PRN PRN Reason: Heartburn/Nausea Benztropine Mesylate (Benztropine Mesylate 0.5 Mg Tablet) 0.5 mg PO BEDTIME MINOO Last Admin: 01/17/24 21:05 Dose: 0.5 mg Bupropion HCl (Bupropion Hcl Xl 300 Mg Tab.Er.24h) 300 mg PO DAILY [facility]OO Last Admin: 01/18/24 08:16 Dose: 300 mg Diphenhydramine HCl (Diphenhydramine Hcl 25 Mg Capsule) 25 mg PO BEDTIME [facility] Last Admin: 01/17/24 21:07 Dose: 25 mg Fluticasone Propionate (Fluticasone Propionate Nasal 16 Gm [place]) 1 spray NOSTRIL-B DAILY [facility] Last Admin: 01/18/24 08:14 Dose: Not Given Folic Acid (Folic Acid 1 Mg Tablet) 1 mg PO DAILY [facility] Last Admin: 01/18/24 08:16 Dose: 1 mg Hydroxyzine HCl (Hydroxyzine Hcl 25 Mg Tablet) 25 mg PO Q6H PRN PRN Reason: Anxiety Last Admin: 12/31/23 03:51 Dose: 25 mg Lidocaine (Lidocaine 4 % Patch Adh..Patch) 2 patch TRANSDERMA DAILY PRN; Protocol PRN Reason: low back pain Last Admin: 01/14/24 08:39 Dose: 2 patch Magnesium Hydroxide (Milk Of Magnesia 30 Ml Oral.Susp) 30 ml PO DAILY PRN PRN Reason: Constipation Melatonin (Melatonin 3 Mg Tablet) 6 mg PO BEDTIME [facility] Last Admin: 01/17/24 21:06 Dose: 6 mg Multivitamins/Vitamin C (Multivitamin Tablet) 1 tab PO DAILY [facility] Last Admin: 01/18/24 08:17 Dose: 1 tab Nicotine Polacrilex (Nicotine Polacrilex 2 Mg Gum) 2 mg BUCCAL Q2H PRN PRN Reason: Nicotine Cravings Olanzapine (Olanzapine 7.5 Mg Tablet) 7.5 mg PO BEDTIME [facility] Last Admin: 01/17/24 21:04 Dose: 7.5 mg Pyridoxine HCl (Pyridoxine Hcl (Vitamin B6) 50 Mg Tablet) 100 mg PO DAILY [facility] Last Admin: 01/18/24 08:18 Dose: 100 mg Thiamine HCl (Thiamine Hcl 100 Mg Tablet) 100 mg PO DAILY [facility] Last Admin: 01/18/24 08:17 Dose: 100 mg Trazodone HCl (Trazodone Hcl 100 Mg Tablet) 100 mg PO BEDTIME MRX1 PRN PRN Reason: Insomnia Last Admin: 01/12/24 00:49 Dose: 100 mg Vitamin D (Cholecalciferol (Vitamin D3) 25 Mcg Tablet) 25 mcg PO DAILY [facility] Last Admin: 01/18/24 08:17 Dose: 25 mcg Allergies Allergies Allergy/AdvReac Type Severity Reaction Status Date / Time No Known Allergies Allergy Verified 11/17/23 09:55 Assessment & Plan Assessment & Plan (1) Schizophrenia: Status: Acute Code(s): F20.9 - Schizophrenia, unspecified Plan 12/23: increase geodon regimen from 20/40 to 40 BID. otherwise continue/restart outpt regimen. 12/25/2023: No changes as Geodon just increased to 40 mg twice daily 12/26/2023: No changes 12/26: SX appear unchanged with respect to admission. continue current regimen for now. HbA1c 5.5%, so DM not presently a concern. T/C alternate regimen if geodon does not begin to prove more helpful. 12/27: pt would like to give geodon until wednesday for improvement; if no improvement, will increase to 40/60 wednesday. no improvement in Sx in recent days. 12/28: AH and sleep mildly improved. continue current mgmt. T/C med or dose change wednesday. 12/29: Observed talking on the phone throughout the day. keeping to self. Pt reports feeling so-so today; pt stated, being here is depressing . He reports auditory hallucinations have diminished but continues to see people in my room . Pt reports he is considering increasing medication or waiting until Wednesday to see if anything changes . Pt denies SI/HI. 12/30: pt reports modest improvement over past several days, would now like to continue on present dosing through wednesday. continue current mgmt. 12/31: slept very well last night. wants to continue as we are for now. stable presentation. mild improvement since admission. 01/01: slept very well last night. stable presentation. mild improvement since admission. planning to increase geodon dosing tomorrow. 01/02: slept about 5 hours last night. due to limited improvement, asks to increase geodon from 40 BID to 60/40, which was done as of today. 01/03: continue current tx plan. 01/04: CAH to defenestrate himself, worst Sx since arrival. declines to meet with snf staff today as a result. denies any improvement in Sx since recent dose increase in geodon. continue current mgmt. 01/05: AH improved today, would like to continue current regimen. notably told JAY Ramirez he does not want to meet with snf mgr ever again, which is quite a departure from his previous warm utterances regarding said person. 01/06: denies AH for more than 24H. continue current mgmt. 01/07: Continue current regimen and plans 01/08: Continue current plans and regimen. 01/09: decrease cogentin to 0.25 mg QHS. increase trazodone PRN to 100 mg each. otherwise continue current mgmt. demoralized re having had AH wed and wednesday. 01/10: did not take traz last night. slept 5 hours, which is good for him. no AH in the past 24H. planning to discharge wednesday back to snf. 01/11: reports he took 100 of traz last night and did not sleep at all and feels very off today. c/o severe AH last night. agreeable to DC geodon and start zyprexa 10 at HS instead. also c/o tremor and tightness in upper body, asks for cogentin to be returned to 0.5 mg QHS. last drank 1.5-2 months ago, so not suitable for DDX or rehab program. 01/12: seems delusional regarding the content of conversation with JAY Ramirez. feeling better on increased cogentin and zyprexa 10 mg QHS. substantially improved sleep last night, minimal AH of mumbling only in the night. continue current mgmt. 01/13: no AH in the past 24H. seems more agitated today, increase in paranoid delusions. accusing MD of trying to get him arrested and of violating HIPPA. preoccupied with delusions regarding apps being downloaded on his phone. would benefit from an increase in zyprexa to 20 mg QHS, but he is unlikely to take it now. will add PRN of 10 in case he can be prevailed upon to take it. 3-day notice submitted, matures next . 01/14 wanting his olanzapine decreased despite some sys- hoping for transition to intensive program - 01/15/CTP 01/16: Continue current tx plan. 01/17: Retracted 3 day notice. residential support worker, Ashly, present. Pt reports feeling not too bad today; pt stated, I'm waiting to see if I get into the PHP or [facility] . Pt reports he agrees to return to his snf on Wednesday if he is not accepted into PHP or CSS. Pt denies SI/HI/VH/AH. Patient educated on: diagnosis, medication risk/benefits and therapeutic strategies Informed Consent: understands Reason for continued inpatient stay Substantial Risk for: med/psych decompensation Time Spent With Patient Time: Total time managing care of this patient today _20___ minutes.
[2024-01-18 20:15] VITALS: BP 119/80; PULSE 91; RESP 16; TEMP 36.6; O2SAT 98
[2024-01-18] MEDS: Melatonin 3 MG TABLET 6 MG PO (20:25)
[2024-01-18] MEDS: OLANZapine 7.5 MG TABLET PO (20:26)
[2024-01-18] MEDS: diphenhydrAMINE HCL 25 MG CAPSULE PO (20:26)
[2024-01-18] MEDS: Benztropine Mesylate 0.5 MG TABLET PO (20:26)
[2024-01-19 07:40] VITALS: BP 103/74; PULSE 96; RESP 16; TEMP 37.1; O2SAT 96
[2024-01-19] MEDS: Thiamine HCL 100 MG TABLET PO (08:18)
[2024-01-19] MEDS: Folic Acid 1 MG TABLET PO (08:18)
[2024-01-19] MEDS: buPROPion HCl XL 300 MG TAB.ER.24H PO (08:18)
[2024-01-19] MEDS: Multivitamin TABLET 1 TAB PO (08:18)
[2024-01-19] MEDS: Cholecalciferol (Vitamin D3) 25 MCG TABLET PO (08:18)
[2024-01-19] MEDS: Pyridoxine HCl (Vitamin B6) 50 MG TABLET 100 MG PO (08:18)
--- NOTE | 2024-01-19 09:40 | P.PNPSI_ITS ---
Subjective Subjective Date of Service: 01/19/24 Reason For Visit: catatonia Subjective Notes: Conditional Voluntary Interim History: Reviewed with Dr. Caballero. Pt reports feeling so-so today; pt stated, I'm just hoping to get into the [facility] or respite. I didn't sleep well last night, sometimes it happens . Keeping to self. Observed pacing unit hallway. Pt denies SI/HI/VH. Pt reports auditory hallucinations of mumbling . Medication Compliance: Yes Side effects from medications: No Attending Groups: No Review of Systems Constitutional: Reports as per HPI Eyes: Reports as per HPI Reports as per HPI Cardiovascular: Reports as per HPI Respiratory: Reports as per HPI Gastrointestinal: Reports as per HPI Genitourinary: Reports as per HPI Musculoskeletal: Reports as per HPI Skin/Breast: Reports as per HPI Reports as per HPI Psychiatric: Reports as per HPI Endocrine: Reports as per HPI Hematologic/Lymphatic: Reports as per HPI Allergic/Immunologic: Reports as per HPI Mental Status Exam Mental Status Exam Narrative: Pt is alert and oriented; behavior is cooperative and calm; dressed in casual attire; mood is described as good ; eye contact appropriate; Speech is normal rate, volume and not pressured; thought process is organized and goal directed; Thought content is on tx; denies SI/HI/VH. Pt reports auditory hallucinations of mumbling . Diagnostics Vital Signs (24Hr): Vital Signs - 24 hr 01/18/24 20:15 01/19/24 07:40 Temperature 97.8 F 98.7 F Pulse Rate 91 96 Respiratory Rate 16 16 Blood Pressure 119/80 103/74 Pulse Oximetry 98 96 Oxygen Delivery Method Room Air Room Air BMI result Body Mass Index 20.5 Medications Medications Current Medications Acetaminophen (Acetaminophen 325 Mg Tablet) 650 mg PO Q6H PRN PRN Reason: Headache/Pain Mild Scale (1-3) Last Admin: 01/18/24 20:27 Dose: 650 mg Al Hydroxide/Mg Hydroxide (Magnesium Hydrox/Alum Hydrox 30 Ml Oral.Susp) 30 ml PO Q6H PRN PRN Reason: Heartburn/Nausea Benztropine Mesylate (Benztropine Mesylate 0.5 Mg Tablet) 0.5 mg PO BEDTIME MINOO Last Admin: 01/18/24 20:26 Dose: 0.5 mg Bupropion HCl (Bupropion Hcl Xl 300 Mg Tab.Er.24h) 300 mg PO DAILY [facility] Last Admin: 01/19/24 08:18 Dose: 300 mg Diphenhydramine HCl (Diphenhydramine Hcl 25 Mg Capsule) 25 mg PO BEDTIME [facility] Last Admin: 01/18/24 20:26 Dose: 25 mg Fluticasone Propionate (Fluticasone Propionate Nasal 16 G[address] [place]) 1 spray NOSTRIL-B DAILY [facility] Last Admin: 01/19/24 09:23 Dose: Not Given Folic Acid (Folic Acid 1 Mg Tablet) 1 mg PO DAILY [facility] Last Admin: 01/19/24 08:18 Dose: 1 mg Hydroxyzine HCl (Hydroxyzine Hcl 25 Mg Tablet) 25 mg PO Q6H PRN PRN Reason: Anxiety Last Admin: 12/31/23 03:51 Dose: 25 mg Lidocaine (Lidocaine 4 % Patch Adh..Patch) 2 patch TRANSDERMA DAILY PRN; Protocol PRN Reason: low back pain Last Admin: 01/14/24 08:39 Dose: 2 patch Magnesium Hydroxide (Milk Of Magnesia 30 Ml Oral.Susp) 30 ml PO DAILY PRN PRN Reason: Constipation Melatonin (Melatonin 3 Mg Tablet) 6 mg PO BEDTIME [facility] Last Admin: 01/18/24 20:25 Dose: 6 mg Multivitamins/Vitamin C (Multivitamin Tablet) 1 tab PO DAILY [facility] Last Admin: 01/19/24 08:18 Dose: 1 tab Nicotine Polacrilex (Nicotine Polacrilex 2 Mg Gum) 2 mg BUCCAL Q2H PRN PRN Reason: Nicotine Cravings Olanzapine (Olanzapine 7.5 Mg Tablet) 7.5 mg PO BEDTIME [facility] Last Admin: 01/18/24 20:26 Dose: 7.5 mg Pyridoxine HCl (Pyridoxine Hcl (Vitamin B6) 50 Mg Tablet) 100 mg PO DAILY [facility] Last Admin: 01/19/24 08:18 Dose: 100 mg Thiamine HCl (Thiamine Hcl 100 Mg Tablet) 100 mg PO DAILY [facility] Last Admin: 01/19/24 08:18 Dose: 100 mg Trazodone HCl (Trazodone Hcl 100 Mg Tablet) 100 mg PO BEDTIME MRX1 PRN PRN Reason: Insomnia Last Admin: 01/12/24 00:49 Dose: 100 mg Vitamin D (Cholecalciferol (Vitamin D3) 25 Mcg Tablet) 25 mcg PO DAILY [facility] Last Admin: 01/19/24 08:18 Dose: 25 mcg Allergies Allergies Allergy/AdvReac Type Severity Reaction Status Date / Time No Known Allergies Allergy Verified 11/17/23 09:55 Assessment & Plan Assessment & Plan (1) Schizophrenia: Status: Acute Code(s): F20.9 - Schizophrenia, unspecified Plan 12/23: increase geodon regimen from 20/40 to 40 BID. otherwise continue/restart outpt regimen. 12/25/2023: No changes as Geodon just increased to 40 mg twice daily 12/26/2023: No changes 12/26: SX appear unchanged with respect to admission. continue current regimen for now. HbA1c 5.5%, so DM not presently a concern. T/C alternate regimen if geodon does not begin to prove more helpful. 12/27: pt would like to give geodon until wednesday for improvement; if no improvement, will increase to 40/60 wednesday. no improvement in Sx in recent days. 12/28: AH and sleep mildly improved. continue current mgmt. T/C med or dose change wednesday. 12/29: Observed talking on the phone throughout the day. keeping to self. Pt reports feeling so-so today; pt stated, being here is depressing . He reports auditory hallucinations have diminished but continues to see people in my room . Pt reports he is considering increasing medication or waiting until Wednesday to see if anything changes . Pt denies SI/HI. 12/30: pt reports modest improvement over past several days, would now like to co ntinue on present dosing through wednesday. continue current mgmt. 12/31: slept very well last night. wants to continue as we are for now. stable presentation. mild improvement since admission. 01/01: slept very well last night. stable presentation. mild improvement since admission. planning to increase geodon dosing tomorrow. 01/02: slept about 5 hours last night. due to limited improvement, asks to increase geodon from 40 BID to 60/40, which was done as of today. 01/03: continue current tx plan. 01/04: CAH to defenestrate himself, worst Sx since arrival. declines to meet with residential staff today as a result. denies any improvement in Sx since recent dose increase in geodon. continue current mgmt. 01/05: AH improved today, would like to continue current regimen. notably told JAY Ramirez he does not want to meet with residential mgr ever again, which is quite a departure from his previous warm utterances regarding said person. 01/06: denies AH for more than 24H. continue current mgmt. 01/07: Continue current regimen and plans 01/08: Continue current plans and regimen. 01/09: decrease cogentin to 0.25 mg QHS. increase trazodone PRN to 100 mg each. otherwise continue current mgmt. demoralized re having had AH wed and wednesday. 01/10: did not take traz last night. slept 5 hours, which is good for him. no AH in the past 24H. planning to discharge wednesday back to residential. 01/11: reports he took 100 of traz last night and did not sleep at all and feels very off today. c/o severe AH last night. agreeable to DC geodon and start zyprexa 10 at HS instead. also c/o tremor and tightness in upper body, asks for cogentin to be returned to 0.5 mg QHS. last drank 1.5-2 months ago, so not suitable for DDX or rehab program. 01/12: seems delusional regarding the content of conversation with JAY Ramirez. feeling better on increased cogentin and zyprexa 10 mg QHS. substantially improved sleep last night, minimal AH of mumbling only in the night. continue current mgmt. 01/13: no AH in the past 24H. seems more agitated today, increase in paranoid delusions. accusing MD of trying to get him arrested and of violating HIPPA. preoccupied with delusions regarding apps being downloaded on his phone. would benefit from an increase in zyprexa to 20 mg QHS, but he is unlikely to take it now. will add PRN of 10 in case he can be prevailed upon to take it. 3-day notice submitted, matures next . 01/14 wanting his olanzapine decreased despite some sys- hoping for transition to intensive program - 01/15/CTP 01/16: Continue current tx plan. 01/17: Retracted 3 day notice. floorworker distributor, Ashly, present. Pt reports feeling not too bad today; pt stated, I'm waiting to see if I get into the [facility] or [facility] . Pt reports he agrees to return to his residential on Wednesday if he is not accepted into [facility] or [facility]. Pt denies SI/HI/VH/AH. 01/18: Pt reports feeling so-so today; pt stated, I'm just hoping to get into the [facility] or respite. I didn't sleep well last night, sometimes it happens . Keeping to self. Observed pacing unit hallway. Pt denies SI/HI/VH. Pt reports auditory hallucinations of mumbling . Continue current tx plan. Patient educated on: diagnosis, medication risk/benefits and therapeutic strategies Informed Consent: understands Reason for continued inpatient stay Substantial Risk for: med/psych decompensation Time Spent With Patient Time: Total time managing care of this patient today _20___ minutes.
[2024-01-19] MEDS: Lidocaine 4 % Patch ADH..PATCH 2 PATCH TRANSDERMA (13:23)
[2024-01-19 19:55] VITALS: BP 103/74; PULSE 87; RESP 16; TEMP 36.7; O2SAT 96
[2024-01-19] MEDS: Benztropine Mesylate 0.5 MG TABLET PO (20:27)
[2024-01-19] MEDS: Melatonin 3 MG TABLET 6 MG PO (20:27)
[2024-01-19] MEDS: diphenhydrAMINE HCL 25 MG CAPSULE PO (20:27)
[2024-01-19] MEDS: OLANZapine 7.5 MG TABLET PO (20:27)
[2024-01-20 07:00] VITALS: BMI 20.4
[2024-01-20 07:20] VITALS: BP 104/75; PULSE 89; RESP 18; TEMP 36.7; O2SAT 96
[2024-01-20 08:00] VITALS: BP 104/75; PULSE 89; RESP 16; TEMP 36.7; O2SAT 96
[2024-01-20] MEDS: Multivitamin TABLET 1 TAB PO (08:09)
[2024-01-20] MEDS: Pyridoxine HCl (Vitamin B6) 50 MG TABLET 100 MG PO (08:09)
[2024-01-20] MEDS: buPROPion HCl XL 300 MG TAB.ER.24H PO (08:09)
[2024-01-20] MEDS: Cholecalciferol (Vitamin D3) 25 MCG TABLET PO (08:09)
[2024-01-20] MEDS: Thiamine HCL 100 MG TABLET PO (08:09)
[2024-01-20] MEDS: Folic Acid 1 MG TABLET PO (08:09)
--- NOTE | 2024-01-20 09:49 | P.PNPSI_ITS ---
Subjective Subjective Date of Service: 01/20/24 Reason For Visit: catatonia Subjective Notes: Conditional Voluntary Interim History: Reviewed with Dr. Caballero. Pt reports feeling decent today; pt stated, I'm doing a little better today. I'm still hoping to go to the partial program but if not then I will go back to my apartment . Pt denies SI/HI/VH/AH. Medication Compliance: Yes Side effects from medications: No Attending Groups: No Review of Systems Constitutional: Reports as per HPI Eyes: Reports as per HPI Reports as per HPI Cardiovascular: Reports as per HPI Respiratory: Reports as per HPI Gastrointestinal: Reports as per HPI Genitourinary: Reports as per HPI Musculoskeletal: Reports as per HPI Skin/Breast: Reports as per HPI Reports as per HPI Psychiatric: Reports as per HPI Endocrine: Reports as per HPI Hematologic/Lymphatic: Reports as per HPI Allergic/Immunologic: Reports as per HPI Mental Status Exam Mental Status Exam Narrative: Pt is alert and oriented; behavior is cooperative and calm; dressed in casual attire; mood is described as good ; eye contact appropriate; Speech is normal rate, volume and not pressured; thought process is organized and goal directed; Thought content is on tx; denies SI/HI/VH/AH. Diagnostics Vital Signs (24Hr): Vital Signs - 24 hr 01/19/24 19:55 01/20/24 07:20 Temperature 98.1 F 98.1 F Pulse Rate 87 89 Respiratory Rate 16 18 Blood Pressure 103/74 104/75 Pulse Oximetry 96 96 Oxygen Delivery Method Room Air Room Air BMI result Body Mass Index 20.5 Medications Medications Current Medications Acetaminophen (Acetaminophen 325 Mg Tablet) 650 mg PO Q6H PRN PRN Reason: Headache/Pain Mild Scale (1-3) Last Admin: 01/18/24 20:27 Dose: 650 mg Al Hydroxide/Mg Hydroxide (Magnesium Hydrox/Alum Hydrox 30 Ml Oral.Susp) 30 ml PO Q6H PRN PRN Reason: Heartburn/Nausea Benztropine Mesylate (Benztropine Mesylate 0.5 Mg Tablet) 0.5 mg PO BEDTIME [facility] Last Admin: 01/19/24 20:27 Dose: 0.5 mg Bupropion HCl (Bupropion Hcl Xl 300 Mg Tab.Er.24h) 300 mg PO DAILY [facility] Last Admin: 01/20/24 08:09 Dose: 300 mg Diphenhydramine HCl (Diphenhydramine Hcl 25 Mg Capsule) 25 mg PO BEDTIME [facility] Last Admin: 01/19/24 20:27 Dose: 25 mg Folic Acid (Folic Acid 1 Mg Tablet) 1 mg PO DAILY [facility] Last Admin: 01/20/24 08:09 Dose: 1 mg Hydroxyzine HCl (Hydroxyzine Hcl 25 Mg Tablet) 25 mg PO Q6H PRN PRN Reason: Anxiety Last Admin: 12/31/23 03:51 Dose: 25 mg Lidocaine (Lidocaine 4 % Patch Adh..Patch) 2 patch TRANSDERMA DAILY PRN; Protocol PRN Reason: low back pain Last Admin: 01/19/24 13:23 Dose: 2 patch Magnesium Hydroxide (Milk Of Magnesia 30 Ml Oral.Susp) 30 ml PO DAILY PRN PRN Reason: Constipation Melatonin (Melatonin 3 Mg Tablet) 6 mg PO BEDTIME [facility] Last Admin: 01/19/24 20:27 Dose: 6 mg Multivitamins/Vitamin C (Multivitamin Tablet) 1 tab PO DAILY [facility] Last Admin: 01/20/24 08:09 Dose: 1 tab Nicotine Polacrilex (Nicotine Polacrilex 2 Mg Gum) 2 mg BUCCAL Q2H PRN PRN Reason: Nicotine Cravings Olanzapine (Olanzapine 7.5 Mg Tablet) 7.5 mg PO BEDTIME [facility] Last Admin: 01/19/24 20:27 Dose: 7.5 mg Pyridoxine HCl (Pyridoxine Hcl (Vitamin B6) 50 Mg Tablet) 100 mg PO DAILY [facility] Last Admin: 01/20/24 08:09 Dose: 100 mg Thiamine HCl (Thiamine Hcl 100 Mg Tablet) 100 mg PO DAILY [facility] Last Admin: 01/20/24 08:09 Dose: 100 mg Trazodone HCl (Trazodone Hcl 100 Mg Tablet) 100 mg PO BEDTIME MRX1 PRN PRN Reason: Insomnia Last Admin: 01/12/24 00:49 Dose: 100 mg Vitamin D (Cholecalciferol (Vitamin D3) 25 Mcg Tablet) 25 mcg PO DAILY [facility] Last Admin: 01/20/24 08:09 Dose: 25 mcg Allergies Allergies Allergy/AdvReac Type Severity Reaction Status Date / Time No Known Allergies Allergy Verified 11/17/23 09:55 Assessment & Plan Assessment & Plan (1) Schizophrenia: Status: Acute Code(s): F20.9 - Schizophrenia, unspecified Plan 12/23: increase geodon regimen from 20/40 to 40 BID. otherwise continue/restart outpt regimen. 12/25/2023: No changes as Geodon just increased to 40 mg twice daily 12/26/2023: No changes 12/26: SX appear unchanged with respect to admission. continue current regimen for now. HbA1c 5.5%, so DM not presently a concern. T/C alternate regimen if geodon does not begin to prove more helpful. 12/27: pt would like to give geodon until wednesday for improvement; if no improvement, will increase to 40/60 wednesday. no improvement in Sx in recent days. 12/28: AH and sleep mildly improved. continue current mgmt. T/C med or dose change wednesday. 12/29: Observed talking on the phone throughout the day. keeping to self. Pt reports feeling so-so today; pt stated, being here is depressing . He reports auditory hallucinations have diminished but continues to see people in my room . Pt reports he is considering increasing medication or waiting until to see if anything changes . Pt denies SI/HI. 12/30: pt reports modest improvement over past several days, would now like to continue on present dosing through wednesday. continue current mgmt. 12/31: slept very well last night. wants to continue as we are for now. stable presentation. mild improvement since admission. 01/01: slept very well last night. stable presentation. mild improvement since admission. planning to increase geodon dosing tomorrow. 01/02: slept about 5 hours last night. due to limited improvement, asks to increase geodon from 40 BID to 60/40, which was done as of today. 01/03: continue current tx plan. 01/04: CAH to defenestrate himself, worst Sx since arrival. declines to meet with [facility] staff today as a result. denies any improvement in Sx since recent dose increase in geodon. continue current mgmt. 01/05: AH improved today, would like to continue current regimen. notably told JAY Ramirez he does not want to meet with [facility] mgr ever again, which is quite a departure from his previous warm utterances regarding said person. 01/06: denies AH for more than 24H. continue current mgmt. 01/07: Continue current regimen and plans 01/08: Continue current plans and regimen. 01/09: decrease cogentin to 0.25 mg QHS. increase trazodone PRN to 100 mg each. otherwise continue current mgmt. demoralized re having had AH wed and wednesday. 01/10: did not take traz last night. slept 5 hours, which is good for him. no AH in the past 24H. planning to discharge wednesday back to [facility]. 01/11: reports he took 100 of traz last night and did not sleep at all and feels very off today. c/o severe AH last night. agreeable to DC geodon and start zyprexa 10 at HS instead. also c/o tremor and tightness in upper body, asks for cogentin to be returned to 0.5 mg QHS. last drank 1.5-2 months ago, so not suitable for DDX or rehab program. 01/12: seems delusional regarding the content of conversation with JAY Ramirez. feeling better on increased cogentin and zyprexa 10 mg QHS. substantially improved sleep last night, minimal AH of mumbling only in the night. continue current mgmt. 01/13: no AH in the past 24H. seems more agitated today, increase in paranoid delusions. accusing MD of trying to get him arrested and of violating HIPPA. preoccupied with delusions regarding apps being downloaded on his phone. would benefit from an increase in zyprexa to 20 mg QHS, but he is unlikely to take it now. will add PRN of 10 in case he can be prevailed upon to take it. 3-day notice submitted, matures next . 01/14 wanting his olanzapine decreased despite some sys- hoping for transition to intensive program - 01/15/CTP 01/16: Continue current tx plan. 01/17: Retracted 3 day notice. demurrage worker, Ashly, present. Pt reports feeling not too bad today; pt stated, I'm waiting to see if I get into the [facility] or [facility] . Pt reports he agrees to return to his [facility] on Wednesday if he is not accepted into [facility] or [facility]. Pt denies SI/HI/VH/AH. 01/18: Pt reports feeling so-so today; pt stated, I'm just hoping to get into the [facility] or resp[facility]. I didn't sleep well last night, sometimes it happens . Keeping to self. Observed pacing unit hallway. Pt denies SI/HI/VH. Pt reports auditory hallucinations of mumbling . Continue current tx plan. 01/19: Pt reports feeling decent today; pt stated, I'm doing a little better today. I'm still hoping to go to the partial program but if not then I will go back to my apartment . Pt denies SI/HI/VH/AH. Waiting to hear from program. Patient educated on: diagnosis and medication risk/benefits Informed Consent: understands Reason for continued inpatient stay Substantial Risk for: med/psych decompensation Time Spent With Patient Time: Total time managing care of this patient today _20___ minutes.
[2024-01-20] MEDS: Acetaminophen 325 MG TABLET 650 MG PO (13:34)
[2024-01-20] MEDS: Lidocaine 4 % Patch ADH..PATCH 2 PATCH TRANSDERMA (16:51)
[2024-01-20 20:05] VITALS: BP 122/78; PULSE 81; RESP 16; TEMP 36.9; O2SAT 97
[2024-01-20] MEDS: Benztropine Mesylate 0.5 MG TABLET PO (21:43)
[2024-01-20] MEDS: Melatonin 3 MG TABLET 6 MG PO (21:43)
[2024-01-20] MEDS: diphenhydrAMINE HCL 25 MG CAPSULE PO (21:43)
[2024-01-20] MEDS: OLANZapine 7.5 MG TABLET PO (21:43)
[2024-01-21 07:48] VITALS: BP 112/72; PULSE 85; RESP 14; TEMP 36.3; O2SAT 100
--- NOTE | 2024-01-21 08:54 | P.PNPSI_ITS ---
Subjective Subjective Date of Service: 01/21/24 Reason For Visit: catatonia Subjective Notes: Conditional Voluntary Interim History: Reviewed with Dr. Caballero. Pt reports feeling good today; pt stated, I slept better last night. Sometimes I have thoughts of self harm that come and go. Today I'm okay . Pt denies SI/HI/VH/AH. Plan is for patient to return to care home on Wednesday. Medication Compliance: Yes Side effects from medications: No Attending Groups: No Review of Systems Constitutional: Reports as per HPI Eyes: Reports as per HPI Reports as per HPI Cardiovascular: Reports as per HPI Respiratory: Reports as per HPI Gastrointestinal: Reports as per HPI Genitourinary: Reports as per HPI Musculoskeletal: Reports as per HPI Skin/Breast: Reports as per HPI Reports as per HPI Psychiatric: Reports as per HPI Endocrine: Reports as per HPI Hematologic/Lymphatic: Reports as per HPI Allergic/Immunologic: Reports as per HPI Mental Status Exam Mental Status Exam Narrative: Pt is alert and oriented; behavior is cooperative and calm; dressed in casual attire; mood is described as good ; eye contact appropriate; Speech is normal rate, volume and not pressured; thought process is organized and goal directed; Thought content is on tx; denies SI/HI/VH/AH. Diagnostics Vital Signs (24Hr): Vital Signs - 24 hr 01/20/24 20:05 01/21/24 07:48 Temperature 98.4 F 97.3 F Pulse Rate 81 85 Respiratory Rate 16 14 Blood Pressure 122/78 112/72 Pulse Oximetry 97 100 Oxygen Delivery Method Room Air Room Air BMI result Body Mass Index 20.4 Medications Medications Current Medications Acetaminophen (Acetaminophen 325 Mg Tablet) 650 mg PO Q6H PRN PRN Reason: Headache/Pain Mild Scale (1-3) Last Admin: 01/20/24 13:34 Dose: 650 mg Al Hydroxide/Mg Hydroxide (Magnesium Hydrox/Alum Hydrox 30 Ml Oral.Susp) 30 ml PO Q6H PRN PRN Reason: Heartburn/Nausea Benztropine Mesylate (Benztropine Mesylate 0.5 Mg Tablet) 0.5 mg PO BEDTIME MINOO Last Admin: 01/20/24 21:43 Dose: 0.5 mg Bupropion HCl (Bupropion Hcl Xl 300 Mg Tab.Er.24h) 300 mg PO DAILY [facility]OO Last Admin: 01/20/24 08:09 Dose: 300 mg Diphenhydramine HCl (Diphenhydramine Hcl 25 Mg Capsule) 25 mg PO BEDTIME [facility] Last Admin: 01/20/24 21:43 Dose: 25 mg Folic Acid (Folic Acid 1 Mg Tablet) 1 mg PO DAILY MINOO Last Admin: 01/20/24 08:09 Dose: 1 mg Hydroxyzine HCl (Hydroxyzine Hcl 25 Mg Tablet) 25 mg PO Q6H PRN PRN Reason: Anxiety Last Admin: 12/31/23 03:51 Dose: 25 mg Lidocaine (Lidocaine 4 % Patch Adh..Patch) 2 patch TRANSDERMA DAILY PRN; Protocol PRN Reason: low back pain Last Admin: 01/20/24 16:51 Dose: 1 patch Magnesium Hydroxide (Milk Of Magnesia 30 Ml Oral.Susp) 30 ml PO DAILY PRN PRN Reason: Constipation Melatonin (Melatonin 3 Mg Tablet) 6 mg PO BEDTIME [facility] Last Admin: 01/20/24 21:43 Dose: 6 mg Multivitamins/Vitamin C (Multivitamin Tablet) 1 tab PO DAILY [facility] Last Admin: 01/20/24 08:09 Dose: 1 tab Nicotine Polacrilex (Nicotine Polacrilex 2 Mg Gum) 2 mg BUCCAL Q2H PRN PRN Reason: Nicotine Cravings Olanzapine (Olanzapine 7.5 Mg Tablet) 7.5 mg PO BEDTIME [facility] Last Admin: 01/20/24 21:43 Dose: 7.5 mg Pyridoxine HCl (Pyridoxine Hcl (Vitamin B6) 50 Mg Tablet) 100 mg PO DAILY [facility] Last Admin: 01/20/24 08:09 Dose: 100 mg Thiamine HCl (Thiamine Hcl 100 Mg Tablet) 100 mg PO DAILY [facility] Last Admin: 01/20/24 08:09 Dose: 100 mg Trazodone HCl (Trazodone Hcl 100 Mg Tablet) 100 mg PO BEDTIME MRX1 PRN PRN Reason: Insomnia Last Admin: 01/12/24 00:49 Dose: 100 mg Vitamin D (Cholecalciferol (Vitamin D3) 25 Mcg Tablet) 25 mcg PO DAILY [facility] Last Admin: 01/20/24 08:09 Dose: 25 mcg Allergies Allergies Allergy/AdvReac Type Severity Reaction Status Date / Time No Known Allergies Allergy Verified 11/17/23 09:55 Assessment & Plan Assessment & Plan (1) Schizophrenia: Status: Acute Code(s): F20.9 - Schizophrenia, unspecified Plan 12/23: increase geodon regimen from 20/40 to 40 BID. otherwise continue/restart outpt regimen. 12/25/2023: No changes as Geodon just increased to 40 mg twice daily 12/26/2023: No changes 12/26: SX appear unchanged with respect to admission. continue current regimen for now. HbA1c 5.5%, so DM not presently a concern. T/C alternate regimen if geodon does not begin to prove more helpful. 12/27: pt would like to give geodon until wednesday for improvement; if no improvement, will increase to 40/60 wednesday. no improvement in Sx in recent days. 12/28: AH and sleep mildly improved. continue current mgmt. T/C med or dose change wednesday. 12/29: Observed talking on the phone throughout the day. keeping to self. Pt reports feeling so-so today; pt stated, being here is depressing . He reports auditory hallucinations have diminished but continues to see people in my room . Pt reports he is considering increasing medication or waiting until Wednesday to see if anything changes . Pt denies SI/HI. 12/30: pt reports modest improvement over past several days, would now like to continue on present dosing through wednesday. continue current mgmt. 12/31: slept very well last night. wants to continue as we are for now. stable presentation. mild improvement since admission. 01/01: slept very well last night. stable presentation. mild improvement since admission. planning to increase geodon dosing tomorrow. 01/02: slept about 5 hours last night. due to limited improvement, asks to increase geodon from 40 BID to 60/40, which was done as of today. 01/03: continue current tx plan. 01/04: CAH to defenestrate himself, worst Sx since arrival. declines to meet with care home staff today as a result. denies any improvement in Sx since recent dose increase in geodon. continue current mgmt. 01/05: AH improved today, would like to continue current regimen. notably told JAY Ramirez he does not want to meet with care home mgr ever again, which is quite a departure from his previous warm utterances regarding said person. 01/06: denies AH for more than 24H. continue current mgmt. 01/07: Continue current regimen and plans 01/08: Continue current plans and regimen. 01/09: decrease cogentin to 0.25 mg QHS. increase trazodone PRN to 100 mg each. otherwise continue current mgmt. demoralized re having had AH wed and wednesday. 01/10: did not take traz last night. slept 5 hours, which is good for him. no AH in the past 24H. planning to discharge wednesday back to care home. 01/11: reports he took 100 of traz last night and did not sleep at all and feels very off today. c/o severe AH last night. agreeable to DC geodon and start zyprexa 10 at HS instead. also c/o tremor and tightness in upper body, asks for cogentin to be returned to 0.5 mg QHS. last drank 1.5-2 months ago, so not suitable for DDX or rehab program. 01/12: seems delusional regarding the content of conversation with JAY Ramirez. feeling better on increased cogentin and zyprexa 10 mg QHS. substantially improved sleep last night, minimal AH of mumbling only in the night. continue current mgmt. 01/13: no AH in the past 24H. seems more agitated today, increase in paranoid delusions. accusing MD of trying to get him arrested and of violating HIPPA. preoccupied with delusions regarding apps being downloaded on his phone. would benefit from an increase in zyprexa to 20 mg QHS, but he is unlikely to take it now. will add PRN of 10 in case he can be prevailed upon to take it. 3-day notice submitted, matures next . 01/14 wanting his olanzapine decreased despite some sys- hoping for transition to intensive program - 01/15/CTP 01/16: Continue current tx plan. 01/17: Retracted 3 day notice. campaign worker, Ashly, present. Pt reports feeling not too bad today; pt stated, I'm waiting to see if I get into the [facility] or [facility] . Pt reports he agrees to return to his care home on Wednesday if he is not accepted into [facility] or [facility]. Pt denies SI/HI/VH/AH. 01/18: Pt reports feeling so-so today; pt stated, I'm just hoping to get into the [facility] or respite. I didn't sleep well last night, sometimes it happens . Keeping to self. Observed pacing unit hallway. Pt denies SI/HI/VH. Pt reports auditory hallucinations of mumbling . Continue current tx plan. 01/19: Pt reports feeling decent today; pt stated, I'm doing a little better today. I'm still hoping to go to the partial program but if not then I will go back to my apartment . Pt denies SI/HI/VH/AH. Waiting to hear from program. 01/20: Pt reports feeling good today; pt stated, I slept better last night. Sometimes I have thoughts of self harm that come and go. Today I'm okay . Pt denies SI/HI/VH/AH. Plan is for patient to return to care home on Wednesday. Patient educated on: diagnosis, medication risk/benefits and therapeutic strategies Informed Consent: understands Reason for continued inpatient stay Substantial Risk for: med/psych decompensation Time Spent With Patient Time: Total time managing care of this patient today _20___ minutes.
[2024-01-21] MEDS: Pyridoxine HCl (Vitamin B6) 50 MG TABLET 100 MG PO (09:03)
[2024-01-21] MEDS: Thiamine HCL 100 MG TABLET PO (09:04)
[2024-01-21] MEDS: Multivitamin TABLET 1 TAB PO (09:04)
[2024-01-21] MEDS: Folic Acid 1 MG TABLET PO (09:05)
[2024-01-21] MEDS: Cholecalciferol (Vitamin D3) 25 MCG TABLET PO (09:05)
[2024-01-21] MEDS: buPROPion HCl XL 300 MG TAB.ER.24H PO (09:05)
[2024-01-21] MEDS: Acetaminophen 325 MG TABLET 650 MG PO (15:33)
[2024-01-21 20:00] VITALS: BP 116/75; PULSE 82; RESP 16; TEMP 37.1; O2SAT 99
[2024-01-21] MEDS: Benztropine Mesylate 0.5 MG TABLET PO (20:43)
[2024-01-21] MEDS: OLANZapine 7.5 MG TABLET PO (20:43)
[2024-01-21] MEDS: Melatonin 3 MG TABLET 6 MG PO (20:43)
[2024-01-21] MEDS: diphenhydrAMINE HCL 25 MG CAPSULE PO (20:43)
[2024-01-22 08:00] VITALS: BP 105/78; PULSE 88; RESP 14; TEMP 36.4; O2SAT 97
[2024-01-22] MEDS: buPROPion HCl XL 300 MG TAB.ER.24H PO (09:07)
[2024-01-22] MEDS: Thiamine HCL 100 MG TABLET PO (09:07)
[2024-01-22] MEDS: Multivitamin TABLET 1 TAB PO (09:07)
[2024-01-22] MEDS: Folic Acid 1 MG TABLET PO (09:07)
[2024-01-22] MEDS: Cholecalciferol (Vitamin D3) 25 MCG TABLET PO (09:07)
[2024-01-22] MEDS: Pyridoxine HCl (Vitamin B6) 50 MG TABLET 100 MG PO (09:08)
[2024-01-22] MEDS: Lidocaine 4 % Patch ADH..PATCH 2 PATCH TRANSDERMA (09:19)
--- NOTE | 2024-01-22 10:13 | P.PNPSI_ITS ---
Subjective Subjective Date of Service: 01/22/24 Reason For Visit: catatonia Interim History: Doing well, Hopeful he can go to the [facility]. Worried about relapsing. AH subsided. More hopeful. Radu active SI. No HI. AH diminished. Review of Systems Review of Systems Yes all other systems are reviewed and are negative Constitutional: Reports as per HPI Eyes: Reports as per HPI Reports as per HPI Cardiovascular: Reports as per HPI Respiratory: Reports as per HPI Gastrointestinal: Reports as per HPI Genitourinary: Reports as per HPI Musculoskeletal: Reports as per HPI Skin/Breast: Reports as per HPI Reports as per HPI Psychiatric: Reports as per HPI Endocrine: Reports as per HPI Hematologic/Lymphatic: Reports as per HPI Allergic/Immunologic: Reports as per HPI Mental Status Exam Mental Status Exam Narrative: Pt is alert and oriented; behavior is cooperative and calm; dressed in casual attire; mood is described as good ; eye contact appropriate; Speech is normal rate, volume and not pressured; thought process is organized and goal directed; Thought content is on tx; denies SI/HI/VH/AH. Patient Appearance: Well Grooomed and Appropriate Patient Orientation: Person, Place, Time and Situation Level of Consciousness: Awake Patient Behavior: Guarded and Restless Mood Description: Anxious Affect Description: Blunted Patient Cognition Impaired: No Ability to Follow Directions: Fair Speech Pattern: Clear (though accented) Diagnostics Vital Signs (24Hr): Vital Signs - 24 hr 01/21/24 20:00 01/22/24 08:00 Temperature 98.8 F 97.5 F Pulse Rate 82 88 Respiratory Rate 16 14 Blood Pressure 116/75 105/78 Pulse Oximetry 99 97 Oxygen Delivery Method Room Air Room Air BMI result Body Mass Index 20.4 Medications Medications Current Medications Acetaminophen (Acetaminophen 325 Mg Tablet) 650 mg PO Q6H PRN PRN Reason: Headache/Pain Mild Scale (1-3) Last Admin: 01/21/24 15:33 Dose: 650 mg Al Hydroxide/Mg Hydroxide (Magnesium Hydrox/Alum Hydrox 30 Ml Oral.Susp) 30 ml PO Q6H PRN PRN Reason: Heartburn/Nausea Benztropine Mesylate (Benztropine Mesylate 0.5 Mg Tablet) 0.5 mg PO BEDTIME [facility] Last Admin: 01/21/24 20:43 Dose: 0.5 mg Bupropion HCl (Bupropion Hcl Xl 300 Mg Tab.Er.24h) 300 mg PO DAILY [facility] Last Admin: 01/22/24 09:07 Dose: 300 mg Diphenhydramine HCl (Diphenhydramine Hcl 25 Mg Capsule) 25 mg PO BEDTIME [facility] Last Admin: 01/21/24 20:43 Dose: 25 mg Folic Acid (Folic Acid 1 Mg Tablet) 1 mg PO DAILY [facility] Last Admin: 01/22/24 09:07 Dose: 1 mg Hydroxyzine HCl (Hydroxyzine Hcl 25 Mg Tablet) 25 mg PO Q6H PRN PRN Reason: Anxiety Last Admin: 12/31/23 03:51 Dose: 25 mg Lidocaine (Lidocaine 4 % Patch Adh..Patch) 2 patch TRANSDERMA DAILY PRN; Protocol PRN Reason: low back pain Last Admin: 01/22/24 09:19 Dose: 2 patch Magnesium Hydroxide (Milk Of Magnesia 30 Ml Oral.Susp) 30 ml PO DAILY PRN PRN Reason: Constipation Melatonin (Melatonin 3 Mg Tablet) 6 mg PO BEDTIME [facility] Last Admin: 01/21/24 20:43 Dose: 6 mg Multivitamins/Vitamin C (Multivitamin Tablet) 1 tab PO DAILY [facility] Last Admin: 01/22/24 09:07 Dose: 1 tab Nicotine Polacrilex (Nicotine Polacrilex 2 Mg Gum) 2 mg BUCCAL Q2H PRN PRN Reason: Nicotine Cravings Olanzapine (Olanzapine 7.5 Mg Tablet) 7.5 mg PO BEDTIME [facility] Last Admin: 01/21/24 20:43 Dose: 7.5 mg Pyridoxine HCl (Pyridoxine Hcl (Vitamin B6) 50 Mg Tablet) 100 mg PO DAILY [facility] Last Admin: 01/22/24 09:08 Dose: 100 mg Thiamine HCl (Thiamine Hcl 100 Mg Tablet) 100 mg PO DAILY [facility] Last Admin: 01/22/24 09:07 Dose: 100 mg Trazodone HCl (Trazodone Hcl 100 Mg Tablet) 100 mg PO BEDTIME MRX1 PRN PRN Reason: Insomnia Last Admin: 01/12/24 00:49 Dose: 100 mg Vitamin D (Cholecalciferol (Vitamin D3) 25 Mcg Tablet) 25 mcg PO DAILY [facility] Last Admin: 01/22/24 09:07 Dose: 25 mcg Allergies Allergies Allergy/AdvReac Type Severity Reaction Status Date / Time No Known Allergies Allergy Verified 11/17/23 09:55 Assessment & Plan Assessment & Plan (1) Schizophrenia: Status: Acute Code(s): F20.9 - Schizophrenia, unspecified Plan 12/23: increase geodon regimen from 20/40 to 40 BID. otherwise continue/restart outpt regimen. 12/25/2023: No changes as Geodon just increased to 40 mg twice daily 12/26/2023: No changes 12/26: SX appear unchanged with respect to admission. continue current regimen for now. HbA1c 5.5%, so DM not presently a concern. T/C alternate regimen if geodon does not begin to prove more helpful. 12/27: pt would like to give geodon until wednesday for improvement; if no improvement, will increase to 40/60 wednesday. no improvement in Sx in recent days. 12/28: AH and sleep mildly improved. continue current mgmt. T/C med or dose change wednesday. 12/29: Observed talking on the phone throughout the day. keeping to self. Pt reports feeling so-so today; pt stated, being here is depressing . He reports auditory hallucinations have diminished but continues to see people in my room . Pt reports he is considering increasing medication or waiting until Wednesday to see if anything changes . Pt denies SI/HI. 12/30: pt reports modest improvement over past several days, would now like to continue on present dosing through wednesday. continue current mgmt. 12/31: slept very well last night. wants to continue as we are for now. stable presentation. mild improvement since admission. 01/01: slept very well last night. stable presentation. mild improvement since admission. planning to increase geodon dosing tomorrow. 01/02: slept about 5 hours last night. due to limited improvement, asks to increase geodon from 40 BID to 60/40, which was done as of today. 01/03: continue current tx plan. 01/04: CAH to defenestrate himself, worst Sx since arrival. declines to meet with care home staff today as a result. denies any improvement in Sx since recent dose increase in geodon. continue current mgmt. 01/05: AH improved today, would like to continue current regimen. notably told JAY Ramirez he does not want to meet with care home mgr ever again, which is quite a departure from his previous warm utterances regarding said person. 01/06: denies AH for more than 24H. continue current mgmt. 01/07: Continue current regimen and plans 01/08: Continue current plans and regimen. 01/09: decrease cogentin to 0.25 mg QHS. increase trazodone PRN to 100 mg each. otherwise continue current mgmt. demoralized re having had AH wed and wednesday. 01/10: did not take traz last night. slept 5 hours, which is good for him. no AH in the past 24H. planning to discharge wednesday back to care home. 01/11: reports he took 100 of traz last night and did not sleep at all and feels very off today. c/o severe AH last night. agreeable to DC geodon and start zyprexa 10 at HS instead. also c/o tremor and tightness in upper body, asks for cogentin to be returned to 0.5 mg QHS. last drank 1.5-2 months ago, so not suitable for DDX or rehab program. 01/12: seems delusional regarding the content of conversation with JAY Ramirez. feeling better on increased cogentin and zyprexa 10 mg QHS. substantially improved sleep last night, minimal AH of mumbling only in the night. continue current mgmt. 01/13: no AH in the past 24H. seems more agitated today, increase in paranoid delusions. accusing MD of trying to get him arrested and of violating HIPPA. preoccupied with delusions regarding apps being downloaded on his phone. would benefit from an increase in zyprexa to 20 mg QHS, but he is unlikely to take it now. will add PRN of 10 in case he can be prevailed upon to take it. 3-day notice submitted, matures next . 01/14 wanting his olanzapine decreased despite some sys- hoping for transition to intensive program - 01/15/CTP 01/16: Continue current tx plan. 01/17: Retracted 3 day notice. horticultural farmworker, Ashly, present. Pt reports feeling not too bad today; pt stated, I'm waiting to see if I get into the [facility] or [facility] . Pt reports he agrees to return to his care home on Wednesday if he is not accepted into [facility] or [facility]. Pt denies SI/HI/VH/AH. 01/18: Pt reports feeling so-so today; pt stated, I'm just hoping to get into the [facility] or respite. I didn't sleep well last night, sometimes it happens . Keeping to self. Observed pacing unit hallway. Pt denies SI/HI/VH. Pt reports auditory hallucinations of mumbling . Continue current tx plan. 01/19: Pt reports feeling decent today; pt stated, I'm doing a little better today. I'm still hoping to go to the partial program but if not then I will go back to my apartment . Pt denies SI/HI/VH/AH. Waiting to hear from program. 01/20: Pt reports feeling good today; pt stated, I slept better last night. Sometimes I have thoughts of self harm that come and go. Today I'm okay . Pt denies SI/HI/VH/AH. Plan is for patient to return to care home on Wednesday. 01/21: continue current management and treatment plan. Reason for continued inpatient stay Substantial Risk for: harm to self Time Spent With Patient Time: Total time managing care of this patient today ____ minutes.
[2024-01-22 20:00] VITALS: BP 110/67; PULSE 85; RESP 16; TEMP 36.9; O2SAT 98
[2024-01-22] MEDS: diphenhydrAMINE HCL 25 MG CAPSULE PO (20:28)
[2024-01-22] MEDS: Melatonin 3 MG TABLET 6 MG PO (20:29)
[2024-01-22] MEDS: OLANZapine 7.5 MG TABLET PO (20:29)
[2024-01-22] MEDS: Benztropine Mesylate 0.5 MG TABLET PO (20:30)
[2024-01-23] MEDS: Acetaminophen 325 MG TABLET 650 MG PO ×2 (04:14→15:12)
[2024-01-23] MEDS: hydrOXYzine HCL 25 MG TABLET PO (04:14)
[2024-01-23 08:00] VITALS: BP 112/71; PULSE 86; RESP 20; TEMP 36.9; O2SAT 98
[2024-01-23] MEDS: Thiamine HCL 100 MG TABLET PO (08:52)
[2024-01-23] MEDS: Multivitamin TABLET 1 TAB PO (08:52)
[2024-01-23] MEDS: Cholecalciferol (Vitamin D3) 25 MCG TABLET PO (08:52)
[2024-01-23] MEDS: Folic Acid 1 MG TABLET PO (08:52)
[2024-01-23] MEDS: buPROPion HCl XL 300 MG TAB.ER.24H PO (08:52)
[2024-01-23] MEDS: Pyridoxine HCl (Vitamin B6) 50 MG TABLET 100 MG PO (08:53)
--- NOTE | 2024-01-23 15:52 | HO.PSYCHPN ---
Subjective Subjective Date of Service: 01/23/24 Reason For Visit: catatonia Interim History: Overnight had scary visual hallucinations of people in his room wearing black robes like the ones priests wear. He was scared to go to sleep. By the time he was able to go to the RN after 3 AM he was past due for Trazodone. He received Hydroxyzine PRN. He was offered an increase in Zyprexa but declined stating higher dose was sedating. Questioning discharge planned for tomorrow because of last night. Worried about relapsing. AH subsided. Radu active SI. No HI. AH diminished. VH as described. Review of Systems Review of Systems Yes all other systems are reviewed and are negative Constitutional: Reports as per HPI Eyes: Reports as per HPI Reports as per HPI Cardiovascular: Reports as per HPI Respiratory: Reports as per HPI Gastrointestinal: Reports as per HPI Genitourinary: Reports as per HPI Musculoskeletal: Reports as per HPI Skin/Breast: Reports as per HPI Reports as per HPI Psychiatric: Reports as per HPI Endocrine: Reports as per HPI Hematologic/Lymphatic: Reports as per HPI Allergic/Immunologic: Reports as per HPI Mental Status Exam Mental Status Exam Narrative: Pt is alert and oriented; behavior is cooperative and calm; dressed in casual attire; mood is described as good ; eye contact appropriate; Speech is normal rate, volume and not pressured; thought process is organized and goal directed; Thought content is on tx; denies SI/HI/VH/AH. Patient Appearance: Well Grooomed and Appropriate Patient Orientation: Person, Place, Time and Situation Level of Consciousness: Awake Patient Behavior: Guarded and Restless Mood Description: Anxious Affect Description: Blunted Patient Cognition Impaired: No Ability to Follow Directions: Fair Speech Pattern: Clear (though accented) Diagnostics Vital Signs (24Hr): Vital Signs - 24 hr 01/22/24 20:00 01/23/24 08:00 Temperature 98.4 F 98.5 F Pulse Rate 85 86 Respiratory Rate 16 20 Blood Pressure 110/67 112/71 Pulse Oximetry 98 98 Oxygen Delivery Method Room Air Room Air BMI result Body Mass Index 20.4 Medications Medications Current Medications Acetaminophen (Acetaminophen 325 Mg Tablet) 650 mg PO Q6H PRN PRN Reason: Headache/Pain Mild Scale (1-3) Last Admin: 01/23/24 15:12 Dose: 650 mg Al Hydroxide/Mg Hydroxide (Magnesium Hydrox/Alum Hydrox 30 Ml Oral.Susp) 30 ml PO Q6H PRN PRN Reason: Heartburn/Nausea Benztropine Mesylate (Benztropine Mesylate 0.5 Mg Tablet) 0.5 mg PO BEDTIME [facility] Last Admin: 01/22/24 20:30 Dose: 0.5 mg Bupropion HCl (Bupropion Hcl Xl 300 Mg Tab.Er.24h) 300 mg PO DAILY MINOO Last Admin: 01/23/24 08:52 Dose: 300 mg Diphenhydramine HCl (Diphenhydramine Hcl 25 Mg Capsule) 25 mg PO BEDTIME MINOO Last Admin: 01/22/24 20:28 Dose: 25 mg Folic Acid (Folic Acid 1 Mg Tablet) 1 mg PO DAILY [facility] Last Admin: 01/23/24 08:52 Dose: 1 mg Hydroxyzine HCl (Hydroxyzine Hcl 25 Mg Tablet) 25 mg PO Q6H PRN PRN Reason: Anxiety Last Admin: 01/23/24 04:14 Dose: 25 mg Lidocaine (Lidocaine 4 % Patch Adh..Patch) 2 patch TRANSDERMA DAILY PRN; Protocol PRN Reason: low back pain Last Admin: 01/22/24 09:19 Dose: 2 patch Magnesium Hydroxide (Milk Of Magnesia 30 Ml Oral.Susp) 30 ml PO DAILY PRN PRN Reason: Constipation Melatonin (Melatonin 3 Mg Tablet) 6 mg PO BEDTIME [facility] Last Admin: 01/22/24 20:29 Dose: 6 mg Multivitamins/Vitamin C (Multivitamin Tablet) 1 tab PO DAILY [facility] Last Admin: 01/23/24 08:52 Dose: 1 tab Nicotine Polacrilex (Nicotine Polacrilex 2 Mg Gum) 2 mg BUCCAL Q2H PRN PRN Reason: Nicotine Cravings Olanzapine (Olanzapine 7.5 Mg Tablet) 7.5 mg PO BEDTIME [facility] Last Admin: 01/22/24 20:29 Dose: 7.5 mg Pyridoxine HCl (Pyridoxine Hcl (Vitamin B6) 50 Mg Tablet) 100 mg PO DAILY [facility] Last Admin: 01/23/24 08:53 Dose: 100 mg Thiamine HCl (Thiamine Hcl 100 Mg Tablet) 100 mg PO DAILY [facility] Last Admin: 01/23/24 08:52 Dose: 100 mg Trazodone HCl (Trazodone Hcl 100 Mg Tablet) 100 mg PO BEDTIME MRX1 PRN PRN Reason: Insomnia Last Admin: 01/12/24 00:49 Dose: 100 mg Vitamin D (Cholecalciferol (Vitamin D3) 25 Mcg Tablet) 25 mcg PO DAILY MINOO Last Admin: 01/23/24 08:52 Dose: 25 mcg Allergies Allergies Allergy/AdvReac Type Severity Reaction Status Date / Time No Known Allergies Allergy Verified 11/17/23 09:55 Assessment & Plan Assessment & Plan (1) Schizophrenia: Status: Acute Code(s): F20.9 - Schizophrenia, unspecified Plan 12/23: increase geodon regimen from 20/40 to 40 BID. otherwise continue/restart outpt regimen. 12/25/2023: No changes as Geodon just increased to 40 mg twice daily 12/26/2023: No changes 12/26: SX appear unchanged with respect to admission. continue current regimen for now. HbA1c 5.5%, so DM not presently a concern. T/C alternate regimen if geodon does not begin to prove more helpful. 12/27: pt would like to give geodon until wednesday for improvement; if no improvement, will increase to 40/60 wednesday. no improvement in Sx in recent days. 12/28: AH and sleep mildly improved. continue current mgmt. T/C med or dose change wednesday. 12/29: Observed talking on the phone throughout the day. keeping to self. Pt reports feeling so-so today; pt stated, being here is depressing . He reports auditory hallucinations have diminished but continues to see people in my room . Pt reports he is considering increasing medication or waiting until Wednesday to see if anything changes . Pt denies SI/HI. 12/30: pt reports modest improvement over past several days, would now like to continue on present dosing through wednesday. continue current mgmt. 12/31: slept very well last night. wants to continue as we are for now. stable presentation. mild improvement since admission. 01/01: slept very well last night. stable presentation. mild improvement since admission. planning to increase geodon dosing tomorrow. 01/02: slept about 5 hours last night. due to limited improvement, asks to increase geodon from 40 BID to 60/40, which was done as of today. 01/03: continue current tx plan. 01/04: CAH to defenestrate himself, worst Sx since arrival. declines to meet with nursing home staff today as a result. denies any improvement in Sx since recent dose increase in geodon. continue current mgmt. 01/05: AH improved today, would like to continue current regimen. notably told JAY Ramirez he does not want to meet with nursing home mgr ever again, which is quite a departure from his previous warm utterances regarding said person. 01/06: denies AH for more than 24H. continue current mgmt. 01/07: Continue current regimen and plans 01/08: Continue current plans and regimen. 01/09: decrease cogentin to 0.25 mg QHS. increase trazodone PRN to 100 mg each. otherwise continue current mgmt. demoralized re having had AH wed and wednesday. 01/10: did not take traz last night. slept 5 hours, which is good for him. no AH in the past 24H. planning to discharge wednesday back to nursing home. 01/11: reports he took 100 of traz last night and did not sleep at all and feels very off today. c/o severe AH last night. agreeable to DC geodon and start zyprexa 10 at HS instead. also c/o tremor and tightness in upper body, asks for cogentin to be returned to 0.5 mg QHS. last drank 1.5-2 months ago, so not suitable for DDX or rehab program. 01/12: seems delusional regarding the content of conversation with JAY Ramirez. feeling better on increased cogentin and zyprexa 10 mg QHS. substantially improved sleep last night, minimal AH of mumbling only in the night. continue current mgmt. 01/13: no AH in the past 24H. seems more agitated today, increase in paranoid delusions. accusing MD of trying to get him arrested and of violating HIPPA. preoccupied with delusions regarding apps being downloaded on his phone. would benefit from an increase in zyprexa to 20 mg QHS, but he is unlikely to take it now. will add PRN of 10 in case he can be prevailed upon to take it. 3-day notice submitted, matures next . 01/14 wanting his olanzapine decreased despite some sys- hoping for transition to intensive program - 01/15/CTP 01/16: Continue current tx plan. 01/17: Retracted 3 day notice. playground worker, Ashly, present. Pt reports feeling not too bad today; pt stated, I'm waiting to see if I get into the PHP or CSS . Pt reports he agrees to return to his nursing home on Wednesday if he is not accepted into PHP or CSS. Pt denies SI/HI/VH/AH. 01/18: Pt reports feeling so-so today; pt stated, I'm just hoping to get into the PHP or respite. I didn't sleep well last night, sometimes it happens . Keeping to self. Observed pacing unit hallway. Pt denies SI/HI/VH. Pt reports auditory hallucinations of mumbling . Continue current tx plan. 01/19: Pt reports feeling decent today; pt stated, I'm doing a little better today. I'm still hoping to go to the partial program but if not then I will go back to my apartment . Pt denies SI/HI/VH/AH. Waiting to hear from program. 01/20: Pt reports feeling good today; pt stated, I slept better last night. Sometimes I have thoughts of self harm that come and go. Today I'm okay . Pt denies SI/HI/VH/AH. Plan is for patient to return to nursing home on Wednesday. 01/21: continue current management and treatment plan. 01/22: continue current management and treatment plan. Reason for continued inpatient stay Substantial Risk for: inability to function and rapid decompensation Time Spent With Patient Time: Total time managing care of this patient today ____ minutes.
[2024-01-23] MEDS: Benztropine Mesylate 0.5 MG TABLET PO (20:49)
[2024-01-23] MEDS: OLANZapine 7.5 MG TABLET PO (20:49)
[2024-01-23] MEDS: diphenhydrAMINE HCL 25 MG CAPSULE PO (20:49)
[2024-01-23] MEDS: Melatonin 3 MG TABLET 6 MG PO (20:50)
[2024-01-23 20:55] VITALS: BP 112/74; PULSE 83; RESP 18; TEMP 37.1; O2SAT 100
[2024-01-24 08:00] VITALS: BP 102/75; PULSE 89; RESP 18; TEMP 37; O2SAT 99
[2024-01-24] MEDS: Thiamine HCL 100 MG TABLET PO (08:33)
[2024-01-24] MEDS: Multivitamin TABLET 1 TAB PO (08:33)
[2024-01-24] MEDS: buPROPion HCl XL 300 MG TAB.ER.24H PO (08:33)
[2024-01-24] MEDS: Pyridoxine HCl (Vitamin B6) 50 MG TABLET 100 MG PO (08:33)
[2024-01-24] MEDS: Cholecalciferol (Vitamin D3) 25 MCG TABLET PO (08:33)
[2024-01-24] MEDS: Folic Acid 1 MG TABLET PO (08:33)
[2024-01-24] MEDS: Acetaminophen 325 MG TABLET 650 MG PO (09:37)
--- NOTE | 2024-01-24 12:21 | P.DS_ITS ---
DS: Providers Provider Date of Service: 01/24/24 Date of admission: 12/23/23 12:51 Date of discharge: 01/24/24 Primary care physician: Unknown Physician Attending physician on admission: Praivn Borjas Consults: 12/23/23 13:02 Consult to Hospitalist Routine Comment: Consulting Provider: Hospitalist Reason For Exam: OSH admission Attending physician on discharge: Emre Caballero Discharging clinician: Samara Zuñiga DS: Diagnosis Discharge Diagnosis (1) Schizophrenia: Status: Acute DS: Medications Discharge Medications Home Medications: Previous Rx's ?Medication ?Instructions ?Recorded cholecalciferol (vitamin D3) 25 25 mcg PO DAILY 90 days #90 tabs 08/26/23 mcg (1,000 unit) tablet (Vitamin D3) pyridoxine (vitamin B6) 100 mg 100 mg PO DAILY #90 tabs 09/10/23 tablet benztropine 0.5 mg tablet 0.5 mg PO BEDTIME 30 days #30 tabs 01/24/24 bupropion HCl 300 mg 24 hr tablet, 300 mg PO DAILY 30 days #30 tabs 01/24/24 extended release hydroxyzine HCl 25 mg tablet 25 mg PO Q6H PRN Anxiety 30 days 01/24/24 #90 tabs melatonin 3 mg tablet 6 mg (2 x 3 mg) PO BEDTIME 30 days 01/24/24 #60 tabs olanzapine 7.5 mg tablet 7.5 mg PO BEDTIME 30 days #30 tabs 01/24/24 Mental Status Exam Mental Status Exam Narrative: Pt is alert and oriented; behavior is cooperative and calm; dressed in casual attire; mood is described as good ; eye contact appropriate; Speech is normal rate, volume and not pressured; thought process is organized and goal directed; Thought content is on tx; denies SI/HI/VH/AH. DS: Summary Hospital Course Hospital Course: per [facility] psych eval, pt was BIBA to their ED due to psychosis, nonverbal. he was not much verbal during the evaluation, and most history was obtained from longterm staff. per longterm staff, pt stopped meds about 2 weeks prior and as far back as a week ago informed staff he was not feeling well. pt became mute and motionless on the floor of his room, staff called EMS. on interview with MD at [facility], pt is more verbal, collaborative. he reports last april he stopped risperidone, saying it was no longer helpful for his AVH, and was switched to geodon 20/40. he reports this is his second hospitalization since the switch. he reports also having taken haldol and seroquel in the past, can't recall dosages. he states he was given zyprexa once. apparent lack of efficacy of geodon discussed, along with consideration for switch to zyprexa. pt ultimately elects to continue with geodon but at higher dose, 40 BID rather than 20 daily and 40 QHS. endorses ongoing AVH, denies SI/SIBI/HI. increase geodon regimen from 20/40 to 40 BID. otherwise continue/restart outpt regimen. SX appear unchanged with respect to admission. continue current regimen for now. HbA1c 5.5%, so DM not presently a concern. T/C alternate regimen if geodon does not begin to prove more helpful. pt would like to give geodon until wednesday for improvement; if no improvement, will increase to 40/60 wednesday. no improvement in Sx in recent days. AH and sleep mildly improved. continue current mgmt. T/C med or dose change wednesday. Observed talking on the phone throughout the day. keeping to self. Pt reports feeling so-so today; pt stated, being here is depressing . He reports auditory hallucinations have diminished but continues to see people in my room . Pt reports he is considering increasing medication or waiting until Wednesday to see if anything changes . Pt denies SI/HI. pt reports modest improvement over past several days, would now like to continue on present dosing through wednesday. continue current mgmt. slept very well last night. stable presentation. mild improvement since admission. planning to increase geodon dosing tomorrow. slept about 5 hours last night. due to limited improvement, asks to increase geodon from 40 BID to 60/40, which was done as of today. CAH to defenestrate himself, worst Sx since arrival. declines to meet with longterm staff today as a result. denies any improvement in Sx since recent dose increase in geodon. continue current mgmt. AH improved today, would like to continue current regimen. notably told JAY Ramirez he does not want to meet with longterm mgr ever again, which is quite a departure from his previous warm utterances regarding said person. denies AH for more than 24H. continue current mgmt. decrease cogentin to 0.25 mg QHS. increase trazodone PRN to 100 mg each. otherwise continue current mgmt. demoralized re having had AH wed and wednesday. did not take traz last night. slept 5 hours, which is good for him. no AH in the past 24H. planning to discharge wednesday back to longterm. reports he took 100 of traz last night and did not sleep at all and feels very off today. c/o severe AH last night. agreeable to DC geodon and start zyprexa 10 at HS instead. also c/o tremor and tightness in upper body, asks for cogentin to be returned to 0.5 mg QHS. last drank 1.5-2 months ago, so not suitable for DDX or rehab program. seems delusional regarding the content of conversation with JAY Ramirez. feeling better on increased cogentin and zyprexa 10 mg QHS. substantially improved sleep last night, minimal AH of mumbling only in the night. continue current mgmt. no AH in the past 24H. seems more agitated today, increase in paranoid delusions. accusing MD of trying to get him arrested and of violating HIPPA. preoccupied with delusions regarding apps being downloaded on his phone. would benefit from an increase in zyprexa to 20 mg QHS, but he is unlikely to take it now. will add PRN of 10 in case he can be prevailed upon to take it. 3-day notice submitted, matures next . wanting his olanzapine decreased despite some sys- hoping for transition to intensive program - Retracted 3 day notice. drop worker, Ashly, present. Pt reports feeling not too bad today; pt stated, I'm waiting to see if I get into the PHP or CSS . Pt reports he agrees to return to his longterm on Wednesday if he is not accepted into PHP or CSS. Pt denies SI/HI/VH/AH. Pt reports feeling so-so today; pt stated, I'm just hoping to get into the PHP or respite. I didn't sleep well last night, sometimes it happens . Keeping to self. Observed pacing unit hallway. Pt denies SI/HI/VH. Pt reports auditory hallucinations of mumbling . Continue current tx plan. Pt reports feeling decent today; pt stated, I'm doing a little better today. I'm still hoping to go to the partial program but if not then I will go back to my apartment . Pt denies SI/HI/VH/AH. Waiting to hear from program. Pt reports feeling good today; pt stated, I slept better last night. Sometimes I have thoughts of self harm that come and go. Today I'm okay . Pt denies SI/HI/VH/AH. Plan is for patient to return to longterm on Wednesday. Pt reports feeling good and ready to go ; pt reports he plans on following up with his outpatient providers. pt denies SI/HI/VH/AH. Time spent discussing smoking cessation with patient: 3 to 10 minutes Status at Discharge Cognitive/behavioral status at discharge: Patient was interviewed prior to discharge and found to be fully oriented and without SI or HI. Patient has insight and demonstrates good judgment in terms of wanting to pursue treatment. Patient has a safety plan that includes presenting to the closest ER or calling 911 if feeling unsafe. Functional status at discharge: independent ambulation Overall status at discharge: patient is back to baseline Time Spent with Patient Time attestation: Total time managing care of this patient today _20___ minutes. Time spent: Less than 30 minutes Discharge Plan Discharge Anticipated Discharge Date/Time: 01/24/24 10:00 Patient Disposition: Home, Self-Care Discharge Diagnosis: Schizophrenia Referrals: Dr. Eckert (Psychiatry) [Other] - 01/24/24 10:40 am Viri Brown (Therapy) [Other] - 1 Week Physician,Unknown J [Primary Care Provider] - 1 Week (Pt to follow up with primary care provider within one week.) Discharge Medications: New bupropion HCl 300 mg Tablet Extended Release 24 Hr 300 mg PO DAILY 30 Days Qty: 30 0RF olanzapine 7.5 mg Tablet 7.5 mg PO BEDTIME 30 Days Qty: 30 0RF melatonin 3 mg Tablet 6 mg PO BEDTIME 30 Days Qty: 60 0RF hydroxyzine HCl 25 mg Tablet 25 mg PO Q6H PRN (Reason: Anxiety) 30 Days Qty: 90 0RF benztropine 0.5 mg Tablet 0.5 mg PO BEDTIME 30 Days Qty: 30 0RF Continued pyridoxine (vitamin B6) 100 mg tablet 100 mg PO DAILY Qty: 90 3RF cholecalciferol (vitamin D3) [Vitamin D3] 25 mcg (1,000 unit) tablet 25 mcg PO DAILY 90 Days Qty: 90 3RF Discontinued folic acid 1 mg tablet 1 mg PO DAILY 90 Days Qty: 90 3RF multivitamin Tablet 1 tab PO DAILY 90 Days Qty: 90 3RF melatonin 3 mg Tablet 3 mg PO BEDTIME PRN (Reason: Insomnia) bupropion HCl 150 mg tablet sustained-release 12 hr 150 mg PO QAM Patient Comments: Wellbutrin SR 150 mg Q AM - for depression thiamine HCl (vitamin B1) 100 mg tablet 100 mg PO DAILY 90 Days Qty: 90 1RF fluticasone propionate 50 mcg/actuation spray,suspension 1 spray intranasal DAILY ziprasidone HCl 40 mg capsule 40 mg PO BEDTIME ziprasidone HCl [Geodon] 20 mg capsule 20 mg PO DAILY Discharge Orders: Discharge Order (Routine); Ordered 01/24/24 Ordered By: Samara Zuñiga Diet: Regular diet Activity on Discharge: As tolerated Stand Alone Forms: Patient Portal Discharge page, Community Support Print Language: Bahamian Care Plan Goals: Maintain mood and safe behaviors Take medications as prescribed Continue to pursue sobriety Practice coping skills Continue with outpatient providers and reach out to them as needed Health Concerns: Mood stability and behaviors Sobriety Plan of Treatment: Follow up with your PCP, psychiatric provider and other outpatient providers r egarding above concerns Take medications as prescribed Assessment: Patient was interviewed prior to discharge and found to be fully oriented and without SI or HI. Patient has insight and demonstrates good judgment in terms of wanting to pursue treatment. Patient has a safety plan that includes presenting to the closest ER or calling 911 if feeling unsafe. Discharge Date/Time: 01/24/24 10:04
== END 2024-01-24 10:04 | disposition home or self-care (01) | DRG 750 ==
PROVIDERS: Admitting Provider Psychiatry & Neurology Psychiatry; Visit Provider Psychiatry & Neurology Psychiatry
DX: F20.9 Schizophrenia, unspecified (principal); D68.00 Von Willebrand disease, unspecified; R45.851 Suicidal ideations; M54.2 Cervicalgia; M54.50 Low back pain, unspecified; R73.03 Prediabetes; G89.29 Other chronic pain; Z91.148 Patient's other noncompliance with medication regimen for other reason; Z59.01 Sheltered homelessness; Z79.899 Other long term (current) drug therapy
CPT/HCPCS: 36415; 80061; 82607; 82746; 83036; 84439; 84443

== ENCOUNTER → 2023-12-23 12:51 | Outpatient (BNV) | payer MEDICARE, MEDICAID, SELFPAY | PROVIDERS: Admitting Provider Psychiatry & Neurology Psychiatry; Visit Provider Psychiatry & Neurology Psychiatry | DX: F20.2 Catatonic schizophrenia (principal) | CPT/HCPCS: 90792; 99231; 99232; 99238 ==

== ENCOUNTER → 2023-12-23 12:51 | Outpatient (BNV) | payer MEDICARE, MEDICAID, SELFPAY | PROVIDERS: Admitting Provider Psychiatry & Neurology Psychiatry; Visit Provider Physician Assistant | DX: M54.2 Cervicalgia (principal); M25.511 Pain in right shoulder; D68.00 Von Willebrand disease, unspecified; R73.09 Other abnormal glucose | CPT/HCPCS: 99222 ==

== ENCOUNTER 2024-02-04 08:47 | Outpatient (AMB) | payer MEDICARE, MEDICAID, SELFPAY ==
--- NOTE | 2024-02-04 08:49 | A.OFFPC_ITS ---
Vital Signs 02/04/24 08:50 Height 6 ft 1 in Weight 159 lb BMI 21.0 BP 104/60 Blood Pressure Location Lt brachial Position Sitting Pulse 86 Pulse Source Pulse Oximeter Pulse Oximetry (%) 98 Oxygen Delivery Method Room Air Intake Visit Reasons: [facility] 7.2 Bladder Issues Intake Note: Patient is here for hospital discharge follow up. Patient was discharged from [facility] on 01/25/24. Filler Machine Operator Required: No Yardage Estimator: Not Required per policy Accompanied by: Self / Same As Patient Allergies No Known Allergies Allergy (Verified 02/04/24 08:50) Tobacco use date assessed: 02/04/24 Dental Screening Dental Screen Date: 08/26/23 HPI HPI Comments History of Present Illness Details 58 y/o male patient who presents to the clinic for ED follow up. He was seen in the [facility] for Genitourinary complaint. DOS: 01/25/24. DOD: 01/25/24. Diagnosis: Urinary retention. He was discharged home with Abreu Catheter (and Leg Bag). He saw Urology 02/01/24 for f/u. Urology stated that Urinary retention was due to Fecal Impaction - currently on Miralax. Has an upcoming Appointment with Urology on 02/02/24. Today reports feeling good no problems with Urination. Has an Appt with PCP 03/2024. [facility] Medical History Pure hypercholesterolemia Thiamine deficiency Low back pain Vitamin D deficiency Psychosis Bipolar affective disorder Alcoholism in recovery Von Willebrand disease Surgical History H/O colonoscopy with polypectomy Hx of local excision of skin lesion History of inguinal hernia repair, bilateral Social History Household Members: Other Household Members Other:: clients Housing: Other Housing Other:: transitional home Do you presently have visiting nurse or other home services: No Alcohol intake: former Patient Tobacco Use Status: Never used Tobacco e-Cigarette/Vaping Use: Never Used Second Hand Smoke Exposure: No service: No Current occupational status: unemployed Sexual orientation: Straight/Heterosexual Cognitive needs: No Hearing needs: No Vision needs: No Questionnaire Thrive Questionnaire Date Thrive assessed: 12/24/23 LALI-7 AMB Questionnaire LALI-7 Date LALI - 7 assessed: 08/26/23 Source: Developed by Drs. Omero Walsh, Kathleen Callejas, Paco Quezada and colleagues, with an educational brice from [employer]. Physical exam (Primary Care) Vital Signs: Last Vital Signs Pulse 86 02/04/24 08:50 BP 104/60 02/04/24 08:50 Pulse Ox 98 02/04/24 08:50 Oxygen Delivery Method Room Air 02/04/24 08:50 BMI result Body Mass Index 21.0 Tobacco/Smoking Status: Tobacco use Status Tobacco use date assessed 02/04/24 02/04/24 08:53 Patient Tobacco Use Status Never used Tobacco 02/04/24 08:53 e-Cigarette/Vaping Use Never Used 02/04/24 08:53 Thrive Assessment: Date of Thrive Assessment Date Thrive assessed 12/24/23 02/04/24 08:53 Const General: comfortable and no acute distress Nutritional Appearance: well nourished Orientation/consciousness: patient oriented x3 Skin General skin exam: no rashes or lesions noted Neuro General: patient oriented x3, gait normal and moves all extremities Psych Speech and movement: Normal speech and movement present Vital Signs: Last Vital Signs Pulse 86 02/04/24 08:50 BP 104/60 02/04/24 08:50 Pulse Ox 98 02/04/24 08:50 Oxygen Delivery Method Room Air 02/04/24 08:50 BMI result Body Mass Index 21.0 Const General: comfortable and no acute distress Nutritional Appearance: well nourished Orientation/consciousness: patient oriented x3 Skin General skin exam: no rashes or lesions noted Neuro General: patient oriented x3, gait normal and moves all extremities Psych Speech and movement: Normal speech and movement present Assessment and Plan Assessment & Plan (1) Urinary retention: Code(s): R33.9 - Retention of urine, unspecified Plan: Resolved. Next Apt with Urology in 05/04/24 F/U with PCP as scheduled. Coding Level of Care Code Est Pt Level 4 (22464) Diagnoses Urinary retention R33.9 Comment Spent 20 minutes reviewing hospital notes and labs
[2024-02-04 08:50] VITALS: BP 104/60; PULSE 86; O2SAT 98; BMI 21.0
== END 2024-02-04 09:14 | disposition home or self-care (01) ==
PROVIDERS: PCP Internal Medicine; Visit Provider Nurse Practitioner Family
DX: R33.9 Retention of urine, unspecified (principal)
CPT/HCPCS: 99214

== ENCOUNTER 2024-04-26 10:59 | Outpatient (REF) | payer MEDICARE, MEDICAID, SELFPAY ==
[2024-04-26 12:43] LABS: Prostate Specific Antigen 1.03 ng/mL (<0.05-4.0)
== END 2024-04-26 11:00 | disposition home or self-care (01) ==
LOC: HO.LAB 10:59
PROVIDERS: PCP Internal Medicine; Visit Provider Physician Assistant Medical
DX: N40.1 Benign prostatic hyperplasia with lower urinary tract symptoms (principal); Z12.5 Encounter for screening for malignant neoplasm of prostate
CPT/HCPCS: 36415; 84153

== ENCOUNTER 2024-06-19 13:17 | Outpatient (REF) | payer MEDICARE, MEDICAID, SELFPAY ==
[2024-06-19 13:34] LABS: MANUAL DIFF FLAG NO
[2024-06-19 13:56] LABS: Appearance Urine Clear; Color Urine Yellow; Glucose Urine UA Negative (Negative); Leukocyte Esterase Urine Negative (Negative); Nitrite Urine Negative (Negative); PH 6.5 (5.0-9.0); Urine Blood Negative (Negative); Urine Ketones Trace mg/dL (Negative); Urine Protein Negative (Neg-Trace)
[2024-06-19 14:07] LABS: Basophils Percent Auto 0.6 % (0-2); Eosinophils Percent Auto 0.4 % (0-4); Hematocrit 50.2 % (42.0-52.0); Hemoglobin 17.2 g/dl (14.0-18.0); Lymphocytes Absolute Auto 1.8 X10*3/uL (1.2-4.9); Lymphocytes Percent Auto 38.8 % (20-40); Mean Corpuscular HGB Conc 34.3 g/dl (31.0-36.0); Mean Corpuscular Hemoglobin 30.9 pg (27.0-33.0); Mean Corpuscular Volume 90.3 fL (80.0-98.0); Mean Platelet Volume 9.4 fL (9.4-12.4); Monocytes Absolute Auto 0.2 X10*3/uL (0.1-1.2); Neutrophils Absolute Auto 2.6 x10*3/uL (2.0-8.3); Neutrophils Percent Auto 55.2 % (45-73); Platelet Count 218 X10*3/uL (160-400); Red Blood Count 5.56 X10*6/uL (4.60-5.80); Red Cell Distribution Width 12.2 % (11.0-16.0); White Blood Count 4.6 X10*3/uL (4.8-10.8)
[2024-06-19 14:58] LABS: Alanine Aminotransferase 48 U/L (0-40); Albumin Level 4.2 g/dL (3.5-5.0); Alkaline Phosphatase 72 U/L (39-117); Anion Gap 14 (12-20); Aspartate Amino Transferase 52 U/L (5-37); Bilirubin Total 0.8 mg/dL (0.0-1.0); Blood Urea Nitrogen 13 mg/dL (9-16); Calcium 9.4 mg/dL (8.4-10.2); Carbon Dioxide 28 mmol/L (22-29); Chloride 101 mmol/L (96-108); Cholesterol 195 mg/dL (<200); Estimated Glomerular Filt Rate > 60; Glucose Fasting 97 mg/dL (60-99); HDL Cholesterol 56 mg/dL (>40); LDL Cholesterol Calculated 123 mg/dL (<100); Sodium 139 mmol/L (135-145); Triglycerides 80 mg/dL (<150)
[2024-06-19 15:05] LABS: TSH reflex Free T4 0.91 uIU/mL (0.32-4.0); Vitamin D 25-OH Total 54.9 ng/mL (>30)
[2024-06-19 15:14] LABS: Folate 15.4 ng/mL (> or = 4.0); Prostate Specific Antigen Scr 1.05 ng/mL (<0.05-4.0); Vitamin B12 840 pg/mL (200-900)
[2024-06-24 17:03] LABS: Vitamin B1 43 nmol/L (8-30)
[2024-06-26 13:08] LABS: Vitamin B6 68.1 ng/mL (2.1-21.7)
== END 2024-06-19 13:18 | disposition home or self-care (01) ==
LOC: HO.LAB 13:17
PROVIDERS: PCP Internal Medicine; Visit Provider Internal Medicine
DX: Z00.00 Encounter for general adult medical examination without abnormal findings (principal); D64.9 Anemia, unspecified; E78.00 Pure hypercholesterolemia, unspecified; E51.9 Thiamine deficiency, unspecified; F10.21 Alcohol dependence, in remission; R30.0 Dysuria; E53.8 Deficiency of other specified B group vitamins; E55.9 Vitamin D deficiency, unspecified; Z12.5 Encounter for screening for malignant neoplasm of prostate
CPT/HCPCS: 36415; 80053; 80061; 81003; 82306; 82607; 82746; 84153; 84207; 84425; 84443; 85025

== ENCOUNTER 2024-12-06 15:44 | Outpatient (AMB) | payer MEDICARE, MEDICAID, SELFPAY ==
[2024-12-06 15:58] VITALS: BP 120/80; PULSE 75; O2SAT 97; BMI 21.7
--- NOTE | 2024-12-06 16:01 | A.OFFVIS_ITS ---
Intake Vital Signs 12/06/24 15:58 Height 6 ft 1 in Weight 164 lb 2 oz BMI 21.7 BP 120/80 Blood Pressure Location Lt brachial Position Sitting Pulse 75 Pulse Source Pulse Oximeter Pulse Oximetry (%) 97 Oxygen Delivery Method Room Air Intake Visit Reasons: AWV Mental Health Aide Required: No Accompanied by: Self / Same As Patient Allergies No Known Allergies Allergy (Verified 12/06/24 16:15) Medication List - Last Reconciled 12/06/24 by Matthieu Egan MD acetaminophen 325 - 650 mg (1 - 2 x 325 mg) PO Q6H PRN benztropine 0.5 mg PO BEDTIME 30 days bupropion HCl XL 300 mg PO DAILY 30 days cholecalciferol (vitamin D3) (Vitamin D3) 25 mcg PO DAILY 90 days diclofenac sodium 1% 2 grams topical QID PRN hydroxyzine HCl 25 mg PO Q6H PRN 30 days melatonin 6 mg (2 x 3 mg) PO BEDTIME 30 days multivitamin with folic acid 400 mcg (Daily-Vivi (with folic acid)) 1 tab PO DAILY olanzapine 7.5 mg PO BEDTIME 30 days polyethylene glycol 3350 (Miralax) 17 grams PO DAILY 30 days pyridoxine (vitamin B6) 100 mg PO DAILY sennosides-docusate sodium 8.6-50 mg (Senokot-S) 1 tab-cap PO BEDTIME PRN 30 days thiamine HCl (vitamin B1) 50 mg PO DAILY thiamine HCl (vitamin B1) 100 mg PO DAILY 90 days Do you need a note to return to daycare/school/sports/work: No HPI AWV HPI Details Patient comes in today for his Medicare Annual Wellness Exam States that he currently feels okay Notes that he has been getting nosebleeds often lately - he has (+) Hx of Von Willebrand disease He denies any headaches or dizziness Denies any chest pains, no increased SOB No nausea/vomiting, no abdominal pain No change in bowel habits noted States that he is following up with psychiatry regularly and that they are managing his medications and that he is currently doing well on his present meds - [place] of care was reviewed and updated today Patient does not know if he has a healthcare proxy in place or not; he [place] and will need to check with [place] regarding this IPPE/AWV: c/o of Annual Wellness Visit, initial visit. Medical / Social History Reviewed Past Medical History Yes . [place] of Care / Care Team list updated Yes . Surgical/Hospitalization History Yes . Current Medications (including OTC and supplements) Yes . Family History Yes . Tobacco Control form Yes . AUDIT-C (Alcohol use) form Yes . Illicit drug use in Social History Yes . Current diagnosis of depression? No Appropriate PHQ2/PHQ9 completed Yes . Data entered by Residential Building Inspector and reviewed by provider Home Safety Throw rugs? No Grab bars? No Raised toilet seats? No Working smoke detectors? Yes Working carbon monoxide detectors? Yes Data entered by Residential Building Inspector and reviewed by provider Activities of Daily Living (ADLs) Difficulty bathing or showering? No Difficulty dressing? No Difficulty using the toilet? No Difficulty getting in and out of bed? No Difficulty walking? No Receives help from another person with any of the above tasks? No Instrumental Activities of Daily Living (IADLs) Uses the telephone without help Gets to places out of walking distance without help Goes shopping for groceries with help Prepares own meals with help Does own minor home maintenance with help Does own laundry with help Does own housework with help Manages own money with help Currently takes medications? Yes Takes medication with help End-of-Life Planning Discussed advance directive Yes but patient unable to fully participate Advance directive unknown Discussed wishes expressed in advance directive not at this time Fall Risk: Fall History Have you had any falls with injury in the past year? No . Have you had two or more falls in the past year? No . Fall Risk Assessment: No falls in the past year . HRA filled out by the patient, reviewed by Provider and scanned. [facility] Medical History Pure hypercholesterolemia Thiamine deficiency Low back pain Vitamin D deficiency Psychosis Bipolar affective disorder Alcoholism in recovery Von Willebrand disease Surgical History (Updated 12/06/24 @ 16:19 by Matthieu Egan MD) H/O colonoscopy with polypectomy Hx of local excision of skin lesion History of inguinal hernia repair, bilateral Social History Household Members: Other Household Members Other:: clients Housing: Other Housing Other:: transitional home Do you presently have visiting nurse or other home services: No Alcohol intake: former Patient Tobacco Use Status: Never used Tobacco e-Cigarette/Vaping Use: Never Used Second Hand Smoke Exposure: No service: No Current occupational status: unemployed Sexual orientation: Straight/Heterosexual Cognitive needs: No Hearing needs: No Vision needs: No Questionnaire Medicare Wellness Checkup What gender do you identify with?: male During the past 4 weeks, how much have you been bothered by emotional problems such as feeling anxious, depressed, irritable, sad or downhearted, and blue?: moderately During the past 4 weeks, has your physical & emotional health limited your social activities with family, friends, neighbors, or groups?: moderately During the past 4 weeks, how much bodily pain have you generally had?: moderate pain During the past 4 weeks, was someone available to help you if you needed & wanted help?: yes, a little During the past 4 weeks, what was the hardest physical activity you could do for at least 2 minutes?: light Can you get to places out of walking distance without help? (For eg., can you travel alone on buses, taxis or drive your car?): No Can you go shopping for groceries or clothes without someone's help?: No Can you prepare your own meals?: Yes Can you do your housework without help?: No Because of any health problems, do you need the help of another person with your personal care needs such as eating, bathing, dressing or getting around the house?: No Can you handle your own money without help?: No During the past 4 weeks, how would you rate your health in general?: fair During the past 4 weeks how have things been going for you?: good & bad parts about equal Are you having difficulties driving your car?: yes, often Do you always fasten your seat belt when you are in a car?: yes, sometimes During past 4 weeks, have you been bothered by the following: never: Problems using the telephone?, seldom: Trouble eating well?, Teeth or denture problems? and Tiredness or fatigue? and sometimes: Falling or dizzy when standing up Have you fallen 2 or more times in the past year?: No Are you afraid of falling?: No Are you a smoker?: no During the past 4 weeks, how many drinks of wine, beer, or other alcoholic beverages did you have?: 2-5 drinks per week Do you exercise for about 20 minutes 3 or more times a week?: yes, most of the time Have you been given information to help with the following?: yes: Keeping track of your medications? and no: Hazards in your house that might hurt you? How confident are you that you can control & manage most of your health problems?: somewhat confident Mini Mental State Exam (MMSE) Orientation What is the (year) (season) (date) (day) (month)?: year, season and day Where are we (state) (county) (town or city) (hospital) (floor)?: state and hospital/clinic Score Score: 5 Activity of Daily Living Bathing - sponge bath, tub bath or shower: receives no assistance (gets in/out by self, if usual bathing means Dressing - getting clothes from closets & drawers, including inner/outer garments & fasteners.: gets clothes & gets completely dressed without help Toileting - going to the 'toilet room' for urine/bowel elimination & cleaning self/arranging clothes: goes to toilet room, cleans self, arranges clothes without help Transfer: moves in & out of bed and chair without help (may use support object) Continence: controls urination/bowel movements completely by self Feeding: feeds self without help Total Score: 0 Information obtained from: patient Using telephone: independent Traveling: needs assistance Shopping: needs assistance Preparing meals: independent Housework: needs assistance Taking medicine: needs assistance Managing money: dependent PHQ-9 Over the last 2 weeks, how often have you been bothered by any of the following problems? 1. Little interest or pleasure in doing things: more than half the days 2. Feeling down, depressed, or hopeless: several days 3. Trouble falling or staying asleep, or sleeping too much: several days 4. Feeling tired or having little energy: several days 5. Poor appetite or overeating: not at all 6. Feeling bad about yourself - or that you are a failure or have let yourself or your family down: several days 7. Trouble concentrating on things, such as reading the newspaper or watching television: nearly every day 8. Moving or speaking so slowly that other people could have noticed. Or the opposite - being so fidgety or restless that you have been moving around a lot more than usual: several days 9. Thoughts that you would be better off or of hurting yourself in some way: several days Total score: 11 Depression Screening Interpretation: Positive Depression Screening Follow-up: Existing condition and In treatment Depression Screening Done: Yes 28539 - PHQ-9 Billing: Yes Source: Developed by Drs. Omero Walsh, Kathleen Callejas, Paco Quezada and colleagues, with an educational brice from [employer]. PHQ-2/PHQ-9 PHQ-2 Over the last 2 weeks, how often have you been bothered by any of the following problems? 1. Little interest or pleasure in doing things: more than half the days 2. Feeling down, depressed, or hopeless: several days Total score: 3 If score is 3 or greater, continue 3. Trouble falling or staying asleep, or sleeping too much: several days 4. Feeling tired or having little energy: several days 5. Poor appetite or overeating: not at all 6. Feeling bad about yourself - or that you are a failure or have let yourself or your family down: several days 7. Trouble concentrating on things, such as reading the newspaper or watching television: nearly every day 8. Moving or speaking so slowly that other people could have noticed. Or the opposite - being so fidgety or restless that you have been moving around a lot more than usual: several days 9. Thoughts that you would be better off or of hurting yourself in some way: several days Total score: 11 0-4 None-Minimal, 5-9 Mild, 10-14 Moderate, 15-19 Moderately Severe, 20-27 Severe Source: Developed by Drs. Omero Walsh, Kathleen Callejas, Paco Quezada and colleagues, with an educational brice from [employer]. Thrive Questionnaire Date Thrive assessed: 12/06/24 I am a: Patient What is your living situation today?: I do not have a steady places to live I am staying at a halfway Within the past 12 months, did the food you bought not last and you didn't have the money to get more?: I choose not to answer this question Within the past 12 months, did you worry whether your food would run out before you got money to buy more?: I choose not to answer this question Do you have trouble paying for medicines?: I choose not to answer this question Do you have trouble getting transportation to medical appointments?: No Do you have trouble paying your heating and electricity bill?: I choose not to answer this question Do you have trouble taking care of your child, family member or friend?: No Do you have trouble with day-to-day activities such as bathing, preparing meals, shopping, managing finances, etc.?: I choose not to answer this question Are you currently unemployed and looking for a job?: Yes Are you interested in more education?: No Please select the resources that you would like help with: Housing/Assisted and Daily support Currently or been in a relationship where the following occur: I choose not to answer THRIVE Score: 1 LALI-7 AMB Questionnaire LALI-7 Date LALI - 7 assessed: 12/06/24 Feeling nervous, anxious, or on edge: 2 = More than half the days Not being able to stop or control worryin = Several days Worrying too much about different things: 1 = Several days Trouble relaxin = More than half the days Being so restless that it is hard to sit still: 1 = Several days Becoming easily annoyed or irritable: 0 = Not at all Feeling afraid as if something awful might happen: 3 = Nearly every day Total LALI-7 score (0-4 normal; 5-9 mild; 10-14 moderate; 15-21 severe): 10 Source: Developed by Drs. Omero Walsh, Kathleen Callejas, Paco Quezada and colleagues, with an educational brice from [employer]. Review of Systems Const Denies chills, Denies fatigue, Denies fever(s) and Denies headache(s) ENT Denies dysphagia, Denies dizziness, Denies otalgia, Denies headache(s), Reports epistaxis (on and off lately), Denies neck pain, Denies odynophagia and Denies sore throat Card Denies chest pain, Denies irregular heart rhythm, Denies palpitations and Denies dyspnea Resp Denies chest congestion, Denies cough and Denies dyspnea GI Denies abdominal pain, Denies constipation, Denies dysphagia, Denies heartburn, Denies diarrhea, Denies nausea, Denies odynophagia and Denies vomiting Denies hematuria, Denies difficulty urinating, Denies dysuria and Denies urinary frequency Musc Denies back pain, Denies arthralgias and Denies neck pain Skin/Breast Denies rash Neuro Denies dizziness, Denies headache(s) and Denies paresthesias Endo Denies fatigue and Denies palpitations Physical Exam Vital Signs: Last Vital Signs Pulse 75 12/06/24 15:58 BP 120/80 12/06/24 15:58 Pulse Ox 97 12/06/24 15:58 Oxygen Delivery Method Room Air 12/06/24 15:58 BMI result Body Mass Index 21.7 IPPE/AWV: Balance Romberg Yes . Tandem walk Yes . Walk and Turn Yes . Rise from sit to stand Yes . Vision Corrective lens No Vision screen pass Hearing Whisper test fail . Urinary incont. no. EKG Not clinically necessary. Const General: no acute distress and alert Orientation/consciousness: oriented to person and oriented to place HEENT Ears: TM's normal bilaterally and EAC's normal Throat: Yes posterior oropharynx normal and Yes tonsils normal (no TP congestion) Neck Neck: Yes supple and No lymphadenopathy Thyroid: Thyroid normal Resp Auscultation: clear to auscultation bilaterally, no rales and no wheezes Cardio Rate: regular rate Rhythm: regular rhythm Heart sounds: no murmurs GI Palpation (GI): Soft to palpation and nontender Auscultation: normal bowel sounds General: Yes no CVA tenderness Back/Spine/Pelvis Back: no CVA tenderness Thoracic/Lumbar Spine: No lumbar spinal tenderness Skin Rashes: no rashes Neuro General: oriented to person, oriented to place and no focal motor deficits Extrem General: Yes no clubbing, cyanosis or edema Assessment & Plan Assessment & Plan (1) Medicare annual wellness visit, initial: Code(s): Z00.00 - Encounter for general adult medical examination without abnormal findings Plan: HRA form discussed and completed with patient - form will be scanned into patient's chart STEVO updated (2) Epistaxis: Code(s): R04.0 - Epistaxis Plan: Have advised patient that his recent recurrent epistaxis is likely due to a combination of allergies as well as his Von Willebrand disease Have advised him that his Hydroxyzine should help with his allergies but if he continues to experience frequent nosebleeds, we an start him on some oral antihistamines like Loratadine as well as allergy nasal spray like Fluticasone Plan Follow up in 4 months Quality Reporting (2019) Depression/Bipolar (159/160/161/177) PHQ-9: Total score: 11 Coding Level of Care Code Medicare First (G0438) Est Pt Level 3 (96791) Diagnoses Medicare annual wellness visit, initial Z00.00 Epistaxis R04.0 Additional Codes PHQ-9 - 45186 - PHQ-9 Billing: Yes ([id number])
== END 2024-12-06 16:31 | disposition home or self-care (01) ==
LOC: HO.HMCH 15:45
PROVIDERS: PCP Internal Medicine; Visit Provider Internal Medicine
DX: Z00.00 Encounter for general adult medical examination without abnormal findings (principal); R04.0 Epistaxis

== ENCOUNTER → 2024-12-06 15:44 | Outpatient (BNVA) | payer MEDICARE, MEDICAID, SELFPAY | PROVIDERS: PCP Internal Medicine; Visit Provider Internal Medicine | DX: Z00.00 Encounter for general adult medical examination without abnormal findings (principal); R04.0 Epistaxis | CPT/HCPCS: 96127; 99212 ==

== ENCOUNTER 2025-04-16 13:59 | Outpatient (REF) | payer MEDICARE, MEDICAID, SELFPAY ==
[2025-04-16 15:27] LABS: MANUAL DIFF FLAG NO
[2025-04-16 16:13] LABS: Appearance Urine Clear; Glucose Urine UA Negative (Negative); PH 8.5 (5.0-9.0); Specific Gravity - Urine <= 1.005 (1.005-1.025)
[2025-04-16 16:32] LABS: Hematocrit 48.4 % (42.0-52.0); Hemoglobin 16.4 g/dl (14.0-18.0); Imm Gran Abs Auto 0.01 X10*3/uL (0.00-0.03); Imm Gran Pct Auto 0.3 % (0.0-0.4); Lymphocytes Absolute Auto 1.6 X10*3/uL (1.2-4.9); Mean Corpuscular HGB Conc 33.9 g/dl (31.0-36.0); Mean Corpuscular Hemoglobin 30.1 pg (27.0-33.0); Mean Corpuscular Volume 89.0 fL (80.0-98.0); NRBC Abs Auto 0.000 X10*3/uL (0.0-0.012); NRBC Pct Auto 0.0 /100WBC (0.0-0.2); Platelet Count 209 X10*3/uL (160-400); Red Blood Count 5.44 X10*6/uL (4.60-5.80); White Blood Count 3.7 X10*3/uL (4.8-10.8)
[2025-04-16 17:03] LABS: Alanine Aminotransferase 34 U/L (0-40); Albumin Level 4.8 g/dL (3.5-5.0); Alkaline Phosphatase 97 U/L (39-117); Anion Gap 11 (12-20); Aspartate Amino Transferase 36 U/L (5-37); Blood Urea Nitrogen 11 mg/dL (9-16); Calcium 10.0 mg/dL (8.4-10.2); Carbon Dioxide 32 mmol/L (22-29); Chloride 102 mmol/L (96-108); Cholesterol 204 mg/dL (<200); Estimated Glomerular Filt Rate > 60; HDL Cholesterol 52 mg/dL (>40); Potassium 4.4 mmol/L (3.3-5.1); Sodium 141 mmol/L (135-145); Total Protein 7.7 g/dL (6.5-8.0); Triglycerides 84 mg/dL (<150)
[2025-04-16 17:27] LABS: Folate 14.8 ng/mL (> or = 4.0); Vitamin B12 1522 pg/mL (200-900)
== END 2025-04-16 14:00 | disposition home or self-care (01) ==
LOC: HO.LAB 13:59
PROVIDERS: Absent Provider Physician Assistant Medical; PCP Internal Medicine; Visit Provider Internal Medicine
DX: R73.01 Impaired fasting glucose (principal); E78.00 Pure hypercholesterolemia, unspecified; D64.9 Anemia, unspecified; E55.9 Vitamin D deficiency, unspecified; R30.0 Dysuria; E53.8 Deficiency of other specified B group vitamins; N40.1 Benign prostatic hyperplasia with lower urinary tract symptoms; D68.00 Von Willebrand disease, unspecified; M54.50 Low back pain, unspecified; M54.2 Cervicalgia; E51.9 Thiamine deficiency, unspecified; R79.89 Other specified abnormal findings of blood chemistry; F10.21 Alcohol dependence, in remission; F31.60 Bipolar disorder, current episode mixed, unspecified; Z79.899 Other long term (current) drug therapy
CPT/HCPCS: 36415; 80053; 80061; 81003; 82306; 82607; 82746; 83036; 84443; 85025; 96127; 99212

== ENCOUNTER 2025-04-16 13:59 | Outpatient (AMB) | payer MEDICARE, MEDICAID, SELFPAY ==
[2025-04-16 14:16] VITALS: BP 116/66; PULSE 79; TEMP 36.3; O2SAT 97; BMI 20.5
--- NOTE | 2025-04-16 14:16 | MHC.PC.OV ---
Vital Signs 04/16/25 14:16 Height 6 ft 1 in Weight 155 lb 4 oz BMI 20.5 BP 116/66 Blood Pressure Location Lt brachial Position Sitting Pulse 79 Pulse Source Pulse Oximeter Temp 97.3 F Temp Source Temporal Artery Scan Pulse Oximetry (%) 97 Oxygen Delivery Method Room Air Intake Visit Reasons: 4 mn f/u Parole Officer Required: No Accompanied by: Self / Same As Patient Allergies No Known Allergies Allergy (Verified 04/16/25 14:56) Medication List - Last Reconciled 04/16/25 by Matthieu Egan MD acetaminophen 325 - 650 mg (1 - 2 x 325 mg) PO Q6H PRN benztropine 0.5 mg PO BID bupropion HCl XL 300 mg PO DAILY 30 days cholecalciferol (vitamin D3) (Vitamin D3) 25 mcg PO DAILY 90 days diclofenac sodium 1% 2 grams topical QID PRN haloperidol 10 mg PO BEDTIME hydroxyzine HCl 25 mg PO Q6H PRN 30 days melatonin 6 mg (2 x 3 mg) PO BEDTIME 30 days mirtazapine 22.5 mg PO BEDTIME multivitamin with folic acid 400 mcg (Daily-Vivi (with folic acid)) 1 tab PO DAILY polyethylene glycol 3350 (Miralax) 17 grams PO DAILY 30 days pyridoxine (vitamin B6) 100 mg PO DAILY sennosides-docusate sodium 8.6-50 mg (Senokot-S) 1 tab-cap PO BEDTIME PRN 30 days thiamine HCl (vitamin B1) 50 mg PO DAILY thiamine HCl (vitamin B1) 100 mg PO DAILY 90 days Tobacco use date assessed: 04/16/25 Dental Screening Dental Screen Date: 04/16/25 Did you have a dental visit in the last 12 months?: Yes Did you have a dental problem in the last 6 months where you did not have access to dental care?: No Was dental information given to patient?: Patient has dentist HPI 4 mn f/u HPI Details Patient comes in today for his follow-up visit States that he feels okay and mainly needs a couple of his (psychiatric) medications refilled States that he used to see a psychiatrist but has not seen one lately and was advised that it will take a while to get him back to seeing one and to ask his PCP in the meantime to help refill his Rx for him States that he has a hard time sleeping at night without these 2 medications - Haldol and Benztropine He denies any headaches or dizziness Denies any chest pains, no increased shortness of breath No nausea/vomiting, no abdominal pain No change in bowel habits noted He has not had any follow up labs done since May [address] Medical History Pure hypercholesterolemia Thiamine deficiency Low back pain Vitamin D deficiency Psychosis Bipolar affective disorder Alcoholism in recovery Von Willebrand disease Surgical History H/O colonoscopy with polypectomy Hx of local excision of skin lesion History of inguinal hernia repair, bilateral Social History Household Members: Other Household Members Other:: clients Housing: Other Housing Other:: transitional home Do you presently have visiting nurse or other home services: No Alcohol intake: former Patient Tobacco Use Status: Never used Tobacco e-Cigarette/Vaping Use: Never Used Second Hand Smoke Exposure: No service: No Current occupational status: unemployed Sexual orientation: Straight/Heterosexual Cognitive needs: No Hearing needs: No Vision needs: No Questionnaire PHQ-9 Over the last 2 weeks, how often have you been bothered by any of the following problems? 1. Little interest or pleasure in doing things: more than half the days 2. Feeling down, depressed, or hopeless: several days 3. Trouble falling or staying asleep, or sleeping too much: several days 4. Feeling tired or having little energy: several days 5. Poor appetite or overeating: not at all 6. Feeling bad about yourself - or that you are a failure or have let yourself or your family down: several days 7. Trouble concentrating on things, such as reading the newspaper or watching television: nearly every day 8. Moving or speaking so slowly that other people could have noticed. Or the opposite - being so fidgety or restless that you have been moving around a lot more than usual: several days 9. Thoughts that you would be better off or of hurting yourself in some way: several days Total score: 11 Depression Screening Interpretation: Positive Depression Screening Follow-up: Existing condition and In treatment Depression Screening Done: Yes 13008 - PHQ-9 Billing: Yes Source: Developed by Drs. Omero Walsh, Kathleen Callejas, Paco Quezada and colleagues, with an educational brice from [employer]. Thrive Questionnaire Date Thrive assessed: 04/16/25 I am a: Patient What is your living situation today?: I do not have a steady places to live I am staying at a skilled nursing Within the past 12 months, did the food you bought not last and you didn't have the money to get more?: I choose not to answer this question Within the past 12 months, did you worry whether your food would run out before you got money to buy more?: I choose not to answer this question Do you have trouble paying for medicines?: I choose not to answer this question Do you have trouble getting transportation to medical appointments?: No Do you have trouble paying your heating and electricity bill?: I choose not to answer this question Do you have trouble taking care of your child, family member or friend?: No Do you have trouble with day-to-day activities such as bathing, preparing meals, shopping, managing finances, etc.?: I choose not to answer this question Are you currently unemployed and looking for a job?: Yes Are you interested in more education?: No Currently or been in a relationship where the following occur: I choose not to answer THRIVE Score: 1 AUDIT C Alcohol Use Questionnaire (AUDIT-C) 1. How often do you have a drink containing alcohol?: Never (since he quit drinking; currently in recovery) 3. How often do you have six or more drinks on one occasion?: Never Total Score: 0 Score Reviewed/Action Taken: Yes LALI-7 AMB Questionnaire LALI-7 Date LALI - 7 assessed: 12/06/24 Source: Developed by Drs. Omero Walsh, Kathleen Callejas, Paco Quezada and colleagues, with an educational brice from [employer]. Review of Systems Const Denies chills, Reports difficulty sleeping (Rx help), Denies fatigue, Denies fever(s) and Denies headache(s) ENT Denies dysphagia, Denies dizziness, Denies otalgia, Denies headache(s), Denies neck pain, Denies odynophagia and Denies sore throat Card Denies chest pain, Denies irregular heart rhythm, Denies palpitations and Denies dyspnea Resp Denies chest congestion, Denies cough and Denies dyspnea GI Denies abdominal pain, Denies constipation, Denies dysphagia, Denies heartburn, Denies diarrhea, Denies nausea, Denies odynophagia and Denies vomiting Denies difficulty urinating, Denies dysuria, Denies nocturia and Denies urinary frequency Musc Denies back pain, Denies arthralgias and Denies neck pain Skin/Breast Denies rash Neuro Denies dizziness, Denies headache(s) and Denies paresthesias Psych Reports anxiety and Reports depression Endo Denies fatigue and Denies palpitations Physical exam (Primary Care) Vital Signs: Last Vital Signs Temp 97.3 F 04/16/25 14:16 Pulse 79 04/16/25 14:16 BP 116/66 04/16/25 14:16 Pulse Ox 97 04/16/25 14:16 Oxygen Delivery Method Room Air 04/16/25 14:16 BMI result Body Mass Index 20.5 Tobacco/Smoking Status: Tobacco use Status Tobacco use date assessed 04/16/25 04/16/25 14:17 Patient Tobacco Use Status Never used Tobacco 04/16/25 14:17 e-Cigarette/Vaping Use Never Used 04/16/25 14:17 Depression Screening Interpretation: Positive Depression Screening Follow-up: Existing condition and In treatment Thrive Assessment: Date of Thrive Assessment Date Thrive assessed 12/06/24 04/16/25 14:17 Currently or been in a relationship where the following occur: I choose not to answer Const General: no acute distress and alert HENMT Ears: TM's normal bilaterally and EAC's normal Throat: Yes posterior oropharynx normal and Yes tonsils normal (no TP congestion) Neck Neck: Yes supple and No lymphadenopathy Thyroid: Thyroid normal Resp Auscultation: clear to auscultation bilaterally, no rales and no wheezes Cardio Rate: regular rate Rhythm: regular rhythm Heart sounds: no murmurs GI Palpation (GI): Soft to palpation and nontender Auscultation: normal bowel sounds General: Yes no CVA tenderness Back/Spine/Pelvis Back: no CVA tenderness Thoracic/Lumbar Spine: lumbar spinal tenderness (mild) Skin Rashes: no rashes Extrem General: Yes no clubbing, cyanosis or edema Coding Level of Care Code Est Pt Level 4 (10562) Diagnoses Pure hypercholesterolemia E78.00 Von Willebrand disease D68.00 Vitamin D deficiency E55.9 Low back pain without sciatica, unspecified back pain laterality, unspecified chronicity M54.50 Chronicity: unspecified Back pain laterality: unspecified Sciatica presence: without sciatica Neck pain M54.2 Thiamine deficiency E51.9 Elevated LFTs R79.89 Alcoholism in recovery F10.21 Bipolar affective disorder, current episode mixed, current episode severity unspecified F31.60 Active/Remission status: currently active Current bipolar episode type: mixed Current episode severity: unspecified Additional Codes PHQ-9 - 05006 - PHQ-9 Billing: Yes ([id number]) Assessment & Plan Assessment & Plan (1) Pure hypercholesterolemia: Code(s): E78.00 - Pure hypercholesterolemia, unspecified Category: Medical Plan: Reinforced low cholesterol diet Will have patient recheck his labs and fasting lipids ARELY for follow up as he has not had his cholesterol levels checked since May 2024 He is currently not on any medications for high cholesterol (2) Von Willebrand disease: Code(s): D68.00 - Von Willebrand disease, unspecified Category: Medical Plan: Patient states that he's had no issues with bleeding lately His labs done back in July 2023 confirmed a prolonged aPTT level consistent with decreased Factor VIII activity although he has normal VWF Ag and activity levels and normal VWF multimeric study (3) Vitamin D deficiency: Code(s): E55.9 - Vitamin D deficiency, unspecified Category: Medical Plan: Continue Vitamin D3 1000 units QD (4) Low back pain: Code(s): M54.50 - Low back pain, unspecified Category: Medical Qualifiers: Chronicity: unspecified Back pain laterality: unspecified Sciatica presence: without sciatica Qualified Code(s): M54.50 - Low back pain, unspecified Plan: Reinforced activity and weight lifting restrictions to avoid aggravating his low back pain Continue Diclofenac sodium 1% apply to painful areas QID PRN and Acetaminophen 325 mg 1 to 2 tablets Q 8 hours PRN He was previously sent for lumbar spine x-rays for further evaluation but he never got these done (5) Neck pain: Code(s): M54.2 - Cervicalgia Category: Medical Plan: He was also previously sent for cervical spine x-rays for further evaluation of his recurrent neck pain but never went and got these done as well (6) Thiamine deficiency: Code(s): E51.9 - Thiamine deficiency, unspecified Category: Medical Plan: Continue Thiamine 100 mg QD (7) Elevated LFTs: Code(s): R79.89 - Other specified abnormal findings of blood chemistry Category: Medical Plan: His LFTs were elevated on his most recent labs done back in May 2024, most likely in relation to his drinking (alcohol) at the time Will send him for repeat labs and to recheck his LFTs [facility] for follow up (8) Alcoholism in recovery: Code(s): F10.21 - Alcohol dependence, in remission Category: Social Hx Plan: Patient is in recovery and states that he has been abstinent for almost a year now; he was enrolled in the [employer] program in [place] previously and continues to participate in his meetings Continue Thiamine 100 mg QD and Folic Acid 1 mg QD (9) Bipolar affective disorder: Code(s): F31.9 - Bipolar disorder, unspecified Category: Medical Qualifiers: Active/Remission status: currently active Current bipolar episode type: mixed Current episode severity: unspecified Qualified Code(s): F31.60 - Bipolar disorder, current episode mixed, unspecified Plan: Patient has suffered from some paranoia in the past - he believed then that there were several people with guns who are constantly after him Continue Bupropion XL 300 mg Q AM, Benztropine 0.5 mg BID, Gabapentin 100 mg Q HS, Haloperidol 10 mg Q HS, Hydroxyzine 25 mg Q 6 hours PRN for anxiety and Mirtazapine 22.5 mg Q HS He is also taking some Melatonin 6 mg Q HS Follow up with psychiatry as scheduled Plan Follow up in 4 months Orders: Orders Comprehensive [place]. Panel Fast 04/16/25 Matthieu Egan MD E78.00 - Pure hypercholesterolemia, unspecified TSH reflex Free T4 04/16/25 Matthieu Egan MD E78.00 - Pure hypercholesterolemia, unspecified Complete Blood Count Auto Diff 04/16/25 Matthieu Egan MD D64.9 - Anemia, unspecified Lipid Panel 04/16/25 Matthieu Egan MD E78.00 - Pure hypercholesterolemia, unspecified UA CC w/rflx Micro + Cult 04/16/25 Matthieu Egan MD R30.0 - Dysuria Hemoglobin A1c 04/16/25 Matthieu Egan MD R73.01 - Impaired fasting glucose Vitamin B12 and Folate 04/16/25 Matthieu Egan MD E53.8 - Deficiency of other specified B group vitamins Vitamin D 25-OH Total 04/16/25 Matthieu Egan MD E55.9 - Vitamin D deficiency, unspecified Medications: New haloperidol 10 mg PO BEDTIME Changed From benztropine 0.5 mg PO BEDTIME 30 days 30 tabs 0RF To benztropine 0.5 mg PO BID Samara Zuñiga, ANURAG
== END 2025-04-16 15:02 | disposition home or self-care (01) ==
LOC: HO.HMCH 14:00
PROVIDERS: PCP Internal Medicine; Visit Provider Internal Medicine
DX: E78.00 Pure hypercholesterolemia, unspecified (principal); D68.00 Von Willebrand disease, unspecified; F10.21 Alcohol dependence, in remission; F31.60 Bipolar disorder, current episode mixed, unspecified; E55.9 Vitamin D deficiency, unspecified; M54.50 Low back pain, unspecified; M54.2 Cervicalgia; E51.9 Thiamine deficiency, unspecified; R79.89 Other specified abnormal findings of blood chemistry